=== PATIENT | female | born 1940 | race Caucasian/White ===

== ENCOUNTER 2024-04-17 08:27 | Outpatient (REF) | payer MEDICARE, SELFPAY ==
--- NOTE | ~2024-04-17 | FL_ITS ---
EXAMINATION: XR FLUOROSCOPY UPPER GI WITH AIR CLINICAL INFORMATION: Dysphagia COMPARISON: None TECHNIQUE: Fluoroscopic air contrast upper GI examination was performed utilizing standard techniques with thin and thick barium and effervescent granules. Numerous spot images were obtained. FINDINGS: Lateral cine images of the oropharynx and hypopharynx demonstrate normal swallow mechanism with normal epiglottic inversion and soft palate elevation. There is trace laryngeal penetration with thick barium. No tracheal penetration, glottic or subglottic aspiration identified. No nasopharyngeal reflux present. Hypopharyngeal structures appear normal without evidence of mass. There is a tiny lateral pharyngeal diverticulum (RF 1-5, image 12). There was no significant cricopharyngeal achalasia. Dual and single contrast images of the esophagus demonstrate normal caliber and contour. Subtle granular mucosal appearance to the distal one third of the esophagus. No evidence of stricture, mass, or ulcerations identified. Esophageal peristalsis is mildly disorganized. A small type I hiatal hernia is present. Significant gastroesophageal reflux is seen up to the thoracic inlet. Dual contrast and single contrast images of the stomach demonstrated a normal contour. Evaluation of the gastric mucosa is limited due to underdistention of stomach from poor tolerance of the effervescent granules. The gastric rugal folds have a thickened appearance, suggestive of gastritis, however, this may be also due to underdistention of the stomach. No obvious masses or ulcerations are seen. After 10 minutes, only a small amount barium passes from the gastric antrum and into duodenal bulb and second portion of the duodenum. FLUOROSCOPY TIME: 5 minutes 8 seconds Number of Spot Images: 7 Number of Cine: 18 DOSE AREA PRODUCT: 3609 uGy-m2 (microgray-meter squared) FL/FL barium swallow with air IMPRESSION: 1. Trace laryngeal penetration with thick barium. 2. Mildly disorganized esophageal peristalsis. Subtle granular appearance to the distal esophageal mucosa suggesting mild esophagitis. 3. Limited evaluation of the gastric mucosa due to underdistention of stomach from poor tolerance of the effervescent granules. The gastric rugal folds have a thickened appearance, suggestive of gastritis, however, this may be also due to underdistention of the stomach. 4. After 10 minutes, only a small amount of barium passes into the duodenal bulb and second portion of duodenum. This is most likely on the basis of gastric hypomotility. Recommend correlation with EGD. This procedure was performed by Lb Valdovinos PA-C, and supervised by Dr. Brambila Electronically signed by: Gus Brambila MD 04/18/2024 03:08 PM [facility]
--- OUTSIDE RECORDS SUMMARY | 2024-04-17 08:46 | XMS_ITS | Continuity of Care Document ---
[facility] Organization [facility] Address [address] [place] [id number] Insurance Providers Payer Plan Claims Address Claims Phone Policy Number Group Number Relation Employer Guarantor Name Guarantor Guarantor Address Guarantor Phone HNE SELF FUNDED HNE SELF FUNDE D [facility], [address], [place] [address] tel:[phone] Self Viry Crump [address] [place] [address] [id number] Problems Unknown Problems Results Test Value / Unit Interpretation Reference Ran Comp. Metabolic Panel (14)[[id number]]?Collected: 02/17/2024 10:39 PM?Specimen Received: 02/17/2024 05:00 AM?Source: [facility] Glucose [142848] 103 mg/dL H 70-99 mg/dL BUN [141001] 29 mg/dL H 8-27 mg/dL Creatinine [742567] 0.67 mg/dL 0.57-1.0 0 mg/dL eGFR [588186] 88 mL/min/1.73 >59 mL/min/1 .73 BUN/Creatinine Ratio [758346] 43 H 12-28 Sodium [469103] 142 mmol/L 134-144 mmol /L Potassium [545835] 4.4 mmol/L 3.5-5.2 m mol/L Chloride [654078] 105 mmol/L 96-106 mmo l/L Carbon Dioxide, Total [600475] 20 mmol/L 20-29 mmol/L Calcium [847496] 9.6 mg/dL 8.7-10.3 mg /dL Protein, Total [611457] 7.1 g/dL 6.0- 8.5 g/dL Albumin [760942] 4.4 g/dL 3.7-4.7 g/d L Globulin, Total [452894] 2.7 g/dL 1.5 -4.5 g/dL Bilirubin, Total [055820] 0.2 mg/dL 0. 0-1.2 mg/dL Alkaline Phosphatase [216403] 112 IU/L 44-121 IU/L AST (SGOT) [144068] 19 IU/L 0-40 IU/ L ALT (SGPT) [912761] 16 IU/L 0-32 IU/ L Lipid Panel[[id number]]?Collected: 02/17/2024 10:39 PM?Specimen Received: 02/17/2024 05:00 AM?Source: [facility] Cholesterol, Total [039761] 258 mg/dL H 100-199 mg/dL Triglycerides [363561] 128 mg/dL 0-149 mg/dL HDL Cholesterol [057910] 67 mg/dL >39 mg/dL VLDL Cholesterol Wing [928809] 23 mg/dL 5-40 mg/dL LDL Chol Calc (NIH) [124999] 168 mg/dL H 0-99 mg/dL Hemoglobin A1c[299480]?Collected: 02/17/2024 10:39 PM?Specimen Received: 02/17/2024 05:00 AM?Source: [facility] Hemoglobin A1c [797642] 6.0 % H 4.8- 5.6 % . Prediabetes: 5.7 - 6.4 Marielena betes: >6.4 Glycemic control for adults with diabetes: 7.0 Allergies, adverse reactions, alerts No known allergies and adverse reactions Medications No administered medications reported Vital Signs No vital signs reported Social History No smoking Hx information available
--- OUTSIDE RECORDS SUMMARY | 2024-04-17 08:46 | XMS_ITS | Continuity of Care Document ---
Author Organization [facility] Address [address] [place] [address]- Care Team Providers Care Engraver Jewelry Name Role Phone Oj MACEDO, Lana Victoria Primary Care Physician Encounter [facility] Date(s): 02/29/24 - 03/30/24 [facility] [address] [place], [place] [address] Encounter Type: Triage Allergies, Adverse Reactions, Alerts Substance Criticality Severity Reaction Reaction Severity Status methotrexate drowsy, light headedness Active ondansetron headache, dizziness, drowsiness, Active citalopram light headedness Ac tive Entocort EC drowsy, light headedness Active lamoTRIgine drowsy, light headedness Active famotidine SOB, heavy cjhest A ctive predniSONE Unable to assess criticality Unknown pounding heartrate Active topiramate Active Lamictal drowsy, light headedness Active Carafate Edema Lowe abdo men, legs, feet edema Active Bactrim hives Active Celebrex nase [D]Nausea Active Mobic swelling ankles , heaviness in chest Active Immunizations Given and Recorded Vaccine Date Status Refusal Reason RSV vaccine preF3, recombinant 02/02/24 Recorded SARS-CoV-2(COVID-19)mRNA-LNP vac(mpi424) 02/02/24 Recorded SARS-CoV-2(COVID-19)mRNA-LNP vac(ttx724) 12/25/22 Recorded influenza virus vaccine, inactivated 12/01/22 Omid rded influenza virus vaccine, inactivated 12/16/21 Omid rded influenza virus vaccine, inactivated 01/03/21 Omid rded influenza virus vaccine, inactivated 11/27/19 Omid rded influenza virus vaccine, inactivated 12/05/18 Omid rded influenza virus vaccine, inactivated 1 01/04/18 Gi leobardo influenza virus vaccine, inactivated 2 01/17/17 Re corded influenza virus vaccine, inactivated 12/02/16 Omid rded influenza virus vaccine, inactivated 3 01/05/16 Gi leobardo influenza virus vaccine, inactivated 12/19/15 Omid rded influenza virus vaccine, inactivated 4 01/21/15 Gi leobardo influenza virus vaccine, inactivated 01/07/15 Omid rded influenza virus vaccine, inactivated 12/31/13 Give n influenza virus vaccine, inactivated 01/30/13 Give n influenza virus vaccine, inactivated 01/10/13 Omid rded influenza virus vaccine, inactivated 12/17/11 Give n influenza virus vaccine, inactivated 12/11/10 Give n influenza virus vaccine, inactivated 01/20/10 Give n influenza virus vaccine, inactivated 5 01/08/09 Gi leobardo influenza virus vaccine, inactivated 01/25/08 Give n tetanus/diphtheria/pertussis, acel(Tdap) 07/31/22 Recorded [id number]-[id number] 12y+ bivalent booster vax 12/16/21 Recorded SARS-CoV-2 mRNA (qqkxebc-qtpe-bpzpw) vax 07/06/21 Recorded zoster vaccine, inactivated 03/26/21 Recorded zoster vaccine, inactivated 01/14/21 Recorded pneumococcal 13-valent vaccine 01/14/21 Recorded pneumococcal 13-valent vaccine 05/16/14 Given SARS-CoV-2 (COVID-19) mRNA BNT-162b2 vac 01/03/21 Recorded SARS-CoV-2 (COVID-19) mRNA BNT-162b2 vac 06/03/20 Given SARS-CoV-2 (COVID-19) mRNA BNT-162b2 vac 05/13/20 Given pneumococcal 23-valent vaccine 11/16/12 Given pneumococcal 23-valent vaccine 01/25/08 Recorded Hepatitis A Adult Vaccine 09/05/12 Given tetanus-diphtheria toxoids (Td) 6 06/10/09 Given Zoster Vaccine Live 05/29/08 Given Pneumococcal Poly (PPV23) (oldterm) 01/25/08 Given 1Admin Note: [facility]Location History: Pt stated 3Result Comment: [facility]04/2016[facility] 4Result Comment: [05/29/2015] [facility] 5Admin Note: VIS11/12/08 6Admin Note: vis 02/20/08 Medications amLODIPine 10 mg oral tablet 10 mg, 1, tablet, By Mouth, Daily, # 90 tablet, Refills 3, Tot. Refills 3, Maintenance, 03/09/24 7:53:00 AM EST, Route to Pharmacy Electronically, [facility], Partial fill upon patient request if the prescription is for a schedule II opioid drug., 163, cm, 02/24/24 13:53:00 EST, Height, 92,kg, 01/03/24 13:24:00 EDT, Dry Weight Start Date: 03/09/24 Status: Ordered Quantity: 90.0 Unit: tablet Repeat number: 4 buPROPion 100 mg oral tablet 1 tablet = 100 mg, By Mouth, 2 times a day, # 180 tablet, 5 Refills, Maintenance, 02/14/24 8:29:00 AM EST, Tablet, [facility]/pharmacy #[id number], Partial fill upon patient request if the prescription is for a schedule II opioid drug., 163, cm, 02/08/24 13:01:00 EST, Height, 92, kg, 01/03/24 13:24:00 EDT, Dry Weight Start Date: 02/14/24 Status: Ordered Quantity: 180.0 Unit: tablet Repeat number: 6 Calcium 600 +D oral tablet 1 tablet, By Mouth, 2 times a day, 0 Refills, Maintenance, 06/13/14 10:39:05 AM EDT Start Date: 06/13/14 Status: Ordered Repeat number: 1 cycloSPORINE 0.1% ophthalmic solution 1 drops, Eyes, Both, 2 times a day, # 1 each, 6 Refills, Maintenance, 02/14/24 8:29:00 AM EST, [id number], Partial fill upon patient request if the prescription is for a schedule II opioid drug., 1 drops Eyes, Both 2 times a day, 163, cm, 02/08/24 13:01:00 EST, Height, 92, kg, 01/03/24 13:24:00 EDT, Dry Weight Start Date: 02/14/24 Status: Ordered Quantity: 1.0 Unit: each Repeat number: 7 dicyclomine 10 mg oral capsule 2 capsule = 20 mg, By Mouth, 3 times a day, PRN Pain , Moderate, # 21 capsule, 0 Refills, Maintenance, 09/07/23 11:45:00 AM EDT, [facility]/pharmacy #[id number], Partial fill upon patient request if the prescription is for a schedule II opioid drug., 163, cm, 09/07/23 11:11:00 EDT, Height, 89.8, kg, 09/07/23 11:05:00 EDT, Dry Weight Start Date: 09/07/23 Stop Date: 09/14/23 Status: Ordered Quantity: 21.0 Unit: capsule Repeat number: 1 levothyroxine 0.025 mg oral tablet 1 tablet, By Mouth, Daily, # 90 tablet, 3 Refills, Maintenance, 09/08/23 3:39:00 PM EDT, [facility], 163, cm, 09/07/23 11:11:00 EDT, Height, 89.8, kg, 09/07/23 11:05:00 EDT, Dry Weight Start Date: 09/08/23 Status: Ordered Quantity: 90.0 Unit: tablet Repeat number: 4 loratadine 10 mg oral tablet 10 mg, 1, tablet, By Mouth, Daily, # 90 tablet, Refills 0, Tot. Refills 0, Maintenance, 02/08/24 1:13:00 PM EST, Route to Pharmacy Electronically, [facility]/pharmacy #[id number], Partial fill upon patient requestif the prescription is for a schedule II opioid drug., 163, cm, 02/08/24 13:01:00 EST, Height, 92, kg, 01/03/24 13:24:00 EDT, Dry Weight Start Date: 02/08/24 Status: Ordered Quantity: 90.0 Unit: tablet Repeat number: 1 Indication: Postnasal drip omeprazole 40 mg oral enteric coated capsule 1 capsule, By Mouth, 2 times a day, # 180 capsule, 3 Refills, Maintenance, 09/03/23 10:10:00 AM EDT, [facility]/pharmacy #[id number], 163, cm, 06/28/23 9:41:00 EDT, Height, 86, kg, 10/18/22 15:15:00 EDT, Dry Weight Start Date: 09/03/23 Status: Ordered Quantity: 180.0 Unit: capsule Repeat number: 4 Indication: Gastro-esophageal reflux disease without esophagitis Vagifem 10 mcg vaginal tablet See Instructions, One tablet intravaginally twice a week., # 24 tablet, 11 Refills, Maintenance, 01/12/24 11:07:00 AM EDT, [facility], Partial fill upon patient request if the prescription is for a schedule II opioid drug., 163, cm, 01/03/24 13:24:00 EDT, Height, 92, kg, 01/03/24 13:24:00 EDT, Dry Weight Start Date: 01/12/24 Status: Ordered Quantity: 24.0 Unit: tablet Repeat number: 12 Indication: Postmenopausal atrophic vaginitis Problem List Condition Confirmation Course Effective Dates Status H ealth Status Informant Vaginal atrophy Confirmed Active Chronic cough Confirmed Active Collagenous colitis Confirmed 2004 Active Degeneration of cervical intervertebral disc Confirmed Active 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 Ex-cigarette smoker Confirmed Active Fibromyalgia Confirmed 1997 Active Tremor of both hands Confirmed Active Gastro-Esophageal Reflux Disease Without Esophagitis Confirmed Active Generalized anxiety disorder Confirmed Active Hypertension Confirmed Active Hypothyroidism Confirmed 1994 Active Lumbago without sciatica Confirmed Active Migraine Confirmed 1964 Active Mixed hyperlipidemia Confirmed Active Morbid obesity due to excess calories Confirmed Active Nephrolithiasis Confirmed 2001 Active Medicare annual wellness visit, subsequent Confirmed Active Pharyngitis Confirmed Active Postnasal drip Confirmed Active Prediabetes Confirmed Active Major depressive disorder, recurrent, moderate Confirmed Active Severe obesity (BMI 35.0-39.9) with comorbidity Confirmed Active Sinusitis Confirmed Active Vitamin D deficiency Confirmed Active 1Biopsy of oral lesion showing focally parakeratotic squamous mucosa with dense subepithelial band of chronic inflammatory cells consistent with lichenoid mucositis (lichen planus in the appropriate clinical setting) Social History Social History Type Response Smoking Status Former smoker; Other : quit 1979 x30y; entered on: 01/27/16 Sex Sex Representation Female (finding) Patient Care team information Care Team Personnel Name: Vini Dawkins NP Position: [facility] PCO Associate Professional Member Role: Lifetime Consulting Provider Address: [address] [place] [phone]- [place] Telecom: Name: Lana Mcwilliams MD, V Position: [facility] Physician - Primary Care Member Role: PCP Address: [address] [place] [address]- Telecom: Name: Bj JEFFERSON, Talia Position: S RN Member Role: Primary Care Nurse Care Team Related Persons Name: DIOMEDES BASILIO Name: ANDREW MADDEN Insurance Providers Guarantor name: DANTE MADDEN [facility] Information #: 1 Payer: [facility] [employer]VANT[facility] REPLC Member Number: NA Policy Number: NA Group Number: NA
--- OUTSIDE RECORDS SUMMARY | 2024-04-17 08:46 | XMS_ITS | Continuity of Care Document ---
Author Organization [facility] Address [address] [place] [address]- Care Team Providers Care Manager Transfer Name Role Phone Oj MACEDO, Lana Victoria Primary Care Physician Encounter [facility] Date(s): 02/20/24 - 03/21/24 [facility] [address] [place], [place] [address] Encounter Type: Triage Allergies, Adverse Reactions, Alerts Substance Criticality Severity Reaction Reaction Severity Status methotrexate drowsy, light headedness Active lamoTRIgine drowsy, light headedness Active famotidine SOB, heavy cjhest A ctive predniSONE Unable to assess criticality Unknown pounding heartrate Active ondansetron headache, dizziness, drowsiness, Active topiramate Active citalopram light headedness Ac tive Entocort EC drowsy, light headedness Active Lamictal drowsy, light headedness Active Carafate Edema Lowe abdo men, legs, feet edema Active Bactrim hives Active Celebrex nase [D]Nausea Active Mobic swelling ankles , heaviness in chest Active Immunizations Given and Recorded Vaccine Date Status Refusal Reason RSV vaccine preF3, recombinant 02/02/24 Recorded SARS-CoV-2(COVID-19)mRNA-LNP vac(nst661) 02/02/24 Recorded SARS-CoV-2(COVID-19)mRNA-LNP vac(fkq460) 12/25/22 Recorded influenza virus vaccine, inactivated 12/01/22 [...] 01/25/08 Give n tetanus/diphtheria/pertussis, acel(Tdap) 07/31/22 Recorded [id number]-HiS-1jFZS 12y+ bivalent booster vax 12/16/21 Recorded SARS-CoV-2 mRNA (qgcbtfz-gmzw-hthvj) vax 07/06/21 Recorded zoster vaccine, inactivated 03/26/21 [...] [facility] 4[facility] Comment[facility] [05/29/2015] [facility] 5Admin Note: VIS11/12/08 6Admin Note: vis 02/20/08 [...] Refills, Maintenance, 02/14/24 8:29:00 AM EST, Tablet, [facility]/pharmacy #[id number], Partial fill upon patient [...] 0 Refills, Maintenance, 09/07/23 11:45:00 AM EDT, [facility]/pharmacy #[id number], Partial fill upon patient [...] 1:13:00 PM EST, Route to Pharmacy Electronically, [facility]/pharmacy #[id number], Partial fill upon patient [...] 3 Refills, Maintenance, 09/03/23 10:10:00 AM EDT, [facility]/pharmacy #[id number], 163, cm, 06/28/23 9:41:00 [...] Team Personnel Name: Vini Dawkins NP Position: [facility] PCO Associate Professional Member Role: Lifetime Consulting Provider Address: [address] [place] [address]- Telecom: Name: Lana Mcwilliams MD, V Position: [facility] Physician - Primary Care Member Role: PCP Address: [address] [place] [address]- [place] Telecom: Name: Bj JEFFERSON, Talia Position: S RN Member Role: Primary Care Nurse Care Team Related Persons Name: DIOMEDES BASILIO Name: ANDREW MADDEN Insurance Providers Guarantor name: DANTE MADDEN [facility] Information #: 1 Payer: [facility] [employer] RE[employer] Member Number: NA Policy Number: NA Group Number: NA
--- OUTSIDE RECORDS SUMMARY | 2024-04-17 08:47 | XMS_ITS | Continuity of Care Document ---
Author Organization [facility] Address [address] [place] [address]- Care Team Providers Care Applications Trainer Name Role Phone Oj MACEDO, Lana Victoria Primary Care Physician Encounter [facility] Date(s): 03/08/24 - 04/07/24 [facility] [address] [place], [place] [address] Encounter Type: Triage Allergies, Adverse Reactions, Alerts Substance Criticality Severity Reaction Reaction Severity Status methotrexate drowsy, light headedness Active famotidine SOB, heavy cjhest A ctive Celebrex nase [D]Nausea Active lamoTRIgine drowsy, light headedness Active predniSONE Unable to assess criticality Unknown pounding heartrate Active ondansetron headache, dizziness, drowsiness, Active topiramate Active citalopram light headedness Ac tive Entocort EC drowsy, light headedness Active Lamictal drowsy, light headedness Active Carafate Edema Lowe abdo men, legs, feet edema Active Bactrim hives Active Mobic swelling ankles , heaviness in chest Active Immunizations Given and Recorded Vaccine Date Status Refusal Reason RSV vaccine preF3, recombinant 02/02/24 Recorded SARS-CoV-2(COVID-19)mRNA-LNP vac(zha094) 02/02/24 Recorded SARS-CoV-2(COVID-19)mRNA-LNP vac(asd419) 12/25/22 Recorded influenza virus vaccine, inactivated 12/01/22 [...] 01/25/08 Give n tetanus/diphtheria/pertussis, acel(Tdap) 07/31/22 Recorded [id number]-JiS-[id number] 12y+ bivalent booster vax 12/16/21 Recorded SARS-CoV-2 mRNA (fahmzaq-thiq-pjnul) vax 07/06/21 Recorded zoster vaccine, inactivated 03/26/21 [...] [[facility]/2016[facility] Comment: [05/29/2015] [facility] 5Admin Note: VIS11/12/08 6Admin Note: vis 02/20/08 [...] Refills, Maintenance, 02/14/24 8:29:00 AM EST, Tablet, [facility]/pharmacy #[id number], Partial fill upon patient request if [...] 0 Refills, Maintenance, 09/07/23 11:45:00 AM EDT, [facility]/pharmacy #[id number], Partial fill upon patient request if [...] 1:13:00 PM EST, Route to Pharmacy Electronically, [facility]/pharmacy #[id number], Partial fill upon patient requestif the [...] 3 Refills, Maintenance, 09/03/23 10:10:00 AM EDT, [facility]/pharmacy #[id number], 163, cm, 06/28/23 9:41:00 EDT, Height, [...] Team Personnel Name: Vini Dawkins NP Position: [facility] PCO Associate Professional Member Role: Lifetime Consulting Provider Address: [address] [place] [address]- [place] Telecom: Name: Lana Mcwilliams MD, V Position: [facility] Physician - Primary Care Member Role: PCP Address: [address] [place] [address]- Telecom: Name: Bj JEFFERSON, Talia Position: S RN Member Role: Primary Care Nurse Care Team Related Persons Name: DIOMEDES BASILIO Name: ANDREW MADDEN Insurance Providers Guarantor name: DANTE MADDEN [facility] Information #: 1 Payer: [facility] [employer]ANT[employer] REPLC Member Number: NA Policy Number: NA Group Number: NA
--- OUTSIDE RECORDS SUMMARY | 2024-04-17 08:47 | XMS_ITS | Continuity of Care Document ---
Author Organization [facility] Address [address] [place] [address]- Care Team Providers Care Machine Set Up Operator Name Role Phone Oj MACEDO, Lana Victoria Primary Care Physician Encounter [facility] Date(s): 02/17/24 - 03/18/24 [facility] [address] [place], [place] [address] Encounter Type: Triage Allergies, Adverse Reactions, Alerts Substance Criticality Severity Reaction Reaction Severity Status methotrexate drowsy, light headedness Active famotidine SOB, heavy cjhest A ctive predniSONE Unable to assess criticality Unknown pounding heartrate Active topiramate Active citalopram light headedness Ac tive Celebrex nase [D]Nausea Active Entocort EC drowsy, light headedness Active lamoTRIgine drowsy, light headedness Active ondansetron headache, dizziness, drowsiness, Active Lamictal drowsy, light headedness Active Carafate Edema Lowe abdo men, legs, feet edema Active Bactrim hives Active Mobic swelling ankles , heaviness in chest Active Immunizations Given and Recorded Vaccine Date Status Refusal Reason RSV vaccine preF3, recombinant 02/02/24 Recorded SARS-CoV-2(COVID-19)mRNA-LNP vac(qfq026) 02/02/24 Recorded SARS-CoV-2(COVID-19)mRNA-LNP vac(fme923) 12/25/22 Recorded influenza virus vaccine, inactivated 12/01/22 [...] 01/25/08 Give n tetanus/diphtheria/pertussis, acel(Tdap) 07/31/22 Recorded [id number]-CpX-0uJWJ 12y+ bivalent booster vax 12/16/21 Recorded SARS-CoV-2 mRNA (pxaclqg-gmfd-ssomh) vax 07/06/21 Recorded zoster vaccine, inactivated 03/26/21 [...] [06/04/2016] [facility] 4[facility] Comment: [05/29/2015] [facility] 5Admin Note: VIS11/12/08 6Admin Note: vis [...] Refills, Maintenance, 02/14/24 8:29:00 AM EST, Tablet, [facility]/pharmacy #[id number], Partial fill upon patient request if [...] 0 Refills, Maintenance, 09/07/23 11:45:00 AM EDT, [facility]/pharmacy #[id number], Partial fill upon patient request if [...] 1:13:00 PM EST, Route to Pharmacy Electronically, [facility]/pharmacy #[id number], Partial fill upon patient requestif the [...] 3 Refills, Maintenance, 09/03/23 10:10:00 AM EDT, [facility]/pharmacy #[id number], 163, cm, 06/28/23 9:41:00 EDT, Height, [...] Team Personnel Name: Vini Dawkins NP Position: [facility] PCO Associate Professional Member Role: Lifetime Consulting Provider Address: [address] [place] [address]- Telecom: Name: Lana Mcwilliams MD, V Position: [facility] Physician - Primary Care Member Role: PCP Address: [address] [place] [address]- [place] Telecom: Name: Bj JEFFERSON, Talia Position: S RN Member Role: Primary Care Nurse Care Team Related Persons Name: DIOMEDES BASILIO Name: ANDREW MADDEN Insurance Providers Guarantor name: DANTE MADDEN [facility] Information #: 1 Payer: [facility] ADVANTAGE REPLC Member Number: NA Policy Number: NA Group Number: NA
--- OUTSIDE RECORDS SUMMARY | 2024-04-17 08:47 | XMS_ITS | Continuity of Care Document ---
Author Organization [facility] Address [address] [place] [address]- Care Team Providers Care Spring Assembler Supervisor Name Role Phone Oj MACEDO, Lana Victoria Primary Care Physician [phone] Encounter [facility] Date(s): 03/16/24 - 04/15/24 [facility] [address] [place], [place] [address] Encounter Type: Triage Allergies, Adverse Reactions, Alerts Substance Criticality Severity Reaction Reaction Severity Status methotrexate drowsy, light headedness Active Celebrex nase [D]Nausea Active lamoTRIgine drowsy, light headedness Active famotidine [...] RSV vaccine preF3, recombinant 02/02/24 Recorded SARS-CoV-2(COVID-19)mRNA-LNP vac(ido132) 02/02/24 Recorded SARS-CoV-2(COVID-19)mRNA-LNP vac(tof471) 12/25/22 Recorded influenza virus vaccine, inactivated 12/01/22 [...] 01/25/08 Give n tetanus/diphtheria/pertussis, acel(Tdap) 07/31/22 Recorded IIHE-MdT-3vEVM 12y+ bivalent booster vax 12/16/21 Recorded SARS-CoV-2 mRNA (tbuftfw-cffr-onome) vax 07/06/21 Recorded zoster vaccine, inactivated 03/26/21 [...] [06/04/2016] [facility] 4[facility] Comment: [05/29/2015] [facility] 5Admin Note: VIS11/12/08 6Admin Note: vis [...] Refills, Maintenance, 02/14/24 8:29:00 AM EST, Tablet, [facility]/pharmacy #[id number], Partial fill upon patient request [...] 0 Refills, Maintenance, 09/07/23 11:45:00 AM EDT, [facility]/pharmacy #[id number], Partial fill upon patient request [...] 1:13:00 PM EST, Route to Pharmacy Electronically, [facility]/pharmacy #[id number], Partial fill upon patient requestif [...] 3 Refills, Maintenance, 09/03/23 10:10:00 AM EDT, [facility]/pharmacy #[id number], 163, cm, 06/28/23 9:41:00 EDT, [...] Team Personnel Name: Vini Dawkins NP Position: [facility] PCO Associate Professional Member Role: Lifetime Consulting Provider Address: [address] [place] [phone]- Telecom: Name: Lana Mcwilliams MD, V Position: [facility] Physician - Primary Care Member Role: PCP Address: [address] [place] [address]- [employer] Telecom: Name: Talia Lorenzo RN Position: S RN Member Role: Primary Care Nurse Care Team Related Persons Name: DIOMEDES BASILIO Name: ANDREW MADDEN Insurance Providers Guarantor name: DANTE MADDEN [facility] Information #: 1 Payer: [facility] ADVANTAGE REPLC Member Number: NA Policy Number: NA Group Number: NA
--- OUTSIDE RECORDS SUMMARY | 2024-04-17 08:47 | XMS_ITS | Continuity of Care Document ---
Author Organization [facility] Address [address] [place] [address]- Care Team Providers Care Script Girl Name Role Phone Oj MACEDO, Lana Victoria Primary Care Physician Encounter [facility] Date(s): 02/17/24 - 03/18/24 [facility] [address] [place], [place] [address] Encounter Type: Triage Allergies, Adverse Reactions, Alerts Substance Criticality Severity Reaction Reaction Severity Status methotrexate drowsy, light headedness Active famotidine SOB, heavy cjhest A ctive predniSONE Unable to assess criticality Unknown pounding heartrate Active ondansetron headache, dizziness, drowsiness, Active topiramate Active citalopram light headedness Ac tive Lamictal drowsy, light headedness Active Carafate Edema Lowe abdo men, legs, feet edema Active Bactrim hives Active Celebrex nase [D]Nausea Active Mobic swelling ankles , heaviness in chest Active Entocort EC drowsy, light headedness Active lamoTRIgine drowsy, light headedness Active Immunizations Given and Recorded Vaccine Date Status Refusal Reason RSV vaccine preF3, recombinant 02/02/24 Recorded SARS-CoV-2(COVID-19)mRNA-LNP vac(bqj727) 02/02/24 Recorded SARS-CoV-2(COVID-19)mRNA-LNP vac(prz503) 12/25/22 Recorded influenza virus vaccine, inactivated 12/01/22 [...] 01/25/08 Give n tetanus/diphtheria/pertussis, acel(Tdap) 07/31/22 Recorded WAFM-JjN-1xNPA 12y+ bivalent booster vax 12/16/21 Recorded SARS-CoV-2 mRNA (mwxkrfo-bnhy-hrltp) vax 07/06/21 Recorded zoster vaccine, inactivated 03/26/21 [...] [06/04/2016] [facility] 4Result Comment: [05/29/2015] [facility] 5Admin Note: VIS11/12/08 6Admin Note: vis [...] Refills, Maintenance, 02/14/24 8:29:00 AM EST, Tablet, [facility]/pharmacy #[id number], Partial fill upon patient request if [...] 0 Refills, Maintenance, 09/07/23 11:45:00 AM EDT, [facility]/pharmacy #[id number], Partial fill upon patient request if [...] 1:13:00 PM EST, Route to Pharmacy Electronically, [facility]/pharmacy #[id number], Partial fill upon patient requestif the [...] 3 Refills, Maintenance, 09/03/23 10:10:00 AM EDT, [facility]/pharmacy #[id number], 163, cm, 06/28/23 9:41:00 EDT, Height, [...] Team Personnel Name: Vini Dawkins NP Position: [facility] PCO Associate Professional Member Role: Lifetime Consulting Provider Address: [address] [place] [address]- Telecom: Name: Lana Mcwilliams MD, V Position: [facility] Physician - Primary Care Member Role: PCP Address: [address] [place] [address]- [place] Telecom: Name: Bj JEFFERSON, Talia Position: S RN Member Role: Primary Care Nurse Care Team Related Persons Name: DIOMEDES BASILIO Name: ANDREW MADDEN Insurance Providers Guarantor name: DANTE MADDEN [facility] Information #: 1 Payer: [facility] ADVANTAGE REPLC Member Number: NA Policy Number: NA Group Number: NA
--- OUTSIDE RECORDS SUMMARY | 2024-04-17 08:47 | XMS_ITS | Continuity of Care Document ---
Author Organization [facility] Address [address] [place] [address]- Care Team Providers Care Relay Motorman Name Role Phone Oj MACEDO, Lana Victoria Primary Care Physician Encounter [facility] Date(s): 02/17/24 - 03/18/24 [facility] [address] [place], [place] [address] Encounter Type: Triage Allergies, Adverse [...] RSV vaccine preF3, recombinant 02/02/24 Recorded SARS-CoV-2(COVID-19)mRNA-LNP vac(ehg609) 02/02/24 Recorded SARS-CoV-2(COVID-19)mRNA-LNP vac(leq238) 12/25/22 Recorded influenza virus vaccine, inactivated 12/01/22 [...] 01/25/08 Give n tetanus/diphtheria/pertussis, acel(Tdap) 07/31/22 Recorded BJGV-KvN-1mUAO 12y+ bivalent booster vax 12/16/21 Recorded SARS-CoV-2 mRNA (aitqmcq-tliz-cjpvr) vax 07/06/21 Recorded zoster vaccine, inactivated 03/26/21 [...] [06/04/2016] [facility] 4Result Comment: [05/29/2015] [facility] 5Admin Note: VIS11/12/08 6Admin Note: vis 02/20/08 [...] Refills, Maintenance, 02/14/24 8:29:00 AM EST, Tablet, [facility]/pharmacy #[id number], Partial fill upon patient request [...] 0 Refills, Maintenance, 09/07/23 11:45:00 AM EDT, [facility]/pharmacy #[id number], Partial fill upon patient request [...] 1:13:00 PM EST, Route to Pharmacy Electronically, [facility]/pharmacy #[id number], Partial fill upon patient requestif [...] 3 Refills, Maintenance, 09/03/23 10:10:00 AM EDT, [facility]/pharmacy #[id number], 163, cm, 06/28/23 9:41:00 EDT, [...] Team Personnel Name: Vini Dawkins NP Position: [facility] PCO Associate Professional Member Role: Lifetime Consulting Provider Address: [address] [place] [address]- Telecom: Name: Lana Mcwilliams MD, V Position: [facility] Physician - Primary Care Member Role: PCP Address: [address] [place] [address]- [place] Telecom: Name: Bj JEFFERSON, Talia Position: S RN Member Role: Primary Care Nurse Care Team Related Persons Name: DIOMEDES BASILIO Name: ANDREW MADDEN Insurance Providers Guarantor name: DANTE MADDEN [facility] Information #: 1 Payer: [facility] ADVANTAGE REPLC Member Number: NA Policy Number: NA Group Number: NA
--- OUTSIDE RECORDS SUMMARY | 2024-04-17 08:47 | XMS_ITS | Continuity of Care Document ---
Author Organization [facility] Address [address] [place] [address]- Care Team Providers Care Computational Geneticist Name Role Phone Oj MACEDO, Lana Victoria Primary Care Physician Encounter [facility] Date(s): 02/22/24 - 03/23/24 [facility] [address] [place], [place] [address] Encounter Type: Triage Allergies, Adverse Reactions, Alerts Substance Criticality Severity Reaction Reaction Severity Status methotrexate drowsy, light headedness Active topiramate Active lamoTRIgine drowsy, light headedness Active famotidine SOB, heavy cjhest A ctive predniSONE Unable to assess criticality Unknown pounding heartrate Active ondansetron headache, dizziness, drowsiness, Active citalopram light headedness Ac tive Entocort EC drowsy, light headedness Active Lamictal drowsy, light headedness Active Carafate Edema Lowe abdo men, legs, feet edema Active Bactrim hives Active Celebrex nase [D]Nausea Active Mobic swelling ankles , heaviness in chest Active Immunizations Given and Recorded Vaccine Date Status Refusal Reason RSV vaccine preF3, recombinant 02/02/24 Recorded SARS-CoV-2(COVID-19)mRNA-LNP vac(cpm224) 02/02/24 Recorded SARS-CoV-2(COVID-19)mRNA-LNP vac(iat688) 12/25/22 Recorded influenza virus vaccine, inactivated 12/01/22 [...] 01/25/08 Give n tetanus/diphtheria/pertussis, acel(Tdap) 07/31/22 Recorded ZECE-XoG-9hVPT 12y+ bivalent booster vax 12/16/21 Recorded SARS-CoV-2 mRNA (pkdjcpb-intf-bmbqc) vax 07/06/21 Recorded zoster vaccine, inactivated 03/26/21 [...] [06/04/2016] [facility] 4Result Comment: [05/29/2015] [facility] 5Admin Note: VIS11/12/08 6Admin Note: vis [...] Refills, Maintenance, 02/14/24 8:29:00 AM EST, Tablet, [facility]/pharmacy #[id number], Partial fill upon patient request [...] 0 Refills, Maintenance, 09/07/23 11:45:00 AM EDT, [facility]/pharmacy #[id number], Partial fill upon patient request [...] 1:13:00 PM EST, Route to Pharmacy Electronically, [facility]/pharmacy #[id number], Partial fill upon patient requestif [...] 3 Refills, Maintenance, 09/03/23 10:10:00 AM EDT, [facility]/pharmacy #[id number], 163, cm, 06/28/23 9:41:00 EDT, [...] Team Personnel Name: Vini Dawkins NP Position: [facility] PCO Associate Professional Member Role: Lifetime Consulting Provider Address: [address] [place] [address]- Telecom: Name: Lana Mcwilliams MD, V Position: [facility] Physician - Primary Care Member Role: PCP Address: [address] [place] [address]- [place] Telecom: Name: Bj JEFFERSON, Talia Position: S RN Member Role: Primary Care Nurse Care Team Related Persons Name: DIOMEDES BASILIO Name: ANDREW MADDEN Insurance Providers Guarantor name: DANTE MADDEN [facility] Information #: 1 Payer: [facility] ADVANTAGE REPLC Member Number: NA Policy Number: NA Group Number: NA
== END 2024-04-17 08:28 | disposition home or self-care (01) ==
LOC: HO.XRAY 08:27
PROVIDERS: PCP Internal Medicine; Visit Provider Otolaryngology
DX: R13.10 Dysphagia, unspecified (principal)
CPT/HCPCS: 74221

== ENCOUNTER → 2024-04-17 08:30 | Outpatient (BNV) | payer MEDICARE, SELFPAY | PROVIDERS: PCP Internal Medicine; Visit Provider Physician Assistant Surgical | DX: R13.10 Dysphagia, unspecified (principal) | CPT/HCPCS: 74221 ==

== ENCOUNTER 2024-11-14 11:02 | Day surgery (SDC) | payer MEDICARE, SELFPAY ==
--- OUTSIDE RECORDS SUMMARY | 2024-11-10 23:59 | XMS_ITS | Continuity of Care Document ---
Author Organization [facility] ter Address [address] [place] [address]- Care Team Providers Care Custom Grinder Name Role Phone Oj MACEDO, Lana Victoria Primary Care Physician [phone] Encounter 11/09/24 - 11/10/[address] [place] [address] [address]- Attending Physician: Not on Staff, Attending MD Referring Physician: Not on Staff, Referring MD Encounter Type: [facility] Allergies, Adverse Reactions, Alerts Substance Criticality Severity [...] RSV vaccine preF3, recombinant 02/02/24 Recorded SARS-CoV-2(COVID-19)mRNA-LNP vac(ars052) 02/02/24 Recorded SARS-CoV-2(COVID-19)mRNA-LNP vac(xlb784) 12/25/22 Recorded influenza virus vaccine, inactivated 12/01/22 [...] 01/25/08 Give n tetanus/diphtheria/pertussis, acel(Tdap) 07/31/22 Recorded [id number]-KsE-5cEYR 12y+ bivalent booster vax 12/16/21 Recorded SARS-CoV-2 mRNA (dekhtlt-tztt-vnlsl) vax 07/06/21 Recorded zoster vaccine, inactivated 03/26/21 [...] [06/04/2016] [facility]: [facility]05[facility]29/2015[facility] 5Admin Note: VIS11/12/08 6Admin Note: [...] Quantity: 90.0 Unit: tablet Repeat number: 4 aspirin 81 mg oral capsule 1 capsule = 81 mg, By Mouth, Daily, do not exceed 48 capsules in 24 hours, # 30 capsule, 0 Refills,Maintenance, 02/06/24 2:05:00 PM EST, Capsule, Partial fill upon patient request if the prescriptionis for a schedule II opioid drug. Start Date: 02/06/24 Status: Ordered Quantity: 30.0 Unit: capsule Repeat number: 1 atorvastatin 10 mg oral tablet 1 tablet = 10 mg, By Mouth, Daily, # 30 tablet, 5 Refills, Maintenance, 09/07/24 8:45:00 AM EDT, [id number], Partial fill upon patient request if the prescription is for a schedule II opioid drug., 163, cm, 09/04/24 8:45:00 EDT, Height, 90, kg, 07/26/24 13:36:00 EDT, Dry Weight Start Date: 09/07/24 Status: Ordered Quantity: 30.0 Unit: tablet Repeat number: 6 buPROPion 100 mg oral tablet 1 tablet = 100 mg, By Mouth, 2 times a day, # 180 tablet, 5 Refills, Maintenance, 06/13/24 10:09:00 AM EDT, Tablet, [id number], Partial fill upon patient request if the prescription is for a schedule II opioid drug., 163, cm, 02/24/24 13:53:00 EST, Height, 92, kg, 01/03/24 13:24:00 EDT, Dry Weight Start Date: 06/13/24 Status: Ordered Quantity: 180.0 Unit: tablet Repeat number: 6 Calcium 600 +D oral tablet 1 tablet, By Mouth, 2 times a day, 0 Refills, Maintenance, 06/13/14 10:39:05 AM EDT Start Date: 06/13/14 Status: Ordered Repeat number: 1 cimetidine 300 mg oral tablet 1 tablet = 300 mg, By Mouth, Daily in AM, # 90 tablet, 3 Refills, Maintenance, 06/20/24 4:00:00 PM EDT, Tablet, [facility]/pharmacy #[id number], Partial fill upon patient request if the prescription is for a schedule II opioid drug. noted allergy to famotidine. has tolerated this med, 163, cm, 02/24/24 13:53:00 EST, Height, 92, kg, 01/03/24 13:24:00 EDT, Dry Weight Start Date: 06/20/24 Status: Ordered Quantity: 90.0 Unit: tablet Repeat number: 4 cycloSPORINE 0.1% ophthalmic solution 1 drops, Eyes, [...] 0 Refills, Maintenance, 09/07/23 11:45:00 AM EDT, [id number], Partial fill upon patient request if the prescription is for a schedule II opioid drug., 163, cm, 09/07/23 11:11:00 EDT, Height, 89.8, kg, 09/07/23 11:05:00 EDT, Dry Weight Start Date: 09/07/23 Stop Date: 09/14/23 Status: Ordered Quantity: 21.0 Unit: capsule Repeat number: 1 fluticasone 50 mcg/inh nasal spray See Instructions, USE 1 SPRAY IN EACH NOSTRIL TWICE A DAY, # 48 mL, 1 Refills, Maintenance, 258:27:00 AM EDT, [facility] STORE [id number], 90, USE 1 SPRAY IN EACH NOSTRIL TWICE A DAY, 163, cm, 10/12/24 16:21:00 EDT, Height, 90, kg, 07/26/24 13:36:00 EDT, Dry Weight Start Date: 10/29/24 Status: Ordered Quantity: 48.0 Unit: mL Repeat number: 1 levothyroxine 0.025 mg oral tablet 1 tablet, By Mouth, Daily, # 90 tablet, 1 Refills, Maintenance, 09/07/24 8:45:00 AM EDT, [facility]/pharmacy#[id number], 163, cm, 09/04/24 8:45:00 EDT, Height, 90, kg, 07/26/24 13:36:00 EDT, Dry Weight Start Date: 09/07/24 Status: Ordered Quantity: 90.0 Unit: tablet Repeat number: 2 MiraLax = 17 Gm, By Mouth, Daily, 0 Refills, Maintenance, 08/01/23 9:05:00 AM EDT, Partial fill upon patientrequest if the prescription is for a schedule II opioid drug. Start Date: 08/01/23 Status: Ordered Repeat number: 1 omeprazole 40 mg oral enteric coated capsule 1 capsule, By Mouth, 2 times a day, # 180 capsule, 1 Refills, Maintenance, 07/30/24 9:00:00 AM EDT, [facility], 163, cm, 07/26/24 13:36:00 EDT, Height, 90, kg, 07/26/24 13:36:00 EDT, Dry Weight Start Date: 07/30/24 Status: Ordered Quantity: 180.0 Unit: capsule Repeat number: 2 Vagifem 10 mcg vaginal tablet See Instructions, [...] Quantity: 24.0 Unit: tablet Repeat number: 12 Indications: Postmenopausal atrophic vaginitis; Xyzal 5 mg oral tablet 1 tablet = 5 mg, By Mouth, Daily before dinner, # 90 tablet, 3 Refills, Maintenance, 08/02/24 9:49:00AM EDT, Tablet, [facility]/pharmacy #[id number], Partial fill upon patient request if the prescription is for a schedule II opioid drug., 1 tablet By Mouth Daily before dinner, 163, cm, 08/02/24 9:27:00 EDT, Height, 90, kg, 07/26/24 13:36:00 EDT, Dry Weight Start Date: 08/02/24 Status: Ordered Quantity: 90.0 Unit: tablet Repeat number: 4 Indications: Allergic rhinitis, unspecified; Problem List Condition Confirmation Course Effective Dates [...] Hypertension Confirmed Active Hypothyroidism Confirmed 1994 Active Migraine Confirmed 1964 Active Mixed hyperlipidemia Confirmed Active Nephrolithiasis Confirmed 2001 Active Medicare annual wellness visit, subsequent Confirmed Active Prediabetes Confirmed Active Major depressive disorder, recurrent, moderate Confirmed Active Allergic rhinitis Confirmed Active Severe obesity (BMI 35.0-39.9) with comorbidity Confirmed Active Vitamin D deficiency Confirmed Active [...] Professional Member Role: Lifetime Consulting Provider Address: [address] [place] [address] [place], [place] [address] Telecom: Name: Lana Mcwilliams MD, V Position: [facility] Physician - Primary Care Member Role: PCP Address: [address] [place] [address]- [place] Telecom: Name: Jeanna JEFFERSON, Talia Rubio Position: S RN Member Role: Primary Care Nurse Care Team Related Persons Name: DIOMEDES BASILIO Name: ANDREW MADDEN Insurance Providers Guarantor name: DANTE MADDEN [facility] Information #: 1 Payer: [employer] MEDIC[employer] ADV HMO Payer Identifier: NA Member Number: [id number] Group Number: [id number] Subscriber Identifier: [id number] Relationship to Subscriber: self Coverage Type: Medicare HMO Coverage Verification Date: Telecom: NA Address: NA
--- OUTSIDE RECORDS SUMMARY | 2024-11-11 23:59 | XMS_ITS | Continuity of Care Document ---
Author Organization [facility] Address [address] [place] [address]- Care Team Providers Care Garment Supervisor Name Role Phone Oj MACEDO, Lana Victoria Primary Care [id number](s): 10/12/24 - 11/11/24 [facility] [address] [place], [place] [address] Attending Physician: Admtr, Ar8 Admitting Physician: Admtr, Ar8 Referring Physician: Admtr, Ar8 Encounter Type: Triage Allergies, Adverse Reactions, Alerts Substance Criticality Severity Reaction Reaction Severity Status methotrexate drowsy, light headedness Active predniSONE Unable to assess criticality Unknown pounding heartrate Active lamoTRIgine drowsy, light headedness Active famotidine SOB, heavy cjhest A ctive ondansetron headache, dizziness, drowsiness, Active topiramate Active citalopram light headedness Ac tive Entocort EC drowsy, light headedness Active Lamictal drowsy, light headedness Active Carafate Edema Lowe abdo men, legs, feet edema Active Bactrim hives Active Celebrex nase [D]Nausea Active Mobic swelling ankles , heaviness in chest Active Immunizations Given and Recorded Vaccine Date Status Refusal Reason RSV vaccine preF3, recombinant 02/02/24 Recorded SARS-CoV-2(COVID-19)mRNA-LNP vac(rue981) 02/02/24 Recorded SARS-CoV-2(COVID-19)mRNA-LNP vac(ove041) 12/25/22 Recorded influenza virus vaccine, inactivated 12/01/22 [...] 01/25/08 Give n tetanus/diphtheria/pertussis, acel(Tdap) 07/31/22 Recorded AUTC-EeH-2tPEH 12y+ bivalent booster vax 12/16/21 Recorded SARS-CoV-2 mRNA (jsybjuf-phfw-sgvqh) vax 07/06/21 Recorded zoster vaccine, inactivated 03/26/21 [...] [06/04/2016] [facility] 4[facility] Comment: [05/29/2015] [facility] 5Admin Note: VIS11/12/08 6Admin Note: vis [...] Refills, Maintenance, 06/20/24 4:00:00 PM EDT, Tablet, [id number], Partial fill upon [...] mL, 1 Refills, Maintenance, 258:27:00 AM EDT, [facility] STORE [id number], 90, USE 1 SPRAY IN EACH NOSTRIL TWICE A DAY, 163, cm, 10/12/24 16:21:00 EDT, Height, 90, kg, 07/26/24 13:36:00 EDT, Dry Weight Start Date: 10/29/24 Status: Ordered Quantity: 48.0 Unit: mL Repeat number: 1 levothyroxine 0.025 mg oral tablet 1 tablet, By Mouth, Daily, # 90 tablet, 1 Refills, Maintenance, 09/07/24 8:45:00 AM EDT, [facility]/pharmacy#[id number], 163, cm, 09/04/24 8:45:00 EDT, Height, 90, [...] a schedule II opioid drug., 163, cm, 10/01/24 13:24:00 EDT, Height, 92, kg, 01/03/24 13:24:00 EDT, Dry Weight Start Date: 01/12/24 Status: Ordered Quantity: 24.0 Unit: tablet Repeat number: 12 Indications: Postmenopausal atrophic vaginitis; Xyzal 5 mg oral tablet 1 tablet = 5 mg, By Mouth, Daily before dinner, # 90 tablet, 3 Refills, Maintenance, 08/02/24 9:49:00AM EDT, Tablet, [facility]/pharmacy #[id number], Partial fill upon patient request if the [...] Active Hypothyroidism Confirmed 1994 Active Migraine Confirmed 1965 Active Mixed hyperlipidemia Confirmed Active Nephrolithiasis Confirmed [...] on: 01/27/16 Sex Sex Representation Female (finding) Cardiology * Event Display: EKG Non BH Authored Date: Laboratory * Event Display: Non BH Lab Results Authored Date: * Event Display: Non BH Lab Results Authored Date: * Event Display: Non BH Lab Results Authored Date: MG Breast Views * Event Display: MM Mammogram Authored Date: * Event Display: MM Mammogram Authored Date: Radiology * Event Display: IR Special Procedures Authored Date: * Event Display: IR Special Procedures, Non-BH Authored Date: * Event Display: IR Special Procedures, Non-BH Authored Date: Patient Care team information Care Team Personnel Name: Mariza COMMERCIAL PEST CONTROL TECHNICIAN, Vini F Position: [facility] PCO Associate Professional Member Role: Lifetime Consulting Provider Address: [address] [place] [address]- [place] Telecom: Name: Lana Mcwilliams MD, V Position: [facility] Physician - Primary Care Member Role: PCP Address: [address] [place] [address]- Telecom: Name: Jeanna JEFFERSON, Talia Rubio Position: [facility] RN Member Role: Primary Care Nurse Care Team Related Persons Name: DIOMEDES BASILIO Name: ANDREW MADDEN Insurance Providers Guarantor name: DANTE MADDEN [facility] Information #: 1 Payer: [employer] MEDIC[employer] ADV HMO Payer Identifier: NEO Member Number: [id number] Group Number: [id number] Subscriber Identifier: [id number] Relationship to Subscriber: self Coverage Type: Medicare HMO Coverage Verification Date: Telecom: NA Address:
--- OUTSIDE RECORDS SUMMARY | 2024-11-12 10:21 | XMS_ITS | Continuity of Care Document ---
Author Organization [facility] Address [address] [facility] [address] [place] [id number] Insurance Providers Payer Plan Claims Address Claims Phone Policy Number Group Number Relation Employer Guarantor Name Guarantor Guarantor Address Guarantor Phone DANIELLE Vincent DANA MIRANDA [place] [employer] [address] [id number] tel:[phone] [id number] Self Viry Crump [address] [place] [id number] DANIELLE MIRANDA ND [facility], [address] [address] tel:[phone] Self Viry Crump [address] [place] [id number] Problems Unknown Problems Results Test Result Date/Time Value / Unit Interp. Refere [facility] Range fax.pdf Lipid Panel[[id number]] Collected: 07/20/2024 02:47 PM Specimen Received: 07/20/2024 05:00 AM Source: [facility] Cholesterol, Total [[id number]] 07/21/2024 07:31 AM 260 mg/dL H 100-199 mg/d L Triglycerides [[id number]] 07/21/2024 07:32 AM 107 mg/dL 0-149 mg/dL HDL Cholesterol [[id number]] 07/21/2024 07:28 AM 62 mg/dL >39 mg/dL VLDL Cholesterol Wing [[id number]] 07/21/2024 07:32 AM 19 mg/dL 5-40 mg/dL LDL Chol Calc ([facility]) [[id number]] 07/21/2024 07:32 AM 179 mg/dL H 0-99 mg/dL Hemoglobin A1c[[id number]] Collected: 07/20/2024 02:47 PM Specimen Received: 07/20/2024 05:00 AM Source: [facility] Hemoglobin A1c [[id number]] 07/21/2024 02:57 AM 6.1 % H 4.8-5.6 % . Prediabetes: 5.7 - 6.4 Marielena betes: >6.4 Glycemic control for adults with diabetes: 7.0 Comp. Metabolic Panel (14)[[id number]] Collected: 02/17/2024 10:39 PM Specimen Received: 02/17/2024 05:00 AM Source: [facility] Glucose [[id number]] 02/18/2024 09:34 AM 103 mg/dL H 70-99 mg/dL BUN [[id number]] 02/18/2024 09:34 AM 29 mg/dL H 8-2 7 mg/dL Creatinine [[id number]] 02/18/2024 09:35 AM 0.67 mg/dL 0.57-1.00 mg/dL eGFR [[id number]] 02/18/2024 09:35 AM 88 mL/min/1.73 >59 mL/min/1.73 BUN/Creatinine Ratio [[id number]] 02/18/2024 09:35 AM 43 H 12-28 Sodium [[id number]] 02/18/2024 09:26 AM 142 mmol/L 134-144 mmol/L Potassium [[id number]] 02/18/2024 09:29 AM 4.4 mmol/L 3.5-5.2 mmol/L Chloride [[id number]] 02/18/2024 09:25 AM 105 mmol/L 96-106 mmol/L Carbon Dioxide, Total [[id number]] 02/18/2024 09:31 AM 20 mmol/L 20-29 mmol/L Calcium [[id number]] 02/18/2024 09:32 AM 9.6 mg/dL 8.7-10.3 mg/dL Protein, Total [[id number]] 02/18/2024 09:34 AM 7.1 g/dL 6.0-8.5 g/dL Albumin [[id number]] 02/18/2024 09:31 AM 4.4 g/dL 3.7-4.7 g/dL Globulin, Total [[id number]] 02/18/2024 09:34 AM 2.7 g/dL 1.5-4.5 g/dL Bilirubin, Total [[id number]] 02/18/2024 09:31 AM 0.2 mg/dL 0.0-1.2 mg/dL Alkaline Phosphatase [[id number]] 02/18/2024 09:31 AM 112 IU/L 44-121 IU/L AST (SGOT) [[id number]] 02/18/2024 09:34 AM 19 IU/L 0-40 IU/L ALT (SGPT) [[id number]] 02/18/2024 09:34 AM 16 IU/L 0-32 IU/L Lipid Panel[[id number]] Collected: 02/17/2024 10:39 PM Specimen Received: 02/17/2024 05:00 AM Source: [facility] Cholesterol, Total [[id number]] 02/18/2024 09:41 AM 258 mg/dL H 100-199 mg/d L Triglycerides [[id number]] 02/18/2024 09:41 AM 128 mg/dL 0-149 mg/dL HDL Cholesterol [[id number]] 02/18/2024 09:39 AM 67 mg/dL >39 mg/dL VLDL Cholesterol Wing [[id number]] 02/18/2024 09:41 AM 23 mg/dL 5-40 mg/dL LDL Chol Calc ([facility]) [[id number]] 02/18/2024 09:41 AM 168 mg/dL H 0-99 mg/dL Hemoglobin A1c[[id number]] Collected: 02/17/2024 10:39 PM Specimen Received: 02/17/2024 05:00 AM Source: [facility] Hemoglobin A1c [[id number]] 02/18/2024 10:23 AM 6.0 % H 4.8-5.6 % . Prediabetes: 5.7 - 6.4 Marielena betes: >6.4 Glycemic control for adults with diabetes: 7.0 Allergies, adverse reactions, alerts No known allergies and adverse reactions Medications No administered medications reported Vital Signs No vital signs reported Social History No smoking Hx information available
--- OUTSIDE RECORDS SUMMARY | 2024-11-12 10:21 | XMS_ITS | Clinical Summary ---
Author Organization [facility] Address [address] [place] [address] Phone Care Team Providers Care Commercial Collections Driver Name Role Phone Physician, No Pcp Primary Care Provider Unavaila ble Allergies Active Allergy Reactions Criticality Noted Date Comments Sulfamethoxazole-Trimethoprim Hives 2024 Budesonide Chills 04/19/2024 Celecoxib Anaphylaxis High 04/19/2024 Citalopram Headache 04/19/2024 Famotidine Anaphylaxis High 04/19/2024 Meloxicam Angioedema High 04/19/2024 Prednisone Cardiac Issue 04/19/2024 Sucralfate Angioedema High 04/19/2024 Topiramate Sleep Issues 04/19/2024 Ondansetron Hcl Anxiety 04/19/2024 Medications dexAMETHasone (DECADRON) 4 mg tablet Take 1 tablet (4 mg total) by mouth 1 (one) time each day for 3 days. 3 each 04/19/2024 Active Surgical History Surgery Date Site/Laterality Comments TOTAL KNEE ARTHROPLASTY 12/20/2016 Right PROCEDURE: MT ARTHRP KNE CONDYLE&PLATU MEDIAL&LAT COMPARTMENTS TUBAL LIGATION PROCEDURE: HISTORICAL TUBAL LIGATION OTHER SURGICAL HISTORY PROCEDURE: PELVIC CONTROL PELVIC SLING HYSTERECTOMY 01/08/2009 PROCEDURE: HISTORICAL TOTAL HYSTERECTOMY WITH BSO SHOULDER SURGERY Left PROCEDURE: HISTORICAL SHOULDER SURGERY; COMMENT: arthroscopic decompression WRIST MASS EXCISION Right PROCEDURE: MT EXCISION GANGLION WRIST DORSAL/VOLAR PRIMARY; COMMENT: x3 COLONOSCOPY 08/01/2014 PROCEDURE: HISTORICAL COLONOSCOPY; COMMENT: & EGD; no report UPPER GASTROINTESTINAL ENDOSCOPY 10/11/2019 PROCEDURE: MT UPPER GI ENDOSCOPY PERFORMED; COMMENT: Dr. Hurley normal stomach and duodenum area biopsied at [facility] Medical History Medical History Date Comments Depression 12/22/2018 DX:Depression Nephrolithiasis 12/22/2018 DX:Nephrolithias is Fibromyalgia 12/22/2018 DX:Fibromyalgia DDD (degenerative disc disease), cervical 019 DX:DDD (degenerative disc disease), cervical Migraine 12/22/2018 DX:Migraine History of knee replacement, total, right 019 DX:History of knee replacement, total, right ALFA (obstructive sleep apnea) DX :ALFA (obstructive sleep apnea); COMMENT: history of abnormal sleep study not on cpap Collagenous colitis 12/22/2018 DX:Collageno us colitis History of CMV DX:History of CM V; COMMENT: admitted for 1 week inpatient stay Family History Medical History Relation Name Comments Hypertension Sister Other: obese Sister knee replacemen t Relation Name Status Comments Sister Social History Tobacco Use Types Packs/Day Years Used Date Smoking Tobacco: Former Cigarettes Q uit: 04/04/1979 Smokeless Tobacco: Never Alcohol Use Standard Drinks/Week Comments Yes 0 (1 standard drink = 0.6 oz pur e alcohol) Comments Unknown Sex and Gender Information Value Date Recorded Sex Assigned at Female 04/19/2024 5:46 PM EST Legal Sex Female 9:21 PM EST Gender Identity Female 04/19/2024 5:46 PM EST Sexual Orientation Straight 04/19/2024 5: 46 PM EST Obstetrics History Last Filed Vital Signs Vital Sign Reading Time Taken Comments Blood Pressure 136/60 07/04/2024 7:35 PM EDT Pulse 59 07/04/2024 7:35 PM EDT Temperature 36.5 C (97.7 F) 07/04/2024 7:35 PM EDT Respiratory Rate 16 07/04/2024 7:35 PM EDT Oxygen Saturation 98% 07/04/2024 7:35 PM EDT Inhaled Oxygen Concentration - - Weight 89.4 kg (197 lb) 07/04/2024 7:35 PM EDT Height 162.6 cm (5' 4 ) 07/04/2024 7:35 PM EDT Body Mass Index 33.81 07/04/2024 7:35 PM EDT Plan of Treatment Upcoming Encounters Date Type Department Care Team (Late st Contact Info) Description 07/16/2025 9:00 AM EDT Office Visit Bariatric Surgery - [address] [place] [id number] Montez Barker MD [address] [facility] [address] [place] [address] Health Maintenance Due Date Last Done Comments Cholesterol Screening (Lipid Panel) 03/06/2022 Falls Risk Assessment 03/06/2022 Medicare Annual Wellness Visit 03/06/2022 Osteoporosis Screening (Bone Density Screening) 03/06/2022 Social Influencers of Health Screening 03/06/2022 Depression Screening 04/04/2024 COVID-19 Vaccine ( season) 2024 02/02/2024, 12/25/2022, 12/16/2021, Additional history exists Influenza Vaccine (#1) 2024 , 12/16/2021, 01/03/2021, Additional history exists Hypertension/CHF/CAD Annual BMP Blood Test 04/19/2025 04/19/2024 DTaP,Tdap,and Td Vaccines (3 - Td or Tdap) 07/31/2032 07/31/2022, 06/10/2009 Hepatitis A Vaccines Aged Out 09/05/2012 No long er eligible based on patient's age to complete this topic Pneumococcal Vaccine: 50+ Years Completed 01/14/2021, 05/16/2014, 11/16/2012, Additional history exists Zoster Vaccines Completed 03/26/2021, 01/02, 05/29/2008 RSV Immunization Adult Patients Completed 02/02/2024 HIB Vaccines Aged Out No longer eligi ble based on patient's age to complete this topic HPV Vaccines Aged Out No longer eligi ble based on patient's age to complete this topic Hepatitis B Vaccines Aged Out No long er eligible based on patient's age to complete this topic IPV Vaccines Aged Out No longer eligi ble based on patient's age to complete this topic MMR Vaccines Aged Out No longer eligi ble based on patient's age to complete this topic Meningococcal ACWY Vaccine Aged Out N o longer eligible based on patient's age to complete this topic Meningococcal B Vaccine Aged Out No l onger eligible based on patient's age to complete this topic RSV Immunization Patients Under 20 months Aged Out No longer eligible based on patient's age to complete this topic Varicella Vaccines Aged Out No longer eligible based on patient's age to complete this topic Procedures Procedure Name Priority Date/Time Associated Diagnosis Comments COMPREHENSIVE METABOLIC PANEL STAT 04/19/2024 7:18 PM EST from Last 3 Months or Most Recently Relevant to Health Maintenance Results * (ABNORMAL) Comprehensive metabolic panel (04/19/2024 7:18 PM EST) Sodium 141 133 - 145 mmol/L LAB CHEMISTRY METHOD 04/19/2024 8:29 PM [facility] Potassium 3.8 3.5 - 5.5 mmol/L LAB CHEMISTRY METHOD 04/19/2024 8:29 PM [facility] Chloride 111(H) 96 - 110 mmol/L LAB CHEMISTRY METHOD 04/19/2024 8:29 PM [facility] CO2 27 21 - 32 mmol/L LAB CHEMISTRY METHOD 04/19/2024 8:29 PM [facility] Anion Gap 3 3 - 11 LAB CHEMISTRY METHOD 04/19/2024 8:29 PM [facility] Glucose 91 70 - 100 mg/dL LAB CHEMISTRY METHOD 04/19/2024 8:29 PM [facility] BUN 19 5 - 25 mg/dL LAB CHEMISTRY METHOD 04/19/2024 8:29 PM [facility] Creatinine 0.64 0.50 - 1.10 mg/dL LAB CHEMISTRY METHOD 04/19/2024 8:29 PM [facility] eGFR 89 >=60 mL/min/1. 73m2 LAB CHEMISTRY METHOD 04/19/2024 8:29 PM [facility] Comment:Calculation based on the Chronic Kidney Disease Epidemiology Collaboration (CKD-EPI) equation refit without adjustment for race. BUN/Creatinine Ratio 29.7 LAB CHEMISTRY METHOD 04/19/2024 8:29 PM [facility] Calcium 9.7 8.5 - 10.5 mg/dL LAB CHEMISTRY METHOD 04/19/2024 8:29 PM EST [facility] AST (SGOT) 14 10 - 42 unit/L LAB CHEMISTRY METHOD 04/19/2024 8:29 PM [facility] ALT (SGPT) 22 10 - 60 unit/L LAB CHEMISTRY METHOD 04/19/2024 8:29 PM [facility] Alkaline Phosphatase 80 42 - 121 unit/L LAB CHEMISTRY METHOD 04/19/2024 8:29 PM [facility] Total Protein 6.9 6.0 - 8.0 g/dL LAB CHEMISTRY METHOD 04/19/2024 8:29 PM [facility] Albumin 3.9 3.2 - 5.0 g/dL LAB CHEMISTRY METHOD 04/19/2024 8:29 PM [facility] Total Bilirubin 0.3 0.0 - 1.4 mg/dL LAB CHEMISTRY METHOD 04/19/2024 8:29 PM [facility] Blood Venous blood specimen / Unknown Venipuncture / Unknown 04/19/2024 7:18 PM EST 04/19/2024 7:47 PM EST [facility] BLOOD ORDERABLES Final Resul t [facility] [address] [place] [address], from Last 3 Months or Most Recently Relevant to Health Maintenance Insurance [employer] [employer] Care Teams Commercial Collections Driver Relationship Specialty Start Date End Date Physician, No Pcp PCP - General 07/04/24
--- OUTSIDE RECORDS SUMMARY | 2024-11-12 10:21 | XMS_ITS | Patient Health Record ---
Author Organization [facility] Address [address] [place] [id number] Care Team Providers Care Subassembly Supervisor Name Role Phone Lana KWOK Primary Care Provider Willem Gatica Unavailable [phone] Camelia MACEDO, Marcio Unavailable Unavailable Allergies Allergen (clinical drug ingredient) Drug/Non Drug Allergy documented on EMR Reaction Allergy Type Onset Date Status ondansetron Ondansetron Unknown Drug Allergy Act jace meloxicam Meloxicam Unknown Drug Allergy Active famotidine Famotidine Unknown Drug Allergy Activ e Entocort EC Unknown Drug Allergy Activ e sulfamethoxazole / trimethoprim Bactrim Unknown Drug Allergy Active topiramate Topiramate Unknown Drug Allergy Activ e sucralfate Sucralfate Unknown Drug Allergy Activ e lamotrigine lamoTRIgine Unknown Drug Allergy Act jace citalopram Citalopram Unknown Drug Allergy Activ e celecoxib Celecoxib Unknown Drug Allergy Active prednisone predniSONE Unknown Drug Allergy Activ e Reason For Referral No Information Medications Medication SIG (Take, Route, Frequency, Duration) Notes Start Date End Date Status Levothyroxine Sodium 25 MCG Oral for 90 Active Aspirin 81 81 MG 1 tablet Orally Once a day for 30 day(s) 05/02/2024 Active buPROPion HCl ER (SR) 100 MG Oral for 90 Active Probiotic - as directed Orally 05/02/2024 Active Omeprazole 40 MG Oral for 90 A ctive MiraLax 17 GM/SCOOP 1 scoop mixed with 8 ounces of fluid Orally Once a day for 30 day(s) 05/02/2024 Active Cimetidine 300 MG Oral for 25 Active Collagen 500 MG as directed Orally 05/02/2024 Active Loratadine 10 MG TAKE 1 TABLET BY BLAYNE EVERY DAY Oral for 90 Active cycloSPORINE 0.05 % Ophthalmic for 90 Active Yuvafem 10 MCG 1 tablet Vaginal Two times a Week for 30 day(s) 05/02/2024 Active Fluticasone Propionate 50 MCG/ACT 1 spray in each nostril Nasally Twice a day Active Refresh Cleanser - as directed Externally 05/02/19 Active Refresh Lacri-Lube - as directed Ophthalmic 2024 Active Levocetirizine Dihydrochloride 5 MG 1 tablet in the evening Orally Once a day Active Calcium 600 MG 1 tablet with meals Orally Twice a day for 30 day(s) 05/02/2024 Active amLODIPine Besylate 10 MG Oral for 90 Active Vitamin D-3 125 MCG (5000 UT) 1 tablet O rally Once a day for 30 day(s) 05/02/2024 Active Atorvastatin Calcium 10 MG 1 tablet Oral ly Once a day Active Multi Vitamin Daily - 1 tablet Orally On ce a day for 30 day(s) 05/02/2024 Active Immunizations Vaccine Route Administration Date Status Comme nts Influenza Unknown 12/27/2023 Administered Social History Tobacco Use: Social History Observation Description Date Details (start date - stop date) Never Smoker NA - NA Tobacco Use/Smoking Question Answer Notes Patient is a nonsmoker Alcohol Screen Question Answer Notes Did you have a drink containing alcohol in the p ast year? No Points 0 Interpretation Negative Section Notes: Nonsmoker, no sig alcohol Nonsmoker, no sig alcohol Problems Problem Type SNOMED Code ICD Code Onset Dates Problem Status W/U Status Risk Notes Problem Gastroesophageal reflux disease (222193211) GERD (gastroesopha geal reflux disease) (K21.9) Active confirmed Problem Globus sensation (234230235) Globus sensation (R09.89) Active confirmed Vital Signs Temperature 96.9 degrees Fahrenheit 08/29/2024 Blood pressure diastolic 01 mm Hg 08/29/2024 Height 5 ft 4 in in 08/29/2024 Blood pressure systolic 001 mm Hg 08/29/2024 Weight 208.8 lbs 08/29/2024 BMI 35.84 kg/m2 08/29/2024 Procedures Procedure Date Ordered Date Performed Result Body Sit e UPPER GI ENDOSCOPY 08/29/2024 N/A Encounters Encounter Location Date Provider Diagnosis [facility] [address] [place] [id number] 08/29/2024 Willem Pang Globus sensation R09.89 and GERD (gastroesophageal reflux disease) K21.9 [facility] [address] [place] [address] 05/02/2024 Willem Pang Globus sensation R09.89 and GERD (gastroesophageal reflux disease) K21.9 [facility] [address] [place] [address] 05/01/2024 Willem Pang [facility] [address] [place] [address] 08/15/2024 Willem Pang [facility] [address] [place] [address] 11/11/2024 Willem Pang Assessments Encounter Date Diagnosis (ICD Code) Assessment Notes Treatment Notes Treatment Clinical Notes Section Notes 08/29/2024 GERD (gastroesopha geal reflux disease) (ICD-10 - K21.9) Overall, Dante appears quite well. We did review her symptoms again and I again advised her that I doubt she has any upper GI pathology contributing to the symptoms such as significant acid reflux, significant esophagitis, or any other esophageal pathology. Nonetheless, she is quite interested in having upper endoscopy to definitively exclude any upper GI pathology. As such, this will be scheduled for her. Full consent has been obtained for this, including risks of bleeding and perforation. The procedure will be done with monitored anesthesia care. She was advised to stop aspirin a week before the procedure. In the meantime, I did advise her to decrease the omeprazole to just once a day since I do not think she needs the high-dose omeprazole twice a day based on her clinical history. We also reviewed the fact that things were much better in [place] and this points to either some type of environmental factor in her home or the air in the [facility]. The other possibility would be that of some stress. I did advise her to try to make an appointment with the food counselor such that they can review things with her and perhaps give their opinion as to any other etiology of her symptoms. I will plan to obtain some esophageal biopsies to rule out anything such as eosinophilic esophagitis that might be contributing to her upper GI symptomatology. I did advise her to contact me prior to the procedure if she has any problems or questions I can be of assistance with in the interim. Dante was comfortable with this plan. Thank you again for allowing me to participate in Dante's care. I shall continue to keep you advised of her progress. 08/29/2024 Globus sensation (ICD-10 - R09.89) Overall, Dante appears quite well. We did review her symptoms again and I again advised her that I doubt she has any upper GI pathology contributing to the symptoms such as significant acid reflux, significant esophagitis, or any other esophageal pathology. Nonetheless, she is quite interested in having upper endoscopy to definitively exclude any upper GI pathology. As such, this will be scheduled for her. Full consent has been obtained for this, including risks of bleeding and perforation. The procedure will be done with monitored anesthesia care. She was advised to stop aspirin a week before the procedure. In the meantime, I did advise her to decrease the omeprazole to just once a day since I do not think she needs the high-dose omeprazole twice a day based on her clinical history. We also reviewed the fact that things were much better in [place] and this points to either some type of environmental factor in her home or the air in the [facility]. The other possibility would be that of some stress. I did advise her to try to make an appointment with the food counselor such that they can review things with her and perhaps give their opinion as to any other etiology of her symptoms. I will plan to obtain some esophageal biopsies to rule out anything such as eosinophilic esophagitis that might be contributing to her upper GI symptomatology. I did advise her to contact me prior to the procedure if she has any problems or questions I can be of assistance with in the interim. Dante was comfortable with this plan. Thank you again for allowing me to participate in Dante's care. I shall continue to keep you advised of her progress. 05/02/2024 GERD (gastroesopha geal reflux disease) (ICD-10 - K21.9) Overall, Dante appears quite well and does not seem to be having any significant GI symptomatology in my opinion. In reviewing things carefully with her I do not feel her symptoms of the globus and increased oral secretions are in relation to any process such as acid reflux. I advised her that it seems as though her symptoms are in relation to something such as a pulmonary, sinus, or allergic source causing coughing and mucous production. She is not having any symptoms of dysphagia in relation to food or liquids. Given her use of high-dose PPI therapy, previously reported negative upper endoscopies, no significant upper GI complaints at this time, and a fairly unremarkable barium swallow, I advised her that I don't think she requires an upper endoscopy at this time. I advised her that I think the yield of finding something in the upper GI tract that would be contributing to her current symptoms is quite low. Given her ongoing symptomatology, I advised her that I think she should followup with you in regard to being reevaluated for any underlying pulmonary or sinus disease. If not already done, I advised her that she should have at least a chest x-ray, if not a CT scan of her chest. I also advised her to consider looking into treatment with some type of inhaler and medication to decrease her coughing, sputum production, and oral secretions. I advised her that she may want to look into a Pulmonary consultation as well. At this point I advised her that she otherwise seems quite well from a GI standpoint and does not need any particular intervention on my part. However, I have given her an appointment to see me in in several months for followup. She does advise me that she is leaving to [place] in the next week or 2 for a one-month vacation. I did advise her to try to touch base with you prior to leaving to see if any treatment or testing can get done that might help her feel better while in [place]. I did advise Dante to contact me prior to the next appointment if she develops any particular symptoms that seem related to a GI process and we can try to reevaluate things further from that standpoint at that time. Dante was comfortable with this plan. Thank you again for allowing me to participate in Dante's care. I shall continue to keep you advised of her progress. 05/02/2024 Globus sensation (ICD-10 - R09.89) Overall, Dante appears quite well and does not seem to be having any significant GI symptomatology in my opinion. In reviewing things carefully with her I do not feel her symptoms of the globus and increased oral secretions are in relation to any process such as acid reflux. I advised her that it seems as though her symptoms are in relation to something such as a pulmonary, sinus, or allergic source causing coughing and mucous production. She is not having any symptoms of dysphagia in relation to food or liquids. Given her use of high-dose PPI therapy, previously reported negative upper endoscopies, no significant upper GI complaints at this time, and a fairly unremarkable barium swallow, I advised her that I don't think she requires an upper endoscopy at this time. I advised her that I think the yield of finding something in the upper GI tract that would be contributing to her current symptoms is quite low. Given her ongoing symptomatology, I advised her that I think she should followup with you in regard to being reevaluated for any underlying pulmonary or sinus disease. If not already done, I advised her that she should have at least a chest x-ray, if not a CT scan of her chest. I also advised her to consider looking into treatment with some type of inhaler and medication to decrease her coughing, sputum production, and oral secretions. I advised her that she may want to look into a Pulmonary consultation as well. At this point I advised her that she otherwise seems quite well from a GI standpoint and does not need any particular intervention on my part. However, I have given her an appointment to see me in in several months for followup. She does advise me that she is leaving to [place] in the next week or 2 for a one-month vacation. I did advise her to try to touch base with you prior to leaving to see if any treatment or testing can get done that might help her feel better while in [place]. I did advise Dante to contact me prior to the next appointment if she develops any particular symptoms that seem related to a GI process and we can try to reevaluate things further from that standpoint at that time. Dante was comfortable with this plan. Thank you again for allowing me to participate in Dante's care. I shall continue to keep you advised of her progress. 05/02/2024 Other I believe your problem with the mucous and fullness in the throat area is not from a GI or reflux issue, but rather from a pulmonary/respir atory standpoint. I would recommend you see your PCP to ask about an inhaler and something like Zyrtec or Claritin to dry up the secretions. I don't think you need an upper endoscopy at this time. If not already done you should be sure to have had at least a chest x-ray, and then a CT scan of the chest if need be. I would recommend a consult with a Accounts Receivable Processor if this persists. Overall, Dante appears quite well and does not seem to be having any significant GI symptomatology in my opinion. In reviewing things carefully with her I do not feel her symptoms of the globus and increased oral secretions are in relation to any process such as acid reflux. I advised her that it seems as though her symptoms are in relation to something such as a pulmonary, sinus, or allergic source causing coughing and mucous production. She is not having any symptoms of dysphagia in relation to food or liquids. Given her use of high-dose PPI therapy, previously reported negative upper endoscopies, no significant upper GI complaints at this time, and a fairly unremarkable barium swallow, I advised her that I don't think she requires an upper endoscopy at this time. I advised her that I think the yield of finding something in the upper GI tract that would be contributing to her current symptoms is quite low. Given her ongoing symptomatology, I advised her that I think she should followup with you in regard to being reevaluated for any underlying pulmonary or sinus disease. If not already done, I advised her that she should have at least a chest x-ray, if not a CT scan of her chest. I also advised her to consider looking into treatment with some type of inhaler and medication to decrease her coughing, sputum production, and oral secretions. I advised her that she may want to look into a Pulmonary consultation as well. At this point I advised her that she otherwise seems quite well from a GI standpoint and does not need any particular intervention on my part. However, I have given her an appointment to see me in in several months for followup. She does advise me that she is leaving to [place] in the next week or 2 for a one-month vacation. I did advise her to try to touch base with you prior to leaving to see if any treatment or testing can get done that might help her feel better while in [place]. I did advise Dante to contact me prior to the next appointment if she develops any particular symptoms that seem related to a GI process and we can try to reevaluate things further from that standpoint at that time. Dante was comfortable with this plan. Thank you again for allowing me to participate in Dante's care. I shall continue to keep you advised of her progress. Plan Of Treatment Pending Test Test Name Order Date UPPER GI ENDOSCOPY 08/29/2024 Next Appt Details Provider Name:Willem Pang , 11/14/2024 12:30:00 PM, [address] , [place], [place], [phone], Insurance Providers Payer Name Payer Address Payer Phone Subscriber Number Group Number Insured Name Patient Relationship to Insured Coverage Start Date Coverage End Date [facility] [address] [place] [phone] [id number] DANTE MADDEN Self - patient is the insured 4 Medical (General) History Medical History History ICD Code Hypothyroidism HTN GERD--saw Dr. Hurley--has had a couple of EGD's Depression Collagenous colitis--diagnos ed by Dr. Hurley--last colonoscopy at age 77 was negative Denies NV,DM,CVA,Lung disease,renal dise ase Surgical History Surgery Date(Month/Year) Right knee replacement Ganglion cyst Link sling for incontinence [facility]
--- OUTSIDE RECORDS SUMMARY | 2024-11-12 10:21 | XMS_ITS | Continuity of Care Document ---
Author Organization [facility] Address [address] [facility] [address] [place] [id number] Insurance Providers Payer Plan Claims Address Claims Phone Policy Number Group Number Relation Employer Guarantor Name Guarantor Guarantor Address Guarantor Phone DANIELLE Vincent DANA MIRANDA [employer] [address] [address] tel:[id number] Self Viry Crump [address] [place] [id number] DANIELLE MIRANDA ND [facility], [address], [place] [address] tel:[phone] Self Viry Crump [address] [place] [id number] Problems Unknown Problems Results Test Result Date/Time Value / Unit Interp. Refere [facility] fax.pdf Lipid Panel[[id number]] Collected: 07/20/2024 02:47 PM Specimen Received: 07/20/2024 05:00 AM Source: [facility] Cholesterol, Total [[id number]] 07/21/2024 07:31 AM 260 mg/dL H 100-199 mg/d L Triglycerides [[id number]] 07/21/2024 07:32 AM 107 mg/dL 0-149 mg/dL HDL Cholesterol [[id number]] 07/21/2024 07:28 AM 62 mg/dL >39 mg/dL VLDL Cholesterol Wing [[id number]] 07/21/2024 07:32 AM 19 mg/dL 5-40 mg/dL LDL [facility]ol Calc [facility] [[id number]] 07/21/2024 07:32 AM 179 mg/dL H 0-99 mg/dL Hemoglobin A1c[[id number]] Collected: 07/20/2024 02:47 PM Specimen Received: 07/20/2024 05:00 AM Source: [facility] Hemoglobin A1c [[id number]] 07/21/2024 02:57 AM 6.1 % H 4.8-5.6 % . Prediabetes: 5.7 - 6.4 Marielena betes: >6.4 Glycemic control for adults with diabetes: 7.0 Comp. Metabolic Panel (14)[[id number]] Collected: 02/17/2024 10:39 PM Specimen Received: 02/17/2024 05:00 AM Source: [facility] Glucose [[id number]] 02/18/2024 09:34 AM 103 mg/dL H 70-99 mg/dL BUN [[id number]] 02/18/2024 09:34 AM 29 mg/dL H 8-2 7 mg/dL Creatinine [[id number]] 02/18/2024 09:35 AM 0.67 mg/dL 0.57-1.00 mg/dL eGFR [[id number]] 02/18/2024 09:35 AM 88 mL/min/1.73 >59 mL/min/1.73 BUN/Creatinine Ratio [[id number]] 02/18/2024 09:35 AM 43 H 12-28 Sodium [[id number]] 02/18/2024 09:26 AM 142 mmol/L 134-144 mmol/L Potassium [[id number]] 02/18/2024 09:29 AM 4.4 mmol/L 3.5-5.2 mmol/L Chloride [[id number]] 02/18/2024 09:25 AM 105 mmol/L 96-106 mmol/L Carbon Dioxide, Total [[id number]] 02/18/2024 09:31 AM 20 mmol/L 20-29 mmol/L Calcium [[id number]] 02/18/2024 09:32 AM 9.6 mg/dL 8.7-10.3 mg/dL Protein, Total [[id number]] 02/18/2024 09:34 AM 7.1 g/dL 6.0-8.5 g/dL Albumin [[id number]] 02/18/2024 09:31 AM 4.4 g/dL 3.7-4.7 g/dL Globulin, Total [[id number]] 02/18/2024 09:34 AM 2.7 g/dL 1.5-4.5 g/dL Bilirubin, Total [[id number]] 02/18/2024 09:31 AM 0.2 mg/dL 0.0-1.2 mg/dL Alkaline Phosphatase [[id number]] 02/18/2024 09:31 AM 112 IU/L 44-121 IU/L AST (SGOT) [[id number]] 02/18/2024 09:34 AM 19 IU/L 0-40 IU/L ALT (SGPT) [[id number]] 02/18/2024 09:34 AM 16 IU/L 0-32 IU/L Lipid Panel[[id number]] Collected: 02/17/2024 10:39 PM Specimen Received: 02/17/2024 05:00 AM Source: [facility] Cholesterol, Total [[id number]] 02/18/2024 09:41 AM 258 mg/dL H 100-199 mg/d L Triglycerides [[id number]] 02/18/2024 09:41 AM 128 mg/dL 0-149 mg/dL HDL Cholesterol [[id number]] 02/18/2024 09:39 AM 67 mg/dL >39 mg/dL VLDL Cholesterol Wing [[id number]] 02/18/2024 09:41 AM 23 mg/dL 5-40 mg/dL LDL Chol Calc [facility]) [[id number]] 02/18/2024 09:41 AM 168 mg/dL H 0-99 mg/dL Hemoglobin A1c[[id number]] Collected: 02/17/2024 10:39 PM Specimen Received: 02/17/2024 05:00 AM Source: [facility] Hemoglobin A1c [[id number]] 02/18/2024 10:23 AM 6.0 % H 4.8-5.6 % . Prediabetes: 5.7 - 6.4 Marielnea betes: >6.4 Glycemic control for adults with diabetes: 7.0 Allergies, adverse reactions, alerts No known allergies and adverse reactions Medications No administered medications reported Vital Signs No vital signs reported Social History No smoking Hx information available
--- NOTE | 2024-11-13 13:04 | HO.ANESPROP2 ---
Documented by User: Cristine Corea NP 11/13/24 13:05 HPI - Anesthesia Eval Consult details Narrative: 84yo F for Upper Endoscopy Multiple allergies with unknown reaction PMFSH Past Medical History Medical History (Updated 11/13/24 @ 12:56 by Daisha Wallace LPN) Collagenous colitis Depression GERD (gastroesophageal reflux disease) Hypertension Hyperthyroidism Ganglion cyst Surgical History Surgical History (Updated 11/13/24 @ 12:57 by Daisha Wallace LPN) History of esophagogastroduodenoscopy (EGD) History of colonoscopy History of total abdominal hysterectomy History of pubovaginal sling History of right knee joint replacement Social History Social History Patient Tobacco Use Status: Never used Tobacco Use of substances other than those prescribed or required for medical reasons: No Advance Directives: No Advance Directives Information Provided: Yes Meds Allergies Allergy/AdvReac Type Severity Reaction Status Date / Time budesonide (From Entocort EC) Allergy Unknown Verified 11/13/24 12:45 celecoxib Allergy Unknown Verified 11/13/24 12:45 famotidine Allergy Unknown Verified 11/13/24 12:45 lamotrigine Allergy Unknown Verified 11/13/24 12:45 meloxicam Allergy Unknown Verified 11/13/24 12:41 ondansetron Allergy Unknown Verified 11/13/24 12:45 prednisone Allergy Unknown Verified 11/13/24 12:45 sucralfate Allergy Unknown Verified 11/13/24 12:45 sulfamethoxazole (From Allergy Unknown Verified 11/13/24 12:45 Bactrim) topiramate Allergy Unknown Verified 11/13/24 12:45 trimethoprim (From Bactrim) Allergy Unknown Verified 11/13/24 12:45 Home Medications ?Medication ?Instructions ?Recorded ?Confirmed ?Last Taken ?Type Aspir-81 11/13/24 Unknown History Calcium 600 11/13/24 Unknown History Miralax 11/13/24 Unknown History Probiotic 11/13/24 Unknown History Refresh Lacri-Lube 11/13/24 11/13/24 Unknown History Vitamin D3 11/13/24 Unknown History Yuvafem 11/13/24 Unknown History amlodipine 10 mg tablet 10 mg PO DAILY 11/13/24 11/13/24 Unknown History atorvastatin 10 mg tablet 10 mg PO DAILY 11/13/24 11/13/24 Unknown History bupropion HCl 100 mg tablet 100 mg PO BID 11/13/24 11/13/24 Unknown History collagen 11/13/24 Unknown History cyclosporine 0.05 % eye drops in a drp 11/13/24 Unknown History dropperette fluticasone propionate 50 1 spray intranasal BID 11/13/24 11/13/24 Unknown History mcg/actuation nasal spray,suspension levocetirizine 5 mg tablet 5 mg PO QPM 11/13/24 11/13/24 Unknown History levothyroxine 25 mcg tablet 25 mcg PO DAILY 11/13/24 11/13/24 Unknown History loratadine 10 mg tablet 10 mg PO DAILY 11/13/24 11/13/24 Unknown History multivitamin 11/13/24 Unknown History omeprazole 40 mg capsule,delayed 40 mg PO BID 11/13/24 11/13/24 Unknown History release Assessment and Plan Assessment Anesthesia Assessment: Chart Reviewed Documented by User: Shar Pena MD 11/14/24 12:11 [facility] Past Medical History Medical History (Updated 11/13/24 @ 12:56 by Daisha Wallace LPN) Collagenous colitis Depression GERD (gastroesophageal reflux disease) Hypertension Hyperthyroidism Ganglion cyst Family History Family history of problems with anesthesia: No Surgical History Surgical History (Updated 11/13/24 @ 12:57 by Daisha Wallace LPN) History of esophagogastroduodenoscopy (EGD) History of colonoscopy History of total abdominal hysterectomy History of pubovaginal sling History of right knee joint replacement History of Problems with Anesthesia: No Social History Social History Patient Tobacco Use Status: Never used Tobacco Use of substances other than those prescribed or required for medical reasons: No Advance Directives: No Advance Directives Information Provided: Yes Meds Allergies Allergy/AdvReac Type Severity Reaction Status Date / Time budesonide (From Entocort EC) Allergy Unknown Verified 11/13/24 12:45 celecoxib Allergy Unknown Verified 11/13/24 12:45 famotidine Allergy Unknown Verified 11/13/24 12:45 lamotrigine Allergy Unknown Verified 11/13/24 12:45 meloxicam Allergy Unknown Verified 11/13/24 12:41 ondansetron Allergy Unknown Verified 11/13/24 12:45 prednisone Allergy Unknown Verified 11/13/24 12:45 sucralfate Allergy Unknown Verified 11/13/24 12:45 sulfamethoxazole (From Allergy Unknown Verified 11/13/24 12:45 Bactrim) topiramate Allergy Unknown Verified 11/13/24 12:45 trimethoprim (From Bactrim) Allergy Unknown Verified 11/13/24 12:45 Home Medications ?Medication ?Instructions ?Recorded ?Confirmed ?Last Taken ?Type Aspir-81 11/13/24 Unknown History Calcium 600 11/13/24 Unknown History Miralax 11/13/24 Unknown History Probiotic 11/13/24 Unknown History Refresh Lacri-Lube 11/13/24 11/13/24 Unknown History Vitamin D3 11/13/24 Unknown History Yuvafem 11/13/24 Unknown History amlodipine 10 mg tablet 10 mg PO DAILY 11/13/24 11/13/24 Unknown History atorvastatin 10 mg tablet 10 mg PO DAILY 11/13/24 11/13/24 Unknown History bupropion HCl 100 mg tablet 100 mg PO BID 11/13/24 11/13/24 Unknown History collagen 11/13/24 Unknown History cyclosporine 0.05 % eye drops in a drp 11/13/24 Unknown History dropperette fluticasone propionate 50 1 spray intranasal BID 11/13/24 11/13/24 Unknown History mcg/actuation nasal spray,suspension levocetirizine 5 mg tablet 5 mg PO QPM 11/13/24 11/13/24 Unknown History levothyroxine 25 mcg tablet 25 mcg PO DAILY 11/13/24 11/13/24 Unknown History loratadine 10 mg tablet 10 mg PO DAILY 11/13/24 11/13/24 Unknown History multivitamin 11/13/24 Unknown History omeprazole 40 mg capsule,delayed 40 mg PO BID 11/13/24 11/13/24 Unknown History release Exam Airway Mallampati Class: II TM Dist: <=3cm Neck ROM: Full Denture: Upper and Lower Heart: ok Lungs: ok Assessment and Plan Assessment Anesthesia Assessment: Anesthesia Plan Discussed Final Anesthetic Review Family History of Problems with Anesthesia: No History of Problems with Anesthesia: No NPO: Yes ASA Class: III Final Preanesthetic Review: No Changes in Pt Med Stat, Meds/Allgs Chart Reviewed, Consent Obtained/Reviewed and Anes Risks/Benef Reviewed Patient Risk: Intermediate Procedure Risk: Intermediate Anesthetic Plan Anesthetic Plan: Agree w/ Assess. and Plan and TIVA Disposition: Standard PACU
[2024-11-14 11:37] VITALS: BMI 37.3
[2024-11-14 11:49] VITALS: BP 138/62; PULSE 65; RESP 16; TEMP 36.6; O2SAT 96
[2024-11-14] MEDS: Lactated Ringers 1,000 ML 100 ML IVCONT (11:51)
[2024-11-14 12:39] VITALS: BP 126/62; PULSE 64; RESP 20; TEMP 36.1; O2SAT 91
--- NOTE | 2024-11-14 12:44 | P.BOP_ITS ---
Brief Operative Note Date of Service: 11/14/24 Pre-op diagnosis: Globus, Dysphagia Post-op diagnosis: other (Hiatal hernia, R/O EoE) Procedure: EGD with biopsies Surgeon: Willem Pang MD Anesthesia: MAC Was an Associate Professor Of English used for this Procedure?: No Estimated blood loss (mL): 2.0 Pathology: other (A. EG Junction at 35cm B. Esophagus at 20cm) Condition: stable Disposition: PACU
[2024-11-14 12:52] VITALS: BP 130/78; PULSE 65; RESP 18; TEMP 36.7; O2SAT 98
--- NOTE | 2024-11-14 23:37 | OP_ITS ---
DATE OF SERVICE: 11/14/2024 SURGEON: Willem Pang MD INDICATIONS: The patient presents for evaluation of persistent symptoms of globus, sense of dysphagia, and reflux. Full consent obtained from her for this, including risks of bleeding and perforation. PREOPERATIVE DIAGNOSIS: POSTOPERATIVE DIAGNOSIS: PROCEDURE PERFORMED: Esophagogastroduodenoscopy with biopsies. ESTIMATED BLOOD LOSS: COMPLICATIONS: ANESTHESIA: Medication used, monitored anesthesia care. ASSISTANTS: SPECIMENS: PREOPERATIVE DIAGNOSES: Globus, dysphagia, and reflux. POSTOPERATIVE DIAGNOSES: Globus, dysphagia, reflux, hiatal hernia, rule out eosinophilic esophagitis. DESCRIPTION OF PROCEDURE: The patient was placed in the left lateral decubitus position. The Olympus video gastroscope was passed in the posterior oropharynx and upper esophagus under direct vision. The scope was passed slowly to the distal esophagus. The gastroesophageal junction appeared at 35 cm. There was some slight irregularity consistent with some reflux, but no definitive evidence of Miller esophagus and there was no esophagitis. The scope entered the stomach. There was a small hiatal hernia. The scope was advanced to pylorus and the duodenum was cannulated to the descending portion. The duodenum including the bulb appeared normal without mass or ulceration. The scope was withdrawn back to the stomach. The gastric antrum and body appeared normal with good peristalsis. The scope was retroflexed visualizing the proximal stomach carefully, which appeared normal, without any sign of mass or ulceration. The scope was straightened and withdrawn back to the esophagus. Hiatal hernia mucosa appeared normal. I did obtain biopsies of the EG junction at 35 cm. Proximal to this, the esophageal mucosa appeared normal. There was no evidence of any proximal esophageal rings. I did obtain biopsies in the proximal esophagus at 20 cm. A limited view of the oropharynx appeared normal. The scope was withdrawn from the patient. She tolerated the procedure well and was returned to recovery area in stable condition. IMPRESSION: 1. Small hiatal hernia, gastroesophageal reflux. 2. Rule out eosinophilic esophagitis. PLAN: The results of biopsy will be checked. She did decrease her omeprazole from twice a day to just once a day after I saw her in August. She has not noticed any change in her symptoms and I have therefore advised her to continue that once a day if need be for her reflux, but she can also just use it p.r.n. At this point, I do not see any etiology for her symptoms that she has, although she does report that when she goes to [place] to visit family, her symptoms do either improve or totally resolve. Therefore, this may imply some type of allergy or possibly even some stress-induced symptoms. I do not think there is any other workup to do from a GI standpoint. She did recently have pulmonary function studies, which at least according to the report seems normal, but I told her to review that with her PCP. If need be, she should also follow up with ENT if the symptoms persist. MD HIPOLITO Duncan/FLORES / [id number] MTDD
== END 2024-11-14 14:12 | disposition home or self-care (01) ==
PROVIDERS: PCP Internal Medicine; Visit Provider Internal Medicine
PROC: 0DJ08ZZ Inspection of Upper Intestinal Tract, Via Natural or Artificial Opening Endoscopic (ICD-10-PCS; CPT 43235; principal; 2024-11-14 11:30)
DX: R13.10 Dysphagia, unspecified (principal); K44.9 Diaphragmatic hernia without obstruction or gangrene; K21.9 Gastro-esophageal reflux disease without esophagitis; I10 Essential (primary) hypertension; Z79.82 Long term (current) use of aspirin; Z79.899 Other long term (current) drug therapy
CPT/HCPCS: 43239; 88305; 88313; J2003; J2704; J3010

== ENCOUNTER 2024-12-31 08:18 | Outpatient (AMB) | payer MEDICARE, SELFPAY ==
--- NOTE | 2024-12-31 12:22 | MHC.OFFVISWM ---
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[facility] BMI 37.3 Allergies budesonide (From Entocort EC) Allergy (Verified 12/31/24 12:24) Unknown celecoxib Allergy (Verified 12/31/24 12:24) Unknown famotidine Allergy (Verified 12/31/24 12:24) Unknown lamotrigine Allergy (Verified 12/31/24 12:24) Unknown meloxicam Allergy (Verified 12/31/24 12:24) Unknown ondansetron Allergy (Verified 12/31/24 12:24) Unknown prednisone Allergy (Verified 12/31/24 12:24) Unknown sucralfate Allergy (Verified 12/31/24 12:24) Unknown sulfamethoxazole (From Bactrim) Allergy (Verified 12/31/24 12:24) Unknown topiramate Allergy (Verified 12/31/24 12:24) Unknown trimethoprim (From Bactrim) Allergy (Verified 12/31/24 12:24) Unknown Medication List - Last Reconciled 12/31/24 by New Garcia MD amlodipine 10 mg PO DAILY [Aspir-81 ] atorvastatin 10 mg PO DAILY bupropion HCl 100 mg PO BID [Calcium 600 ] [collagen ] cyclosporine 0.05% drps fluticasone propionate 50 mcg/actuation 1 spray intranasal BID levocetirizine 5 mg PO QPM levothyroxine 25 mcg PO DAILY loratadine 10 mg PO DAILY [Miralax ] [multivitamin ] omeprazole 40 mg PO BID [Probiotic ] [Refresh Lacri-Lube ] [Vitamin D3 ] [Yuvafem ] HPI HPI 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 After reviewing her previous records, the patient have a moderate size diaphragmatic hernia with severe GERD. Previous weight loss efforts: self diets and exercise Wakes up: 7am, sleeps:11pm PFSH Medical History (Updated 12/31/24 @ 12:46 by New Garcia MD) Anxiety Hypothyroidism Hyperlipidemia Diaphragmatic hernia BMI 37.0-37.9, adult Obesity Collagenous colitis Depression GERD (gastroesophageal reflux disease) Hypertension Hyperthyroidism Ganglion cyst Surgical History (Updated 11/13/24 @ 12:57 by Daisha Wallace LPN) History of esophagogastroduodenoscopy (EGD) History of colonoscopy History of total abdominal hysterectomy History of pubovaginal sling History of right knee joint replacement Family History (Updated 12/13/24 @ 11:08 by Liv Chacon CMA) Mother No problems noted. Father No problems noted. Social History (Updated 12/13/24 @ 11:11 by Liv Chacon CMA) Alcohol intake: never Patient Tobacco Use Status: Former Tobacco user Telehealth Telehealth Telehealth Platform: Telephone Location of provider rendering services: practice address Location of patient: address on file Patient Identification confirmed using: Name, : Yes Telehealth method: voice only Patient verbally consented to treatment: Yes Patient verbally consented to billing insurance company: Yes Patient informed of any privacy concerns related to visit: Yes Minutes spent on Phone/Video with Pt.: 45 Assessment & Plan Assessment & Plan (1) Obesity: Code(s): E66.9 - Obesity, unspecified Category: Medical Qualifiers: Obesity type: due to excess calories Obesity classification: adult class 2 (BMI 35 - 39.9) Serious obesity comorbidity presence: with serious comorbidity Body mass index: BMI 37.0-37.9 Qualified Code(s): E66.812 - Obesity, class 2; E66.01 - Morbid (severe) obesity due to excess calories; Z68.37 - Body mass index [BMI] 37.0-37.9, adult Plan: 1.? Plan for lap sleeve gastrectomy with concomitant diaphragmatic hernia repair. That will address her weight problem as well as the GERD and diaphragmatic hernia. I emphasized the importance of close follow-up, adherence to instructions and good communication. The surgery does not replace the need to change your lifestlyle which is the cause of the obesity problem. The surgery provides the motivation to try again to change your lifestyle, it reduces the appetite and make the transition to a better lifestyle easier and doubles the amount of weight you would lose compared to doing the lifestyle change without the surgery. You will need to be on a liquid diet with protein shakes for 2 weeks before surgery to maximize weight loss and boost your nutritional status to recover better from surgery and also for the first two weeks after surgery to let the stomach heal before we introduce other foods. After the first 2 weeks we will introduce protein bars and soft foods like scrambled eggs, cottage cheese and yogurt and after the 6th week will introduce meat, fish and cooked vegetables in small amounts. Over time you should be able to eat everything in small amounts. Side effects like nausea, vomiting, heartburn or abdominal pain are not common in the practice unless you are not following in the practice. This operation requires lifetime commitment to following in our practice and communication with me. You will much less weight and experience side effects if you don?t communicate or not following in the practice. Complications are rare and in our practice is about 1/10 of the national average. However, you can develop bleeding that may require transfusion (hasn?t happened for year in the practice), you may from complications (we did not have any deaths in the practice) and infections. Infections are usually a result of breakdown in communication or not understanding or following directions correctly. They are difficult to treat, they can happen during the first 6 weeks, they may require to be in the hospital for weeks or even months, not being able to eat by mouth and you may have drains and surgeries to try and correct the issue. Other risks and complications include possible conversion to an open procedure, leaks, small bowel obstruction, blood clots, cardiac, or pulmonary complications, as extermination inspector complications such as ulcers, insufficient weight loss and vitamin deficiencies. 1.?Nutritional counseling. Start with one premade PREMIER protein (buy at [employer] or [employer]) shake (mix 4oz of Premier mixed with 4oz low fat unsweetened almond milk each) at 8am-10am, one protein bar (Fit Crunch protein bar, buy at [employer], or [employer]) at 11am-1pm, another premade PREMIER protein shake (mix 4oz of Premier mixed with 4oz low fat unsweetened almond milk each) at 2pm-4pm, dinner at 5pm (8 forks of protein and 8 forks of salad/vegetables), another another [employer] protein bar at 7pm-9pm and a HALF protein bar at 10pm-11pm. So you do 2 protein shakes, 2.5 protein bars and one meal per day. Meal to include lean meat (beef, fish, pork, turkey, chicken), or kinyarwanda yogurt, or egg whites, or beans with a salad with olive oil and fruits (berries, pears, apples, kiwi). Avoid salt, breads, potatoes, rice, pasta, desserts. 3. Each shake would be drunk slowly, like coffee in a period of 2 hours. 4. Cut each bar in 4 pieces and eat each piece in 30min ?to make each bar last 2 hours. 5. I emphasized the importance of measuring accurately the food portion and measure it when serving the food in plate 6. The meal portions include 8 full-size forks of meat and 8 full-size forks of salad. You always eat the meat portion but you can replace up to 4 forks for salad/vegetables with rice, potatoes or pasta, or a fruit ?if you like. The less you do it the better weight loss will be. 7. One full-size fork is what it can be scooped on the fork without falling aside and not what can be bit with the fork. Use regular forks like those you find in a typical restaurant. 8.? Please buy the body composition scale we discussed and send me weight measurements as soon as possible and then once a week. Always include your diet and exercise plan. 9. The best choice would be to purchase a stationary bike at home that can track calories. If you have one or get one, please start stationary bike at a resistance level of 4.0 Increase level by 1.0 every 3 min to a max level of 10.0. Stay at this level for 3 min and then return to level 4.0 and repeat same steps until 300 calories are burned. Goal is to burn 2000 calories per week on exercise 10. Goal is to lose at least 1.5-2lbs per week 11. Goal to lose 10% of your weight before surgery, which is about 17lbs. Ultimate weight goal: 200lbs before surgery 12. Please follow the diet plan exactly without any change. If you don't like something about the plan or you feel hungry you need to communicate with me so I can help you revise the plan. You should not change the plan yourself 13. To be scheduled for EGD to assess the stomach's anatomy. The possibility of biopsies was discussed. Patient needs to avoid use of NSAIDs and aspirin for 1 week prior to EGD. You must be on liquids only the day before your endoscopy. Risks of perforation and bleeding was discussed with the patient. This will be an outpatient procedure with IV sedation.
[2024-12-31 12:23] VITALS: BMI 37.3
== END 2024-12-31 12:57 | disposition home or self-care (01) ==
LOC: HO.HBS 08:18
PROVIDERS: PCP Internal Medicine; Visit Provider Surgery
DX: E66.9 Obesity, unspecified (principal); Z68.37 Body mass index [BMI] 37.0-37.9, adult; Z71.3 Dietary counseling and surveillance
CPT/HCPCS: 99204

== ENCOUNTER 2025-01-02 10:17 | Outpatient (REF) | payer MEDICARE, SELFPAY ==
--- OUTSIDE RECORDS SUMMARY | 2024-11-14 07:30 | XMS_ITS ---
Author Organization [facility] Address [address] [place] [address] Care Team Providers Care Electrical Controls Technician Name Role Phone Lana KWOK Primary Care Provider Willem Gatica [phone] Camelia MACEDO, Marcio Unavailable Unavailable REASON FOR VISIT gerd,globus senstion Encounters Encounter Location Date Provider Diagnosis [facility] Out[place] [address] [place] [phone] 11/14/2024 Willem Pang Plan Of Treatment No Information Progress Notes * DANTE MADDENDOB: 3 (84 yo F)Acc No.[id number]:11/14/2024 EGD/MAC Patient: DANTE CARLOS Provider: Kalpana Pang MD :1940 A ge:84 Y S ex:Female Date:11/14/2024 Address:[address] [place], [place] [phone] Pcp:Lana KWOK Subjective: * Chief Complaints: * [...] 11/14/2024 Generated for Frantz rowland/Amador/eTransmitting on: 1 11:34 AM EDT
--- NOTE | ~2025-01-02 | XR_ITS ---
EXAMINATION: XR CHEST 2 VIEWS HISTORY: E66.812 - Obesity, class 2 COMPARISON: There are no prior studies available for comparison. FINDINGS: PA and lateral views of the chest are submitted. The lungs are expanded and clear. There is no pleural effusion, pneumothorax, or pulmonary vascular congestion. The heart is normal in size. There is degenerative disc disease of the spine. XR/XR chest 2V IMPRESSION: Clear lungs. Electronically signed by: Willem Mauricio MD 01/02/2025 11:15 AM EDT
--- NOTE | 2025-01-02 10:22 | ECG_ITS ---
Test Reason : pre op e66.812 Blood Pressure : */* mmHG Vent. Rate : 59 BPM Atrial Rate : 59 BPM P-R Int : 188 ms QRS Dur : 88 ms QT Int : 418 ms P-R-T Axes : 49 28 29 degrees QTcB Int : 413 ms Sinus bradycardia Otherwise normal ECG No previous ECGs available Referred By: New Garcia Electronically Signed By: GABBY DE LA O
[2025-01-02 10:39] LABS: MANUAL DIFF FLAG NO
[2025-01-02 10:54] LABS: Hematocrit 44.9 % (37.0-47.0); Hemoglobin 14.7 g/dl (12.0-16.0); Imm Gran Abs Auto 0.00 X10*3/uL (0.00-0.03); Imm Gran Pct Auto 0.0 % (0.0-0.4); Lymphocytes Absolute Auto 1.9 X10*3/uL (1.2-4.9); Mean Corpuscular HGB Conc 32.7 g/dl (31.0-35.0); Mean Corpuscular Hemoglobin 29.0 pg (27.0-33.0); Mean Corpuscular Volume 88.6 fL (80.0-98.0); NRBC Abs Auto 0.000 X10*3/uL (0.0-0.012); NRBC Pct Auto 0.0 /100WBC (0.0-0.2); Platelet Count 203 X10*3/uL (160-400); Red Blood Count 5.07 X10*6/uL (4.20-5.50); White Blood Count 5.2 X10*3/uL (4.8-10.8)
--- OUTSIDE RECORDS SUMMARY | 2025-01-02 11:34 | XMS_ITS | Continuity of Care Document ---
Author Organization [facility] Address [address] [place] [address] [place] [address] Insurance Providers Payer Plan Claims Address Claims Phone Policy Number Group Number Relation Employer Guarantor Name Guarantor Guarantor Address Guarantor Phone DANIELLE CORTEZ [employer] [address] [address] tel:[id number] Self Viry Crump [address] [place] [address] HEALDoug Vincent DANA MIRANDA DESHAUN ONE [address] [address] tel:[phone] Self Viry Crump [address] [place] [address] HNE SELF FUNDE D ONE [facility], [address] [address] tel:[phone] Self Viry Crump [address] [place] [address] Problems Unknown Problems Results Test Result Date/Time Value / Unit Interp. Refere [facility] Range fax.pdf Lipid Panel[[id number]] Collected: 07/20/2024 02:47 PM Specimen Received: 07/20/2024 05:00 AM Source: [facility] Cholesterol, Total [[id number]] 07/21/2024 07:31 AM 260 mg/dL H 100-199 mg/d L Triglycerides [[id number]] 07/21/2024 07:32 AM 107 mg/dL 0-149 mg/dL HDL Cholesterol [[id number]] 07/21/2024 07:28 AM 62 mg/dL >39 mg/dL VLDL Cholesterol Wing [204536] 07/21/2024 07:32 AM 19 mg/dL 5-40 mg/dL LDL Chol Calc ([facility]) [[id number]] 07/21/2024 07:32 AM 179 mg/dL H 0-99 mg/dL Hemoglobin A1c[[id number]] Collected: 07/20/2024 02:47 PM Specimen Received: 07/20/2024 05:00 AM Source: [facility] Hemoglobin A1c [[id number]] 07/21/2024 02:57 AM 6.1 % H 4.8-5.6 % . Prediabetes: 5.7 - 6.4 Marielena betes: >6.4 Glycemic control for adults with diabetes: 7.0 Comp. Metabolic Panel (14)[3 [id number]] Collected: 02/17/2024 10:39 PM Specimen Received: 02/17/2024 05:00 AM Source: [facility] Glucose [[id number]] 02/18/2024 09:34 AM 103 mg/dL H 70-99 mg/dL BUN [008257] 02/18/2024 09:34 AM 29 mg/dL H 8-2 7 mg/dL Creatinine [[id number]] 02/18/2024 09:35 AM 0.67 mg/dL 0.57-1.00 mg/dL eGFR [137722] 02/18/2024 09:35 AM 88 mL/min/1.73 >59 mL/min/1.73 BUN/Creatinine Ratio [112437] 02/18/2024 09:35 AM 43 H 12-28 Sodium [245091] 02/18/2024 09:26 AM 142 mmol/L 134-144 mmol/L Potassium [252431] 02/18/2024 09:29 AM 4.4 mmol/L 3.5-5.2 mmol/L Chloride [780450] 02/18/2024 09:25 AM 105 mmol/L 96-106 mmol/L Carbon Dioxide, Total [938550] 02/18/2024 09:31 AM 20 mmol/L 20-29 mmol/L Calcium [599580] 02/18/2024 09:32 AM 9.6 mg/dL 8.7-10.3 mg/dL Protein, Total [868476] 02/18/2024 09:34 AM 7.1 g/dL 6.0-8.5 g/dL Albumin [939938] 02/18/2024 09:31 AM 4.4 g/dL 3.7-4.7 g/dL Globulin, Total [915862] 02/18/2024 09:34 AM 2.7 g/dL 1.5-4.5 g/dL Bilirubin, Total [007488] 02/18/2024 09:31 AM 0.2 mg/dL 0.0-1.2 mg/dL Alkaline Phosphatase [964565] 02/18/2024 09:31 AM 112 IU/L 44-121 IU/L AST (SGOT) [250331] 02/18/2024 09:34 AM 19 IU/L 0-40 IU/L ALT (SGPT) [758741] 02/18/2024 09:34 AM 16 IU/L 0-32 IU/L Lipid Panel[074305] Collected: 02/17/2024 10:39 PM Specimen Received: 02/17/2024 05:00 AM Source: [facility] Cholesterol, Total [[id number]] 02/18/2024 09:41 AM 258 mg/dL H 100-199 mg/d L Triglycerides [899897] 02/18/2024 09:41 AM 128 mg/dL 0-149 mg/dL HDL Cholesterol [[id number]] 02/18/2024 09:39 AM 67 mg/dL >39 mg/dL VLDL Cholesterol Wing [943701] 02/18/2024 09:41 AM 23 mg/dL 5-40 mg/dL LDL Chol Calc ([facility]) [345720] 02/18/2024 09:41 AM 168 mg/dL H 0-99 mg/dL Hemoglobin A1c[[id number]] Collected: 02/17/2024 10:39 PM Specimen Received: 02/17/2024 05:00 AM Source: [facility] Hemoglobin A1c [[id number]] 02/18/2024 10:23 AM 6.0 % H 4.8-5.6 % . Prediabetes: 5.7 - 6.4 Marielena betes: >6.4 Glycemic control for adults with diabetes: 7.0 Allergies, adverse reactions, alerts No known allergies and adverse reactions Medications No administered medications reported Vital Signs No vital signs reported Social History No smoking Hx information available
--- OUTSIDE RECORDS SUMMARY | 2025-01-02 11:34 | XMS_ITS | Continuity of Care Document ---
Author Organization [facility] Address [address] [place] [address] [place] [address] Insurance Providers Payer Plan Claims Address Claims Phone Policy Number Group Number Relation Employer Guarantor Name Guarantor Guarantor Address Guarantor Phone DANIELLE CORTEZ [employer] [address] [address] tel:[id number] Self Viry Crump [address] [place] [address] HEALDoug Vincent DANA MIRANDA DESHAUN ONE [address] [address] tel:[phone] Self Viry Crump [address] [place] [address] HNE SELF FUNDE D ONE [facility], [address] [address] tel:[phone] Self Viry Crump [address] [place] [address] Problems Unknown Problems Results Test Result Date/Time Value / Unit Interp. Refere [facility] Range fax.pdf Lipid Panel[[id number]] Collected: 07/20/2024 02:47 PM Specimen Received: 07/20/2024 05:00 AM Source: [facility] Cholesterol, Total [[id number]] 07/21/2024 07:31 AM 260 mg/dL H 100-199 mg/d L Triglycerides [225365] 07/21/2024 07:32 AM 107 mg/dL 0-149 mg/dL HDL Cholesterol [067656] 07/21/2024 07:28 AM 62 mg/dL >39 mg/dL VLDL Cholesterol Wing [367965] 07/21/2024 07:32 AM 19 mg/dL 5-40 mg/dL LDL Chol Calc ([facility]) [870052] 07/21/2024 07:32 AM 179 mg/dL H 0-99 mg/dL Hemoglobin A1c[[id number]] Collected: 07/20/2024 02:47 PM Specimen Received: 07/20/2024 05:00 AM Source: [facility] Hemoglobin A1c [[id number]] 07/21/2024 02:57 AM 6.1 % H 4.8-5.6 % . Prediabetes: 5.7 - 6.4 Marielena betes: >6.4 Glycemic control for adults with diabetes: 7.0 Comp. Metabolic Panel (14)[3 42923] Collected: 02/17/2024 10:39 PM Specimen Received: 02/17/2024 05:00 AM Source: [facility] Glucose [[id number]] 02/18/2024 09:34 AM 103 mg/dL H 70-99 mg/dL BUN [[id number]] 02/18/2024 09:34 AM 29 mg/dL H 8-2 7 mg/dL Creatinine [[id number]] 02/18/2024 09:35 AM 0.67 mg/dL 0.57-1.00 mg/dL eGFR [943448] 02/18/2024 09:35 AM 88 mL/min/1.73 >59 mL/min/1.73 BUN/Creatinine Ratio [277486] 02/18/2024 09:35 AM 43 H 12-28 Sodium [346511] 02/18/2024 09:26 AM 142 mmol/L 134-144 mmol/L Potassium [[id number]] 02/18/2024 09:29 AM 4.4 mmol/L 3.5-5.2 mmol/L Chloride [252922] 02/18/2024 09:25 AM 105 mmol/L 96-106 mmol/L Carbon Dioxide, Total [242612] 02/18/2024 09:31 AM 20 mmol/L 20-29 mmol/L Calcium [[id number]] 02/18/2024 09:32 AM 9.6 mg/dL 8.7-10.3 mg/dL Protein, Total [686788] 02/18/2024 09:34 AM 7.1 g/dL 6.0-8.5 g/dL Albumin [392491] 02/18/2024 09:31 AM 4.4 g/dL 3.7-4.7 g/dL Globulin, Total [292908] 02/18/2024 09:34 AM 2.7 g/dL 1.5-4.5 g/dL Bilirubin, Total [191235] 02/18/2024 09:31 AM 0.2 mg/dL 0.0-1.2 mg/dL Alkaline Phosphatase [474340] 02/18/2024 09:31 AM 112 IU/L 44-121 IU/L AST (SGOT) [299152] 02/18/2024 09:34 AM 19 IU/L 0-40 IU/L ALT (SGPT) [751779] 02/18/2024 09:34 AM 16 IU/L 0-32 IU/L Lipid Panel[[id number]] Collected: 02/17/2024 10:39 PM Specimen Received: 02/17/2024 05:00 AM Source: [facility] Cholesterol, Total [[id number]] 02/18/2024 09:41 AM 258 mg/dL H 100-199 mg/d L Triglycerides [[id number]] 02/18/2024 09:41 AM 128 mg/dL 0-149 mg/dL HDL Cholesterol [[id number]] 02/18/2024 09:39 AM 67 mg/dL >39 mg/dL VLDL Cholesterol Wing [179737] 02/18/2024 09:41 AM 23 mg/dL 5-40 mg/dL LDL Chol Calc ([facility]) [[id number]] 02/18/2024 09:41 AM 168 mg/dL H 0-99 mg/dL Hemoglobin A1c[[id number]] Collected: 02/17/2024 10:39 PM Specimen Received: 02/17/2024 05:00 AM Source: [facility] Hemoglobin A1c [[id number]] 02/18/2024 10:23 AM 6.0 % H 4.8-5.6 % . Prediabetes: 5.7 - 6.4 Marielena betes: >6.4 Glycemic control for adults with diabetes: 7.0 Allergies, adverse reactions, alerts No known allergies and adverse reactions Medications No administered medications reported Vital Signs No vital signs reported Social History No smoking Hx information available
--- OUTSIDE RECORDS SUMMARY | 2025-01-02 11:34 | XMS_ITS | Clinical Summary ---
Author Organization [facility] Address [address] [place] [address] Phone Care Team Providers Care Security Professional Name Role Phone Physician, No Pcp Primary [...] Comments TOTAL KNEE ARTHROPLASTY 12/20/2016 Right PROCEDURE: GA ARTHRP KNE CONDYLE&PLATU MEDIAL&LAT COMPARTMENTS TUBAL LIGATION PROCEDURE: HISTORICAL TUBAL LIGATION OTHER SURGICAL HISTORY PROCEDURE: PELVIC CONTROL PELVIC SLING HYSTERECTOMY 01/08/2009 PROCEDURE: HISTORICAL TOTAL HYSTERECTOMY WITH BSO SHOULDER SURGERY Left PROCEDURE: HISTORICAL SHOULDER SURGERY; COMMENT: arthroscopic decompression WRIST MASS EXCISION Right PROCEDURE: GA EXCISION GANGLION WRIST DORSAL/VOLAR PRIMARY; COMMENT: x3 COLONOSCOPY 08/01/2014 PROCEDURE: HISTORICAL COLONOSCOPY; COMMENT: & EGD; no report UPPER GASTROINTESTINAL ENDOSCOPY 10/11/2019 PROCEDURE: GA UPPER GI ENDOSCOPY PERFORMED; COMMENT: Dr. Hurley normal stomach and duodenum area biopsied at [facility] [place] Medical History Medical History Date Comments Depression [...] 9:00 AM EDT Office Visit Bariatric Surgery [address] [address] Montez Barker MD [facility] [place] [address] Health Maintenance Due Date Last Done Comments [...] LAB CHEMISTRY METHOD 04/19/2024 8:29 PM EST [facility] AST (SGOT) 14 10 - 42 [...] GREEN LAB BLOOD ORDERABLES Final Resul t [facility] [address] [place] [address], from Last 3 Months or Most Recently Relevant to Health Maintenance Insurance [employer] Care Teams Security Professional Relationship Specialty Start Date End Date Physician, No Pcp PCP - General 07/04/24
--- OUTSIDE RECORDS SUMMARY | 2025-01-02 11:34 | XMS_ITS | Patient Health Record ---
Author Organization [facility] Address [address] [place] [phone] Care Team Providers Care Therapy Coordinator Name Role Phone Lana KWOK Primary Care Provider Willem Gatica Unavailable [phone] Camelia MACEDO, Marcio Unavailable Unavailable Allergies Allergen (clinical drug ingredient) Drug/Non Drug Allergy documented on EMR Reaction Allergy Type Onset Date Status meloxicam Meloxicam Unknown Drug Allergy Active famotidine [...] prednisone predniSONE Unknown Drug Allergy Activ e ondansetron Ondansetron Unknown Drug Allergy Act jace Results Component Value Reference Range Notes Pathology (Not yet reviewed by provider) Interpretation: Performing Lab:[facility], [address] [place] [id number] Notes/Report: Reason For Referral No Information Medications Medication [...] 10 MG TAKE 1 TABLET BY BLAYNE TH EVERY DAY Oral for 90 Active cycloSPORINE [...] Status Risk Notes Problem Gastroesophageal reflux disease (056607562) GERD (gastroesopha geal reflux disease) (K21.9) Active confirmed Problem Globus sensation (898853045) Globus sensation (R09.89) Active confirmed Vital Signs Temperature 96.9 degrees Fahrenheit 08/29/2024 Blood pressure diastolic 01 mm Hg 08/29/2024 Height 5 ft 4 in in 08/29/2024 Blood pressure systolic 001 mm Hg 08/29/2024 Weight 208.8 lbs 08/29/2024 BMI 35.84 kg/m2 08/29/2024 Procedures Procedure Date Ordered Date Performed Result Body Sit e UPPER GI ENDOSCOPY 08/29/2024 N/A Encounters Encounter Location Date Provider Diagnosis [facility] [address] [place] [id number] [facility] [address] [place] [phone] 05/02/2024 Willem Pang Globus sensation R09.89 and GERD (gastroesophageal reflux disease) K21.9 [facility] [address] [place] [phone] 08/29/2024 Willem Pang Globus sensation R09.89 and GERD (gastroesophageal reflux disease) K21.9 [facility] [address] [place] [phone] 05/01/2024 Willem Pang [facility] [address] [place] [phone] 08/15/2024 Willem Pang [facility] [address] [place] [phone] 11/11/2024 Willem Pang [facility] [address] [place] [phone] 11/12/2024 Willem Pang Assessments Encounter Date Diagnosis (ICD Code) Assessment Notes Treatment Notes Treatment Clinical Notes Section Notes 05/02/2024 GERD (gastroesopha geal reflux disease) (ICD-10 [...] keep you advised of her progress. 08/29/2024 GERD (gastroesopha geal reflux disease) (ICD-10 [...] [place] home or [place] The other possibility would be that of some stress. I did advise her to try to make an appointment with the engraver flatware such that they can review things with [...] her home or the air in the [facility]. The other possibility would be that of some stress. I did advise her to try to make an appointment with the engraver flatware such that they can review things with [...] I would recommend a consult with a Button Facing Machine Operator if this persists. Overall, Dante appears quite [...] Name Order Date UPPER GI ENDOSCOPY 08/29/2024 Pathology 11/14/2024 Insurance Providers Payer Name Payer Address Payer Phone Subscriber Number Group Number Insured Name Patient Relationship to Insured Coverage Start Date Coverage End Date [facility] [address] [place] [phone] [id number] DANTE MADDEN Self - patient is the insured 4 Medical (General) History Medical History History ICD Code Hypothyroidism HTN GERD--saw Dr. Hurley--has had a couple of EGD's Depression Collagenous colitis--diagnos ed by Dr. Hurley--last colonoscopy at age 77 was negative Denies ME,DM,CVA,Lung disease,renal dise ase Surgical History Surgery Date(Month/Year) Right knee replacement Ganglion cyst Link sling for incontinence [facility]
[2025-01-02 12:14] LABS: Alanine Aminotransferase 21 U/L (0-31); Albumin Level 4.5 g/dL (3.5-5.0); Alkaline Phosphatase 94 U/L (39-117); Anion Gap 11 (12-20); Aspartate Amino Transferase 25 U/L (5-31); Blood Urea Nitrogen 17 mg/dL (9-16); Calcium 9.8 mg/dL (8.4-10.2); Carbon Dioxide 27 mmol/L (22-29); Chloride 109 mmol/L (96-108); Cholesterol 189 mg/dL (<200); Estimated Glomerular Filt Rate > 60; HDL Cholesterol 63 mg/dL (>40); Iron 181 mcg/dL (30-160); Percent Iron Saturation 48 % (15-50); Potassium 3.9 mmol/L (3.3-5.1); Sodium 143 mmol/L (135-145); Total Iron Binding Capacity 381 mcg/dL (228-428); Total Protein 7.1 g/dL (6.5-8.0); Triglycerides 101 mg/dL (<150); Unsaturated Iron Binding 200 ug/dL
[2025-01-02 12:20] LABS: Ferritin 45 ng/mL (10-250)
[2025-01-02 12:36] LABS: Folate 8.6 ng/mL (> or = 4.0); Vitamin B12 931 pg/mL (200-900)
== END 2025-01-02 10:18 | disposition home or self-care (01) ==
LOC: HO.XRAY 10:17
PROVIDERS: PCP Internal Medicine; Visit Provider Surgery
DX: Z13.1 Encounter for screening for diabetes mellitus (principal); E66.812 Obesity, class 2; E66.01 Morbid (severe) obesity due to excess calories; E03.9 Hypothyroidism, unspecified; K44.9 Diaphragmatic hernia without obstruction or gangrene; E78.5 Hyperlipidemia, unspecified; Z68.37 Body mass index [BMI] 37.0-37.9, adult
CPT/HCPCS: 36415; 71046; 80053; 80061; 82306; 82607; 82728; 82746; 83036; 83525; 83540; 84425; 84443; 84590; 84630; 85025; 86140; 93005

== ENCOUNTER → 2025-01-02 10:22 | Outpatient (BNV) | payer MEDICARE, SELFPAY | PROVIDERS: PCP Internal Medicine; Visit Provider Internal Medicine | DX: R00.1 Bradycardia, unspecified (principal) | CPT/HCPCS: 93010 ==

== ENCOUNTER → 2025-01-02 10:45 | Outpatient (BNV) | payer MEDICARE, SELFPAY | PROVIDERS: PCP Internal Medicine; Visit Provider Radiology Diagnostic Radiology | DX: E66.812 Obesity, class 2 (principal); Z68.37 Body mass index [BMI] 37.0-37.9, adult | CPT/HCPCS: 71046 ==

== ENCOUNTER 2025-01-18 15:17 | Outpatient (AMB) | payer MEDICARE, SELFPAY ==
--- OUTSIDE RECORDS SUMMARY | 2024-11-14 07:30 | XMS_ITS ---
Author Organization [facility] Address [address] [place] [address] Care Team Providers Care Survey Research Associate Name Role Phone Lana KWOK Primary Care Provider Willem Gatica [phone] Camelia MACEDO, Marcio Unavailable Unavailable REASON FOR VISIT gerd,globus senstion Encounters Encounter Location Date Provider Diagnosis [facility] Outpatient [address] [place] [id number] 11/14/2024 Willem Pang Plan Of Treatment No Information Progress Notes * DANTE MADDENDOB: 3 (84 yo F)Acc No.[id number]:11/14/2024 EGD/MAC Patient: DANTE CARLOS Provider: Kalpana Pang MD :1940 A ge:84 Y S ex:Female Date:11/14/2024 Address:[address] [place], [place] [phone] Pcp:Lana KWOK Subjective: * Chief Complaints: * [...] MD Date: 0 11/14/2024 Generated for Frantz rowland/Amador/eTransmitting on: 1 05:47 PM EDT
--- NOTE | 2025-01-18 15:05 | MHC.WMTHER ---
Intake Intake Visit Reasons: VIDEO Intake Allergies budesonide (From Entocort EC) Allergy (Verified 01/21/25 08:54) Unknown celecoxib Allergy (Verified 01/21/25 08:54) Unknown famotidine Allergy (Verified 01/21/25 08:54) Unknown lamotrigine Allergy (Verified 01/21/25 08:54) Unknown meloxicam Allergy (Verified 01/21/25 08:54) Unknown ondansetron Allergy (Verified 01/21/25 08:54) Unknown prednisone Allergy (Verified 01/21/25 08:54) Unknown sucralfate Allergy (Verified 01/21/25 08:54) Unknown sulfamethoxazole (From Bactrim) Allergy (Verified 01/21/25 08:54) Unknown topiramate Allergy (Verified 01/21/25 08:54) Unknown trimethoprim (From Bactrim) Allergy (Verified 01/21/25 08:54) Unknown PFSH Medical History Tremor of both hands Nephrolithiasis Migraines Sleep apnea Anxiety Hypothyroidism Hyperlipidemia Diaphragmatic hernia BMI 37.0-37.9, adult Obesity Collagenous colitis Depression GERD (gastroesophageal reflux disease) Hypertension Hyperthyroidism Ganglion cyst Surgical History History of esophagogastroduodenoscopy (EGD) History of colonoscopy History of total abdominal hysterectomy History of pubovaginal sling History of right knee joint replacement Family History Mother No problems noted. Father No problems noted. Social History Are you a primary childcare center administrator to a significant other at home: No Do you presently have visiting nurse or other home services: No Alcohol intake: never Patient Tobacco Use Status: Former Tobacco user Behavioral Health Assessment Weight Management Therapy Therapy Notes Details PT is a 84 years old female,, who presents for initial visit to start assessment as part of surgical weight loss program. PT initially referred by her PCP. Presenting Concerns Referral Source WMP-Provider Reason for referral Completion of behavioral health assessment as part of process for weight-loss surgery. Precipitating Event Obesity Living Situation Current Living Situation Own At risk of losing current housing? No Satisfied with current living situation? Yes Comments Pt lives alone. Food/Weight/Diet Expectations of change PT started the program on 12/31/24 at 217Lbs and most recent as of today was 205Lbs. The initial goal is to lose 10% of her weight before surgery, which is about 17lbs. Ultimate weight goal: 200lbs before surgery. PT is implementing the following: Current meal plan: Exercise plan: Walking Scale: yes Communication with dr: yes, Tuesdays. History/Relationship with food PT reports she is an emotional eater. Social History Family history and relationship PT is , he 3 years ago, they were for 18 years. This was her second marriage, for 17 years the first time. PT has 2 adult children who live in [place]. 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 Developmental history and status None reported. Currently [place]. Social support Kids, some friends in the area. Community support Goes to the [facility] frequently Confucianism/Spirituality Denominational. Cultural/Ethnic information . Legal Involvement and History Current or historical involvement with the legal system? None reported Education Highest grade completed HS. 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 Preferred learning style Learn by doing Currently enrolled in educational program? No Interested in further educational program? No Educational Interests/Skills PT worked as [employer] for several years. Employment Employment Status Retired (Since age 64) Wants help to find employment? No Meaningful activities going out with girlfriends, puzzles, gardening, and reading. Financial Situation Describe current financial situation Comfortable Financial assistance? None Mental Health and Addiction Treatment Current/Past substance abuse? No Comments Alcohol: None Cigarettes/Tobacco: None. Cannabis/Edibles: None. Current/Past addictive behavior concerns? No Psychiatric history Attended counseling several years ago Her PCP prescribes her Bupropion HCL 100mg 1 a day. Medical and Physical Health Summary Additional Medical History not covered in history None aditional Sexual History concerns None reported. Physical exam in the last year? Yes Pain Screening Current pain? Yes Pain in the last few months? Yes Medications Is the patient compliant with medications? Yes Does the patient have Ramos Guardian in place? Not applicable Does the patient use complimentary health approaches? Yes (Has a biofeedback machine for pain. Recently finished PT for leg issues. ) Trauma/Abuse History History of trauma? No Questionnaires PHQ-9 Over the last 2 weeks, how often have you been bothered by any of the following problems? 1. Little interest or pleasure in doing things: nearly every day 2. Feeling down, depressed, or hopeless: nearly every day 3. Trouble falling or staying asleep, or sleeping too much: not at all 4. Feeling tired or having little energy: nearly every day 5. Poor appetite or overeating: nearly every day 6. Feeling bad about yourself - or that you are a failure or have let yourself or your family down: nearly every day 7. Trouble concentrating on things, such as reading the newspaper or watching television: more than half the days 8. Moving or speaking so slowly that other people could have noticed. Or the opposite - being so fidgety or restless that you have been moving around a lot more than usual: not at all 9. Thoughts that you would be better off or of hurting yourself in some way: not at all Total score: 17 Depression Screening Interpretation: Positive (From new PT pack administered on 12/13/2024) Depression Screening Done: Yes Source: Developed by Drs. Willem Ramos, Thais Martinez, Stevie Gonsales and colleagues, with an educational josefina from [employer]. Binge Eating Scale Group 1 A. I don't feel self-conscious about my wt. or body size when I'm with others. B. I feel concerned about how I look to others, but it normally does not make me fell disappointed with myself C. I do get self-conscious about my appearance and wt. which makes me feel disappointed in myself. D. I feel very self-conscious about my wt. and frequently I feel intense shame and disgust for myself. I try to avoid social contacts because of my self-consciousness. Response Group 1: D Group 2 A. I don't have any difficulty eating slowly in the proper manner. B. Although I seem to gobble down foods, I don't end up feeling stuffed because of eating to much. C. At times, I tend to eat quickly and then, I feel uncomfortably full afterwards. D. I have the habit of bolting down my food, without really chewing it. When this happens I usually feel uncomfortably stuffed because I've eaten to much. Response Group 2: C Group 3 A. I feel capable to control my eating urges when I want to. B. I feel like I have failed to control my eating more than the average person. C. I feel utterly helpless when it comes to feeling in control of my eating urges. D. Because I feel so helpless about controlling my eating I have become very desperate about trying to get control. Response Group 3: D Group 4 A. I don't have the habit of eating when I'm bored. B. I sometimes eat when I'm bored, but often I'm able to get busy and get my mind off food. C. I have a regular habit of eating when I'm bored, but occasionally, I can use some other activity to get my mind off eating. D. I have a strong habit of eating when I'm bored. Nothing seems to help me breath the habit. Response Group 4: D Group 5 A. I'm usually physically hungry when I eat something. B. Occasionally, I eat something on impulse even though I really am not hungry. C. I have the regular habit of eating foods, that I might not really enjoy, to satisfy a hungry feeling even though physically, I don't need the food. D. Although I'm not physically hungry, I get a hungry feeling in my mouth that only seems to be satisfied when I eat a food, like sandwich, that fills my mouth. Sometimes, when I eat the food to satisfy my mouth hunger, I then spit the food out so I won't gain weight. Response Group 5: C Group 6 A. I don't feel any guilt or self-hate after I overeat. B. After I overeat, occasionally I feel guilt or self-hate. C. Almost all the time I experience strong guilt or self-hate after I overeat. Response Group 6: C Group 7 A. I don't lose total control of my eating when dieting even after periods when I overeat. B. Sometimes when I eat a forbidden food on a diet, I feel like I blew it and eat even more. C. Frequently, I have the habit of saying to myself, I've blown it now, why not go all the way, when I overeat on a diet. When that happens I eat more. D. I have a regular habit of starting a strict diets for myself but I break the diets by going on an eating binge. My life seems to be either a feast or famine. Response Group 7: D Group 8 A. I rarely eat so much food that I feel uncomfortably stuffed afterwards. B. Usually about once a month, I each such a quantity of food, I end up feeling very stuffed. C. I have regular periods during the month when I eat large amounts of food, either at mealtime or at snacks. D. I eat so much food that I regularly feel quite uncomfortable after eating and sometimes a bit nauseous. Response Group 8: D Group 9 A. My level of calorie intake does not go up very high or go down very low on a regular basis. B. Sometimes after I overeat, I will try to reduce my caloric intake to almost nothing to compensate for the excess calories I've eaten. C. I have a regular habit of overeating during the night. It seems that my routine is not to be hungry in the morning but overeat in the evening. D. In my adult years, I have had week-long periods where I practically starve myself. This follows periods when I overeat. It seems I live a life of either feast or famine. Response Group 9: D Group 10 A. I usually am able to stop eating when I want to. I know when enough is enough. B. Every so often, I experience a compulsion to eat which I can't seem to control. C. Frequently, I experience strong urges to eat which I seem unable to control, but at other times I can control my eating urges. D. I feel incapable of controlling urges to eat. I have a fear of not being able to stop eating voluntarily. Response Group 10: D Group 11 A. I don't have any problem stopping eating when I feel full. B. I usually can stop eating when I feel full but occasionally overeat leaving me feeling uncomfortably stuffed. C. I have a problem stopping eating once I start and usually I feel uncomfortably stuffed after I eat a meal. D. Because I have a problem not being able to stop eating when I want, I sometimes have to induce vomiting to relieve my stuffed feeling. Response Group 11: C Group 12 A. I seem to eat just as much when I'm with others, Family social gatherings as when I'm by myself. B. Sometimes, when I'm with other persons, I don't eat as much as I want to eat because I'm self-conscious about my eating. C. Frequently, I eat only a small amount of food when others are present, because I'm very embarrassed about my eating. D. I feel so ashamed about overeating that I pick times to overeat when I know no one will see me. I feel like a closet eater. Response Group 12: C Group 13 A. I eat three meals a day with only an occasional between meal snack. B. I eat 3 meals a day, but I also normally snack between meals. C. When I am snacking heavily, I get in the habit of skipping regular meals. D. There are regular periods when I seem to be continually eating, with no planned meals. Response Group 13: B Group 14 A. I don't think much about trying to control unwanted eating urges. B. At least some of the time, I feel my thoughts are pre-occupied with trying to control my eating urges. C. I feel that frequently I spend much time thinking about how much I ate or about trying not to eat anymore. D. It seems to me that most of my waking hours are pre-occupied by thoughts about eating or not eating. I feel like I'm constantly struggling not to eat. Response Group 14: D Group 15 A. I don't think about food a great deal. B. I have strong craving for food but they last only for brief periods of time. C. I have days when I can't seem to think about anything else but food. D. Most of my days seem to be pre-occupied with thoughts about food. I feel like I live to eat. Response Group 15: D Group 16 A. I usually know whether or not I'm physically hungry. I take the right portion of food to satisfy me. B. Occasionally, I feel uncertain about knowing whether or not I'm physically hungry. A these times it's hard to know how much food I should take to satisfy me. C. Even though I might know how many calories I should eat, I don't have any idea what is a normal amount of food for me. Response Group 16: B Binge Eating Score: 39 Score less than 17 Minimal Risk Score between 18-26 Moderate Risk Score between 27-46 High Risk Assessment & Plan Assessment & Plan (1) Anxiety: Code(s): F41.9 - Anxiety disorder, unspecified (2) Pre-bariatric surgery psychological evaluation: Code(s): Z71.89 - Other specified counseling Plan The patient was not cleared today as the assessment was not completed. The patient will return next week to continue the evaluation. Next appointment: 01/25/2025 Telehealth Telehealth Telehealth Platform: [employer] Location of provider rendering services: other (Home office. [place], [place]) Location of patient: address on file Patient Identification confirmed using: Name, : Yes Telehealth method: video Patient verbally consented to treatment: Yes Patient verbally consented to billing insurance company: Yes Patient informed of any privacy concerns related to visit: Yes Minutes spent on Phone/Video with Pt.: 55 Coding Level of Care Code New Pt Tele Psy Diag Eval (13059) Patient Type New Diagnoses Anxiety F41.9 Pre-bariatric surgery psychological evaluation Z71.89 Time Spent (min) 55
--- OUTSIDE RECORDS SUMMARY | 2025-01-18 17:48 | XMS_ITS | Patient Health Record ---
Author Organization [facility] Address [address] [place] [address] Care Team Providers Care Security Shift Supervisor Name Role Phone Lana KWOK Primary Care Provider Willem Gatica Unavailable [phone] Camelia MACEDO, Marcio Unavailable Unavailable Allergies Allergen [...] (Not yet reviewed by provider) Interpretation: Performing Lab:[facility], [address] [place] [id number] Notes/Report: Reason For Referral No Information Medications Medication SIG (Take, Route, Frequency, Duration) Notes Start Date End Date Status Levothyroxine Sodium 25 MCG Oral; Duration: 90 Active Aspirin 81 81 MG 1 tablet Orally Once a day; Duration: 30 day(s) 05/02/2024 Active buPROPion HCl ER (SR) 100 MG Oral; Duration: 90 Active Probiotic - as directed Orally 05/02/2024 Active Omeprazole 40 MG Oral; Duration: 90 Active MiraLax 17 GM/SCOOP 1 scoop mixed with 8 ounces of fluid Orally Once a day; Duration: 30 day(s) 05/02/2024 Active Cimetidine 300 MG Oral; Duration: 25 Active Collagen 500 MG as directed Orally 05/02/2024 Active Loratadine 10 MG TAKE 1 TABLET BY BLAYNE TH EVERY DAY Oral; Duration: 90 Active cycloSPORINE 0.05 % Ophthalmic; Duration : 90 Active Yuvafem 10 MCG 1 tablet Vaginal Two times a Week; Duration: 30 day(s) 05/02/2024 Active Fluticasone Propionate 50 MCG/ACT 1 spray in each nostril Nasally Twice a day Active Refresh Cleanser - as directed Externally 05/02/19 Active Refresh Lacri-Lube - as directed Ophthalmic 2024 Active Levocetirizine Dihydrochloride 5 MG 1 tablet in the evening Orally Once a day Active Calcium 600 MG 1 tablet with meals Orally Twice a day; Duration: 30 day(s) 05/02/2024 Active amLODIPine Besylate 10 MG Oral; Duration: 90 Active Vitamin D-3 125 MCG (5000 UT) 1 tablet O rally Once a day; Duration: 30 day(s) 05/02/2024 Active Atorvastatin Calcium 10 MG 1 tablet Oral ly Once a day Active Multi Vitamin Daily - 1 tablet Orally On ce a day; Duration: 30 day(s) 05/02/2024 Active Immunizations Vaccine Route [...] Status Risk Notes Problem Gastroesophageal reflux disease (170185521) GERD (gastroesopha geal reflux disease) (K21.9) Active confirmed Problem Globus sensation (487410318) Globus sensation (R09.89) Active confirmed Vital Signs Temperature 96.9 degrees Fahrenheit 08/29/2024 Blood pressure diastolic 01 mm Hg 08/29/2024 Height 5 ft 4 in in 08/29/2024 Blood pressure systolic 001 mm Hg 08/29/2024 Weight 208.8 lbs 08/29/2024 BMI 35.84 kg/m2 08/29/2024 Procedures Procedure Date Ordered Date Performed Result Body Sit e UPPER GI ENDOSCOPY 08/29/2024 N/A Encounters Encounter Location Date Provider Diagnosis [facility] Outpatient [address] [place], [place] [id number] 11/14/2024 Willem Pang [facility] [address] [place] [phone] 05/02/2024 Willem Pang Globus sensation R09.89 and GERD (gastroesophageal reflux disease) K21.9 [facility] [address] [place] [id number] 08/29/2024 Willem Pang Globus sensation R09.89 and GERD (gastroesophageal reflux disease) K21.9 [facility] [address] [place] [phone] 05/01/2024 Willem Pang [facility] [address] [address] 08/15/2024 Willem Bird [facility] [address] [place] [phone] 11/11/2024 Willem Pang [facility] [address] [place] [phone] 11/12/2024 Willem Pang Assessments Encounter Date Diagnosis [...] advise me that she is leaving to [place] in the next week or 2 for a one-month vacation. I did advise her to try to touch base with you prior to leaving to see if any treatment or testing can get done that might help her feel better while in [place]. I did advise Dante to contact me [...] advise me that she is leaving to [place] in the next week or 2 for a one-month vacation. I did advise her to try to touch base with you prior to leaving to see if any treatment or testing can get done that might help her feel better while in [place]. I did advise Dante to contact me [...] fact that things were much better in [place] and this points to either some type of environmental factor in her home or the air [place]. The other possibility would be that of some stress. I did advise her to try to make an appointment with the resistor tester such that they can review things with [...] fact that things were much better in [place] and this points to either some type of environmental factor in her home or the air in the [facility]. The other possibility would be that of some stress. I did advise her to try to make an appointment with the resistor tester such that they can review things with [...] I would recommend a consult with a Roll Edge Stitcher Hand if this persists. Overall, Dnate appears quite well and does not seem [...] advise me that she is leaving to [place] in the next week or 2 for a one-month vacation. I did advise her to try to touch base with you prior to leaving to see if any treatment or testing can get done that might help her feel better while in [place]. I did advise Dante to contact me [...] Insured Coverage Start Date Coverage End Date [facility] [address] [place] [address] [id number] DANTE MADDEN Self - patient is the insured 4 Medical (General) History Medical History History ICD Code Hypothyroidism HTN GERD--saw Dr. Hurley--has had a couple of EGD's Depression Collagenous colitis--diagnos ed by Dr. Hurley--last colonoscopy at age 77 was negative Denies [place],DM,CVA,Lung disease,renal dise ase Surgical History Surgery Date(Month/Year) Right knee replacement Ganglion cyst Link sling for incontinence [facility]
--- OUTSIDE RECORDS SUMMARY | 2025-01-18 17:48 | XMS_ITS | Continuity of Care Document ---
Author Organization [facility] Address [address] [place] [address] [place] [address] Insurance Providers Payer Plan Claims Address Claims Phone Policy Number Group Number Relation Employer Guarantor Name Guarantor Guarantor Address Guarantor Phone DANIELLE CORTEZ [employer] [address] [address] tel:[phone] [id number] Self Viry Crump [address] [place] [id number] HEALDoug CORTEZ RUTH DESHAUN ONE [address] [address] tel:[phone] Self Viry Crump [address] [place] [id number] HNE SELF FUNDE D [address] [facility], [address] [address] tel:[phone] Self Viry Crump [address] [place] [address] Problems Unknown Problems Results Test Result Date/Time Value / Unit Interp. Refere [facility] Range fax.pdf Lipid Panel[[id number]] Collected: 07/20/2024 02:47 PM Specimen Received: 07/20/2024 05:00 AM Source: [facility] Cholesterol, Total [[id number]] 07/21/2024 07:31 AM 260 mg/dL H 100-199 mg/d L Triglycerides [[id number]] 07/21/2024 07:32 AM 107 mg/dL 0-149 mg/dL HDL Cholesterol [991011] 07/21/2024 07:28 AM 62 mg/dL >39 mg/dL VLDL Cholesterol Wing [[id number]] 07/21/2024 07:32 AM 19 mg/dL 5-40 mg/dL LDL Chol Calc ([facility]) [[id number]] 07/21/2024 07:32 AM 179 mg/dL H 0-99 mg/dL Hemoglobin A1c[[id number]] Collected: 07/20/2024 02:47 PM Specimen Received: 07/20/2024 05:00 AM Source: [facility] Hemoglobin A1c [[id number]] 07/21/2024 02:57 AM 6.1 % H 4.8-5.6 % . Prediabetes: 5.7 - 6.4 Marielena betes: >6.4 Glycemic control for adults with diabetes: 7.0 Comp. Metabolic Panel (14)[[id number]] Collected: 02/17/2024 10:39 PM Specimen Received: 02/17/2024 05:00 AM Source: [facility] Glucose [[id number]] 02/18/2024 09:34 AM 103 mg/dL H 70-99 mg/dL BUN [[id number]] 02/18/2024 09:34 AM 29 mg/dL H 8-2 7 mg/dL Creatinine [[id number]] 02/18/2024 09:35 AM 0.67 mg/dL 0.57-1.00 mg/dL eGFR [[id number]] 02/18/2024 09:35 AM 88 mL/min/1.73 >59 mL/min/1.73 BUN/Creatinine Ratio [[id number]] 02/18/2024 09:35 AM 43 H 12-28 Sodium [119235] 02/18/2024 09:26 AM 142 mmol/L 134-144 mmol/L Potassium [[id number]] 02/18/2024 09:29 AM 4.4 mmol/L 3.5-5.2 mmol/L Chloride [204529] 02/18/2024 09:25 AM 105 mmol/L 96-106 mmol/L Carbon Dioxide, Total [193097] 02/18/2024 09:31 AM 20 mmol/L 20-29 mmol/L Calcium [[id number]] 02/18/2024 09:32 AM 9.6 mg/dL 8.7-10.3 mg/dL Protein, Total [[id number]] 02/18/2024 09:34 AM 7.1 g/dL 6.0-8.5 g/dL Albumin [076894] 02/18/2024 09:31 AM 4.4 g/dL 3.7-4.7 g/dL Globulin, Total [[id number]] 02/18/2024 09:34 AM 2.7 g/dL 1.5-4.5 g/dL Bilirubin, Total [994800] 02/18/2024 09:31 AM 0.2 mg/dL 0.0-1.2 mg/dL Alkaline Phosphatase [422554] 02/18/2024 09:31 AM 112 IU/L 44-121 IU/L AST (SGOT) [[id number]] 02/18/2024 09:34 AM 19 IU/L 0-40 IU/L ALT (SGPT) [[id number]] 02/18/2024 09:34 AM 16 IU/L 0-32 IU/L Lipid Panel[[id number]] Collected: 02/17/2024 10:39 PM Specimen Received: 02/17/2024 05:00 AM Source: [facility] Cholesterol, Total [[id number]] 02/18/2024 09:41 AM 258 mg/dL H 100-199 mg/d L Triglycerides [[id number]] 02/18/2024 09:41 AM 128 mg/dL 0-149 mg/dL HDL Cholesterol [[id number]] 02/18/2024 09:39 AM 67 mg/dL >39 mg/dL VLDL Cholesterol Wing [[id number]] 02/18/2024 09:41 AM 23 mg/dL 5-40 mg/dL LDL Chol Calc ([facility]) [[id number]] 02/18/2024 09:41 AM 168 mg/dL H 0-99 mg/dL Hemoglobin A1c[[id number]] Collected: 02/17/2024 10:39 PM Specimen Received: 02/17/2024 05:00 AM Source: [facility] Hemoglobin A1c [[id number]] 02/18/2024 10:23 AM 6.0 % H 4.8-5.6 % . Prediabetes: 5.7 - 6.4 Marielena betes: >6.4 Glycemic control for adults with diabetes: 7.0 Allergies, adverse reactions, alerts No known allergies and adverse reactions Medications No administered medications reported Vital Signs No vital signs reported Social History No smoking Hx information available
--- OUTSIDE RECORDS SUMMARY | 2025-01-18 17:48 | XMS_ITS | Continuity of Care Document ---
Author Organization [facility] Address [address] [place] [address] [place] [id number] Insurance Providers Payer Plan Claims Address Claims Phone Policy Number Group Number Relation Employer Guarantor Name Guarantor Guarantor Address Guarantor Phone DANIELLE CORTEZ [employer] [address] [address] tel:[id number] [id number] [phone] Self Viry Crump [address] [place] [id number] HEALDoug CORTEZ RUTH DESHAUN ONE [address] [address] tel:[phone] Self Viry Crump [address] [place] [address] HNE SELF FUNDE D ONE [facility], [address] [address] tel:[phone] Self Viry Crump [address] [place] [id number] Problems Unknown Problems Results Test Result Date/Time Value / Unit Interp. Refere [facility] Range fax.pdf Lipid Panel[[id number]] Collected: 07/20/2024 02:47 PM Specimen Received: 07/20/2024 05:00 AM Source: [facility] Cholesterol, Total [[id number]] 07/21/2024 07:31 AM 260 mg/dL H 100-199 mg/d L Triglycerides [[id number]] 07/21/2024 07:32 AM 107 mg/dL 0-149 mg/dL HDL Cholesterol [[id number]] 07/21/2024 07:28 AM 62 mg/dL >39 mg/dL VLDL Cholesterol Wing [[id number]] 07/21/2024 07:32 AM 19 mg/dL 5-40 mg/dL LDL Chol Calc ([facility]) [[id number]] 07/21/2024 07:32 AM 179 mg/dL H 0-99 mg/dL Hemoglobin A1c[[id number]] Collected: 07/20/2024 02:47 PM Specimen Received: 07/20/2024 05:00 AM Source: [facility] Hemoglobin A1c [[id number]] 07/21/2024 02:57 AM 6.1 % H 4.8-5.6 % . Prediabetes: 5.7 - 6.4 Marielena betes: >6.4 Glycemic control for adults with diabetes: 7.0 Comp. Metabolic Panel (14)[[id number]] Collected: 02/17/2024 10:39 PM Specimen Received: 02/17/2024 05:00 AM Source: [facility] Glucose [[id number]] 02/18/2024 09:34 AM 103 mg/dL H 70-99 mg/dL BUN [[id number]] 02/18/2024 09:34 AM 29 mg/dL H 8-2 7 mg/dL Creatinine [[id number]] 02/18/2024 09:35 AM 0.67 mg/dL 0.57-1.00 mg/dL eGFR [[id number]] 02/18/2024 09:35 AM 88 mL/min/1.73 >59 mL/min/1.73 BUN/Creatinine Ratio [[id number]] 02/18/2024 09:35 AM 43 H 12-28 Sodium [[id number]] 02/18/2024 09:26 AM 142 mmol/L 134-144 mmol/L Potassium [[id number]] 02/18/2024 09:29 AM 4.4 mmol/L 3.5-5.2 mmol/L Chloride [[id number]] 02/18/2024 09:25 AM 105 mmol/L 96-106 mmol/L Carbon Dioxide, Total [729791] 02/18/2024 09:31 AM 20 mmol/L 20-29 mmol/L Calcium [[id number]] 02/18/2024 09:32 AM 9.6 mg/dL 8.7-10.3 mg/dL Protein, Total [[id number]] 02/18/2024 09:34 AM 7.1 g/dL 6.0-8.5 g/dL Albumin [290706] 02/18/2024 09:31 AM 4.4 g/dL 3.7-4.7 g/dL Globulin, Total [[id number]] 02/18/2024 09:34 AM 2.7 g/dL 1.5-4.5 g/dL Bilirubin, Total [[id number]] 02/18/2024 09:31 AM 0.2 mg/dL 0.0-1.2 mg/dL Alkaline Phosphatase [794800] 02/18/2024 09:31 AM 112 IU/L 44-121 IU/L AST (SGOT) [[id number]] 02/18/2024 09:34 AM 19 IU/L 0-40 IU/L ALT (SGPT) [[id number]] 02/18/2024 09:34 AM 16 IU/L 0-32 IU/L Lipid Panel[[id number]] Collected: 02/17/2024 10:39 PM Specimen Received: 02/17/2024 05:00 AM Source: [facility] Cholesterol, Total [[id number]] 02/18/2024 09:41 AM 258 mg/dL H 100-199 mg/d L Triglycerides [005017] 02/18/2024 09:41 AM 128 mg/dL 0-149 mg/dL HDL Cholesterol [[id number]] 02/18/2024 09:39 AM 67 mg/dL >39 mg/dL VLDL Cholesterol Wing [[id number]] 02/18/2024 09:41 AM 23 mg/dL 5-40 mg/dL LDL Chol Calc ([facility]) [[id number]] 02/18/2024 09:41 AM 168 mg/dL H 0-99 mg/dL Hemoglobin A1c[[id number]] Collected: 02/17/2024 10:39 PM Specimen Received: 02/17/2024 05:00 AM Source: [facility] Hemoglobin A1c [[id number]] 02/18/2024 10:23 AM 6.0 % H 4.8-5.6 % . Prediabetes: 5.7 - 6.4 Marielena betes: >6.4 Glycemic control for adults with diabetes: 7.0 Allergies, adverse reactions, alerts No known allergies and adverse reactions Medications No administered medications reported Vital Signs No vital signs reported Social History No smoking Hx information available
== END 2025-01-18 15:54 | disposition home or self-care (01) ==
LOC: HO.HBST 15:17
PROVIDERS: PCP Internal Medicine; Visit Provider Counselor Mental Health
DX: F41.9 Anxiety disorder, unspecified (principal); Z71.89 Other specified counseling
CPT/HCPCS: 90791

== ENCOUNTER 2025-01-21 08:45 | Day surgery (SDC) | payer MEDICARE, SELFPAY ==
--- OUTSIDE RECORDS SUMMARY | 2024-11-14 07:30 | XMS_ITS ---
Author Organization [facility] Address [address] [place] [address] Care Team Providers Care Commercial Agent Name Role Phone Lana KWOK Primary Care Provider Willem Gatica [phone] Camelia MACEDO, Marcio Unavailable Unavailable REASON FOR VISIT gerd,globus senstion Encounters Encounter Location Date Provider Diagnosis [facility] Outpatient [address] [place] [id number] 11/14/2024 Willem Pang Plan Of Treatment No Information Progress Notes * DANTE MADDENDOB: 3 (84 yo F)Acc No.[id number]:11/14/2024 EGD/MAC Patient: DANTE CARLOS Provider: Kalpana Pang MD :1940 A ge:84 Y S ex:Female Date:11/14/2024 Address:[address] [place], [place] [phone] Pcp:Lana KWOK Subjective: * Chief Complaints: * [...] 11/14/2024 Generated for Frantz rowland/Amador/eTransmitting on: 1 11:54 AM EDT
--- OUTSIDE RECORDS SUMMARY | 2025-01-04 11:55 | XMS_ITS | Patient Health Record ---
Author Organization [facility] Address [address] [place] [phone] Care Team Providers Care Licensed Therapist Name Role Phone Lana KWOK Primary Care Provider Willem Gatica Unavailable [phone] Camelia MACEDO, Marcio Unavailable Unavailable Allergies Allergen [...] prednisone predniSONE Unknown Drug Allergy Activ e Results Component Value Reference Range Notes Pathology (Not yet reviewed by provider) Interpretation: Performing Lab:[facility], [address] [place] [phone] Notes/Report: Reason For Referral No Information Medications [...] Status Risk Notes Problem Gastroesophageal reflux disease (559298571) GERD (gastroesopha geal reflux disease) (K21.9) Active confirmed Problem Globus sensation (141408642) Globus sensation (R09.89) Active confirmed Vital Signs Temperature 96.9 degrees Fahrenheit 08/29/2024 Blood pressure diastolic 01 mm Hg 08/29/2024 Height 5 ft 4 in in 08/29/2024 Blood pressure systolic 001 mm Hg 08/29/2024 Weight 208.8 lbs 08/29/2024 BMI 35.84 kg/m2 08/29/2024 Procedures Procedure Date Ordered Date Performed Result Body Sit e UPPER GI ENDOSCOPY 08/29/2024 N/A Encounters Encounter Location Date Provider Diagnosis [facility] [address], [place] [id number] [facility] [address] [place] [phone] 05/02/2024 Willem Pang Globus sensation R09.89 and GERD (gastroesophageal reflux disease) K21.9 [facility] [address] [place] [phone] 08/29/2024 Willem Pang Globus sensation R09.89 and GERD (gastroesophageal reflux disease) K21.9 [facility] [address] [place] [phone] 05/01/2024 Willem Pang [facility] [address] [place] [phone] 08/15/2024 Willem Pang [facility] [address] [place] [phone] 11/11/2024 Willem Pang [facility] [address] [place] [phone] 11/12/2024 Willem Pang Assessments Encounter Date Diagnosis [...] advise me that she is leaving to [place] in the next week or 2 for a one-month vacation. I did advise her to try to touch base with you prior to leaving to see if any treatment or testing can get done that might help her feel better while in [place]. I did advise Dante to contact me [...] advise me that she is leaving to [place] in the next week or 2 for a one-month vacation. I did advise her to try to touch base with you prior to leaving to see if any treatment or testing can get done that might help her feel better while in [place]. I did advise Dante to contact me [...] fact that things were much better in [place] and this points to either some type of environmental factor in her home or the air [place]. The other possibility would be that of some stress. I did advise her to try to make an appointment with the campus safety officer such that they can review things with [...] 08/29/2024 Globus sensation (ICD-10 - R09.89) Overall, Datne appears quite well. We did review her [...] fact that things were much better in [place] and this points to either some type of environmental factor in her home or the air in the [facility]. The other possibility would be that of some stress. I did advise her to try to make an appointment with the campus safety officer such that they can review things with [...] I would recommend a consult with a Battery Plate Assembler if this persists. Overall, Dante appears quite [...] advise me that she is leaving to [place] in the next week or 2 for a one-month vacation. I did advise her to try to touch base with you prior to leaving to see if any treatment or testing can get done that might help her feel better while in [place]. I did advise Dante to contact me [...] Insured Coverage Start Date Coverage End Date [facility] [address] [place] [phone] [id number] DANTE MADDEN Self - patient is the insured 4 Medical (General) History Medical History History ICD Code Hypothyroidism HTN GERD--saw Dr. Hurley--has had a couple of EGD's Depression Collagenous colitis--diagnos ed by Dr. Hurley--last colonoscopy at age 77 was negative Denies OK,DM,CVA,Lung disease,renal dise ase Surgical History Surgery Date(Month/Year) Right knee replacement Ganglion cyst Link sling for incontinence [facility]
--- OUTSIDE RECORDS SUMMARY | 2025-01-04 11:55 | XMS_ITS | Clinical Summary ---
Author Organization [facility] Address [address] [place] [address] Phone Care Team Providers Care Drum Tester Name Role Phone Physician, No Pcp Primary [...] Comments TOTAL KNEE ARTHROPLASTY 12/20/2016 Right PROCEDURE: MO ARTHRP KNE CONDYLE&PLATU MEDIAL&LAT COMPARTMENTS TUBAL LIGATION PROCEDURE: HISTORICAL TUBAL LIGATION OTHER SURGICAL HISTORY PROCEDURE: PELVIC CONTROL PELVIC SLING HYSTERECTOMY 01/08/2009 PROCEDURE: HISTORICAL TOTAL HYSTERECTOMY WITH BSO SHOULDER SURGERY Left PROCEDURE: HISTORICAL SHOULDER SURGERY; COMMENT: arthroscopic decompression WRIST MASS EXCISION Right PROCEDURE: MO EXCISION GANGLION WRIST DORSAL/VOLAR PRIMARY; COMMENT: x3 COLONOSCOPY 08/01/2014 PROCEDURE: HISTORICAL COLONOSCOPY; COMMENT: & EGD; no report UPPER GASTROINTESTINAL ENDOSCOPY 10/11/2019 PROCEDURE: MO UPPER GI ENDOSCOPY PERFORMED; COMMENT: Dr. Hurley normal stomach and duodenum area biopsied at [facility] Medical History Medical History Date Comments Depression [...] 9:00 AM EDT Office Visit Bariatric Surgery [address] [phone] Montez Barker MD [facility] [place] [address] Health Maintenance Due Date Last [...] mmol/L LAB CHEMISTRY METHOD 04/19/2024 8:29 PM [facility] Potassium 3.8 3.5 - 5.5 mmol/L LAB CHEMISTRY METHOD 04/19/2024 8:29 PM [facility] Chloride 111(H) 96 - 110 mmol/L LAB CHEMISTRY METHOD 04/19/2024 8:29 PM [facility] CO2 27 21 - 32 mmol/L LAB CHEMISTRY METHOD 04/19/2024 8:29 PM [facility] Anion Gap 3 3 - 11 LAB CHEMISTRY METHOD 04/19/2024 8:29 PM [facility] Glucose 91 70 - 100 mg/dL LAB CHEMISTRY METHOD 04/19/2024 8:29 PM [facility] BUN 19 5 - 25 mg/dL LAB CHEMISTRY METHOD 04/19/2024 8:29 PM [facility] Creatinine 0.64 0.50 - 1.10 mg/dL LAB CHEMISTRY METHOD 04/19/2024 8:29 PM [facility] eGFR 89 >=60 mL/min/1. 73m2 LAB CHEMISTRY METHOD 04/19/2024 8:29 PM [facility] Comment:Calculation based on the Chronic Kidney Disease Epidemiology Collaboration (CKD-EPI) equation refit without adjustment for race. BUN/Creatinine Ratio 29.7 LAB CHEMISTRY METHOD 04/19/2024 8:29 PM [facility] Calcium 9.7 8.5 - 10.5 mg/dL LAB CHEMISTRY METHOD 04/19/2024 8:29 PM EST [facility] AST (SGOT) 14 10 - 42 unit/L LAB CHEMISTRY METHOD 04/19/2024 8:29 PM [facility] ALT (SGPT) 22 10 - 60 unit/L LAB CHEMISTRY METHOD 04/19/2024 8:29 PM [facility] Alkaline Phosphatase 80 42 - 121 unit/L LAB CHEMISTRY METHOD 04/19/2024 8:29 PM [facility] Total Protein 6.9 6.0 - 8.0 g/dL LAB CHEMISTRY METHOD 04/19/2024 8:29 PM [facility] Albumin 3.9 3.2 - 5.0 g/dL LAB CHEMISTRY METHOD 04/19/2024 8:29 PM [facility] Total Bilirubin 0.3 0.0 - 1.4 mg/dL LAB CHEMISTRY METHOD 04/19/2024 8:29 PM [facility] Blood Venous blood specimen / Unknown Venipuncture / Unknown 04/19/2024 7:18 PM EST 04/19/2024 7:47 PM EST [facility] BLOOD ORDERABLES Final Resul t [facility] [address] [place] [address], from Last 3 Months or Most Recently Relevant to Health Maintenance Insurance [employer] Care Teams Drum Tester Relationship Specialty Start Date End Date Physician, No Pcp PCP - General 07/04/24
[2025-01-10 11:24] VITALS: BMI 37.2
--- NOTE | 2025-01-15 10:18 | HO.ANESPROP2 ---
Documented by User: Cristine Corea NP 01/15/25 10:19 HPI - Anesthesia Eval Consult details Narrative: 84yo F for Upper Endoscopy s/p EGD 11/2024 with [facility] Active Problems Active Problems: All Active Problems Anxiety (Acute) Hypothyroidism (Acute) Hyperlipidemia (Acute) Diaphragmatic hernia (Acute) BMI 37.0-37.9, adult (Acute) Obesity (Acute) Past Medical History Medical History Tremor of both hands Nephrolithiasis Migraines Sleep apnea Anxiety Hypothyroidism Hyperlipidemia Diaphragmatic hernia BMI 37.0-37.9, adult Obesity Collagenous colitis Depression GERD (gastroesophageal reflux disease) Hypertension Hyperthyroidism Ganglion cyst Family History Family History Mother No problems noted. Father No problems noted. Family history of problems with anesthesia: No Surgical History Surgical History History of esophagogastroduodenoscopy (EGD) History of colonoscopy History of total abdominal hysterectomy History of pubovaginal sling History of right knee joint replacement History of Problems with Anesthesia: No Social History Social History Are you a primary child day care provider to a significant other at home: No Do you presently have visiting nurse or other home services: No Alcohol intake: never Patient Tobacco Use Status: Former Tobacco user Have you been hit, kicked, punched, or otherwise hurt by someone within the past year? If so, by whom?: No Are you DNR?: No Advance Directives: No Advance Directives Information Provided: Yes Poor oral hygiene: No Meds Allergies Allergy/AdvReac Type Severity Reaction Status Date / Time budesonide (From Entocort EC) Allergy Unknown Verified 01/21/25 08:54 celecoxib Allergy Unknown Verified 01/21/25 08:54 famotidine Allergy Unknown Verified 01/21/25 08:54 lamotrigine Allergy Unknown Verified 01/21/25 08:54 meloxicam Allergy Unknown Verified 01/21/25 08:54 ondansetron Allergy Unknown Verified 01/21/25 08:54 prednisone Allergy Unknown Verified 01/21/25 08:54 sucralfate Allergy Unknown Verified 01/21/25 08:54 sulfamethoxazole (From Allergy Unknown Verified 01/21/25 08:54 Bactrim) topiramate Allergy Unknown Verified 01/21/25 08:54 trimethoprim (From Bactrim) Allergy Unknown Verified 01/21/25 08:54 Home Medications ?Medication ?Instructions ?Recorded ?Confirmed ?Last Taken ?Type amlodipine 10 mg tablet 10 mg PO DAILY 11/13/24 01/10/25 Unknown History atorvastatin 10 mg tablet 10 mg PO DAILY 11/13/24 01/10/25 Unknown History bupropion HCl 100 mg tablet 100 mg PO BID 11/13/24 01/10/25 Unknown History cyclosporine 0.05 % eye drops in a 1 drp ophthalmic (eye) BID 11/13/24 01/10/25 Unknown History dropperette fluticasone propionate 50 1 spray intranasal BID 11/13/24 01/10/25 Unknown History mcg/actuation nasal spray,suspension levocetirizine 5 mg tablet 5 mg PO QPM 11/13/24 01/10/25 Unknown History levothyroxine 25 mcg tablet 25 mcg PO DAILY 11/13/24 01/10/25 01/21/25 History omeprazole 40 mg capsule,delayed 40 mg PO BID 11/13/24 01/10/25 Unknown History release aspirin 81 mg tablet,delayed 81 mg PO DAILY 01/10/25 01/10/25 Unknown History release calcium 600 mg (as 1 tab PO BID 01/10/25 01/10/25 Unknown History carbonate)-vitamin D3 5 mcg (200 unit) tablet cimetidine 300 mg tablet 300 mg PO QAM 01/10/25 01/10/25 Unknown History dicyclomine 10 mg capsule 20 mg PO TID PRN Gastrointestinal 01/10/25 01/10/25 Unknown History Spasms Or Cramping estradiol 10 mcg vaginal tablet 10 mcg vaginal 2XW 01/10/25 01/10/25 Unknown History (Vagifem) polyethylene glycol 3350 17 gram 17 g PO DAILY 01/10/25 01/10/25 Unknown History oral powder packet (Miralax) Exam Height,Weight and Vital Signs: Height 5 ft 4 in Weight 98.43 kg Pertinent Lab Results Pertinent Lab Results: Laboratory Tests 01/02/25 10:38 WBC 5.2 Hgb 14.7 Hct 44.9 Plt Count 203 Sodium 143 Potassium 3.9 Chloride 109 H Carbon Dioxide 27 BUN 17 H Creatinine 0.69 Assessment and Plan Assessment Anesthesia Assessment: Chart Reviewed Final Anesthetic Review Family History of Problems with Anesthesia: No History of Problems with Anesthesia: No Documented by User: Antonette Hagan MD 01/21/25 09:30 [facility] Past Medical History Medical History Tremor of both hands Nephrolithiasis Migraines Sleep apnea Anxiety Hypothyroidism Hyperlipidemia Diaphragmatic hernia BMI 37.0-37.9, adult Obesity Collagenous colitis Depression GERD (gastroesophageal reflux disease) Hypertension Hyperthyroidism Ganglion cyst Family History Family History Mother No problems noted. Father No problems noted. Surgical History Surgical History History of esophagogastroduodenoscopy (EGD) History of colonoscopy History of total abdominal hysterectomy History of pubovaginal sling History of right knee joint replacement Social History Social History Are you a primary child day care provider to a significant other at home: No Do you presently have visiting nurse or other home services: No Alcohol intake: never Patient Tobacco Use Status: Former Tobacco user Have you been hit, kicked, punched, or otherwise hurt by someone within the past year? If so, by whom?: No Are you DNR?: No Advance Directives: No Advance Directives Information Provided: Yes Poor oral hygiene: No Meds Allergies Allergy/AdvReac Type Severity Reaction Status Date / Time budesonide (From Entocort EC) Allergy Unknown Verified 01/21/25 08:54 celecoxib Allergy Unknown Verified 01/21/25 08:54 famotidine Allergy Unknown Verified 01/21/25 08:54 lamotrigine Allergy Unknown Verified 01/21/25 08:54 meloxicam Allergy Unknown Verified 01/21/25 08:54 ondansetron Allergy Unknown Verified 01/21/25 08:54 prednisone Allergy Unknown Verified 01/21/25 08:54 sucralfate Allergy Unknown Verified 01/21/25 08:54 sulfamethoxazole (From Allergy Unknown Verified 01/21/25 08:54 Bactrim) topiramate Allergy Unknown Verified 01/21/25 08:54 trimethoprim (From Bactrim) Allergy Unknown Verified 01/21/25 08:54 Home Medications ?Medication ?Instructions ?Recorded ?Confirmed ?Last Taken ?Type amlodipine 10 mg tablet 10 mg PO DAILY 11/13/24 01/10/25 Unknown History atorvastatin 10 mg tablet 10 mg PO DAILY 11/13/24 01/10/25 Unknown History bupropion HCl 100 mg tablet 100 mg PO BID 11/13/24 01/10/25 Unknown History cyclosporine 0.05 % eye drops in a 1 drp ophthalmic (eye) BID 11/13/24 01/10/25 Unknown History dropperette fluticasone propionate 50 1 spray intranasal BID 11/13/24 01/10/25 Unknown History mcg/actuation nasal spray,suspension levocetirizine 5 mg tablet 5 mg PO QPM 11/13/24 01/10/25 Unknown History levothyroxine 25 mcg tablet 25 mcg PO DAILY 11/13/24 01/10/25 01/21/25 History omeprazole 40 mg capsule,delayed 40 mg PO BID 11/13/24 01/10/25 Unknown History release aspirin 81 mg tablet,delayed 81 mg PO DAILY 01/10/25 01/10/25 Unknown History release calcium 600 mg (as 1 tab PO BID 01/10/25 01/10/25 Unknown History carbonate)-vitamin D3 5 mcg (200 unit) tablet cimetidine 300 mg tablet 300 mg PO QAM 01/10/25 01/10/25 Unknown History dicyclomine 10 mg capsule 20 mg PO TID PRN Gastrointestinal 01/10/25 01/10/25 Unknown History Spasms Or Cramping estradiol 10 mcg vaginal tablet 10 mcg vaginal 2XW 01/10/25 01/10/25 Unknown History (Vagifem) polyethylene glycol 3350 17 gram 17 g PO DAILY 01/10/25 01/10/25 Unknown History oral powder packet (Miralax) Exam Airway Mallampati Class: II TM Dist: >3cm Neck ROM: Full Denture: Upper Partial: Lower Loose/Missing/Broken Teeth: Yes, Upper and Lower Heart: RRR Lungs: CTA Assessment and Plan Assessment Anesthesia Assessment: Anesthesia Plan Discussed Final Anesthetic Review NPO: Yes ASA Class: II Final Preanesthetic Review: Meds/Allgs Chart Reviewed, Consent Obtained/Reviewed and Anes Risks/Benef Reviewed Patient Risk: Intermediate Procedure Risk: Intermediate Anesthetic Plan Anesthetic Plan: MAC: Disposition: Standard PACU
[2025-01-21 08:49] VITALS: BMI 35.5
[2025-01-21] MEDS: Lactated Ringers 1,000 ML 100 ML IVCONT (09:07)
[2025-01-21 09:14] VITALS: BP 125/57; PULSE 86; RESP 18; TEMP 36.6; O2SAT 95
--- NOTE | 2025-01-21 09:28 | MHC.SHP ---
Pre-Procedural Eval Section A - 24 Hr Update-Section A only Date of Service: 01/21/25 The patient is an INPATIENT: No The patient has been examined within 24 hours of the surgical procedure. The History & Physical has been completed within 30 days and I have reviewed it.: Yes Section B - Complete if H&P > 30 days Chief Complaint: Obesity, Details of Present Illness: Diaphragmatic hernia and GERD Relevant Family History (Specify if Yes): No Relevant Social History: None Present Medications: None Medical History: No relevant PMH History of Previous Operations: No relevant previous surgery Allergies: Allergies Allergy/AdvReac Type Severity Reaction Status Date / Time budesonide (From Entocort EC) Allergy Unknown Verified 01/21/25 08:54 celecoxib Allergy Unknown Verified 01/21/25 08:54 famotidine Allergy Unknown Verified 01/21/25 08:54 lamotrigine Allergy Unknown Verified 01/21/25 08:54 meloxicam Allergy Unknown Verified 01/21/25 08:54 ondansetron Allergy Unknown Verified 01/21/25 08:54 prednisone Allergy Unknown Verified 01/21/25 08:54 sucralfate Allergy Unknown Verified 01/21/25 08:54 sulfamethoxazole (From Allergy Unknown Verified 01/21/25 08:54 Bactrim) topiramate Allergy Unknown Verified 01/21/25 08:54 trimethoprim (From Bactrim) Allergy Unknown Verified 01/21/25 08:54 Review of Systems Sugical H&P ROS: Negative: Constitution, Cardiovascular, Respiratory, Neurological, Psychiatric, Hem-Onc, Allergic/Immunologic, Gastrointestinal, Genitourinary, Musculoskeletal, Integumentary, Endocrine and Eyes/Ears/Nose/Throat Exam Surgical H&P Exam: Normal: HEENT, Normal: Heart, Normal: Lungs, Normal: Extremities, Normal: Abdomen, Normal: Skin and Normal: Neurological Plan Diagnosis/Plan: Unchanged (EGD to assess etiology of GERD and the anatomy of the diaphragmatic hernia. Risks of bleeding and perforation were discussed with the patient and she is in agreement with the plan.) I have reviewed the history and physical and performed a pertinent physical examination on my patient. No changes have occurred unless specified. Time Spent With Patient Time: Total time managing care of this patient today ____ minutes.
--- NOTE | 2025-01-21 09:35 | PM.OP ---
Brief Operative Note Date of Service: 01/21/25 Pre-op diagnosis: Diaphragmatic hernia and GERD Post-op diagnosis: same Procedure: PROCEDURE DATE: 12/17/2024 PREOPERATIVE DIAGNOSIS: GERD POSTOPERATIVE DIAGNOSIS: ?Same as above. 3cm fixed diaphragmatic hernia PROCEDURE: Ccdotwwp-pquipo-dnytqrxbdaik with biopsies Surgeon: ?Guido Garcia M.D.. Ph.D. Public Relations Associate: None ? Anesthesia: IV sedation Estimated blood loss: ?Minimal FINDINGS AND PROCEDURE: ? OPERATIVE INDICATIONS: ?The patient is a 32 year old female known to me who is interested in bariatric surgery. The patient has a diaphragmatic hernia. Based on this information I recommended an upper endoscopy to evaluate the patient's symptoms. Risks and complications of the surgery were discussed with the patient in advance particularly the possibility of perforation or bleeding that may require surgical intervention. The patient understood the risks and was in agreement with the plan. ? PROCEDURE: After informed consent was obtained by the patient, the patient was ?transferred to the Operating Room and was placed in the supine position.? After successful induction of IV sedation, a mouth block was inserted and the patient was placed in the left lateral decubitus position. An upper endoscopy was performed next, the oropharynx and esophagus appeared within the normal limits. There was a 3cm fixed hiatal hernia. The z-line was smooth. Two biopsies were obtained from the distal esophagus 2-3 cm proximal to the GE junction and two additional biopsies from the GE junction. The stomach was entered and it appeared to be of normal size. There was no gastritis. There was no stricture or ulcer. A biopsy was obtained from the gastric fundus and the antrum. No significant bleeding was noted from any of the biopsy sites. Retroflexion of the scope confirmed the presence of the diaphragmatic hernia. The scope was then advanced into the duodenum which appeared to be normal as well. At that point the duodenum ?and the stomach were decompressed and the scope was withdrawn from the patient's mouth. The patient extubated and was transferred in stable condition to the Recovery Room for further care. I was present and performed all steps of the procedure. There were no residents to assist with this case. Guido Garcia M.D., Ph.D. Surgeon: New Garcia MD Anesthesia: MAC Was an Public Relations Associate used for this Procedure?: No Estimated blood loss (mL): 0 IV fluids (mL): 400 Urine output (mL): 0 (No Silvestre to record output) Pathology: other (1) antrum x1, 2) fundus x1, 3) GE junction x2, 4) distal esophagus x2) Condition: stable Disposition: PACU
[2025-01-21 09:54] VITALS: BP 132/56; PULSE 70; RESP 18; TEMP 36.1; O2SAT 100
[2025-01-21 10:09] VITALS: BP 123/63; PULSE 63; RESP 16; O2SAT 97
== END 2025-01-21 10:58 | disposition home or self-care (01) ==
PROVIDERS: PCP Internal Medicine; Visit Provider Surgery
PROC: 0DJ08ZZ Inspection of Upper Intestinal Tract, Via Natural or Artificial Opening Endoscopic (ICD-10-PCS; CPT 43235; principal; 2025-01-21 11:30)
DX: K21.9 Gastro-esophageal reflux disease without esophagitis (principal); K44.9 Diaphragmatic hernia without obstruction or gangrene; K52.831 Collagenous colitis; E66.9 Obesity, unspecified; Z68.37 Body mass index [BMI] 37.0-37.9, adult; I10 Essential (primary) hypertension; G47.33 Obstructive sleep apnea (adult) (pediatric); F32.A Depression, unspecified; F41.9 Anxiety disorder, unspecified; E78.5 Hyperlipidemia, unspecified; E05.90 Thyrotoxicosis, unspecified without thyrotoxic crisis or storm; E03.9 Hypothyroidism, unspecified; Z79.82 Long term (current) use of aspirin; Z79.899 Other long term (current) drug therapy; Z88.2 Allergy status to sulfonamides; Z88.8 Allergy status to other drugs, medicaments and biological substances; Z90.710 Acquired absence of both cervix and uterus; Z98.890 Other specified postprocedural states; Z96.651 Presence of right artificial knee joint; Z87.891 Personal history of nicotine dependence
CPT/HCPCS: 43239; 88305; 88313; 88342; J2003; J2704

== ENCOUNTER → 2025-01-21 08:45 | Outpatient (BNV) | payer MEDICARE, SELFPAY | PROVIDERS: PCP Internal Medicine; Visit Provider Surgery | DX: K44.9 Diaphragmatic hernia without obstruction or gangrene (principal); K21.9 Gastro-esophageal reflux disease without esophagitis | CPT/HCPCS: 43239 ==

== ENCOUNTER 2025-01-25 13:55 | Outpatient (AMB) | payer MEDICARE, SELFPAY ==
--- OUTSIDE RECORDS SUMMARY | 2024-11-14 07:30 | XMS_ITS ---
Author Organization [facility] Address [address] [place] [address] Care Team Providers Care Clinical Dietetic Technician Name Role Phone Lana KWOK Primary Care Provider Willem Gatica [phone] Camelia MACEDO, Marcio Unavailable Unavailable REASON FOR VISIT gerd,globus senstion Encounters Encounter Location Date Provider Diagnosis [facility] [place] [address] [place] [id number] 11/14/2024 Willem Pang Plan Of Treatment No Information Progress Notes * DANTE MADDENDOB: 3 (84 yo F)Acc No.[id number]:11/14/2024 EGD/MAC Patient: DANTE CARLOS Provider: Kalpana Pang MD :1940 A ge:84 Y S ex:Female Date:11/14/2024 Address:[address] [place], [place] [phone] Pcp:Lana KWOK Subjective: * Chief Complaints: * [...] 11/14/2024 Generated for Frantz rowland/Amador/eTransmitting on: 1 03:55 PM EDT
--- NOTE | 2025-01-25 13:49 | MHC.WMTHER ---
Intake Intake Visit Reasons: VIDEO Intake Part 2 F/U Allergies sulfamethoxazole (From Bactrim) Allergy (Intermediate, Verified 02/27/25 09:50) Hives trimethoprim (From Bactrim) Allergy (Intermediate, Verified 02/27/25 09:50) Hives budesonide (From Entocort EC) Allergy (Mild, Verified 02/27/25 09:50) lightheaded celecoxib Allergy (Mild, Verified 02/27/25 09:50) lightheaded lamotrigine Allergy (Mild, Verified 02/27/25 09:50) lightheaded meloxicam Allergy (Mild, Verified 02/27/25 09:50) lightheaded topiramate Allergy (Mild, Verified 02/27/25 09:50) lightheaded famotidine Allergy (Unknown, Verified 02/27/25 09:50) Unknown sucralfate Allergy (Unknown, Verified 02/27/25 09:50) Unknown citalopram Adverse Reaction (Verified 02/27/25 09:50) Migraine ondansetron Adverse Reaction (Verified 02/27/25 09:50) Headache prednisone Adverse Reaction (Verified 02/27/25 09:50) Palpitations PFSH Medical History (Updated 02/26/25 @ 00:00 [facility] BMI 33.0-33.9,adult Oral lichen planus Tremor of both hands Nephrolithiasis Migraines Sleep apnea Anxiety Hypothyroidism Hyperlipidemia Diaphragmatic hernia BMI 37.0-37.9, adult Obesity Collagenous colitis Depression GERD (gastroesophageal reflux disease) Hypertension Hyperthyroidism Ganglion cyst Surgical History (Updated 02/27/25 @ 09:50 by Liv Chacon CMA) S/P gastric sleeve procedure History of esophagogastroduodenoscopy (EGD) History of colonoscopy History of total abdominal hysterectomy History of pubovaginal sling History of right knee joint replacement Family History Mother No problems noted. Father No problems noted. Social History Household Members: None Housing: House Are you a primary care transitions nurse to a significant other at home: No Do you presently have visiting nurse or other home services: No Alcohol intake: never Comment: occasional cane for balance Patient Tobacco Use Status: Former Tobacco user Tobacco use type: Cigarette Years Smoked: 22 Behavioral Health Assessment Weight Management Therapy Therapy Notes Details The patient is an 84-year-old female presenting for her second visit to complete a behavioral health assessment as part of the surgical weight loss program. She was initially referred by her PCP. The patient reports adherence to her prescribed meal and exercise plan and is experiencing steady weight loss. She has gained insight into her previous eating habits, recognizing that she was consuming more than necessary and making unfulfilling food choices, which led to frequent snacking throughout the day. Since starting the program, she has not engaged in this pattern. Presenting Concerns Referral Source WMP-Provider Reason for referral Completion of behavioral health assessment as part of process for weight-loss surgery. Precipitating Event Obesity Living Situation Current Living Situation Own At risk of losing current housing? No Satisfied with current living situation? Yes Comments Pt lives alone. Food/Weight/Diet Expectations of change PT started the program on 12/31/24 at 217Lbs and most recent as of last session was 205Lbs. The initial goal is to lose 10% of her weight before surgery, which is about 17lbs. Ultimate weight goal: 200lbs before surgery. Patient reports her weight today, 01/25/25, was 203 lbs. PT is unsure about the weight goal post-operatively. PT is implementing the following: Current meal plan: 2 protein shakes, 2.5 protein bars, and one meal per day. Exercise plan: Walking Scale: yes Communication with : yes, Tuesdays. History/Relationship with food PT reports she has had moments of emotional eating, specially when was aliove and she took care of him. The last few years she was feeling hungry all the time and not satisfied despite eating healthy and feeling able to control it at times. Before she started this program she was doing the Ketto diet.But was cheating a lot Example of meals before starting the program: Breakfast: Skip, but will have cereal or eggs w/ hudson and a cup of tea mid-morning. If not at home I would have a protein shake. Lunch: 2 slices of keto bread with chicken/hudson, tomatoes, lettuce and keto Mayonnaise. Dinner: chicken and veggies. Snacks: cupcakes, bread, popcorn, chips. Drinks/Liquids: Coffee: none. tea: 1 cup. Soda: sugar-free isa yuliet 1-2x month. Energy drinks: none. Juice: alcohol: None. History/Relationship with weight PT reports being overweight in childhood, when she was in college, went down to 119Lbs until got and had first baby and slowly gained weight, at times up and down from 150-200Lbs. She recalls being 150Lbs about 25 years ago. And about 170Lbs when I had my first divorce In the last 10-20 years, her weight has been in between 200 and 220 lbs. History/Relationship with dieting Nutrisystem 2xtimes, the first time lost 20Lbs and then the second time nothing. Weight watchers, Keto diet, Low-carb/high fat diet, Atkins. Before starting this program, her PCP prescribed her GLP-1 but insurance denied. Binge Eating Do you frequently eat large amounts of food in short periods of time, not feeling physically hungry? No Do you feel out of control when you eat a large amount of food in a short period of time? No Do you eat large amounts of food rapidly and typically alone? Yes Night Eating Do you wake up at least once during the night to eat? No If you wake up in the night, do you find that it is necessary to eat something in order to fall back asleep? No Do you have little or no appetite in the morning and feel very hungry in the evening, often overeating between dinner and when you go to bed? Yes Social History Family history and relationship PT is , he 3 years ago, they were for 18 years. This was her second marriage, for 17 years the first time. PT has 2 adult children who live in [place]. Parental/Familial director of family service center obligations None at the time. Developmental history and status None reported. Currently WNL. Social support Kids, some friends in the area. Community support Goes to the senior center frequently [employer]. Cultural/Ethnic information . Legal Involvement and History Current or historical involvement with the legal system? None reported Education Highest grade completed HS. 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 Preferred learning style Learn by doing Currently enrolled in educational program? No Interested in further educational program? 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 Employment Employment Status Retired (Since age 64) Wants help to find employment? No Meaningful activities going out with girlfriends, puzzles, gardening, and reading. Financial Situation Describe current financial situation Comfortable Financial assistance? None Service Service? No Mental Health and Addiction Treatment Current/Past substance abuse? No Comments Alcohol: None Cigarettes/Tobacco: None. Cannabis/Edibles: None. Current/Past addictive behavior concerns? No Psychiatric history The patient previously attended counseling several years ago during her first marriage and was diagnosed with depression at that time. She is currently prescribed Bupropion HCL 100 mg daily by her PCP. She reports that episodes of low mood are infrequent, typically presenting as brief periods of sadness lasting only a few days. The last significant episode of feeling tense or down occurred approximately three years ago. She denies any history of mental health crises, inpatient psychiatric treatment, suicidal ideation, suicide attempts, self-harm, or thoughts of harming others. There are no current concerns in these areas. Medical and Physical Health Summary Additional Medical History not covered in history None aditional Sexual History concerns None reported. Physical exam in the last year? Yes Pain Screening Current pain? Yes Pain in the last few months? Yes Medications Is the patient compliant with medications? Yes Does the patient have Ramos Guardian in place? Not applicable Does the patient use complimentary health approaches? Yes (Has a biofeedback machine for pain. Recently finished PT for leg issues. ) Trauma/Abuse History History of trauma? No Questionnaires PHQ-9 Over the last 2 weeks, how often have you been bothered by any of the following problems? 1. Little interest or pleasure in doing things: not at all 2. Feeling down, depressed, or hopeless: not at all 3. Trouble falling or staying asleep, or sleeping too much: several days (Trouble falling) 4. Feeling tired or having little energy: several days 5. Poor appetite or overeating: not at all 6. Feeling bad about yourself - or that you are a failure or have let yourself or your family down: not at all 7. Trouble concentrating on things, such as reading the newspaper or watching television: not at all 8. Moving or speaking so slowly that other people could have noticed. Or the opposite - being so fidgety or restless that you have been moving around a lot more than usual: not at all 9. Thoughts that you would be better off or of hurting yourself in some way: not at all Total score: 2 Depression Screening Interpretation: Negative Depression Screening Done: Yes 40094 - PHQ-9 Billing: Yes Source: Developed by Drs. Willem Ramos, Thais Martinez, Stevie Gonsales and colleagues, with an educational josefina from [employer]. Binge Eating Scale Group 1 A. I don't feel self-conscious about my wt. or body size when I'm with others. B. I feel concerned about how I look to others, but it normally does not make me fell disappointed with myself C. I do get self-conscious about my appearance and wt. which makes me feel disappointed in myself. D. I feel very self-conscious about my wt. and frequently I feel intense shame and disgust for myself. I try to avoid social contacts because of my self-consciousness. Response Group 1: D Group 2 A. I don't have any difficulty eating slowly in the proper manner. B. Although I seem to gobble down foods, I don't end up feeling stuffed because of eating to much. C. At times, I tend to eat quickly and then, I feel uncomfortably full afterwards. D. I have the habit of bolting down my food, without really chewing it. When this happens I usually feel uncomfortably stuffed because I've eaten to much. Response Group 2: C Group 3 A. I feel capable to control my eating urges when I want to. B. I feel like I have failed to control my eating more than the average person. C. I feel utterly helpless when it comes to feeling in control of my eating urges. D. Because I feel so helpless about controlling my eating I have become very desperate about trying to get control. Response Group 3: D Group 4 A. I don't have the habit of eating when I'm bored. B. I sometimes eat when I'm bored, but often I'm able to get busy and get my mind off food. C. I have a regular habit of eating when I'm bored, but occasionally, I can use some other activity to get my mind off eating. D. I have a strong habit of eating when I'm bored. Nothing seems to help me breath the habit. Response Group 4: D Group 5 A. I'm usually physically hungry when I eat something. B. Occasionally, I eat something on impulse even though I really am not hungry. C. I have the regular habit of eating foods, that I might not really enjoy, to satisfy a hungry feeling even though physically, I don't need the food. D. Although I'm not physically hungry, I get a hungry feeling in my mouth that only seems to be satisfied when I eat a food, like sandwich, that fills my mouth. Sometimes, when I eat the food to satisfy my mouth hunger, I then spit the food out so I won't gain weight. Response Group 5: C Group 6 A. I don't feel any guilt or self-hate after I overeat. B. After I overeat, occasionally I feel guilt or self-hate. C. Almost all the time I experience strong guilt or self-hate after I overeat. Response Group 6: C Group 7 A. I don't lose total control of my eating when dieting even after periods when I overeat. B. Sometimes when I eat a forbidden food on a diet, I feel like I blew it and eat even more. C. Frequently, I have the habit of saying to myself, I've blown it now, why not go all the way, when I overeat on a diet. When that happens I eat more. D. I have a regular habit of starting a strict diets for myself but I break the diets by going on an eating binge. My life seems to be either a feast or famine. Response Group 7: D Group 8 A. I rarely eat so much food that I feel uncomfortably stuffed afterwards. B. Usually about once a month, I each such a quantity of food, I end up feeling very stuffed. C. I have regular periods during the month when I eat large amounts of food, either at mealtime or at snacks. D. I eat so much food that I regularly feel quite uncomfortable after eating and sometimes a bit nauseous. Response Group 8: D Group 9 A. My level of calorie intake does not go up very high or go down very low on a regular basis. B. Sometimes after I overeat, I will try to reduce my caloric intake to almost nothing to compensate for the excess calories I've eaten. C. I have a regular habit of overeating during the night. It seems that my routine is not to be hungry in the morning but overeat in the evening. D. In my adult years, I have had week-long periods where I practically starve myself. This follows periods when I overeat. It seems I live a life of either feast or famine. Response Group 9: D Group 10 A. I usually am able to stop eating when I want to. I know when enough is enough. B. Every so often, I experience a compulsion to eat which I can't seem to control. C. Frequently, I experience strong urges to eat which I seem unable to control, but at other times I can control my eating urges. D. I feel incapable of controlling urges to eat. I have a fear of not being able to stop eating voluntarily. Response Group 10: D Group 11 A. I don't have any problem stopping eating when I feel full. B. I usually can stop eating when I feel full but occasionally overeat leaving me feeling uncomfortably stuffed. C. I have a problem stopping eating once I start and usually I feel uncomfortably stuffed after I eat a meal. D. Because I have a problem not being able to stop eating when I want, I sometimes have to induce vomiting to relieve my stuffed feeling. Response Group 11: C Group 12 A. I seem to eat just as much when I'm with others, Family social gatherings as when I'm by myself. B. Sometimes, when I'm with other persons, I don't eat as much as I want to eat because I'm self-conscious about my eating. C. Frequently, I eat only a small amount of food when others are present, because I'm very embarrassed about my eating. D. I feel so ashamed about overeating that I pick times to overeat when I know no one will see me. I feel like a closet eater. Response Group 12: C Group 13 A. I eat three meals a day with only an occasional between meal snack. B. I eat 3 meals a day, but I also normally snack between meals. C. When I am snacking heavily, I get in the habit of skipping regular meals. D. There are regular periods when I seem to be continually eating, with no planned meals. Response Group 13: B Group 14 A. I don't think much about trying to control unwanted eating urges. B. At least some of the time, I feel my thoughts are pre-occupied with trying to control my eating urges. C. I feel that frequently I spend much time thinking about how much I ate or about trying not to eat anymore. D. It seems to me that most of my waking hours are pre-occupied by thoughts about eating or not eating. I feel like I'm constantly struggling not to eat. Response Group 14: D Group 15 A. I don't think about food a great deal. B. I have strong craving for food but they last only for brief periods of time. C. I have days when I can't seem to think about anything else but food. D. Most of my days seem to be pre-occupied with thoughts about food. I feel like I live to eat. Response Group 15: D Group 16 A. I usually know whether or not I'm physically hungry. I take the right portion of food to satisfy me. B. Occasionally, I feel uncertain about knowing whether or not I'm physically hungry. A these times it's hard to know how much food I should take to satisfy me. C. Even though I might know how many calories I should eat, I don't have any idea what is a normal amount of food for me. Response Group 16: B Binge Eating Score: 39 Score less than 17 Minimal Risk Score between 18-26 Moderate Risk Score between 27-46 High Risk Assessment & Plan Assessment & Plan (1) Adjustment disorder: Code(s): F43.20 - Adjustment disorder, unspecified Qualifiers: Adjustment disorder type: with mixed anxiety and depressed mood Qualified Code(s): F43.23 - Adjustment disorder with mixed anxiety and depressed mood (2) Encounter for psychological assessment prior to bariatric surgery: Code(s): Z71.89 - Other specified counseling Plan Following a comprehensive behavioral health assessment?including review of the Binge Eating Scale, PHQ-9, mental status evaluation, and patient self-report?there are currently no behavioral health contraindications to proceeding with bariatric surgery. The patient demonstrates appropriate insight, motivation, and psychological readiness for the procedure. No active psychiatric symptoms or maladaptive eating behaviors were identified that would impede surgical outcomes at this time. The patient is cleared from a behavioral health perspective to proceed with bariatric surgery and documentation can be submitted for insurance approval as indicated. PT will return for a follow-up behavioral health visit 1?4 weeks postoperatively to monitor psychological adjustment, reinforce coping strategies, and screen for any emerging concerns such as mood changes, adjustment difficulties, or disordered eating patterns. Additional behavioral health support will be provided as needed based on postoperative assessment. Next emerita: 1-4 weeks PO. Telehealth Telehealth Telehealth Platform: [employer] Location of provider rendering services: other (Home office. [place], [place]) Location of patient: address on file Patient Identification confirmed using: Name, : Yes Telehealth method: video Patient verbally consented to treatment: Yes Patient verbally consented to billing insurance company: Yes Patient informed of any privacy concerns related to visit: Yes Minutes spent on Phone/Video with Pt.: 55 Coding [place] [address] Tele Psytx >53 mins Patient Type Established Diagnoses Adjustment disorder with mixed anxiety and depressed mood F43.23 Adjustment disorder type: with mixed anxiety and depressed mood Encounter for psychological assessment prior to bariatric surgery Z71.89 Additional Codes PHQ-9 - 66512 - PHQ-9 Billing: Yes ([id number]) Time Spent (min) 55
--- OUTSIDE RECORDS SUMMARY | 2025-01-25 15:55 | XMS_ITS | Continuity of Care Document ---
Author Organization [facility] Address [address] [place] [address] [place] [id number] Insurance Providers Payer Plan Claims Address Claims Phone Policy Number Group Number Relation Employer Guarantor Name Guarantor Guarantor Address Guarantor Phone DANIELLE CORTEZ [employer] [address] [id number] tel:[phone] [id number] Self Viry Crump [address] [place] [id number] HEALDoug CORTEZ RUTH DESHAUN ONE [address] [address] tel:[phone] Self Viry Crump [address] [place] [address] HNE SELF FUNDE D ONE [facility], [address] [address] tel:[phone] Self Viry Crump [address] [place] [address] Problems Unknown Problems Results Test Result Date/Time Value / Unit Interp. Refere [facility] Range fax.pdf Lipid Panel[[id number]] Collected: 07/20/2024 02:47 PM Specimen Received: 07/20/2024 05:00 AM Source: [facility] Cholesterol, Total [[id number]] 07/21/2024 07:31 AM 260 mg/dL H 100-199 mg/d L Triglycerides [[id number]] 07/21/2024 07:32 AM 107 mg/dL 0-149 mg/dL HDL Cholesterol [[id number]] 07/21/2024 07:28 AM 62 mg/dL >39 mg/dL VLDL Cholesterol Wing [[id number]] 07/21/2024 07:32 AM 19 mg/dL 5-40 mg/dL LDL Chol Calc ([facility]) [[id number]] 07/21/2024 07:32 AM 179 mg/dL H 0-99 mg/dL Hemoglobin A1c[[id number]] Collected: 07/20/2024 02:47 PM Specimen Received: 07/20/2024 05:00 AM Source: [facility] Hemoglobin A1c [[id number]] 07/21/2024 02:57 AM 6.1 % H 4.8-5.6 % . Prediabetes: 5.7 - 6.4 Marielena betes: >6.4 Glycemic control for adults with diabetes: 7.0 Comp. Metabolic Panel (14)[[id number]] Collected: 02/17/2024 10:39 PM Specimen Received: 02/17/2024 05:00 AM Source: [facility] Glucose [[id number]] 02/18/2024 09:34 AM 103 mg/dL H 70-99 mg/dL BUN [[id number]] 02/18/2024 09:34 AM 29 mg/dL H 8-2 7 mg/dL Creatinine [[id number]] 02/18/2024 09:35 AM 0.67 mg/dL 0.57-1.00 mg/dL eGFR [[id number]] 02/18/2024 09:35 AM 88 mL/min/1.73 >59 mL/min/1.73 BUN/Creatinine Ratio [[id number]] 02/18/2024 09:35 AM 43 H 12-28 Sodium [[id number]] 02/18/2024 09:26 AM 142 mmol/L 134-144 mmol/L Potassium [[id number]] 02/18/2024 09:29 AM 4.4 mmol/L 3.5-5.2 mmol/L Chloride [[id number]] 02/18/2024 09:25 AM 105 mmol/L 96-106 mmol/L Carbon Dioxide, Total [[id number]] 02/18/2024 09:31 AM 20 mmol/L 20-29 mmol/L Calcium [[id number]] 02/18/2024 09:32 AM 9.6 mg/dL 8.7-10.3 mg/dL Protein, Total [[id number]] 02/18/2024 09:34 AM 7.1 g/dL 6.0-8.5 g/dL Albumin [[id number]] 02/18/2024 09:31 AM 4.4 g/dL 3.7-4.7 g/dL Globulin, Total [[id number]] 02/18/2024 09:34 AM 2.7 g/dL 1.5-4.5 g/dL Bilirubin, Total [[id number]] 02/18/2024 09:31 AM 0.2 mg/dL 0.0-1.2 mg/dL Alkaline Phosphatase [[id number]] 02/18/2024 09:31 AM 112 IU/L 44-121 IU/L AST (SGOT) [[id number]] 02/18/2024 09:34 AM 19 IU/L 0-40 IU/L ALT (SGPT) [[id number]] 02/18/2024 09:34 AM 16 IU/L 0-32 IU/L Lipid Panel[[id number]] Collected: 02/17/2024 10:39 PM Specimen Received: 02/17/2024 05:00 AM Source: [facility] Cholesterol, Total [[id number]] 02/18/2024 09:41 AM 258 mg/dL H 100-199 mg/d L Triglycerides [[id number]] 02/18/2024 09:41 AM 128 mg/dL 0-149 mg/dL HDL Cholesterol [[id number]] 02/18/2024 09:39 AM 67 mg/dL >39 mg/dL VLDL Cholesterol Wing [[id number]] 02/18/2024 09:41 AM 23 mg/dL 5-40 mg/dL LDL Chol Calc ([facility]) [[id number]] 02/18/2024 09:41 AM 168 mg/dL H 0-99 mg/dL Hemoglobin A1c[[id number]] Collected: 02/17/2024 10:39 PM Specimen Received: 02/17/2024 05:00 AM Source: [facility] Hemoglobin A1c [[id number]] 02/18/2024 10:23 AM 6.0 % H 4.8-5.6 % . Prediabetes: 5.7 - 6.4 Marielena betes: >6.4 Glycemic control for adults with diabetes: 7.0 Allergies, adverse reactions, alerts No known allergies and adverse reactions Medications No administered medications reported Vital Signs No vital signs reported Social History No smoking Hx information available
--- OUTSIDE RECORDS SUMMARY | 2025-01-25 15:55 | XMS_ITS | Encounter Summary ---
Author Organization [facility] Address [address] [place] [address] Care Team Providers Care Battery Wrecker Operator Name Role Phone Saima Rosenthal MD Primary Care Provider Dionicio castro Encounter Details Date Type Department Care Team Description 10/11/2019 [facility] Medical Records [address] [place] [id number] Desilets, Conner Rubio MD Social History Tobacco Use Types Packs/Day Years Used Date Smoking Tobacco: Former Cigarettes 30 Q uit: 1980 Smokeless Tobacco: Never Alcohol Use Standard Drinks/Week Comments Yes 0 (1 standard drink = 0.6 oz pur e alcohol) 1-2x/yr Sex Assigned at Date Recorded Not on file documented as of this encounter Plan of Treatment Not on file documented as of this encounter Visit Diagnoses Not on filedocumented in this encounter Care Teams Battery Wrecker Operator Relationship Specialty Start Date End Date Saima Rosenthal MD PCP - General Internal Medicine 05/04/19 documented as of this encounter
--- OUTSIDE RECORDS SUMMARY | 2025-01-25 15:55 | XMS_ITS | Encounter Summary ---
Author Organization [facility] Address [address] [place] [address] Care Team Providers Care Rehabilitation Nurse Name Role Phone Saima Rosenthal MD Primary Care Provider Dionicio castro Encounter Details Date Type Department Care Team Description 10/15/2019 Orders Only Medical Records [address] [place] [address] Saima Rosenthal MD Social History Tobacco Use Types Packs/Day Years Used Date Smoking Tobacco: Former Cigarettes 30 Q uit: 1980 Smokeless Tobacco: Never Alcohol Use Standard Drinks/Week Comments Yes 0 (1 standard drink = 0.6 oz pur e alcohol) 1-2x/yr Sex Assigned at Date Recorded Not on file documented as of this encounter Plan of Treatment Not on file documented as of this encounter Procedures Procedure Name Priority Date/Time Associated Diagnosis Comments OUTSIDE PATHOLOGY Routine 10/11/2019 documented in this encounter Results * OUTSIDE PATHOLOGY (10/11/2019) Saima Rosenthal MD OUTSIDE LAB documented in this encounter Visit Diagnoses Not on filedocumented in this encounter Care Teams Rehabilitation Nurse Relationship Specialty Start Date End Date Saima Rosenthal MD PCP - General Internal Medicine 05/04/19 documented as of this encounter
--- OUTSIDE RECORDS SUMMARY | 2025-01-25 15:55 | XMS_ITS | Encounter Summary ---
Author Organization [facility] Address [address] [place] [address] Care Team Providers Care Supervisor Home Restoration Service Name Role Phone Tere Zelaya MD Primary Care Provide r Unavailable Saima Rosenthal MD Primary Care Provider Dionicio castro Encounter Details Date Type Department Care Team Description 04/12/2019 Release of Information Medical Records [address] [place] [address] Abstract, Provider Social History Tobacco Use Types Packs/Day Years [...] on filedocumented in this encounter Care Teams Supervisor Home Restoration Service Relationship Specialty Start Date End Date Tere Zelaya MD PCP - General Internal Medicine 11/22/18 Saima Rosenthal MD PCP - General Internal Medicine 05/04/19 documented as of this encounter
--- OUTSIDE RECORDS SUMMARY | 2025-01-25 15:55 | XMS_ITS | Encounter Summary ---
Author Organization [facility] Address [address] [place] [address] Care Team Providers Care Solution Design And Analysis Manager Name Role Phone Yamile Solorio Primary Care Provider Shell vailable Tere Zelaya MD Primary Care Provide r Unavailable Saima Rosenthal MD Primary Care Provider Unavaila ble Encounter Details Date Type Department Care Team Description 12/12/2017 Release of Information Medical Records [address] [place] [address] Abstract, Provider Social History Tobacco Use Types Packs/Day Years Used Date Smoking Tobacco: Former Smokeless Tobacco: Never Sex Assigned at Date Recorded Not on file documented as of this encounter Plan of Treatment Not on file documented as of this encounter Visit Diagnoses Not on filedocumented in this encounter Care Teams Solution Design And Analysis Manager Relationship Specialty Start Date End Date Yamile Solorio PCP - General Internal Medicine 08/17/17 11/21/18 Tere Zelaya MD PCP - General Internal Medicine 11/22/18 Saima Rosenthal MD PCP - General Internal Medicine 05/04/19 documented as of this encounter
--- OUTSIDE RECORDS SUMMARY | 2025-01-25 15:56 | XMS_ITS | Encounter Summary ---
Author Organization [facility] Address [address] [place] [address] Care Team Providers Care Ground Support Equipment Assembler Name Role Phone Yamile Solorio Primary Care Provider Shell Tere Santana MD Primary Care Provide r Unavailable Saima Rosenthal MD Primary Care Provider Unavaila ble Encounter Details Date Type Department Care Team Description 12/20/2016 [facility] Medical Records [address] [place] [address] Montez Hicks MD Social History Tobacco Use Types Packs/Day [...] on filedocumented in this encounter Care Teams Ground Support Equipment Assembler Relationship Specialty Start Date End Date Yamile Solorio PCP - General Internal Medicine 08/17/17 11/21/18 Tere Zelaya MD PCP - General Internal Medicine 11/22/18 Saima Rosenthal MD PCP - General Internal Medicine 05/04/19 documented as of this encounter
--- OUTSIDE RECORDS SUMMARY | 2025-01-25 15:56 | XMS_ITS | Clinical Summary ---
Author Organization [facility] Address [address] [place] [address] Phone Care Team Providers Care Phlebotomy Technician Name Role Phone Physician, No Pcp Primary [...] normal stomach and duodenum area biopsied at [facility] Medical History Medical History Date Comments Depression [...] 9:00 AM EDT Office Visit Bariatric Surgery [address] [address] Montez Barker MD [facility] [place] [address] Health Maintenance Due Date Last [...] mmol/L LAB CHEMISTRY METHOD 04/19/2024 8:29 PM [facility] Potassium 3.8 3.5 - 5.5 mmol/L LAB CHEMISTRY METHOD 04/19/2024 8:29 PM [facility] Chloride 111(H) 96 - 110 mmol/L LAB CHEMISTRY METHOD 04/19/2024 8:29 PM [facility] CO2 27 21 - 32 mmol/L LAB CHEMISTRY METHOD 04/19/2024 8:29 PM [facility] Anion Gap 3 3 - 11 LAB CHEMISTRY METHOD 04/19/2024 8:29 PM [facility] Glucose 91 70 - 100 mg/dL LAB CHEMISTRY METHOD 04/19/2024 8:29 PM [facility] BUN 19 5 - 25 mg/dL LAB CHEMISTRY METHOD 04/19/2024 8:29 PM [facility] Creatinine 0.64 0.50 - 1.10 mg/dL LAB CHEMISTRY METHOD 04/19/2024 8:29 PM [facility] eGFR 89 >=60 mL/min/1. 73m2 LAB CHEMISTRY METHOD 04/19/2024 8:29 PM [facility] Comment:Calculation based on the Chronic Kidney Disease Epidemiology Collaboration (CKD-EPI) equation refit without adjustment for race. BUN/Creatinine Ratio 29.7 LAB CHEMISTRY METHOD 04/19/2024 8:29 PM [facility] Calcium 9.7 8.5 - 10.5 mg/dL LAB CHEMISTRY METHOD 04/19/2024 8:29 PM EST [facility] AST (SGOT) 14 10 - 42 unit/L LAB CHEMISTRY METHOD 04/19/2024 8:29 PM [facility] ALT (SGPT) 22 10 - 60 unit/L LAB CHEMISTRY METHOD 04/19/2024 8:29 PM [facility] Alkaline Phosphatase 80 42 - 121 unit/L LAB CHEMISTRY METHOD 04/19/2024 8:29 PM [facility] Total Protein 6.9 6.0 - 8.0 g/dL LAB CHEMISTRY METHOD 04/19/2024 8:29 PM [facility] Albumin 3.9 3.2 - 5.0 g/dL LAB CHEMISTRY METHOD 04/19/2024 8:29 PM [facility] Total Bilirubin 0.3 0.0 - 1.4 mg/dL LAB CHEMISTRY METHOD 04/19/2024 8:29 PM [facility] Blood Venous blood specimen / Unknown Venipuncture / Unknown 04/19/2024 7:18 PM EST 04/19/2024 7:47 PM EST [facility] BLOOD ORDERABLES Final Resul t [facility] [address] [place] [address], from Last 3 Months or Most Recently Relevant to Health Maintenance Insurance [employer] Care Teams Phlebotomy Technician Relationship Specialty Start Date End Date Physician, No Pcp PCP - General 07/04/24
--- OUTSIDE RECORDS SUMMARY | 2025-01-25 15:56 | XMS_ITS | Encounter Summary ---
Author Organization [facility] Address [address] [place] [address] Care Team Providers Care Uniform Room Attendant Name Role Phone Tere Zelaya MD Primary Care Provide r Unavailable Saima Rosenthal MD Primary Care Provider Dionicio castro Encounter Details Date Type Department Care Team Description 12/21/2018 Transfer Records Medical Records [address] [place] [address] Abstract, Provider Social History Tobacco Use Types Packs/Day Years Used Date Smoking Tobacco: Former Smokeless Tobacco: Never Sex Assigned at Date Recorded Not on file documented as of this encounter Nursing Notes * Hue Vitale - 12/21/2018 4:52 PM EDT Records received from [facility] sent to Greta Snow RN puttying and calking supervisor. documented in this encounter Plan of Treatment Not on file documented as of this encounter Visit Diagnoses Not on filedocumented in this encounter Care Teams Uniform Room Attendant Relationship Specialty Start Date End Date Tere Zelaya MD PCP - General Internal Medicine 11/22/18 Saima Rosenthal MD PCP - General Internal Medicine 05/04/19 documented as of this encounter
--- OUTSIDE RECORDS SUMMARY | 2025-01-25 15:56 | XMS_ITS | Encounter Summary ---
Author Organization [facility] Address [address] [place] [address] Care Team Providers Care Java Developer Architect Name Role Phone Saima Rosenthal MD Primary Care Provider Unavaila ble Reason for Visit * Reason Onset Date Comments APPOINTMENT 09/14/2019 Encounter Details Date Type Department Care Team Description 09/14/2019 Telephone Adult Medicine [address] [address] Saima Rosenthal MD APPOINTMENT Social History Tobacco Use Types Packs/Day Years Used Date Smoking Tobacco: Former Cigarettes 30 Q uit: 1980 Smokeless Tobacco: Never Alcohol Use Standard Drinks/Week Comments Yes 0 (1 standard drink = 0.6 oz pur e alcohol) 1-2x/yr Sex Assigned at Date Recorded Not on file documented as of this encounter Miscellaneous Notes * Telephone Encounter - NORMA De Leon - 09/14/2019 3:07 PM EDT Noah. Please see if they can fax over notes after her appointment. * Telephone Encounter - Sidra Eugene - 09/14/2019 1:11 PM EDT Pt is calling. FYI to Lucie Farrell. Pt was able to make a GI apt with Dr. Hurley on 09/18/19. documented in this encounter Plan of Treatment Not on file documented as of this encounter Visit Diagnoses Not on filedocumented in this encounter Care Teams Java Developer Architect Relationship Specialty Start Date End Date Saima Rosenthal MD PCP - General Internal Medicine 05/04/19 documented as of this encounter
--- OUTSIDE RECORDS SUMMARY | 2025-01-25 15:56 | XMS_ITS | Encounter Summary ---
Author Organization [facility] Address [address] [place] [address] Care Team Providers Care Edger Technician Name Role Phone Yamile Solorio Primary Care Provider Shell Tere Santana MD Primary Care Provide r Unavailable Saima Rosenthal MD Primary Care Provider Unavaila ble Encounter Details Date Type Department Care Team Description 12/28/2016 [facility] Medical Records [address] [place] [address] Montez Hicks MD Social History Tobacco Use [...] on filedocumented in this encounter Care Teams Edger Technician Relationship Specialty Start Date End Date Yamile Solorio PCP - General Internal Medicine 08/17/17 11/21/18 Tere Zelaya MD PCP - General Internal Medicine 11/22/18 Saima Rosenthal MD PCP - General Internal Medicine 05/04/19 documented as of this encounter
--- OUTSIDE RECORDS SUMMARY | 2025-01-25 15:56 | XMS_ITS | Encounter Summary ---
Author Organization [facility] Address [address] [place] [address] Care Team Providers Care Bottom Sander Name Role Phone Saima Rosenthal MD Primary Care Provider Dionicio castro Encounter Details Date Type Department Care Team Description 05/08/2019 [facility] Medical Records [address] [place] [address] Abstract, Provider Social History Tobacco Use Types [...] on filedocumented in this encounter Care Teams Bottom Sander Relationship Specialty Start Date End Date Saima Rosenthal MD PCP - General Internal Medicine 05/04/19 documented as of this encounter
--- OUTSIDE RECORDS SUMMARY | 2025-01-25 15:56 | XMS_ITS | Patient Health Record ---
Author Organization [facility] Address [address] [place] [phone] Care Team Providers Care Covered Buckle Assembler Name Role Phone Lana KWOK Primary Care Provider Willem Gatica Unavailable [phone] Camelia MACEDO, Marcio Unavailable Unavailable Allergies Allergen [...] (Not yet reviewed by provider) Interpretation: Performing Lab:[facility], [address] [place] [id number] Notes/Report: Reason For Referral No Information Medications [...] Status Risk Notes Problem Gastroesophageal reflux disease (666519871) GERD (gastroesopha geal reflux disease) (K21.9) Active confirmed Problem Globus sensation (256187806) Globus sensation (R09.89) Active confirmed Vital Signs Temperature 96.9 degrees Fahrenheit 08/29/2024 Blood pressure diastolic 01 mm Hg 08/29/2024 Height 5 ft 4 in in 08/29/2024 Blood pressure systolic 001 mm Hg 08/29/2024 Weight 208.8 lbs 08/29/2024 BMI 35.84 kg/m2 08/29/2024 Procedures Procedure Date Ordered Date Performed Result Body Sit e UPPER GI ENDOSCOPY 08/29/2024 N/A Encounters Encounter Location Date Provider Diagnosis [facility] [address] [place], [place] [id number] 11/14/2024 Willem Pang [facility] [address] [place] [phone] 05/02/2024 Willem Pang Globus sensation R09.89 and GERD (gastroesophageal reflux disease) K21.9 [facility] [address] [place] [phone] 08/29/2024 Willem Pang Globus sensation R09.89 and GERD (gastroesophageal reflux disease) K21.9 [facility] [address] [place] [phone] 05/01/2024 Willem Pang [facility] [address] [phone] 08/15/2024 Willem Bird [facility] [address] [place] [phone] 11/11/2024 Willem Pang [facility] [address] [place] [phone] 11/12/2024 Willem Pang Assessments Encounter Date Diagnosis [...] advise me that she is leaving to [place] in the next week or 2 for a one-month vacation. I did advise her to try to touch base with you prior to leaving to see if any treatment or testing can get done that might help her feel better while in [place]. I did advise Dante to contact me [...] advise me that she is leaving to [place] in the next week or 2 for a one-month vacation. I did advise her to try to touch base with you prior to leaving to see if any treatment or testing can get done that might help her feel better while in [place]. I did advise Dante to contact me [...] fact that things were much better in [place] and this points to either some type of environmental factor in her home or the air [place]. The other possibility would be that of some stress. I did advise her to try to make an appointment with the boiler blower such that they can review things with [...] fact that things were much better in [place] and this points to either some type of environmental factor in her home or the air in the [facility]. The other possibility would be that of some stress. I did advise her to try to make an appointment with the boiler blower such that they can review things with [...] I would recommend a consult with a Quiller Operator if this persists. Overall, Dante appears [...] advise me that she is leaving to [place] in the next week or 2 for a one-month vacation. I did advise her to try to touch base with you prior to leaving to see if any treatment or testing can get done that might help her feel better while in [place]. I did advise Dante to contact me [...] [facility] [address] [place] [phone] [id number] DANTE MADDEN Self - patient is the insured 4 Medical (General) History Medical History History ICD Code Hypothyroidism HTN GERD--saw Dr. Hurley--has had a couple of EGD's Depression Collagenous colitis--diagnos ed by Dr. Hurley--last colonoscopy at age 77 was negative Denies NC,DM,CVA,Lung disease,renal dise ase Surgical History Surgery Date(Month/Year) Right knee replacement Ganglion cyst Link sling for incontinence [facility]
--- OUTSIDE RECORDS SUMMARY | 2025-01-25 15:56 | XMS_ITS | Encounter Summary ---
Author Organization [facility] Address [address] [place] [address] Care Team Providers Care Tests Superintendent Name Role Phone Saima Rosenthal MD Primary Care Provider Unavaila ble Reason for Visit * Reason Onset Date Comments Release Of Information 02/22/2020 Encounter Details Date Type Department Care Team Description 02/22/2020 Telephone Adult Medicine - [address] [address] Saima Rosenthal MD Release Of Information Social History Tobacco Use Types Packs/Day Years Used Date Smoking Tobacco: Former Cigarettes 30 Q uit: 1980 Smokeless Tobacco: Never Alcohol Use Standard Drinks/Week Comments Yes 0 (1 standard drink = 0.6 oz pur e alcohol) 1-2x/yr Sex Assigned at Date Recorded Not on file documented as of this encounter Miscellaneous Notes * Telephone Encounter - Jennifer Deng - 02/22/2020 2:25 PM EST LANCE received, copied, and faxed. Copy placed in brown LANCE folder. documented in this encounter Plan of Treatment Not on file documented as of this encounter Visit Diagnoses Not on filedocumented in this encounter Care Teams Tests Superintendent Relationship Specialty Start Date End Date Saima Rosenthal MD PCP - General Internal Medicine 05/04/19 documented as of this encounter
--- OUTSIDE RECORDS SUMMARY | 2025-01-25 15:56 | XMS_ITS | Encounter Summary ---
Author Organization [facility] Address [address] [place] [address] Care Team Providers Care Attending Ambulatory Care Name Role Phone Saima Rosenthal MD Primary Care Provider Unavaila ble Reason for Visit * Reason Onset Date Comments refill request 06/21/2019 Encounter Details Date Type Department Care Team Description 06/21/2019 Refill Adult Medicine - [address] [address] Saima Rosenthal MD refill request Social History Tobacco Use Types Packs/Day Years Used Date Smoking Tobacco: Former Cigarettes 30 Q uit: 1979 Smokeless Tobacco: Never Alcohol Use Standard Drinks/Week Comments Yes 0 (1 standard drink = 0.6 oz pur e alcohol) 1-2x/yr Sex Assigned at Date Recorded Not on file documented as of this encounter Miscellaneous Notes * Telephone Encounter - Saima Rosenthal MD - 06/21/2019 4:57 PM EDT She is not due for refill for another month. * Telephone Encounter - Sidra Eugene - 06/21/2019 4:03 PM EDT Patient would like script to be: E-PRESCRIBED/FAXED TO PHARMACY WHEN WAS THE PATIENT'S LAST APPOINTMENT IN ADULT MEDICINE? 06/11/19 WHEN WAS THE LAST TIME THE PATIENT SAW THEIR PCP? Same as above Does patient have an upcoming appointment? No-patient refused appointment, will call back to book appointment (THE MEDICATION REQUESTED IS ON THE MED LIST ABOVE) All of the medications requested were on the CURRENT MEDS list Did you check the Pharmacy information above?: YES Patient wants: 30 -day supply Is this a mail order prescription request ? NO If the refill is from a FAXED refill request what is the RX # listed on the fax? N/A Patients current insurance carrier is: Payor: [employer] S[employer] FUNDED / Plan: Ivaldi $15 CISNE 1500 / Product Type: [employer] [id number] documented in this encounter Plan of Treatment Not on file documented as of this encounter Visit Diagnoses Not on filedocumented in this encounter Care Teams Attending Ambulatory Care Relationship Specialty Start Date End Date Saima Rosenthal MD PCP - General Internal Medicine 05/04/19 documented as of this encounter
--- OUTSIDE RECORDS SUMMARY | 2025-01-25 15:56 | XMS_ITS | Encounter Summary ---
Author Organization [facility] Address [address] [place] [address] Care Team Providers Care Balance Bridge Inspector Name Role Phone Saima Rosenthal MD Primary Care Provider Unavaila ble Reason for Visit * Reason Comments E-prescribe Rx Request Encounter Details Date Type Department Care Team Description 10/04/2019 Refill Adult Medicine [facility] [address] [place] [address] Lucie Farrell PA [address] [place] [address] E-prescribe Rx Request Social History Tobacco Use Types Packs/Day Years Used Date Smoking Tobacco: Former Cigarettes 30 Q uit: 1980 Smokeless Tobacco: Never Alcohol Use Standard Drinks/Week Comments Yes 0 (1 standard drink = 0.6 oz pur e alcohol) 1-2x/yr Sex Assigned at Date Recorded Not on file documented as of this encounter Miscellaneous Notes * Telephone Encounter - Latesha Hidalgo M.A. - 10/04/2019 12:40 PM EDT Lab Results Component Value Date NA 137 09/11/2019 K 4.3 09/11/2019 CO2 29 09/11/2019 CL 105 09/11/2019 BUN 19 09/11/2019 CREAT 0.64 09/11/2019 GLU 100 09/11/2019 CA 9.7 09/11/2019 GFR > 60 09/11/2019 * Telephone Encounter - Diane Hills - 10/04/2019 9:01 AM EDT Patient would like script to be: E-PRESCRIBED/FAXED TO PHARMACY WHEN WAS THE PATIENT'S LAST APPOINTMENT IN ADULT MEDICINE? 09/11/19 WHEN WAS THE LAST TIME THE PATIENT SAW THEIR PCP? 06/11/19 Does patient have an upcoming appointment? [facility]. Appt due (THE MEDICATION REQUESTED IS ON THE MED [...] is: Payor: [employer] S[employer] FUNDED / Plan: [employer] $15 HERNANDEZ 1500 / Product Type: HMO [id number] documented in this encounter Plan of Treatment Not on file documented as of this encounter Visit Diagnoses Not on filedocumented in this encounter Care Teams Balance Bridge Inspector Relationship Specialty Start Date End Date Saima Rosenthal MD PCP - General Internal Medicine 05/04/19 documented as of this encounter
--- OUTSIDE RECORDS SUMMARY | 2025-01-25 15:56 | XMS_ITS | Encounter Summary ---
Author Organization [facility] Address [address] [place] [address] Care Team Providers Care Agitator Operator Name Role Phone Tere Zelaya MD Primary Care Provide r Unavailable Saima Rosenthal MD Primary Care Provider Dionicio castro Encounter Details Date Type Department Care Team Description 04/05/2019 [facility] Medical Records [address] [place] [address] Abstract, Provider Social History Tobacco Use Types [...] on filedocumented in this encounter Care Teams Agitator Operator Relationship Specialty Start Date End Date Tere Zelaya MD PCP - General Internal Medicine 11/22/18 Saima Rosenthal MD PCP - General Internal Medicine 05/04/19 documented as of this encounter
== END 2025-01-25 15:04 | disposition home or self-care (01) ==
LOC: HO.HBST 13:55
PROVIDERS: PCP Internal Medicine; Visit Provider Counselor Mental Health
DX: F43.23 Adjustment disorder with mixed anxiety and depressed mood (principal); Z71.89 Other specified counseling
CPT/HCPCS: 90837

== ENCOUNTER 2025-02-14 08:37 | Outpatient (AMB) | payer MEDICARE, SELFPAY ==
--- OUTSIDE RECORDS SUMMARY | 2024-11-14 06:30 | XMS_ITS ---
Author Organization [facility] Address [address] [place] [address] Care Team Providers Care District Claims Manager Name Role Phone Lana KWOK Primary Care Provider Willem Gatica [phone] Camelia MACEDO, Marcio Unavailable Unavailable REASON FOR VISIT gerd,globus senstion Encounters Encounter Location Date Provider Diagnosis [facility] Outpatient [address] [place] [id number] 11/14/2024 Willem Pang Plan Of Treatment No Information Progress Notes * DANTE MADDENDOB: 3 (84 yo F)Acc No.[id number]:11/14/2024 EGD/MAC Patient: DANTE CARLOS Provider: Kalpana Pang MD :1940 A ge:84 Y S ex:Female Date:11/14/2024 Address:[address] [place], [place] [id number] Pcp:Lana KWOK Subjective: * Chief Complaints: * 1 . Gerd,globus senstion. * Medical History: Objective: * Vitals: Assessment: Plan: * Treatment: * * The named appointment provid er may or may not be the originator of this progress note, and it is not deemed complete until electronically signed by the appointment provider. Sign off status: Pending * Provider: Kalpana Pang MD Date: 0 11/14/2024 Generated for Frantz rowland/Amador/eTkarolynsmitting on: 1 04/16/2024 08:56 AM EST
--- NOTE | 2025-02-13 22:19 | MHC.OFFVISWM ---
VS Expanded 02/13/25 22:20 Height 5 ft 4 in Weight 199 lb BMI 34.2 Body Fat % 46.8 Body Fat Mass 93.1 Fat Free Mass 105.8 Visceral Fat Rating 16.2 Body Water % 36.5 Body Water Mass 72.6 Basal Metabolic Rate/Score 1,406 Intake Visit Reasons: TV Pre Op LSG 02/19/25 Allergies budesonide (From Entocort EC) Allergy (Verified 02/13/25 22:24) Unknown celecoxib Allergy (Verified 02/13/25 22:24) Unknown famotidine Allergy (Verified 02/13/25 22:24) Unknown lamotrigine Allergy (Verified 02/13/25 22:24) Unknown meloxicam Allergy (Verified 02/13/25 22:24) Unknown ondansetron Allergy (Verified 02/13/25 22:24) Unknown prednisone Allergy (Verified 02/13/25 22:24) Unknown sucralfate Allergy (Verified 02/13/25 22:24) Unknown sulfamethoxazole (From Bactrim) Allergy (Verified 02/13/25 22:24) Unknown topiramate Allergy (Verified 02/13/25 22:24) Unknown trimethoprim (From Bactrim) Allergy (Verified 02/13/25 22:24) Unknown Medication List - Last Reconciled 02/13/25 by New Garcia MD amlodipine 10 mg PO DAILY aspirin 81 mg PO DAILY atorvastatin 10 mg PO DAILY bupropion HCl 100 mg PO BID calcium carbonate-vitamin D3 600 mg-5 mcg (200 unit) 1 tab PO BID cimetidine 300 mg PO QAM cyclosporine 0.05% 1 drp ophthalmic (eye) BID dicyclomine 20 mg PO TID PRN estradiol (Vagifem) 10 mcg vaginal 2XW fluticasone propionate 50 mcg/actuation 1 spray intranasal BID levocetirizine 5 mg PO QPM levothyroxine 25 mcg PO DAILY omeprazole 40 mg PO BID polyethylene glycol 3350 (Miralax) 17 grams PO DAILY HPI HPI TV Pre Op LSG 02/19/25: Details: Start time: 2pm, End time: 2.30pm ?I spent 25 minutes speaking with the patient on the phone plus an additional 5 minutes reviewing and updating records for a total of 30 minutes HPI Comments Details: Overall weight loss: 18.3lbs, or 8.42% TBWL Is doing 2 Premier shakes (4oz of Premier with 4oz almond milk), 2 Fit Crunch bars and one meal PFS Medical History (Updated 02/13/25 @ 22:27 by New Garcia MD) Tremor of both hands Nephrolithiasis Migraines Sleep apnea Anxiety Hypothyroidism Hyperlipidemia Diaphragmatic hernia BMI 37.0-37.9, adult Obesity Collagenous colitis Depression GERD (gastroesophageal reflux disease) Hypertension Hyperthyroidism Ganglion cyst Surgical History History of esophagogastroduodenoscopy (EGD) History of colonoscopy History of total abdominal hysterectomy History of pubovaginal sling History of right knee joint replacement Family History Mother No problems noted. Father No problems noted. Social History Are you a primary healthcare market consultant to a significant other at home: No Do you presently have visiting nurse or other home services: No Alcohol intake: never Patient Tobacco Use Status: Former Tobacco user Physical Exam Vital Signs: BMI result Body Mass Index 34.2 Telehealth Telehealth Telehealth Platform: Telephone Location of provider rendering services: practice address Location of patient: address on file Patient Identification confirmed using: Name, : Yes Telehealth method: voice only Patient verbally consented to treatment: Yes Patient verbally consented to billing insurance company: Yes Patient informed of any privacy concerns related to visit: Yes Minutes spent on Phone/Video with Pt.: 30 Assessment & Plan Assessment & Plan (1) Obesity: Code(s): E66.9 - Obesity, unspecified Category: Medical Qualifiers: Body mass index: BMI 37.0-37.9 Obesity classification: adult class 2 (BMI 35 - 39.9) Obesity type: due to excess calories Serious obesity comorbidity presence: with serious comorbidity Qualified Code(s): E66.812 - Obesity, class 2; E66.01 - Morbid (severe) obesity due to excess calories; Z68.37 - Body mass index [BMI] 37.0-37.9, adult Plan: 1.? Plan for lap sleeve gastrectomy with diaphragmatic hernia repair including upper GI endoscopy. All tests has been completed and reviewed and the patient is cleared for the surgery. ?If diaphragmatic or ventral hernias are present at time of surgery, these will be repaired laparoscopically as well. The surgery does not replace the need to change your lifestlyle which is the cause of the obesity problem. The surgery provides the motivation to try again to change your lifestyle, it reduces the appetite and make the transition to a better lifestyle easier and doubles the amount of weight you would lose compared to doing the lifestyle change without the surgery. You will need to be on a liquid diet with protein shakes for 2 weeks before surgery to maximize weight loss and boost your nutritional status to recover better from surgery and also for the first two weeks after surgery to let the stomach heal before we introduce other foods. After the first 2 weeks we will introduce protein bars and soft foods like scrambled eggs, cottage cheese and yogurt and after the 6th week will introduce meat, fish and cooked vegetables in small amounts. Over time you should be able to eat everything in small amounts. Side effects like nausea, vomiting, heartburn or abdominal pain are not common in the practice unless you are not following in the practice. This operation requires lifetime commitment to following in our practice and communication with me. You will much less weight and experience side effects if you don?t communicate or not following in the practice. Complications are rare and in our practice is about 1/10 of the national average. However, you can develop bleeding that may require transfusion (hasn?t happened for year in the practice), you may from complications (we did not have any deaths in the practice) and infections. Infections are usually a result of breakdown in communication or not understanding or following directions correctly. They are difficult to treat, they can happen during the first 6 weeks, they may require to be in the hospital for weeks or even months, not being able to eat by mouth and you may have drains and surgeries to try and correct the issue. Other risks and complications include possible conversion to an open procedure, leaks, small bowel obstruction, blood clots, cardiac, or pulmonary complications, as mold machine operator complications such as ulcers, insufficient weight loss and vitamin deficiencies. So far she has proven to be an excellent communicator and very compliant with all our directions accomplishing a great weight loss. I believe that she is an excellent candidate and she is ready. 2. Preop prescriptions were provided and explained the purpose of each one. Need to be purchased preop. Start Pantoprazole now as you get it from the pharmacy, 1 pill per day. Sucralfate and Zofran are for after surgery as needed. 3. Bowel prep: please do 7 packets ?of Miralax mixing each one with a an 8oz glass of water, crystal light, gatorade zero, or propel ?on 02/19/25 and the same amount on 02/20/25. The Miralax you begin with one packet at a time in 8oz water or crystal light, gatorade zero, or propel ?as early in the day as you can and you do them back to back until you finish them. Continue the protein shakes during? the bowel prep. 4. Needs to purchase 1oz medicine cups . 5. Needs to purchase Children's liquid Tylenol for postop pain control. 6. She needs to stop the aspirin as of tomorrow 02/14/25. Avoid motrin, Advil, Aleve, Ibuprofen, Naproxyn. Tylenol is OK. 7. She needs to purchase the Celebrate multivitamins from the hospital's gift shop. 8. Will do basic preop blood work-up any day between 02/14/25 and Tuesday02/15/25 fasting for 12 hours and is scheduled to see the Anesthesiologist prior to the day of surgery. 9. Importance of adherence to postop folllow-up and recommendations was underscored and she understands that. 10. Continue to avoid food and bars and continue with 5 PREMIER protein shakes (ONE scoop EACH in 8oz almond milk) at 7am-9am, 10am-12pm, 1pm-3pm, 4pm-6pm and at 7pm-9pm 11. No soups, broths or V8 12. The patient's?medical?history has been reviewed and they are considered low risk for post op DVT and therefore DVT prophylaxis is not considered necessary. Travel after surgery was reviewed. The patient has not disclosed any travel plans during the first 30 days after surgery and they have been advised that within the first 30 days after surgery any bus, plane, train or car travel over 2 hours in duration is contraindicated due to the possibility of developing blood clots from immobility. Any travel, needs to include periods of ambulation of 10 minutes in duration every 2 hours.? Patient was instructed to discuss any plans for travel during this period with their bariatric surgeon.? 13. As of tomorrow, please check your blood pressure daily in the morning. If your blood pressure is: Below 120/70: do not take the Amlodipine 121/71 to 130/80: take HALF Amlodipine Over 131/81: take the whole Amlodipine 14. Please take at the day of surgery the following medications: ONLY the Amlodipine, if the blood pressure is high enough to justify it based on the parameters above. 15. Stop any control pills and don't use them for one month after surgery 16. Absolutely no smoking or vaping, or marijuana until the surgery and for at least the first 4 weeks. Only nicotine patches are allowed. 17. Send me weight measurements on Tuesday02/17/25 and then on 02/21/25, the day of surgery before you go to the hospital. 18. Avoid any steroids by mouth for any reason. Let me know if someone prescribes them to you 19. These instructions supersede anything else you read in the handbook, anything you watched in videos or classes or you were told by any other provider. If there is any conflict, you follow the above instructions and nothing else. Orders: Orders Insulin 02/13/25 E03.9 - Hypothyroidism, unspecified, E66.01 - Morbid (severe) obesity due to excess calories, E66.812 - Obesity, class 2, E78.5 - Hyperlipidemia, unspecified, I10 - Essential (primary) hypertension, Z68.37 - Body mass index [BMI] 37.0-37.9, adult Lipid Panel 02/13/25 E03.9 - Hypothyroidism, unspecified, E66.01 - Morbid (severe) obesity due to excess calories, E66.812 - Obesity, class 2, E78.5 - Hyperlipidemia, unspecified, I10 - Essential (primary) hypertension, Z68.37 - Body mass index [BMI] 37.0-37.9, adult Hemoglobin A1c 02/13/25 E03.9 - Hypothyroidism, unspecified, E66.01 - Morbid (severe) obesity due to excess calories, E66.812 - Obesity, class 2, E78.5 - Hyperlipidemia, unspecified, I10 - Essential (primary) hypertension, Z68.37 - Body mass index [BMI] 37.0-37.9, adult Type and Screen 02/13/25 E03.9 - Hypothyroidism, unspecified, E66.01 - Morbid (severe) obesity due to excess calories, E66.812 - Obesity, class 2, E78.5 - Hyperlipidemia, unspecified, I10 - Essential (primary) hypertension, Z68.37 - Body mass index [BMI] 37.0-37.9, adult TSH reflex Free T4 02/13/25 E03.9 - Hypothyroidism, unspecified, E66.01 - Morbid (severe) obesity due to excess calories, E66.812 - Obesity, class 2, E78.5 - Hyperlipidemia, unspecified, I10 - Essential (primary) hypertension, Z68.37 - Body mass index [BMI] 37.0-37.9, adult Complete Blood Count Auto Diff 02/13/25 E03.9 - Hypothyroidism, unspecified, E66.01 - Morbid (severe) obesity due to excess calories, E66.812 - Obesity, class 2, E78.5 - Hyperlipidemia, unspecified, I10 - Essential (primary) hypertension, Z68.37 - Body mass index [BMI] 37.0-37.9, adult C Reactive Protein 02/13/25 E03.9 - Hypothyroidism, unspecified, E66.01 - Morbid (severe) obesity due to excess calories, E66.812 - Obesity, class 2, E78.5 - Hyperlipidemia, unspecified, I10 - Essential (primary) hypertension, Z68.37 - Body mass index [BMI] 37.0-37.9, adult Comprehensive Met. Panel 02/13/25 E03.9 - Hypothyroidism, unspecified, E66.01 - Morbid (severe) obesity due to excess calories, E66.812 - Obesity, class 2, E78.5 - Hyperlipidemia, unspecified, I10 - Essential (primary) hypertension, Z68.37 - Body mass index [BMI] 37.0-37.9, adult Partial Thromboplastin Time 02/13/25 E03.9 - Hypothyroidism, unspecified, E66.01 - Morbid (severe) obesity due to excess calories, E66.812 - Obesity, class 2, E78.5 - Hyperlipidemia, unspecified, I10 - Essential (primary) hypertension, Z68.37 - Body mass index [BMI] 37.0-37.9, adult Prothrombin Time INR 02/13/25 E03.9 - Hypothyroidism, unspecified, E66.01 - Morbid (severe) obesity due to excess calories, E66.812 - Obesity, class 2, E78.5 - Hyperlipidemia, unspecified, I10 - Essential (primary) hypertension, Z68.37 - Body mass index [BMI] 37.0-37.9, adult Medications: New ondansetron Only take one every 12 hours as needed if you have nausea 4 mg PO Q12H 20 tabs 0RF nausea and vomiting R11.0 - Nausea pantoprazole 40 mg PO DAILY 90 tabs 0RF K21.9 - Gastro-esophageal reflux disease without esophagitis sucralfate 10 mL PO BID 600 mL 2RF K21.9 - Gastro-esophageal reflux disease without esophagitis polyethylene glycol 3350 Mix each measuring cup with 8oz of water, Crystal light, or Gatorade zero, or Propel and do 7 measuring cups on 02/19/25 and another 7 measuring cups on 02/20/25 17 grams PO DAILY 238 grams 0RF Z01.818 - Encounter for other preprocedural examination
[2025-02-13 22:20] VITALS: BMI 34.2
--- OUTSIDE RECORDS SUMMARY | 2025-02-14 08:56 | XMS_ITS | Clinical Summary ---
Author Organization [facility] Address [address] [place] [address] Phone Care Team Providers Care Shoe Reconditioner Name Role Phone Physician, No Pcp Primary [...] normal stomach and duodenum area biopsied at [facility] Medical History Medical History Date Comments Depression [...] Years Used Date Smoking Tobacco: Former Cigarettes 0 Q uit: 04/04/1979 Smokeless Tobacco: Never Alcohol [...] AM EDT Office Visit Bariatric Surgery - [address] [place] [address] Montez Barker MD [facility] [place] [address] Health Maintenance Due Date Last [...] mmol/L LAB CHEMISTRY METHOD 04/19/2024 8:29 PM [facility] Potassium 3.8 3.5 - 5.5 mmol/L LAB CHEMISTRY METHOD 04/19/2024 8:29 PM [facility] Chloride 111(H) 96 - 110 mmol/L LAB CHEMISTRY METHOD 04/19/2024 8:29 PM [facility] CO2 27 21 - 32 mmol/L LAB CHEMISTRY METHOD 04/19/2024 8:29 PM [facility] Anion Gap 3 3 - 11 LAB CHEMISTRY METHOD 04/19/2024 8:29 PM [facility] Glucose 91 70 - 100 mg/dL LAB CHEMISTRY METHOD 04/19/2024 8:29 PM [facility] BUN 19 5 - 25 mg/dL LAB CHEMISTRY METHOD 04/19/2024 8:29 PM [facility] Creatinine 0.64 0.50 - 1.10 mg/dL LAB CHEMISTRY METHOD 04/19/2024 8:29 PM [facility] eGFR 89 >=60 mL/min/1. 73m2 LAB CHEMISTRY METHOD 04/19/2024 8:29 PM [facility] Comment:Calculation based on the Chronic Kidney Disease Epidemiology Collaboration (CKD-EPI) equation refit without adjustment for race. BUN/Creatinine Ratio 29.7 LAB CHEMISTRY METHOD 04/19/2024 8:29 PM [facility] Calcium 9.7 8.5 - 10.5 mg/dL LAB CHEMISTRY METHOD 04/19/2024 8:29 PM [facility] AST (SGOT) 14 10 - 42 unit/L LAB CHEMISTRY METHOD 04/19/2024 8:29 PM [facility] ALT (SGPT) 22 10 - 60 unit/L LAB CHEMISTRY METHOD 04/19/2024 8:29 PM [facility] Alkaline Phosphatase 80 42 - 121 unit/L LAB CHEMISTRY METHOD 04/19/2024 8:29 PM [facility] Total Protein 6.9 6.0 - 8.0 g/dL LAB CHEMISTRY METHOD 04/19/2024 8:29 PM [facility] Albumin 3.9 3.2 - 5.0 g/dL LAB CHEMISTRY METHOD 04/19/2024 8:29 PM [facility] Total Bilirubin 0.3 0.0 - 1.4 mg/dL LAB CHEMISTRY METHOD 04/19/2024 8:29 PM [facility] Blood Venous blood specimen / Unknown Venipuncture / Unknown 04/19/2024 7:18 PM EST 04/19/2024 7:47 PM EST [facility] BLOOD ORDERABLES Final Resul t [facility] [address] [place] [address], from Last 3 Months or Most Recently Relevant to Health Maintenance Insurance [employer] Care Teams Shoe Reconditioner Relationship Specialty Start Date End Date Physician, No Pcp PCP - General 07/04/24
--- OUTSIDE RECORDS SUMMARY | 2025-02-14 08:56 | XMS_ITS | Patient Health Record ---
Author Organization [facility] Address [address] [place] [address] Care Team Providers Care Unit Manager [employer] Name Role Phone Lana KWOK Primary Care Provider Willem Gatica Unavailable [phone] Camelia MACEDO, Marcio Unavailable Unavailable Allergies Allergen [...] (Not yet reviewed by provider) Interpretation: Performing Lab:[facility], [address] [place] [phone] Notes/Report: Reason For Referral No Information Medications [...] Status Risk Notes Problem Gastroesophageal reflux disease (906706736) GERD (gastroesopha geal reflux disease) (K21.9) Active confirmed Problem Globus sensation (954593228) Globus sensation (R09.89) Active confirmed Vital Signs Temperature 96.9 degrees Fahrenheit 08/29/2024 Blood pressure diastolic 01 mm Hg 08/29/2024 Height 5 ft 4 in in 08/29/2024 Blood pressure systolic 001 mm Hg 08/29/2024 Weight 208.8 lbs 08/29/2024 BMI 35.84 kg/m2 08/29/2024 Procedures Procedure Date Ordered Date Performed Result Body Sit e UPPER GI ENDOSCOPY 08/29/2024 N/A Encounters Encounter Location Date Provider Diagnosis [facility] Outpatient [address], [place] [id number] 11/14/2024 Willem Pang [facility] [address] [place] [phone] 05/02/2024 Willem Pang Globus sensation R09.89 and GERD (gastroesophageal reflux disease) K21.9 [facility] [address] [place] [phone] 08/29/2024 Willem Pang Globus sensation R09.89 and GERD (gastroesophageal reflux disease) K21.9 [facility] [address] [place] [phone] 05/01/2024 Willem Pang [facility] [address] [phone] 08/15/2024 Willem Bird [facility] [address] [place] [phone] 11/11/2024 Willem Pang [facility] [address] [place] [phone] 11/12/2024 Willem Pang Assessments Encounter Date Diagnosis [...] advise me that she is leaving to [place] in the next week or 2 for a one-month vacation. I did advise her to try to touch base with you prior to leaving to see if any treatment or testing can get done that might help her feel better while in [place]. I did advise Dante to contact me [...] advise me that she is leaving to [place] in the next week or 2 for a one-month vacation. I did advise her to try to touch base with you prior to leaving to see if any treatment or testing can get done that might help her feel better while in [place]. I did advise Dante to contact me [...] fact that things were much better in [place] and this points to either some type of environmental factor in her home or the air in the [place]. The other possibility would be that of some stress. I did advise her to try to make an appointment with the balloon tester such that they can review things [...] fact that things were much better in [place] and this points to either some type of environmental factor in her home or the air in the [facility]. The other possibility would be that of some stress. I did advise her to try to make an appointment with the balloon tester such that they can review things [...] I would recommend a consult with a Steamer Tender if this persists. Overall, Dante appears quite [...] advise me that she is leaving to [place] in the next week or 2 for a one-month vacation. I did advise her to try to touch base with you prior to leaving to see if any treatment or testing can get done that might help her feel better while in [place]. I did advise Dante to contact me [...] Insured Coverage Start Date Coverage End Date [facility] [address] [place] [address] [id number] DANTE MADDEN Self - patient is the insured 4 Medical (General) History Medical History History ICD Code Hypothyroidism HTN GERD--saw Dr. Hurley--has had a couple of EGD's Depression Collagenous colitis--diagnos ed by Dr. Hurley--last colonoscopy at age 77 was negative Denies AL,DM,CVA,Lung disease,renal dise ase Surgical History Surgery Date(Month/Year) Right knee replacement Ganglion cyst Link sling for incontinence [facility]
--- OUTSIDE RECORDS SUMMARY | 2025-02-14 08:56 | XMS_ITS | Continuity of Care Document ---
Author Organization [facility] Address [address] [place] [address] [place] [address] Insurance Providers Payer Plan Claims Address Claims Phone Policy Number Group Number Relation Employer Guarantor Name Guarantor Guarantor Address Guarantor Phone DANIELLE CORTEZ [employer]ASMOELVIA [employer] [address] [address] tel:[phone] [id number] Self Viry Crump [address] [place] [address] RUDYDoug CORTEZ RUTH DESHAUN ONE [address] [address] tel:[phone] Self Viry Crump [address] [place] [address] HNE SELF FUNDE D ONE [facility], [address] [address] tel:[phone] Self Viry Crump [address] [place] [address] Problems Unknown Problems Results Test Result Date/Time Value / Unit Interp. Refere [facility] Range fax.pdf Lipid Panel[[id number]] Collected: 07/20/2024 02:47 PM Specimen Received: 07/20/2024 05:00 AM Source: [facility] Cholesterol, Total [[id number]] 07/21/2024 07:31 AM 260 mg/dL H 100-199 mg/d L Triglycerides [[id number]] 07/21/2024 07:32 AM 107 mg/dL 0-149 mg/dL HDL Cholesterol [[id number]] 07/21/2024 07:28 AM 62 mg/dL >39 mg/dL VLDL Cholesterol Wing [[id number]] 07/21/2024 07:32 AM 19 mg/dL 5-40 mg/dL LDL Chol Calc ([facility]) [[id number]] 07/21/2024 07:32 AM 179 mg/dL H 0-99 mg/dL Hemoglobin A1c[[id number]] Collected: 07/20/2024 02:47 PM Specimen Received: 07/20/2024 05:00 AM Source: [facility] Hemoglobin A1c [[id number]] 07/21/2024 02:57 AM 6.1 % H 4.8-5.6 % . Prediabetes: 5.7 - 6.4 Marielena betes: >6.4 Glycemic control for adults with diabetes: 7.0 Comp. Metabolic Panel (14)[3 [id number]] Collected: 02/17/2024 10:39 PM Specimen Received: 02/17/2024 05:00 AM Source: [facility] Glucose [[id number]] 02/18/2024 09:34 AM 103 mg/dL H 70-99 mg/dL BUN [[id number]] 02/18/2024 09:34 AM 29 mg/dL H 8-2 7 mg/dL Creatinine [[id number]] 02/18/2024 09:35 AM 0.67 mg/dL 0.57-1.00 mg/dL eGFR [[id number]] 02/18/2024 09:35 AM 88 mL/min/1.73 >59 mL/min/1.73 BUN/Creatinine Ratio [[id number]] 02/18/2024 09:35 AM 43 H 12-28 Sodium [[id number]] 02/18/2024 09:26 AM 142 mmol/L 134-144 mmol/L Potassium [[id number]] 02/18/2024 09:29 AM 4.4 mmol/L 3.5-5.2 mmol/L Chloride [187789] 02/18/2024 09:25 AM 105 mmol/L 96-106 mmol/L Carbon Dioxide, Total [978951] 02/18/2024 09:31 AM 20 mmol/L 20-29 mmol/L Calcium [272200] 02/18/2024 09:32 AM 9.6 mg/dL 8.7-10.3 mg/dL Protein, Total [[id number]] 02/18/2024 09:34 AM 7.1 g/dL 6.0-8.5 g/dL Albumin [408636] 02/18/2024 09:31 AM 4.4 g/dL 3.7-4.7 g/dL Globulin, Total [[id number]] 02/18/2024 09:34 AM 2.7 g/dL 1.5-4.5 g/dL Bilirubin, Total [110763] 02/18/2024 09:31 AM 0.2 mg/dL 0.0-1.2 mg/dL Alkaline Phosphatase [523571] 02/18/2024 09:31 AM 112 IU/L 44-121 IU/L AST (SGOT) [306121] 02/18/2024 09:34 AM 19 IU/L 0-40 IU/L ALT (SGPT) [[id number]] 02/18/2024 09:34 AM 16 IU/L 0-32 IU/L Lipid Panel[[id number]] Collected: 02/17/2024 10:39 PM Specimen Received: 02/17/2024 05:00 AM Source: [facility] Cholesterol, Total [[id number]] 02/18/2024 09:41 AM 258 mg/dL H 100-199 mg/d L Triglycerides [[id number]] 02/18/2024 09:41 AM 128 mg/dL 0-149 mg/dL HDL Cholesterol [[id number]] 02/18/2024 09:39 AM 67 mg/dL >39 mg/dL VLDL Cholesterol Wing [154831] 02/18/2024 09:41 AM 23 mg/dL 5-40 mg/dL LDL Chol Calc ([facility]) [[id number]] 02/18/2024 09:41 AM 168 mg/dL H 0-99 mg/dL Hemoglobin A1c[[id number]] Collected: 02/17/2024 10:39 PM Specimen Received: 02/17/2024 05:00 AM Source: [facility] Hemoglobin A1c [[id number]] 02/18/2024 10:23 AM 6.0 % H 4.8-5.6 % . Prediabetes: 5.7 - 6.4 Marielena betes: >6.4 Glycemic control for adults with diabetes: 7.0 Allergies, adverse reactions, alerts No known allergies and adverse reactions Medications No administered medications reported Vital Signs No vital signs reported Social History No smoking Hx information available
== END 2025-02-14 18:39 | disposition home or self-care (01) ==
LOC: HO.HBS 08:37
PROVIDERS: PCP Internal Medicine; Visit Provider Surgery
DX: E66.9 Obesity, unspecified (principal); Z68.34 Body mass index [BMI] 34.0-34.9, adult
CPT/HCPCS: 99214

== ENCOUNTER 2025-02-15 09:26 | Outpatient (REF) | payer MEDICARE, SELFPAY ==
--- OUTSIDE RECORDS SUMMARY | 2024-11-14 06:30 | XMS_ITS ---
Author Organization [facility] Address [address] [place] [address] Care Team Providers Care Head Mixer Name Role Phone Lana KWOK Primary Care Provider Willem Gatica [phone] Camelia MACEDO, Marcio Unavailable Unavailable REASON FOR VISIT gerd,globus senstion Encounters Encounter Location Date Provider Diagnosis [facility] Outpatient [address] [place] [id number] 11/14/2024 Willem Pang Plan Of Treatment No Information Progress Notes * DANTE MADDENDOB: 3 (84 yo F)Acc No.[id number]:11/14/2024 EGD/MAC Patient: DANTE CARLOS Provider: Kalpana Pang MD :1940 A ge:84 Y S ex:Female Date:11/14/2024 Address:[address] [place], [place] [phone] Pcp:Lana KWOK Subjective: * Chief Complaints: * [...] 11/14/2024 Generated for Frantz rowland/Amador/eTkarolynsmitting on: 1 04/17/2024 10:25 AM EST
[2025-02-15 09:49] LABS: MANUAL DIFF FLAG NO
--- OUTSIDE RECORDS SUMMARY | 2025-02-15 10:26 | XMS_ITS | Encounter Summary ---
Author Organization [facility] Address [address] [place] [address] Care Team Providers Care Track Layer Head Name Role Phone Saima Rosenthal MD Primary Care Provider Dionicio castro Encounter Details Date Type Department Care Team Description 06/22/2019 Refill Adult Medicine - [address] [address] Tere Zelaya MD Social History Tobacco Use Types Packs/Day Years Used Date Smoking Tobacco: Former Cigarettes 30 Q uit: 1980 Smokeless Tobacco: Never Alcohol Use Standard Drinks/Week Comments Yes 0 (1 standard drink = 0.6 oz pur e alcohol) 1-2x/yr Sex Assigned at Date Recorded Not on file documented as of this encounter Miscellaneous Notes * Telephone Encounter - Tonya Shah M.A. - 06/22/2019 4:14 PM EDT Lvm for pt to call our office * Telephone Encounter - Saima Rosenthal MD - 06/22/2019 11:51 AM EDT This is not due for another month. You have sent this to me 2 days in a row without an explanation as to why why you are asking for this early.. documented in this encounter Plan of Treatment Not on file documented as of this encounter Visit Diagnoses Not on filedocumented in this encounter Care Teams Track Layer Head Relationship Specialty Start Date End Date Saima Rosenthal MD PCP - General Internal Medicine 05/04/19 documented as of this encounter
--- OUTSIDE RECORDS SUMMARY | 2025-02-15 10:26 | XMS_ITS | Clinical Summary ---
Author Organization [facility] Address [address] [place] [address] Care Team Providers Care Engineering Secretary Name Role Phone Saima Rosenthal MD Primary Care Provider Unavaila ble Allergies Active Allergy Reactions Severity Noted Date Comments Na Benzoate-Sulfamethoxazo le-Trimethoprim Hives/Urticaria 12/08/2017 Celecoxib Nausea and Vomiting 12/22/2018 Citalopram 12/08/2017 Migraines, lightheadness Budesonide 12/08/2017 sleepiness Famotidine 11/15/2019 Shallow breathing Lamotrigine 12/22/2018 Drowsy, lightheaded Meloxicam 12/08/2017 Heavy chest and swollen ankles Methotrexate 12/22/2018 Drowsy, lightheaded Ondansetron 11/15/2019 dizzy Prednisone 12/08/2017 Heart palpations Seasonal Allergies 12/08/2017 Topiramate 12/08/2017 lethargic Medications Medication Sig Dispensed Refills Start Date End Date Status oxycodone-acetaminophe n (PERCOCET) 5-325 MG per tabletIndications:Hype rcholesterolemia Take 2 tablets by mouth every 4 hours as needed. 0 Active aspirin 81 MG chewable tabletIndications:Hype rcholesterolemia Take 81 mg by mouth daily. 0 Active Vitamin D, Cholecalciferol, 1000 UNITS CapIndications:Hyperch olesterolemia Take 1,000 capsules by mouth daily. 0 Active Multiple Vitamins-Minerals (CENTRUM SILVER ADULT 50+) TabIndications:Hyperch olesterolemia Take by mouth daily. 0 Active Calcium Carb-Cholecalciferol (CALCIUM 600 + D OR)Indications:Hyperch olesterolemia Take by mouth daily. 0 Active [place]-3 Fatty Acids (OMEGA-3 FISH OIL) 1200 MG CapIndications:Hyperch olesterolemia Take by mouth daily. 0 Active Artificial Tear Solution (TEARS AGAIN OP)Indications:Hyperch olesterolemia apply to the eye. 0 Acti ve Artificial Tear Ointment (REFRESH P.M. OP)Indications:Hyperch olesterolemia apply to the eye. 0 Acti ve Collagen Hydrolysate, Bovine, Powder by Does not apply route. 2 scoop 2x a day 0 Active levothyroxine (SYNTHROID, LEVOTHROID) 25 MCG tabletIndications:Hypo thyroidism, unspecified type,Hypercholesterole clayton Take 1 Tab by mouth daily. 30 Tab 0 10/25/2019 Active levothyroxine (SYNTHROID, LEVOTHROID) 25 MCG tabletIndications:Hypo thyroidism, unspecified type,Hypercholesterole clayton Take 1 Tab by mouth daily. 90 Tab 1 02/07/2020 Active gabapentin (NEURONTIN) 600 MG tablet TAKE 1 TABLET BY MOUTH EVERY DAY AT BEDTIME 90 Tab 1 02/07/2020 Active omeprazole (PRILOSEC) 40 MG capsuleIndications:Hyp ercholesterolemia Take 1 Cap by mouth 2 times daily. 180 Cap 0 02/20/2020 Active Active Problems Problem Noted Date Depression 12/22/2018 Nephrolithiasis 12/22/2018 Fibromyalgia 12/22/2018 DDD (degenerative disc disease), cervica l 12/22/2018 Migraine 12/22/2018 History of knee replacement, total, righ t 12/22/2018 Overview: Received oxycodone 5 mg, last time November 2018-Dr.Phyllis Solorio for 1 week--> she received 10 prescriptions of 1 week supply/28 tablets since 09/2017. Collagenous colitis 12/22/2018 Hypothyroidism 12/08/2017 GERD (gastroesophageal reflux disease) 0 12/08/2017 Hypercholesterolemia 12/08/2017 Low vitamin D level 12/08/2017 Overview: On VItamin D replacement ALFA (obstructive sleep apnea) Overview: history of abnormal sleep study not on cpap History of CMV Overview: admitted for 1 week inpatient stay Immunizations Name Administration Dates Next Due Hepatitis-A (>19YRS) 09/05/2012 Influenza vaccine high dose age 65 and over 11/27/2019,01/04/2018,12/02/2016,12/18 Pneumoccoccal(Adult) Polysac charide PPSV23 11/16/2012,01/25/2008 Pneumococcal Conjugate PCV-13 05/16/2014 TD (STATE SUPPLIED FOR ADULT S AND CHILDREN) 06/10/2009 Zostavax 05/29/2008 Family History Medical History Relation Name Comments Hypertension Sister obese Sister knee replacemen t Relation Name Status Comments Sister Social History Tobacco Use Types Packs/Day Years Used Date Smoking Tobacco: Former Cigarettes 30 Q uit: 1979 Smokeless Tobacco: Never Alcohol Use Standard Drinks/Week Comments Yes 0 (1 standard drink = 0.6 oz pur e alcohol) 1-2x/yr Sex Assigned at Date Recorded Not on file Last Filed Vital Signs Vital Sign Reading Time Taken Comments Blood Pressure 122/64 09/11/2019 10:20 AM EDT Pulse 67 09/11/2019 10:20 AM EDT Temperature 37.2 C (99 F) 09/11/2019 10:20 AM EDT Respiratory Rate 14 09/11/2019 10:20 AM EDT Oxygen Saturation 97% 09/11/2019 10:20 AM EDT Inhaled Oxygen Concentration - - Weight 94.3 kg (208 lb) 09/11/2019 10:20 AM EDT Height 162.6 cm (5' 4 ) 09/11/2019 10:20 AM EDT Body Mass Index 35.7 09/11/2019 10:20 AM EDT Plan of Treatment Health Maintenance Due Date Last Done Comments Covid-19 Vaccine (#1) 02/07/1941 BONE DENSITY SCREENING 08/08/2007 SHINGLES VACCINE (2 of 3) 07/24/2008 05/29/2008 DTAP/TDAP/TD (1 - Tdap) 06/11/2009 06/10/2009 MAMMOGRAM 07/07/2019 07/06/2018, 07/2018 (External Completion), 11/07/2017, Additional history exists CHOLESTEROL SCREENING 01/11/2024 01/10/2019 BMI CHECK/ADVISE 04/04/2024 06/11/2019, 12/08/2017 INFLUENZA (#1) 2024 11/27/2019 (Exte rnal Completion of Vaccination per patient), 11/27/2019, 01/04/2018, Additional history exists PNEUMOCOCCAL VACCINE Completed 05/16/2014, 11/17/19 13, 01/25/2008 Care Teams Engineering Secretary Relationship Specialty Start Date End Date Saima Rosenthal MD PCP - General Internal Medicine 05/04/19
--- OUTSIDE RECORDS SUMMARY | 2025-02-15 10:26 | XMS_ITS | Encounter Summary ---
Author Organization [facility] Address [address] [place] [address] Care Team Providers Care Microsoft Office Instructor Name Role Phone Saima Rosenthal MD Primary Care Provider Dionicio castro Encounter Details Date Type Department Care Team Description 05/08/2019 [facility] Medical Records [address] [place] [id number] Abstract, Provider Social History Tobacco Use Types [...] on filedocumented in this encounter Care Teams Microsoft Office Instructor Relationship Specialty Start Date End Date Saima Rosenthal MD PCP - General Internal Medicine 05/04/19 documented as of this encounter
--- OUTSIDE RECORDS SUMMARY | 2025-02-15 10:26 | XMS_ITS | Encounter Summary ---
Author Organization [facility] Address [address] [place] [address] Care Team Providers Care Manager Civil Name Role Phone Yamile Solorio Primary Care Provider Shell vailaTere Degroot MD Primary Care Provide r Unavailable Saima Rosenthal MD Primary Care Provider Unavaila ble Encounter Details Date Type Department Care Team Description 12/28/2016 [facility] Medical Records [address] [place] [address] Elle Max PA-C Social History Tobacco Use Types Packs/Day Years [...] on filedocumented in this encounter Care Teams Manager Civil Relationship Specialty Start Date End Date Yamile Solorio PCP - General Internal Medicine 08/17/17 11/21/18 Tere Zelaya MD PCP - General Internal Medicine 11/22/18 Saima Rosenthal MD PCP - General Internal Medicine 05/04/19 documented as of this encounter
--- OUTSIDE RECORDS SUMMARY | 2025-02-15 10:26 | XMS_ITS | Encounter Summary ---
Author Organization [facility] Address [address] [place] [address] Care Team Providers Care Varsity Baseball Coach Name Role Phone Yamile Solorio Primary Care Provider Shell Tere Santana MD Primary Care Provide r Unavailable Saima Rosenthal MD Primary Care Provider Unavaila ble Encounter Details Date Type Department Care Team Description 12/20/2016 [facility] Medical Records [address] [place] [address] Montez Hicks MD Social History Tobacco Use [...] on filedocumented in this encounter Care Teams Varsity Baseball Coach Relationship Specialty Start Date End Date Yamile Solorio PCP - General Internal Medicine 08/17/17 11/21/18 Tere Zelaya MD PCP - General Internal Medicine 11/22/18 Saima Rosenthal MD PCP - General Internal Medicine 05/04/19 documented as of this encounter
--- OUTSIDE RECORDS SUMMARY | 2025-02-15 10:26 | XMS_ITS | Encounter Summary ---
Author Organization [facility] Address [address] [place] [address] Care Team Providers Care Press Worker Helper Name Role Phone Saima Rosenthal MD Primary Care Provider Dionicio castro Encounter Details Date Type Department Care Team Description 10/15/2019 [facility] Medical Records [address] [place] [address] Abstract, Provider Social History Tobacco Use Types [...] on filedocumented in this encounter Care Teams Press Worker Helper Relationship Specialty Start Date End Date Saima Rosenthal MD PCP - General Internal Medicine 05/04/19 documented as of this encounter
--- OUTSIDE RECORDS SUMMARY | 2025-02-15 10:26 | XMS_ITS | Patient Health Record ---
Author Organization [facility] Address [address] [place] [phone] Care Team Providers Care Pneumatic System Conveyor Operator Name Role Phone Lana KWOK Primary Care Provider Willem Gatica Unavailable [phone] Camelia MACEDO, Marcio Unavailable Unavailable Allergies Allergen [...] (Not yet reviewed by provider) Interpretation: Performing Lab:[facility], [address] [place] [phone] Notes/Report: Reason For Referral No Information Medications [...] Status Risk Notes Problem Gastroesophageal reflux disease (845632789) GERD (gastroesopha geal reflux disease) (K21.9) Active confirmed Problem Globus sensation (602191151) Globus sensation (R09.89) Active confirmed Vital Signs Temperature 96.9 degrees Fahrenheit 08/29/2024 Blood pressure diastolic 01 mm Hg 08/29/2024 Height 5 ft 4 in in 08/29/2024 Blood pressure systolic 001 mm Hg 08/29/2024 Weight 208.8 lbs 08/29/2024 BMI 35.84 kg/m2 08/29/2024 Procedures Procedure Date Ordered Date Performed Result Body Sit e UPPER GI ENDOSCOPY 08/29/2024 N/A Encounters Encounter Location Date Provider Diagnosis [facility] [address] [place], [place] [id number] 11/14/2024 Willem Pang [facility] [address] [place] [phone] 05/02/2024 Willem Pang Globus sensation R09.89 and GERD (gastroesophageal reflux disease) K21.9 [facility] [address] [place] [phone] 08/29/2024 Willem Pang Globus sensation R09.89 and GERD (gastroesophageal reflux disease) K21.9 [facility] [address] [place] [phone] 05/01/2024 Willem Pang [facility] [address] [phone] 08/15/2024 Willem Bird [facility] [address] [place] [phone] 11/11/2024 Willem Pang [facility] [address] [place] [phone] 11/12/2024 Willem Pang Assessments Encounter Date Diagnosis [...] advise me that she is leaving to [place] in the next week or 2 for a one-month vacation. I did advise her to try to touch base with you prior to leaving to see if any treatment or testing can get done that might help her feel better while in [place]. I did advise Dante to contact me [...] advise me that she is leaving to [place] in the next week or 2 for a one-month vacation. I did advise her to try to touch base with you prior to leaving to see if any treatment or testing can get done that might help her feel better while in [place]. I did advise Dante to contact me [...] fact that things were much better in [place] and this points to either some type of environmental factor in her home or the air in the [place]. The other possibility would be that of some stress. I did advise her to try to make an appointment with the calibration laboratory technician such that they can review things with [...] fact that things were much better in [place] and this points to either some type of environmental factor in her home or the air [place] [facility]. The other possibility would be that of some stress. I did advise her to try to make an appointment with the calibration laboratory technician such that they can review things with [...] I would recommend a consult with a Ladle Filler if this persists. Overall, Dante appears quite [...] advise me that she is leaving to [place] in the next week or 2 for a one-month vacation. I did advise her to try to touch base with you prior to leaving to see if any treatment or testing can get done that might help her feel better while in [place]. I did advise Dante to contact me [...] Insured Coverage Start Date Coverage End Date [facility] [address] [place] [phone] [id number] DANTE MADDEN Self - patient is the insured 4 Medical (General) History Medical History History ICD Code Hypothyroidism HTN GERD--saw Dr. Hurley--has had a couple of EGD's Depression Collagenous colitis--diagnos ed by Dr. Hurley--last colonoscopy at age 77 was negative Denies OH,DM,CVA,Lung disease,renal dise ase Surgical History Surgery Date(Month/Year) Right knee replacement Ganglion cyst Link sling for incontinence [facility]
--- OUTSIDE RECORDS SUMMARY | 2025-02-15 10:26 | XMS_ITS | Encounter Summary ---
Author Organization [facility] Address [address] [place] [address] Care Team Providers Care Pastoral Worker Name Role Phone Saima Rosenthal MD Primary Care Provider Dionicio castro Encounter Details Date Type Department Care Team Description 07/24/2019 [facility] Visit Medical Records [address] [place] [address] Abstract, Provider Social History Tobacco Use Types [...] on filedocumented in this encounter Care Teams Pastoral Worker Relationship Specialty Start Date End Date Saima Rosenthal MD PCP - General Internal Medicine 05/04/19 documented as of this encounter
--- OUTSIDE RECORDS SUMMARY | 2025-02-15 10:26 | XMS_ITS | Encounter Summary ---
Author Organization [facility] Address [address] [place] [address] Care Team Providers Care Used Car Renovator Name Role Phone Tere Zelaya MD Primary Care Provide r Unavailable Saima Rosenthal MD Primary Care Provider Dionicio castro Encounter Details Date Type Department Care Team Description 04/12/2019 Release of Information Medical Records [address] [place] [address] Abstract, Provider Social History Tobacco Use Types [...] on filedocumented in this encounter Care Teams Used Car Renovator Relationship Specialty Start Date End Date Tere Zelaya MD PCP - General Internal Medicine 11/22/18 Saima Rosenthal MD PCP - General Internal Medicine 05/04/19 documented as of this encounter
--- OUTSIDE RECORDS SUMMARY | 2025-02-15 10:26 | XMS_ITS | Encounter Summary ---
Author Organization [facility] Address [address] [place] [address] Care Team Providers Care Wool Shearer Name Role Phone Saima Rosenthal MD Primary Care Provider Unavaila ble Reason for Visit * Reason Comments E-prescribe Rx Request Encounter Details Date Type Department Care Team Description 10/04/2019 Refill Adult Medicine [facility] [address] [place] [address] Lucie Farrell PA [address] [place] [address] E-prescribe Rx Request Social History Tobacco Use [...] an upcoming appointment? No[facility] to [facility] [...] is: Payor: UDAY SELF FUNDED / Plan: PriceTagO $15 HERNANDEZ 1500 / Product Type: HMO [id number] documented in this encounter Plan of Treatment Not on file documented as of this encounter Visit Diagnoses Not on filedocumented in this encounter Care Teams Wool Shearer Relationship Specialty Start Date End Date Saima Rosenthal MD PCP - General Internal Medicine 05/04/19 documented as of this encounter
--- OUTSIDE RECORDS SUMMARY | 2025-02-15 10:26 | XMS_ITS | Encounter Summary ---
Author Organization [facility] Address [address] [place] [address] Care Team Providers Care Blanching Machine Operator Name Role Phone Saima Rosenthal MD Primary Care Provider Unavaila ble Reason for Visit * Reason Onset Date Comments refill request 10/23/2019 Encounter Details Date Type Department Care Team Description 10/23/2019 Telephone Adult Medicine - [address] [address] Saima Rosenthal MD refill request Social History [...] Telephone Encounter - Saima Rosenthal MD - 10/24/2019 3:00 PM EDT Lab Results Component Value Date TSH 1.55 09/11/2019 Signed refill * Telephone Encounter - Talia Sorto M.A. - 10/24/2019 2:16 PM EDT Lab Results Component Value Date TSH 1.55 09/11/2019 Last appt 10/15/19 * Telephone Encounter - Klarissa White M.A. - 10/23/2019 10:02 AM EDT Lm for return call Ext [phone] * Telephone Encounter - Elizabeth Cleaning - 10/23/2019 8:51 AM EDT Who is calling? The patient Name of the medication omeprazole (PRILOSEC) 40 MG capsule, levothyroxine (SYNTHROID, LEVOTHROID) 25 MCG tablet, gabapentin (NEURONTIN) 600 MG tablet What is the specific problem or interaction? Pt requests CB LOUANN as she is without her medications as when she orders them she does not receive them in time If the patient is having a problem with taking the med - how long has the problem been going on? N/A documented in this encounter Plan of Treatment Not on file documented as of this encounter Visit Diagnoses Diagnosis Hypothyroidism, unspecified type Hypercholesterolemia Pure hypercholesterolemia documented in this encounter Care Teams Blanching Machine Operator Relationship Specialty Start Date End Date Saima Rosenthal MD PCP - General Internal Medicine 05/04/19 documented as of this encounter
--- OUTSIDE RECORDS SUMMARY | 2025-02-15 10:26 | XMS_ITS | Encounter Summary ---
Author Organization [facility] Address [address] [place] [address] Care Team Providers Care Assistant Manager/Embalmer Name Role Phone Yamile Solorio Primary Care Provider Shell vailable Tere Zelaya MD Primary Care Provide r Unavailable Saima Rosenthal MD Primary Care Provider Unavaila ble Encounter Details Date Type Department Care Team Description 12/12/2017 Release of Information Medical Records [address] [place] [address] Abstract, Provider Social History Tobacco Use Types Packs/Day Years Used Date Smoking Tobacco: Former Smokeless Tobacco: Never Sex Assigned at Date Recorded Not on file documented as of this encounter Plan of Treatment Not on file documented as of this encounter Visit Diagnoses Not on filedocumented in this encounter Care Teams Assistant Manager/Embalmer Relationship Specialty Start Date End Date Yamile Solorio PCP - General Internal Medicine 08/17/17 11/21/18 Tere Zelaya MD PCP - General Internal Medicine 11/22/18 Saima Rosenthal MD PCP - General Internal Medicine 05/04/19 documented as of this encounter
--- OUTSIDE RECORDS SUMMARY | 2025-02-15 10:26 | XMS_ITS | Encounter Summary ---
Author Organization [facility] Address [address] [place] [address] Care Team Providers Care Bias Cutter Name Role Phone Yamile Solorio Primary Care Provider Shell Tere Santana MD Primary Care Provide r Unavailable Saima Rosenthal MD Primary Care Provider Unavaila ble Encounter Details Date Type Department Care Team Description 12/28/2016 [facility] Medical Records [address] [place] [id number] Montez Hicks MD Social History Tobacco Use [...] on filedocumented in this encounter Care Teams Bias Cutter Relationship Specialty Start Date End Date Yamile Solorio PCP - General Internal Medicine 08/17/17 11/21/18 Tere Zelaya MD PCP - General Internal Medicine 11/22/18 Saima Rosenthal MD PCP - General Internal Medicine 05/04/19 documented as of this encounter
--- OUTSIDE RECORDS SUMMARY | 2025-02-15 10:26 | XMS_ITS | Clinical Summary ---
Author Organization [facility] Address [address] [place] [address] Phone Care Team Providers Care Gear And Spline Grinder Name Role Phone Physician, No Pcp Primary [...] Comments TOTAL KNEE ARTHROPLASTY 12/20/2016 Right PROCEDURE: TN ARTHRP KNE CONDYLE&PLATU MEDIAL&LAT COMPARTMENTS TUBAL LIGATION PROCEDURE: HISTORICAL TUBAL LIGATION OTHER SURGICAL HISTORY PROCEDURE: PELVIC CONTROL PELVIC SLING HYSTERECTOMY 01/08/2009 PROCEDURE: HISTORICAL TOTAL HYSTERECTOMY WITH BSO SHOULDER SURGERY Left PROCEDURE: HISTORICAL SHOULDER SURGERY; COMMENT: arthroscopic decompression WRIST MASS EXCISION Right PROCEDURE: TN EXCISION GANGLION WRIST DORSAL/VOLAR PRIMARY; COMMENT: x3 COLONOSCOPY 08/01/2014 PROCEDURE: HISTORICAL COLONOSCOPY; COMMENT: & EGD; no report UPPER GASTROINTESTINAL ENDOSCOPY 10/11/2019 PROCEDURE: TN UPPER GI ENDOSCOPY PERFORMED; COMMENT: Dr. Hurley normal stomach and duodenum area biopsied at [facility] Medical History Medical History Date Comments Depression [...] AM EDT Office Visit Bariatric Surgery - [address] [place] [address] Montez Barker MD [facility] [place] [address] Health Maintenance Due Date Last [...] mmol/L LAB CHEMISTRY METHOD 04/19/2024 8:29 PM [facility] Potassium 3.8 3.5 - 5.5 mmol/L LAB CHEMISTRY METHOD 04/19/2024 8:29 PM [facility] Chloride 111(H) 96 - 110 mmol/L LAB CHEMISTRY METHOD 04/19/2024 8:29 PM [facility] CO2 27 21 - 32 mmol/L LAB CHEMISTRY METHOD 04/19/2024 8:29 PM [facility] Anion Gap 3 3 - 11 LAB CHEMISTRY METHOD 04/19/2024 8:29 PM [facility] Glucose 91 70 - 100 mg/dL LAB CHEMISTRY METHOD 04/19/2024 8:29 PM [facility] BUN 19 5 - 25 mg/dL LAB CHEMISTRY METHOD 04/19/2024 8:29 PM [facility] Creatinine 0.64 0.50 - 1.10 mg/dL LAB CHEMISTRY METHOD 04/19/2024 8:29 PM [facility] eGFR 89 >=60 mL/min/1. 73m2 LAB CHEMISTRY METHOD 04/19/2024 8:29 PM [facility] Comment:Calculation based on the Chronic Kidney Disease Epidemiology Collaboration (CKD-EPI) equation refit without adjustment for race. BUN/Creatinine Ratio 29.7 LAB CHEMISTRY METHOD 04/19/2024 8:29 PM [facility] Calcium 9.7 8.5 - 10.5 mg/dL LAB CHEMISTRY METHOD 04/19/2024 8:29 PM [facility] AST (SGOT) 14 10 - 42 unit/L LAB CHEMISTRY METHOD 04/19/2024 8:29 PM [facility] ALT (SGPT) 22 10 - 60 unit/L LAB CHEMISTRY METHOD 04/19/2024 8:29 PM [facility] Alkaline Phosphatase 80 42 - 121 unit/L LAB CHEMISTRY METHOD 04/19/2024 8:29 PM [facility] Total Protein 6.9 6.0 - 8.0 g/dL LAB CHEMISTRY METHOD 04/19/2024 8:29 PM [facility] Albumin 3.9 3.2 - 5.0 g/dL LAB CHEMISTRY METHOD 04/19/2024 8:29 PM [facility] Total Bilirubin 0.3 0.0 - 1.4 mg/dL LAB CHEMISTRY METHOD 04/19/2024 8:29 PM [facility] Blood Venous blood specimen / Unknown Venipuncture / Unknown 04/19/2024 7:18 PM EST 04/19/2024 7:47 PM EST [employer] LAB BLOOD ORDERABLES Final Resul t [facility] [address] [place] [address], from Last 3 Months or Most Recently Relevant to Health Maintenance Insurance [employer] Care Teams Gear And Spline Grinder Relationship Specialty Start Date End Date Physician, No Pcp PCP - General 07/04/24
--- OUTSIDE RECORDS SUMMARY | 2025-02-15 10:26 | XMS_ITS | Encounter Summary ---
Author Organization [facility] Address [address] [place] [address] Care Team Providers Care Access Registrar Name Role Phone Tere Zelaya MD Primary Care Provide r Unavailable Saima Rosenthal MD Primary Care Provider Dionicio castro Encounter Details Date Type Department Care Team Description 12/21/2018 Transfer Records Medical Records [address] [place] [address] Abstract, Provider Social History Tobacco Use Types Packs/Day Years Used Date Smoking Tobacco: Former Smokeless Tobacco: Never Sex Assigned at Date Recorded Not on file documented as of this encounter Nursing Notes * Hue Vitale - 12/21/2018 4:52 PM EDT Records received from [facility] sent to Greta Snow RN galvanizing pot runner. documented in this encounter Plan of Treatment Not on file documented as of this encounter Visit Diagnoses Not on filedocumented in this encounter Care Teams Access Registrar Relationship Specialty Start Date End Date Tere Zelaya MD PCP - General Internal Medicine 11/22/18 Saima Rosenthal MD PCP - General Internal Medicine 05/04/19 documented as of this encounter
[2025-02-15 10:44] LABS: INTERNATIONAL NORM RATIO 1.1 (0.9-1.1); Prothrombin Time 13.1 SEC (11.2-13.5)
[2025-02-15 10:47] LABS: Partial Thromboplastin Time 32.1 SEC (26.7-34.1)
[2025-02-15 11:02] LABS: Hematocrit 45.8 % (37.0-47.0); Hemoglobin 14.9 g/dl (12.0-16.0); Imm Gran Abs Auto 0.01 X10*3/uL (0.00-0.03); Imm Gran Pct Auto 0.2 % (0.0-0.4); Lymphocytes Absolute Auto 1.6 X10*3/uL (1.2-4.9); Mean Corpuscular HGB Conc 32.5 g/dl (31.0-35.0); Mean Corpuscular Hemoglobin 28.9 pg (27.0-33.0); Mean Corpuscular Volume 88.8 fL (80.0-98.0); NRBC Abs Auto 0.000 X10*3/uL (0.0-0.012); NRBC Pct Auto 0.0 /100WBC (0.0-0.2); Platelet Count 208 X10*3/uL (160-400); Red Blood Count 5.16 X10*6/uL (4.20-5.50); White Blood Count 5.0 X10*3/uL (4.8-10.8)
[2025-02-15 11:16] LABS: Alanine Aminotransferase 19 U/L (0-31); Albumin Level 4.4 g/dL (3.5-5.0); Alkaline Phosphatase 83 U/L (39-117); Anion Gap 14 (12-20); Aspartate Amino Transferase 24 U/L (5-31); Blood Urea Nitrogen 24 mg/dL (9-16); Calcium 10.1 mg/dL (8.4-10.2); Carbon Dioxide 25 mmol/L (22-29); Chloride 108 mmol/L (96-108); Cholesterol 149 mg/dL (<200); Estimated Glomerular Filt Rate > 60; HDL Cholesterol 48 mg/dL (>40); Potassium 3.9 mmol/L (3.3-5.1); Sodium 143 mmol/L (135-145); Total Protein 7.0 g/dL (6.5-8.0); Triglycerides 88 mg/dL (<150)
== END 2025-02-15 09:27 | disposition home or self-care (01) ==
LOC: HO.LAB 09:26
PROVIDERS: PCP Internal Medicine; Visit Provider Surgery
DX: Z13.1 Encounter for screening for diabetes mellitus (principal); Z51.81 Encounter for therapeutic drug level monitoring; I10 Essential (primary) hypertension; E03.9 Hypothyroidism, unspecified; E78.5 Hyperlipidemia, unspecified; E66.812 Obesity, class 2; Z68.37 Body mass index [BMI] 37.0-37.9, adult
CPT/HCPCS: 36415; 80053; 80061; 83036; 83525; 84443; 85025; 85610; 85730; 86140

== ENCOUNTER 2025-02-18 09:49 | Outpatient (REF) | payer MEDICARE, SELFPAY ==
--- NOTE | ~2025-02-18 | US_ITS ---
EXAMINATION: US COMPLETE ABDOMEN WITH LIVER ELASTOGRAPHY CLINICAL INFORMATION: Obesity COMPARISON: None available. TECHNIQUE: Real-time imaging of the abdominal viscera. Noninvasive ultrasound liver fibrosis assessment is performed using Cameron ElastPQ point quantification shear wave elastography (pSWE) with a C5-2 MHz transducer. Multiple elastography samples are obtained. FINDINGS: PANCREAS: The visualized pancreatic head and body are normal in appearance. The remainder of the pancreas is obscured from visualization by the overlying bowel gas. ABDOMINAL AORTA: No aortic aneurysm is seen. INFERIOR VENA CAVA: Visualized portions are normal. LIVER: The liver demonstrates normal size, contour. Mild increased echogenicity. No focal lesion or intrahepatic biliary duct dilatation. The right lobe measures 13.6 cm in length. The left lobe measures 10 cm in length. Portal flow is hepatopedal Shear wave liver elastography median stiffness is 1.6 m/s (reference: normal median stiffness is 1.3 m/s or less). IQR/median stiffness to assess sampling precision is 0.19 (reference: good quality data set is IQR/median stiffness of 0.15 or less). GALLBLADDER: The gallbladder is physiologically distended without evidence of stones, sludge, polyps, wall thickening or pericholecystic fluid. COMMON BILE DUCT: Normal in caliber measuring 0.2 cm in diameter. RIGHT KIDNEY: No hydronephrosis. No renal calculi or focal parenchymal lesions. The kidney measures 10 cm in maximum dimension. LEFT KIDNEY: No hydronephrosis. No renal calculi or focal parenchymal lesions. The kidney measures 10.1 cm in maximum dimension. SPLEEN: Unremarkable. The spleen measures 9 cm in maximum dimension. FREE FLUID: None seen. US/US abdomen comp w elastography IMPRESSION: 1. . There is generalized increase in hepatic echotexture, consistent with fatty infiltration or hepatocellular disease. Please correlate clinically. No focal hepatic mass or intrahepatic biliary duct dilatation is seen. 2. Liver elastography: Median stiffness 1.6 m/s *Liver Stiffness less than 1.7 m/s: In the absence of other known clinical signs, rules out compensated advanced chronic liver disease. REFERENCE: Society of Radiologists in Ultrasound Liver Stiffness Thresholds (2020): LIVER STIFFNESS THRESHOLDS: *Liver Stiffness equal or less than 1.3 m/s: High probability of being normal. *Liver Stiffness less than 1.7 m/s: In the absence of other known clinical signs, rules out compensated advanced chronic liver disease. *Liver Stiffness 1.7-2.1 m/s: Suggestive of compensated advanced chronic liver disease but need further test for confirmation. *Liver Stiffness over 2.1 m/s: Rules in compensated advanced chronic liver disease. *Liver Stiffness over 2.4 m/s: Suggestive of clinically significant portal hypertension. QUALITY OF DATA SET: *IQR/Median value equal or less than 0.15 implies a quality data set. *IQR/Median value over 0.15 implies a poor quality data set. SIGNIFICANT CHANGE FROM PRIOR EXAM: Significant change if liver stiffness measurement is 10% or greater from prior exam. OTHER CONSIDERATIONS: The stage of liver fibrosis may be overestimated in the setting of acute hepatitis, liver inflammation, elevated liver function tests, hepatic vascular congestion, obstructive cholestasis, non-fasting state, and infiltrative diseases such as amyloidosis and lymphoma. In some patients with NAFLD, the liver stiffness thresholds for compensated advanced chronic liver disease may be lower. In causes other than viral hepatitis and NAFLD, liver stiffness thresholds are not well established. Electronically signed by: Espinoza rEvin MD 02/19/2025 08:48 AM EST
== END 2025-02-18 09:50 | disposition home or self-care (01) ==
LOC: HO.US 09:49
PROVIDERS: PCP Internal Medicine; Visit Provider Surgery
DX: Z13.89 Encounter for screening for other disorder (principal)
CPT/HCPCS: 76700; 76981

== ENCOUNTER → 2025-02-18 09:51 | Outpatient (BNV) | payer MEDICARE, SELFPAY | PROVIDERS: PCP Internal Medicine; Visit Provider Radiology Diagnostic Ultrasound | DX: R93.2 Abnormal findings on diagnostic imaging of liver and biliary tract (principal) | CPT/HCPCS: 76700 ==

== ENCOUNTER 2025-02-21 07:25 | Inpatient (IN) | payer MEDICARE, SELFPAY ==
[2025-02-18 09:04] VITALS: BMI 34.2
--- NOTE | 2025-02-18 12:03 | HO.ANESPROP2 ---
Documented by User: Cristine Corea NP 02/18/25 12:06 HPI - Anesthesia Eval Consult details Narrative: 84yo F for Gastrectomy Sleeve,EGD,possible Diaphragmatic Hernia,possible Ventral Hernia,possible Open Pt states MOLST/ ? DNR - to bring documentation DOS PMFSH Active Problems Active Problems: All Active Problems GERD (gastroesophageal reflux disease) (Acute) Hypertension (Acute) Anxiety (Acute) Hypothyroidism (Acute) Hyperlipidemia (Acute) Diaphragmatic hernia (Acute) BMI 37.0-37.9, adult (Acute) Obesity (Acute) Past Medical History Medical History Oral lichen planus Tremor of both hands Nephrolithiasis Migraines Sleep apnea Anxiety Hypothyroidism Hyperlipidemia Diaphragmatic hernia BMI 37.0-37.9, adult Obesity Collagenous colitis Depression GERD (gastroesophageal reflux disease) Hypertension Hyperthyroidism Ganglion cyst Family History Family History Mother No problems noted. Father No problems noted. Family history of problems with anesthesia: No Surgical History Surgical History History of esophagogastroduodenoscopy (EGD) History of colonoscopy History of total abdominal hysterectomy History of pubovaginal sling History of right knee joint replacement History of Problems with Anesthesia: No Social History Social History Are you a primary career development consultant to a significant other at home: No Do you presently have visiting nurse or other home services: No Alcohol intake: never Comment: occasional cane for balance Patient Tobacco Use Status: Former Tobacco user Tobacco use type: Cigarette Years Smoked: 22 Use of substances other than those prescribed or required for medical reasons: No Have you been hit, kicked, punched, or otherwise hurt by someone within the past year? If so, by whom?: No Spiritual Healthcare Practices: no [facility] Practices: no Cultural Healthcare Practices: no Advance Directives on File: No Meds Allergies Allergy/AdvReac Type Severity Reaction Status Date / Time sulfamethoxazole (From Allergy Intermediate Hives Verified 02/18/25 09:04 Bactrim) trimethoprim (From Bactrim) Allergy Intermediate Hives Verified 02/18/25 09:04 budesonide (From Entocort ) Allergy Mild lightheaded Verified 02/18/25 09:04 celecoxib Allergy Mild lightheaded Verified 02/18/25 09:04 lamotrigine Allergy Mild lightheaded Verified 02/18/25 09:04 meloxicam Allergy Mild lightheaded Verified 02/18/25 09:04 topiramate Allergy Mild lightheaded Verified 02/18/25 09:04 famotidine Allergy Unknown Unknown Verified 02/18/25 09:04 sucralfate Allergy Unknown Unknown Verified 02/18/25 09:04 citalopram AdvReac Migraine Verified 02/21/25 07:48 ondansetron AdvReac Headache Verified 02/21/25 07:49 prednisone AdvReac Palpitation Verified 02/21/25 07:49 s Home Medications ?Medication ?Instructions ?Recorded ?Confirmed ?Last Taken ?Type amlodipine 10 mg tablet 10 mg PO DAILY 11/13/24 02/15/25 Unknown History atorvastatin 10 mg tablet 10 mg PO DAILY 11/13/24 02/15/25 Unknown History bupropion HCl 100 mg tablet 100 mg PO BID 11/13/24 02/15/25 Unknown History cyclosporine 0.05 % eye drops in a 1 drp ophthalmic (eye) BID 11/13/24 02/15/25 Unknown History dropperette fluticasone propionate 50 1 spray intranasal BID 11/13/24 02/15/25 Unknown History mcg/actuation nasal spray,suspension levocetirizine 5 mg tablet 5 mg PO QPM 11/13/24 02/15/25 Unknown History levothyroxine 25 mcg tablet 25 mcg PO DAILY 11/13/24 02/15/25 01/21/25 History omeprazole 40 mg capsule,delayed 40 mg PO BID 11/13/24 02/15/25 Unknown History release aspirin 81 mg tablet,delayed 81 mg PO DAILY 01/10/25 02/21/25 01/24/25 History release calcium 600 mg (as 1 tab PO BID 01/10/25 02/15/25 Unknown History carbonate)-vitamin D3 5 mcg (200 unit) tablet cimetidine 300 mg tablet 300 mg PO QAM 01/10/25 02/15/25 Unknown History dicyclomine 10 mg capsule 20 mg PO TID PRN Gastrointestinal 01/10/25 02/15/25 Unknown History Spasms Or Cramping estradiol 10 mcg vaginal tablet 10 mcg vaginal 2XW 01/10/25 02/15/25 Unknown History (Vagifem) polyethylene glycol 3350 17 gram 17 g PO DAILY 01/10/25 02/13/25 Unknown History oral powder packet (Miralax) Exam Height,Weight and Vital Signs: Height 5 ft 4 in Weight 90.265 kg Pertinent Lab Results Pertinent Lab Results: Laboratory Tests 02/15/25 09:37 Blood Type B Positive Antibody Screen NEGATIVE Laboratory Tests 02/15/25 09:47 WBC 5.0 Hgb 14.9 Hct 45.8 Plt Count 208 Sodium 143 Potassium 3.9 Chloride 108 Carbon Dioxide 25 BUN 24 H Creatinine 0.71 Narrative Narrative: EKG 01/2025 Vent. Rate : 59 BPM Atrial Rate : 59 BPM P-R Int : 188 ms QRS Dur : 88 ms QT Int : 418 ms P-R-T Axes : 49 28 29 degrees QTcB Int : 413 ms Sinus bradycardia Otherwise normal ECG No previous ECGs available Assessment and Plan Assessment Anesthesia Assessment: Chart Reviewed Final Anesthetic Review Family History of Problems with Anesthesia: No History of Problems with Anesthesia: No Documented by User: Courtney Prince MD 02/21/25 09:03 [facility] Past Medical History Medical History Oral lichen planus Tremor of both hands Nephrolithiasis Migraines Sleep apnea Anxiety Hypothyroidism Hyperlipidemia Diaphragmatic hernia BMI 37.0-37.9, adult Obesity Collagenous colitis Depression GERD (gastroesophageal reflux disease) Hypertension Hyperthyroidism Ganglion cyst Family History Family History Mother No problems noted. Father No problems noted. Surgical History Surgical History History of esophagogastroduodenoscopy (EGD) History of colonoscopy History of total abdominal hysterectomy History of pubovaginal sling History of right knee joint replacement Social History Social History Are you a primary career development consultant to a significant other at home: No Do you presently have visiting nurse or other home services: No Alcohol intake: never Comment: occasional cane for balance Patient Tobacco Use Status: Former Tobacco user Tobacco use type: Cigarette Years Smoked: 22 Use of substances other than those prescribed or required for medical reasons: No Have you been hit, kicked, punched, or otherwise hurt by someone within the past year? If so, by whom?: No Spiritual Healthcare Practices: no [facility] Practices: no Cultural Healthcare Practices: no Advance Directives on File: No Meds Allergies Allergy/AdvReac Type Severity Reaction Status Date / Time sulfamethoxazole (From Allergy Intermediate Hives Verified 02/18/25 09:04 Bactrim) trimethoprim (From Bactrim) Allergy Intermediate Hives Verified 02/18/25 09:04 budesonide (From Entocort EC) Allergy Mild lightheaded Verified 02/18/25 09:04 celecoxib Allergy Mild lightheaded Verified 02/18/25 09:04 lamotrigine Allergy Mild lightheaded Verified 02/18/25 09:04 meloxicam Allergy Mild lightheaded Verified 02/18/25 09:04 topiramate Allergy Mild lightheaded Verified 02/18/25 09:04 famotidine Allergy Unknown Unknown Verified 02/18/25 09:04 sucralfate Allergy Unknown Unknown Verified 02/18/25 09:04 citalopram AdvReac Migraine Verified 02/21/25 07:48 ondansetron AdvReac Headache Verified 02/21/25 07:49 prednisone AdvReac Palpitation Verified 02/21/25 07:49 s Home Medications ?Medication ?Instructions ?Recorded ?Confirmed ?Last Taken ?Type amlodipine 10 mg tablet 10 mg PO DAILY 11/13/24 02/15/25 Unknown History atorvastatin 10 mg tablet 10 mg PO DAILY 11/13/24 02/15/25 Unknown History bupropion HCl 100 mg tablet 100 mg PO BID 11/13/24 02/15/25 Unknown History cyclosporine 0.05 % eye drops in a 1 drp ophthalmic (eye) BID 11/13/24 02/15/25 Unknown History dropperette fluticasone propionate 50 1 spray intranasal BID 11/13/24 02/15/25 Unknown History mcg/actuation nasal spray,suspension levocetirizine 5 mg tablet 5 mg PO QPM 11/13/24 02/15/25 Unknown History levothyroxine 25 mcg tablet 25 mcg PO DAILY 11/13/24 02/15/25 01/21/25 History omeprazole 40 mg capsule,delayed 40 mg PO BID 11/13/24 02/15/25 Unknown History release aspirin 81 mg tablet,delayed 81 mg PO DAILY 01/10/25 02/21/25 01/24/25 History release calcium 600 mg (as 1 tab PO BID 01/10/25 02/15/25 Unknown History carbonate)-vitamin D3 5 mcg (200 unit) tablet cimetidine 300 mg tablet 300 mg PO QAM 01/10/25 02/15/25 Unknown History dicyclomine 10 mg capsule 20 mg PO TID PRN Gastrointestinal 01/10/25 02/15/25 Unknown History Spasms Or Cramping estradiol 10 mcg vaginal tablet 10 mcg vaginal 2XW 01/10/25 02/15/25 Unknown History (Vagifem) polyethylene glycol 3350 17 gram 17 g PO DAILY 01/10/25 02/13/25 Unknown History oral powder packet (Miralax) Exam Airway Mallampati Class: II TM Dist: >3cm Neck ROM: Limited Heart: rrr Lungs: cta Assessment and Plan Assessment Anesthesia Assessment: Anesthesia Plan Discussed Final Anesthetic Review NPO: Yes ASA Class: II Final Preanesthetic Review: No Changes in Pt Med Stat, Meds/Allgs Chart Reviewed, Consent Obtained/Reviewed, Anes Risks/Benef Reviewed and DNR Form (If Appl.) (reversed) Patient Risk: Intermediate Procedure Risk: Intermediate Anesthetic Plan Anesthetic Plan: GA and Agree w/ Assess. and Plan Disposition: Standard PACU
[2025-02-21] VITALS (12 sets, daily range): BP systolic 115–138; BP diastolic 51–64; PULSE 56–81; RESP 15–18; TEMP 35.8–36.9; O2SAT 93–99; BMI 33.5; BMI 37.0
[2025-02-21] MEDS: Aprepitant 32 MG/4.4 ML VIAL IVPUSH (08:09)
[2025-02-21] MEDS: Lactated Ringers 1,000 ML 999 ML IV (08:09)
--- NOTE | 2025-02-21 09:01 | MHC.SHP ---
Pre-Procedural Eval Section A - 24 Hr Update-Section A only Date of Service: 02/21/25 The patient is an INPATIENT: Yes The patient has been examined within 24 hours of the surgical procedure. The History & Physical has been completed within 30 days and I have reviewed it.: No Section B - Complete if H&P > 30 days Chief Complaint: Diaphragmatic hernia Relevant Family History (Specify if Yes): No Relevant Social History: None Present Medications: None Medical History: No relevant PMH History of Previous Operations: No relevant previous surgery Allergies: Allergies Allergy/AdvReac Type Severity Reaction Status Date / Time sulfamethoxazole (From Allergy Intermediate Hives Verified 02/18/25 09:04 Bactrim) trimethoprim (From Bactrim) Allergy Intermediate Hives Verified 02/18/25 09:04 budesonide (From Entocort EC) Allergy Mild lightheaded Verified 02/18/25 09:04 celecoxib Allergy Mild lightheaded Verified 02/18/25 09:04 lamotrigine Allergy Mild lightheaded Verified 02/18/25 09:04 meloxicam Allergy Mild lightheaded Verified 02/18/25 09:04 topiramate Allergy Mild lightheaded Verified 02/18/25 09:04 famotidine Allergy Unknown Unknown Verified 02/18/25 09:04 sucralfate Allergy Unknown Unknown Verified 02/18/25 09:04 citalopram AdvReac Migraine Verified 02/21/25 07:48 ondansetron AdvReac Headache Verified 02/21/25 07:49 prednisone AdvReac Palpitation Verified 02/21/25 07:49 s Review of Systems Sugical H&P ROS: Negative: Constitution, Cardiovascular, Respiratory, Neurological, Psychiatric, Hem-Onc, Allergic/Immunologic, Gastrointestinal, Genitourinary, Musculoskeletal, Integumentary, Endocrine and Eyes/Ears/Nose/Throat Exam Surgical H&P Exam: Normal: HEENT, Normal: Heart, Normal: Lungs, Normal: Extremities, Normal: Abdomen, Normal: Skin and Normal: Neurological Plan Diagnosis/Plan: Unchanged I have reviewed the history and physical and performed a pertinent physical examination on my patient. No changes have occurred unless specified. Time Spent With Patient Time: Total time managing care of this patient today ____ minutes.
--- NOTE | 2025-02-21 09:04 | PM.OP ---
Brief Operative Note Date of Service: 02/21/25 Pre-op diagnosis: Severe obesity with diaphragmatic hernia Post-op diagnosis: same (& diaphragmatic hernia & lysis of adhesions) Procedure: INITIAL PATIENT BMI ON PRESENTATION AT OUR OFFICE: 37.3 kg/m2 LAST BMI BEFORE SURGERY: 33.5 kg/m2 COMORBIDITIES: hypertension, hyperlipidemia, depression, anxiety, hypothyroidism, GERD, diaphragmatic hernia ?The patient presented to the Weight Management Program with significant obesity that was negatively impacting the patient's comorbidities as listed above.? The program is a phased program with a special focus on preoperative medical weight management to promote substantial weight loss and prepare the patients for the second phase of the program: bariatric surgery. The patient participated in an intensive weekly lifestyle ?intervention and exercise program during which the patient ?has lost between the initial office visit and the last preoperative visit 21 lbs, or 9.66% of initial actual body weight. It was deemed appropriate for the patient to now have bariatric surgery. In light of the current Covid-19 pandemic and the well documented strong association of obesity and increased risk of worse outcomes if infected with Covid-19 (REFERENCES:https://pubmed.ncbi.nlm.nih.gov/10028249/,?https://pubmed.ncbi.nlm.nih.gov/57810665/), any delay in undergoing bariatric surgery may lead to the patient's worsening health condition and increased?risk of more severe Covid-19 disease if infected. In addition a recent?study from [facility] published in [employer] [facility] on 03/30/2021 ([email or web address]) found that, among patients with obesity, substantial weight loss achieved with surgery was associated with improved outcomes of COVID-19 infection. The findings suggest that obesity can be a modifiable risk factor for the severity of COVID-19 infection. In addition, the patient met the BMI-criteria for bariatric surgery based on the BMI on initial presentation. The patient should not be penalized for achieving such weight loss because ?it is not sustainable long-term without surgical intervention and it was achieved in preparation for bariatric surgery ?under my direction and based on my published research ([email or web address]).[email or web address] and?[email or web address].soard.org/[email or web address]/pdf) ?that a 10% preoperative weight loss improves long-term weight loss after surgery and reduces perioperative complications.? Insurance carriers such as [facility] have endorsed my recommendations ?and have included in their policies criteria to include a 10% preoperative weight loss requirement. PROCEDURE: Esophago-gastroscopy, laparoscopic repair of incarcerated diaphragmatic hernia, laparoscopic lysis of adhesions, laparoscopic sleeve gastrectomy and laparoscopic gastropexy INDICATIONS: This is a 84 year-old female who was electively scheduled for laparoscopic, possibly open sleeve gastrectomy. The risks and complications of the procedure were discussed with the patient in advance, particularly the possibility of ; pulmonary embolism; staple line leak; bleeding; GERD; cardiac, pulmonary, or renal complications; as well as long-term problems such as insufficient weight loss, vitamin deficiency, strictures, or ulcers. The patient understood all the risks, and was in agreement to proceed with surgery. DESCRIPTION OF PROCEDURE: After informed consent was obtained from the patient, the patient was given preoperative antibiotics, and was transferred to the operating room. After successful induction of general anesthesia, pneumatic compression devices were placed on both lower extremities. An upper endoscopy was performed next. The oropharynx and esophagus appeared to be within normal limits. There was a diaphragmatic hernia present of moderate size consistent with the findings of the preoperative upper GI. The stomach was entered. Then after all fluid and air were suctioned and the stomach was fully decompressed, the scope was withdrawn and secured in the mid esophagus. The patient was then prepped and draped in the usual sterile manner, and abdominal access was established at the right upper quadrant with the Skyler technique. A 12 mm blunt port was inserted, and the abdomen was insufflated with CO2 to a pressure of 15 mmHg. Under direct visualization, additional ports were placed, specifically two 5 mm Versi-step ports to the left upper quadrant, and a 5 mm Versi-Step port to the right upper quadrant. 1% lidocaine plain was used to infiltrate all port sites as well as all fascia defects. There were adhesions in the abdomen involving the omentum and the left anterior abdominal wall. Those were lysed completely with the ultrasonic device. Following that, the patient was placed in a steep reverse Trendelenburg position. An additional 5 mm port was placed to the right flank for the Mediflex retractor that was used to retract the left lobe of the liver. The gastro-esophageal fat pad was opened with the ultrasonic device (Thunderbeat, Olympus) and the anterior esophagus and hiatus were exposed. The angle of His was opened with the ultrasonic device the fundus of the stomach from any diaphragmatic and splenic attachments. I then opened the gastrocolic ligament between the transverse colon and the greater curvature of the stomach with the ultrasonic device to enter the lesser sac and facilitate the ligation of the short gastric vessels. I started at a mid-point along the greater curvature and using the Thunderbeat, all short gastric vessels were divided all the way to the angle of His until the left emily was completely dissected at its entirety. I then divided the gastro-colic ligament distally to a distance of about 3-4 cm proximal to the pylorus. There was an obvious significant-sized hiatal hernia. I continued dissecting along the hiatus toward the left emily and the angle of His. I fully mobilized the fat pad that was incarcerated in the hernia. I then continued by dissecting even further into the posterior retro-esophageal space all the way to the angle of His. I continued to mobilize the esophagus into the mediastinum circumferentially. Both vagal nerves were seen and preserved. At that point, I was able to have at least 3 to 5 cm of esophagus into the abdomen.? After I completely mobilized the esophagus from both the left and right emily and I had a good mobilization of the esophagus circumferentially, I closed the hernia defect with three interrupted #0 Surgidac sutures using the Endo Stitch device, two of which were placed posterior and one of which anterior to the esophagus. ? The stomach was then divided transversely with three Endo BELLA-45 purple and three BELLA-60 articulating purple loads using the [employer] stapler and loads. Every effort was made that the gastric sleeve had a tubular shape and an even caliber throughout. Once the sleeve resection was completed, the staple line of the gastric sleeve was reinforced with Hemoclips. The resected stomach was retrieved without difficulty from the Skyler port. A gastropexy was then performed in order to prevent postoperative GERD and partial gastric volvulus. Several interrupted 2.0 Surgidac sutures were placed between the sleeve's staple line and the previously divided greater omentum and gastro-colic ligament using the Endo-Stitch device. ?An upper endoscopy was performed. There was no narrowing at the GE junction. The scope was easily advanced all the way to the pylorus which was clearly visualized. There was no narrowing anywhere and the sleeve's caliber was even throughout. The sleeve's staple line was inspected and there was no evidence of ischemia, bleeding or dehiscence. At that point the gastroscope was withdrawn from the patient?s mouth while we were decompressing the bowel and the stomach from any remaining air. I looked into the lesser sac to see how the sleeve was situating and it was situating well. There was no bleeding from the staple line, spleen, or short gastric vessels. The Mediflex retractor was removed, and the undersurface of the liver was inspected and there was no bleeding. The patient was placed in supine position. I closed the fascial defect of the 12 mm port site with a figure of eight #1 Polysorb suture. Then 30cc Ropivacaine plain with 10 mg of Dexamethasone were used to infiltrate the fascial closure as well as all skin incisions. At this point, the abdomen was deflated, all ports were removed under direct vision, and no bleeding was noted from any of the port sites. The skin incisions were irrigated with saline and were closed with 4-0 absorbable monofilament sutures. Steri-Strips and OpSites were used to cover all incisions. The patient was extubated and was transferred in stable condition to the recovery room for further care. I was present and performed all wilhelm parts of the procedure. Ms. Freeman was the physician assistant primary care. There were no residents to assist with this case. Guido Garcia MD, PhD, FACS Surgeon: New Garcia MD Was an Avionics Installer used for this Procedure?: No Avionics Installer: Diane Freeman Estimated blood loss (mL): 0 IV fluids (mL): 2,000 Urine output (mL): 0 (No Silvestre to record output) Pathology: other (Stomach) Condition: stable Disposition: PACU
--- NOTE | 2025-02-21 09:07 | P.PNGS_ITS ---
Subjective Subjective Date of Service: 02/22/25 Interval history: Feels well. Mild incisional pain. She is tolerating phase 1 bariatric diet Physical Exam 2 Vital Signs: Vital Signs: Last Vital Signs Temp 98.4 F 02/21/25 08:12 Pulse 62 02/21/25 08:12 Resp 16 02/21/25 08:12 BP 126/51 L 02/21/25 08:12 Pulse Ox 97 02/21/25 08:12 O2 Del Method Room Air 02/21/25 08:12 BMI result Body Mass Index 33.5 GI: Inspection: Yes normal to inspection, Yes incision (clean, dry and intact) and Yes obesity Palpation (GI): Soft to palpation Extrem: Right lower extremity: normal to inspection (no calf tenderness) L eft lower extremity: normal to inspection (no calf tenderness) Objective Data Active Medications Fentanyl (Fentanyl Citrate/Pf 100 Mcg/2 Ml Vial) 25 mcg IVPUSH Q5M PRN PRN Reason: Pain, Moderate to Severe (Pain Scale 4-10) Stop: 02/21/25 15:03 Haloperidol Lactate (Haloperidol Lactate 5 Mg/Ml Vial) 1 mg IVPUSH ONCE PRN PRN Reason: intractable nausea Stop: 02/21/25 15:03 Lactated Ringer's (Lr) 1,000 mls @ 80 mls/hr IVCONT .[id number] [facility] Lactated Ringer's (Lr) 1,000 mls @ 80 mls/hr IVCONT .[id number] VON Lactated Ringer's (Lr) 1,000 mls @ 100 mls/hr IVCONT .Q10H [facility] Stop: 02/21/25 11:29 Naloxone HCl (Naloxone Hcl 0.4 Mg/Ml Vial) 0.04 mg IVPUSH Q5M PRN PRN Reason: Excessive sedation or RR < 8 Ondansetron HCl (Ondansetron Hcl 4 Mg/2 Ml Vial) 4 mg IVPUSH ONCE PRN PRN Reason: Nausea and Vomiting Stop: 02/21/25 15:03 Labs 02/22/25 06:01 02/22/25 06:01 Procedures Date of Service Date of Service: 02/22/25 Progress Note: A&P Assessment and plan (1) Obesity: Status: Acute Assessment and Plan: s/p laparoscopic sleeve gastrectomy, lysis of adhesions, diaphragmatic hernia repair and gastropexy Doing well Will check am labs and if OK the patient will be discharged home (2) BMI 33.0-33.9,adult: Status: Inactive (3) Diaphragmatic hernia: Status: Acute (4) GERD (gastroesophageal reflux disease): Status: Acute (5) Hypothyroidism: Status: Acute (6) Hyperlipidemia: Status: Acute (7) Hypertension: Status: Acute (8) Anxiety: Status: Acute (9) S/P repair of paraesophageal hernia: Status: Acute (10) Intra-abdominal adhesions: Status: Acute Time Spent With Patient Time: Total time managing care of this patient today ____ minutes. Quality Stroke Does the patient have a stroke diagnosis?: No VTE Prior VTE?: No VTE Risk Level:: Surgical - moderate VTE Device Contraindication: N/A - Device Ordered VTE Drug Contraindication: Treatment Not Indicated
[2025-02-21 12:55] LABS: Hematocrit 45.0 % (37.0-47.0); Hemoglobin 15.0 g/dl (12.0-16.0)
[2025-02-21] MEDS: Lactated Ringers 1,000 ML 100 ML IVCONT ×2 (13:04→22:47)
[2025-02-21 13:22] LABS: Anion Gap 15 (12-20); Blood Urea Nitrogen 20 mg/dL (9-16); Calcium 9.4 mg/dL (8.4-10.2); Carbon Dioxide 20 mmol/L (22-29); Chloride 111 mmol/L (96-108); Creatinine Clr Calc Pharmacy 70.4; Estimated Glomerular Filt Rate > 60; Potassium 3.7 mmol/L (3.3-5.1); Sodium 142 mmol/L (135-145)
--- NOTE | 2025-02-21 13:35 | PHA.MEDREC ---
Pharmacy Consult ? Medication Reconciliation Pharmacy has completed the medication reconciliation.Med rec complete, spoke to patient and utilized a list she had with her. Also compared with pharmacy claims history.
--- NOTE | 2025-02-21 14:54 | P.DS_ITS ---
DS: Providers Provider Date of Service: 02/22/25 Date of admission: 02/21/25 07:25 Date of discharge: 02/22/25 Primary care physician: Lana Wynn MD DS: Diagnosis Discharge Diagnosis (1) Obesity: Status: Acute (2) Diaphragmatic hernia: Status: Acute (3) GERD (gastroesophageal reflux disease): Status: Acute (4) Hypothyroidism: Status: Acute (5) Hyperlipidemia: Status: Acute (6) Hypertension: Status: Acute (7) Anxiety: Status: Acute (8) S/P repair of paraesophageal hernia: Status: Acute (9) Intra-abdominal adhesions: Status: Acute DS: Summary Hospital Course Hospital Course: ADMITTING DIAGNOSIS: obesity, diaphragmatic hernia, GERD, HTN, anxiety, hypothyroidism, HLD DISCHARGE DIAGNOSIS: same, s/p laparoscopic sleeve gastrectomy and gastropexy with diaphragmatic hernia repair PAST SURGICAL HISTORY:? History of esophagogastroduodenoscopy (EGD) History of colonoscopy History of total abdominal hysterectomy History of pubovaginal sling History of right knee joint replacement PROCEDURE: upper endoscopy, laparoscopic sleeve gastrectomy and gastropexy with diaphragmatic hernia repair DISCHARGE SUMMARY: History of Present Illness: The patient is a?84 year-old woman with a BMI of?37 kg/m2 and associated co- morbidities as described above. The patient had extensive work-up and was electively scheduled for laparoscopic, possible open sleeve gastrectomy and gastropexy. Risks and complications of the surgery were discussed with the patient in advance, particularly the possibility of , pulmonary embolism, anastomotic leak, bleeding, bowel injury, GERD, cardiac, renal or pulmonary complications. The patient understood all the risks and was in agreement with [facility] surgical plan. Hospital Course: The patient underwent an uneventful laparoscopic sleeve gastrectomy with gastropexy and repair of diaphragmatic hernia on the day of admission. Postoperatively, the patient was transferred to the surgical floor. The patient received IV acetaminophen and IV Dilaudid for pain control. Patient was started on bariatric phase 1 diet POD #0. On postoperative day one, the patient was feeling well without nausea, vomiting, fevers, or tachycardia. The patient had some mild incisional pain and the abdomen was soft.? ? On the morning of postoperative day one, the patient was continued on 1 ounce of water or ice every half hour. During the day, the patient did fairly well, having some incisional pain, but able to ambulate adequately and to tolerate liquids well. Since the patient is doing well, we decided that the patient was ready to be discharged. The patient was given instructions to follow-up in office next week and to call the office for any fever over 101, persistent abdominal pain, nausea, vomiting, GERD, symptoms of DVT such as calf tenderness, or leg swelling, or pulmonary embolism such as chest pain or shortness of breath.? The patient was also instructed to drink 40-60 ounces of liquids per day using the 1-ounce cups. The patient had been given prescriptions for Tylenol for pain, Zofran prn for nausea, and pantoprazole and carafate previously. The patient was encouraged to ambulate and use the incentive spirometer. The patient was allowed to shower, but no baths, and encouraged to stay active at home. All of these instructions were given to the patient personally. All questions were answered and the patient understood all instructions, the instructions were also given to the patient in print. Time Attestation Discharge Coordination Time (in mins): 30 Quality: Safe Use of Opioids Does Pt have an Active Cancer Diagnosis on the Problem List?: No Quality: Stroke Does the patient have a stroke diagnosis?: No Physical Exam Vital Signs: Vital Signs: Last Vital Signs Temp 97.0 F 02/21/25 13:09 Pulse 67 02/21/25 13:09 Resp 15 02/21/25 13:09 BP 132/60 02/21/25 13:09 Pulse Ox 93 02/21/25 13:09 O2 Del Method Room Air 02/21/25 13:09 O2 Flow Rate 6 02/21/25 12:00 BMI result Body Mass Index 37.0 DS: Data Data Completed and Pending Pending studies at discharge: Pending at discharge 02/21/25 10:39 Surgical [PTH] Routine Labs on day of discharge: Laboratory Results - last 24 hr 02/21/25 12:51 Hgb 15.0 Hct 45.0 Sodium 142 Potassium 3.7 Chloride 111 H Carbon Dioxide 20 L Anion Gap 15 BUN 20 H Creatinine 0.70 Estim Creat Clear Calc 70.4 Estimated GFR > 60 Random Glucose 139 H Calcium 9.4 D Discharge Plan Discharge Anticipated Discharge Date/Time: 02/22/25 12:09 Patient Disposition: Home, Self-Care Discharge Diagnosis: s/p laparoscopic sleeve gastrectomy with gastropexy and diaphragmatic hernia repair Referrals: Lana Hoffman MD [Primary Care Provider, Internal Medicine] - 1 Week Discharge Medications: Continued levothyroxine 25 mcg tablet 25 mcg PO DAILY bupropion HCl 100 mg tablet 100 mg PO BID fluticasone propionate 50 mcg/actuation spray,suspension 1 spray intranasal BID cyclosporine 0.05 % dropperette 1 drp ophthalmic (eye) BID carboxymethylcellulose sodium [Refresh Tears] 0.5 % Drops 1 drp OPHTHALMIC (EYE) TID PRN (Reason: Dry Eyes) pantoprazole 40 mg tablet,delayed release (DR/EC) 40 mg PO DAILY Qty: 90 0RF ondansetron 4 mg tablet,disintegrating 4 mg PO Q12H Qty: 20 0RF Rx Instructions: Only take one every 12 hours as needed if you have nausea Held atorvastatin 10 mg tablet 10 mg PO DAILY Hold Instructions: Resume on 03/01/25. amlodipine 10 mg tablet 10 mg PO DAILY Hold Instructions: Resume on 02/23/25. Check your blood pressure every morning as soon as you wake up and send it to Dr. Garcia. Do no take the blood pressure medication if the blood pressure is below 120/70. Wait every day to hear back from Dr. Garcia before you take the medication. levocetirizine 5 mg tablet 5 mg PO QPM Hold Instructions: Resume on 02/23/25. Discontinued cholecalciferol (vitamin D3) 50 mcg (2,000 unit) Tablet 50 mcg PO DAILY aspirin [Aspirin Low-Strength] 81 mg Tablet,Delayed Release (Dr/Ec) 81 mg PO DAILY calcium carbonate-vitamin D3 [Calcium + D] 600 mg-5 mcg (200 unit) Tablet 1 tab PO BID sucralfate 100 mg/mL suspension 10 ml PO BID Qty: 600 2RF polyethylene glycol 3350 17 gram/dose powder 17 g PO DAILY Qty: 238 0RF Rx Instructions: Mix each measuring cup with 8oz of water, Crystal light, or Gatorade zero, or Propel and do 7 measuring cups on 02/19/25 and another 7 measuring cups on 02/20/25 Discharge Orders: Discharge Order (Routine); Ordered 02/22/25 Ordered By: New Garcia Activity on Discharge: As tolerated Stand Alone Forms: Patient Portal Discharge page Print Language: Armenian Care Plan Goals: weight loss and resolution of diaphragmatic hernia Health Concerns: diaphragmatic hernia and obesity Plan of Treatment: No tub baths, sex or returning to work until discussed at first post op appointment. No alcohol, tobacco or illegal drug use. Continue to use incentive spirometer hourly while awake. Walk in home for 5- 10 minutes every 2 hours during the first week. Wear abdominal binder with activity. Follow all meal plan instructions from your bariatric surgeon. Review bariatric handbook and call with any questions. Discharge Instructions 1. Please call your doctor or come back to the emergency room should any new symptoms arise. 2. Activity: abstain from alcohol,? limited stair climbing, no bending, no driving, no exercise, no illicit substances, no lifting, no sex, no tub bath, no work. 4. Diet: follow your bariatric surgeon's recommendations for advancing diet. 5. Dressing Change/Wound Care: Your incisions are covered with waterproof dressings. You can shower with these and pat dry. Do not rub over dressings or incisions. If the area is tender, you may apply an ice pack for short intervals (no more than 20 minutes on, followed by at least 20 minutes off). Do not apply heat. Do not use creams, lotions, or topical antibiotics unless instructed to do so by your surgeon. 6. Call your doctor if: - Your temperature exceeds 101.5 F - You experience excessive pain or swelling - You have an unexpected reaction to medication - You have excessive bleeding - You experience continued vomiting/nausea - Your incision begins to separate - Your incision shows signs of infection such as increased redness, swelling, excessive pain, heat, or drainage (light blood or clear fluid is normal) General instructions: No lifting greater than 10 lbs for the next 6 weeks[address] driving within 24 hours of taking narcotic pain medications. If you do not move your bowels in the next 2 days, please take milk of magnesia over the counter. Please follow the post op diet and do not advance your diet until instructed by your surgeon or until you are seen in the office in about 1 week. Please walk around your home every hour or two to prevent blood clots from forming in your legs. You do not need to wake from sleeping to walk. Please sle ep in a bed or couch to prevent kinking at the hips and knees. Please take your incentive spirometer (your lung cloth printing back tender) home with you and use it for the next few days to prevent pneumonias. You may shower; no hot tubs, baths or swimming pools. Please make sure you are consuming 40-60 ounces of total fluids per day. Avoid all carbonation. Please call the office with any questions or concerns such as increasing abdominal pain, fever, chills, shortness of breath, chest pain, leg pain or swelling, or redness or drainage from your incisions. Do not hesitate to contact the office with any questions at . The patient's medical history has been reviewed and they are considered low risk for post op DVT and therefore DVT prophylaxis is not considered necessary. Travel after surgery was reviewed. The patient has not disclosed any travel plans during the first 30 days after surgery and they have been advised that within the first 30 days after surgery any bus, plane, train or car travel over 2 hours in duration is contraindicated due to the possibility of developing blood clots from immobility. Any travel, needs to include periods of ambulation of 10 minutes in duration every 2 hours.? The patient was instructed to discuss any plans for travel during this period with their bariatric surgeon. Assessment: s/p laparoscopic sleeve gastrectomy with gastropexy and diaphragmatic hernia repair Discharge Date/Time: 02/22/25 10:26
[2025-02-21] MEDS: 0.9 % Sodium Chloride Flush 3 ML SYRINGE IVFLUSH (20:07)
[2025-02-22 04:00] VITALS: BP 113/62; PULSE 78; RESP 18; TEMP 36.4; O2SAT 97
[2025-02-22 06:09] LABS: MANUAL DIFF FLAG NO
[2025-02-22 06:24] LABS: Hematocrit 41.9 % (37.0-47.0); Hemoglobin 13.8 g/dl (12.0-16.0); Imm Gran Abs Auto 0.02 X10*3/uL (0.00-0.03); Imm Gran Pct Auto 0.3 % (0.0-0.4); Lymphocytes Absolute Auto 0.9 X10*3/uL (1.2-4.9); Mean Corpuscular HGB Conc 32.9 g/dl (31.0-35.0); Mean Corpuscular Hemoglobin 28.8 pg (27.0-33.0); Mean Corpuscular Volume 87.5 fL (80.0-98.0); NRBC Abs Auto 0.000 X10*3/uL (0.0-0.012); NRBC Pct Auto 0.0 /100WBC (0.0-0.2); Platelet Count 183 X10*3/uL (160-400); Red Blood Count 4.79 X10*6/uL (4.20-5.50); White Blood Count 6.9 X10*3/uL (4.8-10.8)
[2025-02-22 06:55] LABS: Anion Gap 11 (12-20); Blood Urea Nitrogen 14 mg/dL (9-16); Calcium 9.0 mg/dL (8.4-10.2); Carbon Dioxide 25 mmol/L (22-29); Chloride 108 mmol/L (96-108); Creatinine Clr Calc Pharmacy 84.9; Estimated Glomerular Filt Rate > 60; Potassium 4.1 mmol/L (3.3-5.1); Sodium 140 mmol/L (135-145)
[2025-02-22 08:00] VITALS: BP 123/57; PULSE 65; RESP 16; TEMP 36.7; O2SAT 94
--- NOTE | 2025-02-22 09:26 | HO.POSTANES ---
Post Anesthesia Evaluation Post Anesthesia Evaluation Date of Service: 02/22/25 Vital Signs: Vital Signs Temp Pulse Resp BP Pulse Ox O2 Del Method 02/22/25 08:00 98.1 F 65 16 123/57 L 94 Room Air 02/22/25 04:00 97.6 F 78 18 113/62 97 Room Air 02/21/25 23:52 97.8 F 75 18 115/61 98 Room Air Anesthesia: General Mental Status: Awake Pain Control: Satisfactory Nausea/Vomiting: None Hydration: Adequate Anesthesia-Related Issues: No Anes. Related Issues
--- NOTE | 2025-02-22 10:39 | MHC.CM.PN ---
Patient discharged prior to being seen by case management.
== END 2025-02-22 10:26 | disposition home or self-care (01) | DRG 620 ==
LOC: HO.SSSA 07:50 → HO.S3 12:04
PROVIDERS: Physician Assistant Surgical; Admitting Provider Surgery; PCP Internal Medicine; Visit Provider Surgery
PROC: 0DB64Z3 Excision of Stomach, Percutaneous Endoscopic Approach, Vertical (ICD-10-PCS; CPT 43845; principal; 2025-02-21 09:00)
DX: E66.01 Morbid (severe) obesity due to excess calories (principal); K44.0 Diaphragmatic hernia with obstruction, without gangrene; K66.0 Peritoneal adhesions (postprocedural) (postinfection); Z68.33 Body mass index [BMI] 33.0-33.9, adult; I10 Essential (primary) hypertension; E78.5 Hyperlipidemia, unspecified; F32.A Depression, unspecified; F41.9 Anxiety disorder, unspecified; K21.9 Gastro-esophageal reflux disease without esophagitis; E03.9 Hypothyroidism, unspecified; Z79.890 Hormone replacement therapy; Z79.899 Other long term (current) drug therapy
CPT/HCPCS: 36415; 76700; 76981; 80048; 85014; 85018; 85025; 86850; 86900; 86901; 88307; 88342; A4649; C9145; J0131; J0690; J1100; J1171; J2003; J2405; J2470; J2704; J2765; J2795; J3010; J7120

== ENCOUNTER → 2025-02-21 07:25 | Outpatient (BNV) | payer MEDICARE, SELFPAY | PROVIDERS: Admitting Provider Surgery; PCP Internal Medicine; Visit Provider Surgery | DX: E66.812 Obesity, class 2 (principal); E66.01 Morbid (severe) obesity due to excess calories; Z68.37 Body mass index [BMI] 37.0-37.9, adult; Z68.33 Body mass index [BMI] 33.0-33.9, adult; K44.9 Diaphragmatic hernia without obstruction or gangrene; K21.9 Gastro-esophageal reflux disease without esophagitis; E03.9 Hypothyroidism, unspecified; E78.5 Hyperlipidemia, unspecified; I10 Essential (primary) hypertension; F41.9 Anxiety disorder, unspecified; Z98.890 Other specified postprocedural states; Z87.19 Personal history of other diseases of the digestive system; K66.0 Peritoneal adhesions (postprocedural) (postinfection) | CPT/HCPCS: 99024 ==

== ENCOUNTER 2025-02-27 09:20 | Outpatient (AMB) | payer MEDICARE, SELFPAY ==
--- OUTSIDE RECORDS SUMMARY | 2024-11-14 06:30 | XMS_ITS ---
Author Organization [facility] Address [address] [place] [address] Care Team Providers Care Integrated Circuit Fabricator Name Role Phone Lana KWOK Primary Care Provider Willem Gatica [phone] Camelia MACEDO, Marcio Unavailable Unavailable REASON FOR VISIT gerd,globus senstion Encounters Encounter Location Date Provider Diagnosis [facility] Outpatient [address] [place] [phone] 11/14/2024 Willem Pang Plan Of Treatment No Information Progress Notes * DANTE MADDENDOB: 3 (84 yo F)Acc No.[id number]:11/14/2024 EGD/MAC Patient: DANTE CARLOS Provider: Kalpana Pang MD :1940 A ge:84 Y S ex:Female Date:11/14/2024 Address:[address] [place], [place] [phone] Pcp:Lana KWOK Subjective: * Chief Complaints: * G erd,globus senstion Billing Information: * Procedure Codes: * The named appointment provid er may or may not be the originator of this progress note, and it is not deemed complete until electronically signed by the appointment provider. Sign off status: Pending * Provider: Kalpana Pang MD Date: 0 11/14/2024 Generated for Fratnz rowland/Amador/eTransmitting on: 04/29/2024 10:18 AM EST
--- NOTE | 2025-02-27 08:40 | A.OFFVIS_ITS ---
VS Expanded 02/27/25 09:48 BP 133/64 Blood Pressure Location Rt brachial Blood Pressure Position Sitting Pulse 75 Pulse Source Pulse Oximeter Temp 96.8 F Temperature Source Temporal Artery Scan Pulse Oximetry 96 Oxygen Delivery Method Room Air Height 5 ft 4 in Weight 190 lb 12.8 oz BMI 32.7 Body Fat % 45.9 Body Fat Mass 87.6 Fat Free Mass 103.2 Visceral Fat Rating 15.0 Body Water % 37.8 Body Water Mass 72.0 Muscle Mass/Score 97.8 Basal Metabolic Rate/Score 1,439 Intake Visit Reasons: (OV) PO LSG 02/21/25 Gis Database Administrator Services: Gis Database Administrator Present Allergies sulfamethoxazole (From Bactrim) Allergy (Intermediate, Verified 02/27/25 09:50) Hives trimethoprim (From Bactrim) Allergy (Intermediate, Verified 02/27/25 09:50) Hives budesonide (From Entocort EC) Allergy (Mild, Verified 02/27/25 09:50) lightheaded celecoxib Allergy (Mild, Verified 02/27/25 09:50) lightheaded lamotrigine Allergy (Mild, Verified 02/27/25 09:50) lightheaded meloxicam Allergy (Mild, Verified 02/27/25 09:50) lightheaded topiramate Allergy (Mild, Verified 02/27/25 09:50) lightheaded famotidine Allergy (Unknown, Verified 02/27/25 09:50) Unknown sucralfate Allergy (Unknown, Verified 02/27/25 09:50) Unknown citalopram Adverse Reaction (Verified 02/27/25 09:50) Migraine ondansetron Adverse Reaction (Verified 02/27/25 09:50) Headache prednisone Adverse Reaction (Verified 02/27/25 09:50) Palpitations Medication List - Last Reconciled 02/27/25 by Queenie Disla CNP amlodipine 10 mg PO DAILY Held on 02/22/25. Instructions: Resume on 02/23/25. Check your blood pressure every morning as soon as you wake up and send it to Dr. Garcia. Do no take the blood pressure medication if the blood pressure is below 120/70. Wait every day to hear back from Dr. Garcia before you take the medication. atorvastatin 10 mg PO DAILY Held on 02/22/25. Instructions: Resume on 03/01/25. bupropion HCl 100 mg PO DAILY carboxymethylcellulose sodium 0.5% (Refresh Tears) 1 drp ophthalmic (eye) TID PRN cyclosporine 0.05% 1 drp ophthalmic (eye) BID fluticasone propionate 50 mcg/actuation 1 spray intranasal BID levocetirizine 5 mg PO QPM Held on 02/22/25. Instructions: Resume on 02/23/25. levothyroxine 25 mcg PO DAILY nystatin 1 mL PO DAILY ondansetron 4 mg PO Q12H pantoprazole 40 mg PO DAILY HPI Comments Details: 84 old woman s/p LSG on?02/21/2025. Presents for 1 week post op visit. Starting weight was 217.2 lbs. Operative weight was 195.5 lbs. Weight today is 190.8 lbs, representing a 26.4 lbs weight loss since the start of the program. BMI today of 32.8.? No complaints of nausea, emesis, abdominal pain. Some reflux symptoms after her last shake because it's 6-8pm and she goes to bed early, 8:30-9pm, when she lies down to sleep she feels reflux. No vomiting or nausea. Some issues with constipation, last BM 3 days ago. Only 1 adequate BM since surgery. + flatus. Hasn't taken MOM yet, which she usually takes for constipation. Denies incisional issues or constitutional symptoms. Talking to Dr. Acuna almost every day. Taking BP readings every day. Most days has taken 1/2 dose amlodipine, this morning took full dose. Has thrush, which Dr. Acuna prescribed Nystatin for and she picks up today. Current meal plan includes: premium protein 1 scoop with 8oz almond milk 3 shakes per day 2oz every 15 minutes using syringe PFSH Medical History (Updated 02/26/25 @ 00:00 by Background Daemon) BMI 33.0-33.9,adult Oral lichen planus Tremor of both hands Nephrolithiasis Migraines Sleep apnea Anxiety Hypothyroidism Hyperlipidemia Diaphragmatic hernia BMI 37.0-37.9, adult Obesity Collagenous colitis Depression GERD (gastroesophageal reflux disease) Hypertension Hyperthyroidism Ganglion cyst Surgical History (Updated 02/27/25 @ 09:50 by Liv Chacon CMA) S/P gastric sleeve procedure History of esophagogastroduodenoscopy (EGD) History of colonoscopy History of total abdominal hysterectomy History of pubovaginal sling History of right knee joint replacement Family History Mother No problems noted. Father No problems noted. Social History Household Members: None Housing: House Are you a primary assistant child care teacher to a significant other at home: No Do you presently have visiting nurse or other home services: No Alcohol intake: never Comment: occasional cane for balance Patient Tobacco Use Status: Former Tobacco user Tobacco use type: Cigarette Years Smoked: 22 Physical Exam Const General: cooperative, healthy appearing, comfortable and no acute distress Orientation/consciousness: patient oriented x3 GI Other: Abdomen soft, non-tender, non-distended. Tegaderm and gauze DSDs CDI, which were removed and Steri-Strips CDI underneath. No S&S of infection. Neuro General: patient oriented x3 Assessment & Plan Assessment & Plan (1) S/P laparoscopic sleeve gastrectomy: Code(s): Z98.84 - Bariatric surgery status Category: Surgical Plan: Plan: - May shower tomorrow but no bath or submersion of abdomen in water. - Reviewed S&S of infection, incisional care - May start exercise tomorrow (or 1 week postop).??She has recumbent stationary bike at home. Wear binder. No abdominal exercises or heavy lifting x 6 weeks. - Abdominal binder for the next 2 weeks with activity or exercise. - Continue meal plan per Dr Acuna, no changes unless per Dr. Acuna. - May resume Celebrate MVI 2 weeks post op - Reviewed pantoprazole dosing. Allergic to carafate, Dr. Acuna aware. - Reminded of the pace of drinking 2 mL/min or 1oz per 15 min. - Take the Nystatin prescribed by Dr. Acuna for her oral thrush. - May take milk of magnesia for her constipation, sip slowly, follow directions on bottle. - Will be emailed link for post op video for review. Follow up: 5 weeks
[2025-02-27 09:48] VITALS: BP 133/64; PULSE 75; TEMP 36; O2SAT 96; BMI 32.7
--- OUTSIDE RECORDS SUMMARY | 2025-02-27 10:18 | XMS_ITS | Clinical Summary ---
Author Organization [facility] Address [address] [place] [address] Phone Care Team Providers Care Bilingual Administrative Assistant Name Role Phone Physician, No Pcp Primary [...] Comments TOTAL KNEE ARTHROPLASTY 12/20/2016 Right PROCEDURE: MI ARTHRP KNE CONDYLE&PLATU MEDIAL&LAT COMPARTMENTS TUBAL LIGATION PROCEDURE: HISTORICAL TUBAL LIGATION OTHER SURGICAL HISTORY PROCEDURE: PELVIC CONTROL PELVIC SLING HYSTERECTOMY 01/08/2009 PROCEDURE: HISTORICAL TOTAL HYSTERECTOMY WITH BSO SHOULDER SURGERY Left PROCEDURE: HISTORICAL SHOULDER SURGERY; COMMENT: arthroscopic decompression WRIST MASS EXCISION Right PROCEDURE: MI EXCISION GANGLION WRIST DORSAL/VOLAR PRIMARY; COMMENT: x3 COLONOSCOPY 08/01/2014 PROCEDURE: HISTORICAL COLONOSCOPY; COMMENT: & EGD; no report UPPER GASTROINTESTINAL ENDOSCOPY 10/11/2019 PROCEDURE: MI UPPER GI ENDOSCOPY PERFORMED; COMMENT: Dr. Hurley normal stomach and duodenum area biopsied [facility] [place] Medical History Medical History Date Comments Depression [...] AM EDT Office Visit Bariatric Surgery - [address] [place] [address] Montez Barker MD [facility] [place] [address] Health Maintenance Due Date Last [...] mmol/L LAB CHEMISTRY METHOD 04/19/2024 8:29 PM [facility] Potassium 3.8 3.5 - 5.5 mmol/L LAB CHEMISTRY METHOD 04/19/2024 8:29 PM [facility] Chloride 111(H) 96 - 110 mmol/L LAB CHEMISTRY METHOD 04/19/2024 8:29 PM [facility] CO2 27 21 - 32 mmol/L LAB CHEMISTRY METHOD 04/19/2024 8:29 PM [facility] Anion Gap 3 3 - 11 LAB CHEMISTRY METHOD 04/19/2024 8:29 PM [facility] Glucose 91 70 - 100 mg/dL LAB CHEMISTRY METHOD 04/19/2024 8:29 PM [facility] BUN 19 5 - 25 mg/dL LAB CHEMISTRY METHOD 04/19/2024 8:29 PM [facility] Creatinine 0.64 0.50 - 1.10 mg/dL LAB CHEMISTRY METHOD 04/19/2024 8:29 PM [facility] eGFR 89 >=60 mL/min/1. 73m2 LAB CHEMISTRY METHOD 04/19/2024 8:29 PM [facility] Comment:Calculation based on the Chronic Kidney Disease Epidemiology Collaboration (CKD-EPI) equation refit without adjustment for race. BUN/Creatinine Ratio 29.7 LAB CHEMISTRY METHOD 04/19/2024 8:29 PM [facility] Calcium 9.7 8.5 - 10.5 mg/dL LAB CHEMISTRY METHOD 04/19/2024 8:29 PM [facility] AST (SGOT) 14 10 - 42 unit/L LAB CHEMISTRY METHOD 04/19/2024 8:29 PM [facility] ALT (SGPT) 22 10 - 60 unit/L LAB CHEMISTRY METHOD 04/19/2024 8:29 PM [facility] Alkaline Phosphatase 80 42 - 121 unit/L LAB CHEMISTRY METHOD 04/19/2024 8:29 PM [facility] Total Protein 6.9 6.0 - 8.0 g/dL LAB CHEMISTRY METHOD 04/19/2024 8:29 PM [facility] Albumin 3.9 3.2 - 5.0 g/dL LAB CHEMISTRY METHOD 04/19/2024 8:29 PM [facility] Total Bilirubin 0.3 0.0 - 1.4 mg/dL LAB CHEMISTRY METHOD 04/19/2024 8:29 PM [facility] Blood Venous blood specimen / Unknown Venipuncture / Unknown 04/19/2024 7:18 PM EST 04/19/2024 7:47 PM EST [employer] LAB BLOOD ORDERABLES Final Resul t [facility] [address] [place] [address], from Last 3 Months or Most Recently Relevant to Health Maintenance Insurance [employer] Care Teams Bilingual Administrative Assistant Relationship Specialty Start Date End Date Physician, No Pcp PCP - General 07/04/24
--- OUTSIDE RECORDS SUMMARY | 2025-02-27 10:18 | XMS_ITS | Patient Health Record ---
Author Organization [facility] Address [address] [place] [phone] Care Team Providers Care Railroad Engineer Name Role Phone Lana KWOK Primary Care Provider Willem Gatica Unavailable [phone] Camelia MACEDO, Marcio Unavailable Unavailable Allergies Allergen (clinical drug ingredient) Drug/Non Drug Allergy documented on EMR Reaction Allergy Type Onset Date Status sulfamethoxazole / trimethoprim Bactrim Unknown Drug Allergy Active Entocort EC Unknown Drug Allergy Activ e famotidine Famotidine Unknown Drug Allergy Activ e meloxicam Meloxicam Unknown Drug Allergy Active ondansetron Ondansetron Unknown Drug Allergy Act jace prednisone predniSONE Unknown Drug Allergy Activ e celecoxib Celecoxib Unknown Drug Allergy Active citalopram Citalopram Unknown Drug Allergy Activ e lamotrigine lamoTRIgine Unknown Drug Allergy Act jace sucralfate Sucralfate Unknown Drug Allergy Activ e topiramate Topiramate Unknown Drug Allergy Activ e Results Component Value Reference Range Notes Pathology (Not yet reviewed by provider) Interpretation: Performing Lab:[facility], [address] [place] [id number] Notes/Report: Reason For Referral No Information Medications Medication SIG (Take, Route, Frequency, Duration) Notes Start Date End Date Status Levothyroxine Sodium 25 MCG Tablet Oral; Duration: 90 Active Aspirin 81 81 MG Tablet Delayed Release 1 tablet Orally Once a day; Duration: 30 day(s) 05/02/2024 Active buPROPion HCl ER (SR) 100 MG Tablet Extended Release 12 Hour Oral; Duration: 90 Active Probiotic - Capsule as directed Orally 05/02/2024 Active Omeprazole 40 MG Capsule Delayed Release Oral; Duration: 90 Active MiraLax 17 GM/SCOOP Powder 1 scoop mixed with 8 ounces of fluid Orally Once a day; Duration: 30 day(s) 05/02/2024 Active Cimetidine 300 MG Tablet Oral; Duration: 25 Active Collagen 500 MG Capsule as directed Orally 025 Active Loratadine 10 MG Tablet TAKE 1 TABLET BY MOUTH EVERY DAY Oral; Duration: 90 Active cycloSPORINE 0.05 % Emulsion Ophthalmic; Duration: 90 Active Yuvafem 10 MCG Tablet 1 tablet Vaginal T wo times a Week; Duration: 30 day(s) 05/02/2024 Active Fluticasone Propionate 50 MCG/ACT Suspension 1 spray in each nostril Nasally Twice a day Active Refresh Cleanser - Liquid as directed Externally 0 05/02/2024 Active Refresh Lacri-Lube - Ointment as directed Ophthalmic 05/02/2024 Active Levocetirizine Dihydrochloride 5 MG Tablet 1 tablet in the evening Orally Once a day Active Calcium 600 MG Tablet 1 tablet with meal s Orally Twice a day; Duration: 30 day(s) 05/02/2024 Active amLODIPine Besylate 10 MG Tablet Oral; Duration: 90 Active Vitamin D-3 125 MCG (5000 UT ) Tablet 1 tablet Orally Once a day; Duration: 30 day(s) 05/02/2024 Active Atorvastatin Calcium 10 MG Tablet 1 tablet Orally Once a day Active Multi Vitamin Daily - Tablet 1 tablet Or ally Once a day; Duration: 30 day(s) 05/02/2024 Active Immunizations Vaccine Route Administration Date Status Comme nts Influenza Unknown 12/27/2023 Administered Social History Tobacco Use: Social History Observation Description Date Details (start date - stop date) Never Smoker NA - NA Social History Drugs/Alcohol: Social Info Question Answer Notes Alcohol Screen Did you have a drink containing alcohol in the past year? No Points 0 Interpretation Negative Tobacco Use: Social Info Question Answer Notes Tobacco Use/Smoking Patient is a nonsmoker Additional Details Category Social Info Options Details Miscellaneous: Marital status: Occupation: retired Section Notes: Nonsmoker, no sig alcohol Nonsmoker, no sig alcohol Problems Problem Type SNOMED Code ICD Code Onset Dates Problem Status W/U Status Risk Notes Problem Gastroesophageal reflux disease (530479387) GERD (gastroesopha geal reflux disease) (K21.9) Active confirmed Problem Globus sensation (619847985) Globus sensation (R09.89) Active confirmed Vital Signs Temperature 96.9 degrees Fahrenheit 08/29/2024 Blood pressure diastolic 01 mm Hg 08/29/2024 Height 5 ft 4 in in 08/29/2024 Blood pressure systolic 001 mm Hg 08/29/2024 Weight 208.8 lbs 08/29/2024 BMI 35.84 kg/m2 08/29/2024 Procedures Procedure Date Ordered Date Performed Result Body Sit e UPPER GI ENDOSCOPY 08/29/2024 N/A Encounters Encounter Location Date Provider Diagnosis [facility] [address] [place] [phone] 11/14/2024 Willem Pang [facility] [address] [place] [phone] 05/02/2024 Willem Pang Globus sensation R09.89 and GERD (gastroesophageal reflux disease) K21.9 [facility] [address] [place] [phone] 08/29/2024 Willem Pang Globus sensation R09.89 and GERD (gastroesophageal reflux disease) K21.9 [facility] [address] [place] [phone] 05/01/2024 Willem Pang [facility] [address] [place] [phone] 08/15/2024 Willem Pang [facility] [address] [place] [phone] 11/11/2024 Willem Pang [facility] [address] [phone] 11/12/2024 Willem Pang Assessments Encounter Date Diagnosis [...] advise me that she is leaving to [place] in the next week or 2 for a one-month vacation. I did advise her to try to touch base with you prior to leaving to see if any treatment or testing can get done that might help her feel better while in [place]. I did advise Dante to contact me [...] advise me that she is leaving to [place] in the next week or 2 for a one-month vacation. I did advise her to try to touch base with you prior to leaving to see if any treatment or testing can get done that might help her feel better while in [place]. I did advise Dante to contact me [...] fact that things were much better in [place] and this points to either some type of environmental factor in her home or the air in the [facility]. The other possibility would be that of some stress. I did advise her to try to make an appointment with the apprentice technician such that they can review things [...] fact that things were much better in [place] and this points to either some type of environmental factor in her home or the air in the [place]. The other possibility would be that of some stress. I did advise her to try to make an appointment with the apprentice technician such that they can review things [...] I would recommend a consult with a Clinical Science Liaison if this persists. Overall, Dante appears quite [...] advise me that she is leaving to [place] in the next week or 2 for a one-month vacation. I did advise her to try to touch base with you prior to leaving to see if any treatment or testing can get done that might help her feel better while in [place]. I did advise Dante to contact me [...] Insured Coverage Start Date Coverage End Date [facility] [address] [place] [address] [phone] [id number] DANTE MADDEN Self - patient is the insured 4 Medical (General) History Medical History History ICD Code Hypothyroidism HTN GERD--saw Dr. Hurley--has had a couple of EGD's Depression Collagenous colitis--diagnos ed by Dr. Hurley--last colonoscopy at age 77 was negative Denies GA,DM,CVA,Lung disease,renal dise ase Surgical History Surgery Date(Month/Year) SAAD Link sling for incontinence Ganglion cyst Right knee replacement
--- OUTSIDE RECORDS SUMMARY | 2025-02-27 10:18 | XMS_ITS | Continuity of Care Document ---
Author Organization [facility] Address [address] [place] [address] [place] [id number] Insurance Providers Payer Plan Claims Address Claims Phone Policy Number Group Number Relation Employer Guarantor Name Guarantor Guarantor Address Guarantor Phone DANIELLE CORTEZ [employer] [address] [address] tel:[phone] [id number] Self Viry Crump [address] [place] [address] HEALDoug CORTEZ RUTH DESHAUN ONE [address] [address] tel:[phone] Self Viry Crump [address] [place] [address] HNE SELF FUNDE D ONE [facility], [address] [address] tel:[phone] Self Viry Crump [address] [place] [address] Problems Unknown Problems Results Test Result Date/Time Value / Unit Interp. Refere [facility] Range fax.pdf Lipid Panel[[id number]] Collected: 07/20/2024 02:47 PM Specimen Received: 07/20/2024 05:00 AM Source: [facility] Cholesterol, Total [[id number]] 07/21/2024 07:31 AM 260 mg/dL H 100-199 mg/d L Triglycerides [[id number]] 07/21/2024 07:32 AM 107 mg/dL 0-149 mg/dL HDL Cholesterol [[id number]] 07/21/2024 07:28 AM 62 mg/dL >39 mg/dL VLDL Cholesterol Wing [[id number]] 07/21/2024 07:32 AM 19 mg/dL 5-40 mg/dL LDL Chol Calc ([facility]) [[id number]] 07/21/2024 07:32 AM 179 mg/dL H 0-99 mg/dL Hemoglobin A1c[[id number]] Collected: 07/20/2024 02:47 PM Specimen Received: 07/20/2024 05:00 AM Source: [facility] Hemoglobin A1c [[id number]] 07/21/2024 02:57 AM 6.1 % H 4.8-5.6 % . Prediabetes: 5.7 - 6.4 Marielena betes: >6.4 Glycemic control for adults with diabetes: 7.0 Comp. Metabolic Panel (14)[[id number]] Collected: 02/17/2024 10:39 PM Specimen Received: 02/17/2024 05:00 AM Source: [facility] Glucose [[id number]] 02/18/2024 09:34 AM 103 mg/dL H 70-99 mg/dL BUN [[id number]] 02/18/2024 09:34 AM 29 mg/dL H 8-2 7 mg/dL Creatinine [[id number]] 02/18/2024 09:35 AM 0.67 mg/dL 0.57-1.00 mg/dL eGFR [[id number]] 02/18/2024 09:35 AM 88 mL/min/1.73 >59 mL/min/1.73 BUN/Creatinine Ratio [[id number]] 02/18/2024 09:35 AM 43 H 12-28 Sodium [[id number]] 02/18/2024 09:26 AM 142 mmol/L 134-144 mmol/L Potassium [[id number]] 02/18/2024 09:29 AM 4.4 mmol/L 3.5-5.2 mmol/L Chloride [[id number]] 02/18/2024 09:25 AM 105 mmol/L 96-106 mmol/L Carbon Dioxide, Total [[id number]] 02/18/2024 09:31 AM 20 mmol/L 20-29 mmol/L Calcium [[id number]] 02/18/2024 09:32 AM 9.6 mg/dL 8.7-10.3 mg/dL Protein, Total [[id number]] 02/18/2024 09:34 AM 7.1 g/dL 6.0-8.5 g/dL Albumin [[id number]] 02/18/2024 09:31 AM 4.4 g/dL 3.7-4.7 g/dL Globulin, Total [[id number]] 02/18/2024 09:34 AM 2.7 g/dL 1.5-4.5 g/dL Bilirubin, Total [[id number]] 02/18/2024 09:31 AM 0.2 mg/dL 0.0-1.2 mg/dL Alkaline Phosphatase [[id number]] 02/18/2024 09:31 AM 112 IU/L 44-121 IU/L AST (SGOT) [[id number]] 02/18/2024 09:34 AM 19 IU/L 0-40 IU/L ALT (SGPT) [[id number]] 02/18/2024 09:34 AM 16 IU/L 0-32 IU/L Lipid Panel[[id number]] Collected: 02/17/2024 10:39 PM Specimen Received: 02/17/2024 05:00 AM Source: [facility] Cholesterol, Total [[id number]] 02/18/2024 09:41 AM 258 mg/dL H 100-199 mg/d L Triglycerides [[id number]] 02/18/2024 09:41 AM 128 mg/dL 0-149 mg/dL HDL Cholesterol [[id number]] 02/18/2024 09:39 AM 67 mg/dL >39 mg/dL VLDL Cholesterol Wing [[id number]] 02/18/2024 09:41 AM 23 mg/dL 5-40 mg/dL LDL Chol Calc ([facility]) [[id number]] 02/18/2024 09:41 AM 168 mg/dL H 0-99 mg/dL Hemoglobin A1c[[id number]] Collected: 02/17/2024 10:39 PM Specimen Received: 02/17/2024 05:00 AM Source: [facility] Hemoglobin A1c [[id number]] 02/18/2024 10:23 AM 6.0 % H 4.8-5.6 % . Prediabetes: 5.7 - 6.4 Marielena betes: >6.4 Glycemic control for adults with diabetes: 7.0 Allergies, adverse reactions, alerts No known allergies and adverse reactions Medications No administered medications reported Vital Signs No vital signs reported Social History No smoking Hx information available
== END 2025-02-27 10:48 | disposition home or self-care (01) ==
LOC: HO.HBS 09:21
PROVIDERS: PCP Internal Medicine; Visit Provider Nurse Practitioner
DX: Z98.84 Bariatric surgery status (principal)
CPT/HCPCS: 99024

== ENCOUNTER → 2025-02-27 09:20 | Outpatient (BNVA) | payer MEDICARE, SELFPAY | PROVIDERS: PCP Internal Medicine; Visit Provider Nurse Practitioner | DX: Z48.815 Encounter for surgical aftercare following surgery on the digestive system (principal); Z98.84 Bariatric surgery status; B37.0 Candidal stomatitis; I10 Essential (primary) hypertension; K59.00 Constipation, unspecified; Z88.8 Allergy status to other drugs, medicaments and biological substances; Z68.32 Body mass index [BMI] 32.0-32.9, adult; Z79.899 Other long term (current) drug therapy | CPT/HCPCS: 99212 ==

== ENCOUNTER 2025-03-05 11:36 | Outpatient (AMB) | payer MEDICARE, SELFPAY ==
--- NOTE | 2025-03-05 11:30 | MHC.WMTHER ---
Intake Intake Visit Reasons: VIDEO PO LSG 02/21/25 Allergies sulfamethoxazole (From Bactrim) Allergy (Intermediate, Verified 02/27/25 09:50) Hives trimethoprim (From Bactrim) Allergy (Intermediate, Verified 02/27/25 09:50) Hives budesonide (From Entocort EC) Allergy (Mild, Verified 02/27/25 09:50) lightheaded celecoxib Allergy (Mild, Verified 02/27/25 09:50) lightheaded lamotrigine Allergy (Mild, Verified 02/27/25 09:50) lightheaded meloxicam Allergy (Mild, Verified 02/27/25 09:50) lightheaded topiramate Allergy (Mild, Verified 02/27/25 09:50) lightheaded famotidine Allergy (Unknown, Verified 02/27/25 09:50) Unknown sucralfate Allergy (Unknown, Verified 02/27/25 09:50) Unknown citalopram Adverse Reaction (Verified 02/27/25 09:50) Migraine ondansetron Adverse Reaction (Verified 02/27/25 09:50) Headache prednisone Adverse Reaction (Verified 02/27/25 09:50) Palpitations PFSH Medical History (Updated 02/26/25 @ 00:00 by [facility] [employer]) BMI 33.0-33.9,adult Oral lichen planus Tremor of both hands Nephrolithiasis Migraines Sleep apnea Anxiety Hypothyroidism Hyperlipidemia Diaphragmatic hernia BMI 37.0-37.9, adult Obesity Collagenous colitis Depression GERD (gastroesophageal reflux disease) Hypertension Hyperthyroidism Ganglion cyst Surgical History (Updated 02/27/25 @ 09:50 by Liv Chacon CMA) S/P gastric sleeve procedure History of esophagogastroduodenoscopy (EGD) History of colonoscopy History of total abdominal hysterectomy History of pubovaginal sling History of right knee joint replacement Family History Mother No problems noted. Father No problems noted. Social History Household Members: None Housing: House Are you a primary farm or ranch animal caretaker to a significant other at home: No Do you presently have visiting nurse or other home services: No Alcohol intake: never Comment: occasional cane for balance Patient Tobacco Use Status: Former Tobacco user Tobacco use type: Cigarette Years Smoked: 22 Behavioral Health Assessment Weight Management Therapy Therapy Notes Details Subjective: The patient underwent weight loss surgery on 02/21/2025. Her weight on the day of surgery was 217 lbs, and her current weight as of today is 187 lbs, reflecting a total loss of 30 lbs post-operatively. She denies experiencing any pain or complications during her recovery and reports that she is tolerating the liquid diet without difficulty. The patient describes her mood as good and stable. She identifies her neighbor and two friends as her primary sources of support during her recovery. She denies experiencing hunger or any intrusive thoughts about food at this time. Objective: The patient presents for a behavioral health post-operative follow-up visit. A guided emotional check-in was conducted to assess her current functioning, recovery, mood, and emotional state. Psychoeducation was provided on the emotional and psychological adjustments commonly experienced after bariatric surgery. We also focused on distinguishing between hunger and cravings or food thoughts, exploring possible reasons for these experiences, and strategies to work on her mindset. Emphasis was placed on becoming mindful of her physical and mental needs during these times while staying on track. The PHQ-9 was administered to screen for symptoms of depression. The importance of adhering to the Weight Management Program (WMP) providers' instructions was emphasized, including the pace of drinking and following the meal and exercise plan. Tips and recommendations for long-term success were also discussed. Program resources were provided, and the patient was invited to join our Facebook group to stay informed about ongoing events and activities. Assessment/Response: Mental status: WNL Risk reported/identified: None Questionnaires PHQ-9 Over the last 2 weeks, how often have you been bothered by any of the following problems? 1. Little interest or pleasure in doing things: not at all 2. Feeling down, depressed, or hopeless: not at all 3. Trouble falling or staying asleep, or sleeping too much: not at all 4. Feeling tired or having little energy: several days 5. Poor appetite or overeating: not at all 6. Feeling bad about yourself - or that you are a failure or have let yourself or your family down: not at all 7. Trouble concentrating on things, such as reading the newspaper or watching television: not at all 8. Moving or speaking so slowly that other people could have noticed. Or the opposite - being so fidgety or restless that you have been moving around a lot more than usual: not at all 9. Thoughts that you would be better off or of hurting yourself in some way: not at all Total score: 1 Depression Screening Interpretation: Negative Depression Screening Done: Yes 95434 - PHQ-9 Billing: Yes Source: Developed by Drs. Willem Ramos, Thais Martinez, Stevie Gonsales and colleagues, with an educational josefina from [employer]. Assessment & Plan Assessment & Plan (1) Adjustment disorder: Code(s): F43.20 - Adjustment disorder, unspecified Qualifiers: Adjustment disorder type: unspecified type Qualified Code(s): F43.20 - Adjustment disorder, unspecified (2) Status post bariatric surgery: Code(s): Z98.84 - Bariatric surgery status Plan No safety concerns or issues were identified that would necessitate behavioral health monitoring. The patient declined further visits but is aware of the available behavioral health support if needed in the future. Telehealth Telehealth Telehealth Platform: [employer] Location of provider rendering services: other (Home office. [place], [place]) Location of patient: address on file Patient Identification confirmed using: Name, : Yes Telehealth method: video Patient verbally consented to treatment: Yes Patient verbally consented to billing insurance company: Yes Patient informed of any privacy concerns related to visit: Yes Minutes spent on Phone/Video with Pt.: 30 C[place] [address] Tele Psytx 30 mins Patient Type Established Diagnoses Adjustment disorder, unspecified type F43.20 Adjustment disorder type: unspecified type Status post bariatric surgery Z98.84 Additional Codes PHQ-9 - 59657 - PHQ-9 Billing: Yes ([id number]) Time Spent (min) 30
--- OUTSIDE RECORDS SUMMARY | 2025-03-05 13:47 | XMS_ITS | Encounter Summary ---
Author Organization [facility] Address [address] [place] [address] Care Team Providers Care Master At Arms Name Role Phone Yamile Solorio Primary Care Provider Shell Tere Santana MD Primary Care Provide r Unavailable Saima Rosenthal MD Primary Care Provider Unavaila ble Encounter Details Date Type Department Care Team Description 12/20/2016 [facility] Medical Records [address] [place] [id number] Montez Hicks MD Social History Tobacco Use [...] on filedocumented in this encounter Care Teams Master At Arms Relationship Specialty Start Date End Date Yamile Solorio PCP - General Internal Medicine 08/17/17 11/21/18 Tere Zelaya MD PCP - General Internal Medicine 11/22/18 Saima Rosenthal MD PCP - General Internal Medicine 05/04/19 documented as of this encounter
--- OUTSIDE RECORDS SUMMARY | 2025-03-05 13:47 | XMS_ITS | Encounter Summary ---
Author Organization [facility] Address [address] [place] [address] Care Team Providers Care Sugar Boiler Name Role Phone Saima Rosenthal MD Primary Care Provider Unavaila ble Reason for Visit * Reason Onset Date Comments Release Of Information 02/22/2020 Encounter Details Date Type Department Care Team Description 02/22/2020 Telephone Adult Medicine - [address] [address] Saima Rosenthal MD Release Of Information Social [...] on filedocumented in this encounter Care Teams Sugar Boiler Relationship Specialty Start Date End Date Saima Rosenthal MD PCP - General Internal Medicine 05/04/19 documented as of this encounter
--- OUTSIDE RECORDS SUMMARY | 2025-03-05 13:47 | XMS_ITS | Clinical Summary ---
Author Organization [facility] Address [address] [place] [address] Phone Care Team Providers Care Physiotherapist'S Assistant Name Role Phone Physician, No Pcp [...] Comments TOTAL KNEE ARTHROPLASTY 12/20/2016 Right PROCEDURE: ND ARTHRP KNE CONDYLE&PLATU MEDIAL&LAT COMPARTMENTS TUBAL LIGATION PROCEDURE: HISTORICAL TUBAL LIGATION OTHER SURGICAL HISTORY PROCEDURE: PELVIC CONTROL PELVIC SLING HYSTERECTOMY 01/08/2009 PROCEDURE: HISTORICAL TOTAL HYSTERECTOMY WITH BSO SHOULDER SURGERY Left PROCEDURE: HISTORICAL SHOULDER SURGERY; COMMENT: arthroscopic decompression WRIST MASS EXCISION Right PROCEDURE: ND EXCISION GANGLION WRIST DORSAL/VOLAR PRIMARY; COMMENT: x3 COLONOSCOPY 08/01/2014 PROCEDURE: HISTORICAL COLONOSCOPY; COMMENT: & EGD; no report UPPER GASTROINTESTINAL ENDOSCOPY 10/11/2019 PROCEDURE: ND UPPER GI ENDOSCOPY PERFORMED; COMMENT: Dr. Hurley [...] AM EDT Office Visit Bariatric Surgery - [address] [place] [address] Montez Barker MD [facility] [place] [address] Health Maintenance Due Date Last [...] GREEN LAB BLOOD ORDERABLES Final Resul t [facility] [address] [place] [address], from Last 3 Months or Most Recently Relevant to Health Maintenance Insurance [employer] [place] [employer] Care Teams Physiotherapist'S Assistant Relationship Specialty Start Date End Date Physician, No Pcp PCP - General 07/04/24
--- OUTSIDE RECORDS SUMMARY | 2025-03-05 13:47 | XMS_ITS | Encounter Summary ---
Author Organization [facility] Address [address] [place] [address] Care Team Providers Care Coating Machine Helper Name Role Phone Tere Zelaya MD Primary Care Provide r Unavailable Saima Rosenthal MD Primary Care Provider Dionicio castro Encounter Details Date Type Department Care Team Description 04/05/2019 [facility] Medical Records [address] [place] [id number] Abstract, Provider Social History Tobacco Use Types [...] on filedocumented in this encounter Care Teams Coating Machine Helper Relationship Specialty Start Date End Date Tere Zelaya MD PCP - General Internal Medicine 11/22/18 Saima Rosenthal MD PCP - General Internal Medicine 05/04/19 documented as of this encounter
--- OUTSIDE RECORDS SUMMARY | 2025-03-05 13:47 | XMS_ITS | Encounter Summary ---
Author Organization [facility] Address [address] [place] [address] Care Team Providers Care Housekeeping Laundry Worker Name Role Phone Saima Rosenthal MD Primary Care Provider Dionicio castro Encounter Details Date Type Department Care Team Description 10/15/2019 [facility] Medical Records [address] [place] [address] Abstract, Provider Social History Tobacco Use Types [...] on filedocumented in this encounter Care Teams Housekeeping Laundry Worker Relationship Specialty Start Date End Date Saima Rosenthal MD PCP - General Internal Medicine 05/04/19 documented as of this encounter
--- OUTSIDE RECORDS SUMMARY | 2025-03-05 13:47 | XMS_ITS | Encounter Summary ---
Author Organization [facility] Address [address] [place] [address] Care Team Providers Care Manufacturing Planner Name Role Phone Saima Rosenthal MD Primary Care Provider Dionicio castro Encounter Details Date Type Department Care Team Description 10/11/2019 [facility] Medical Records [address] [place] [address] Desilets, Conner Rubio MD Social History Tobacco [...] on filedocumented in this encounter Care Teams Manufacturing Planner Relationship Specialty Start Date End Date Saima Rosenthal MD PCP - General Internal Medicine 05/04/19 documented as of this encounter
--- OUTSIDE RECORDS SUMMARY | 2025-03-05 13:47 | XMS_ITS | Encounter Summary ---
Author Organization [facility] Address [address] [place] [address] Care Team Providers Care Crossbar Switch Adjuster Name Role Phone Yamile Solorio Primary Care Provider Shell vailaTere Degroot MD Primary Care Provide r Unavailable Saima Rosenthal MD Primary Care Provider Unavaila ble Encounter Details Date Type Department Care Team Description 12/28/2016 [facility] Medical Records [address] [place] [id number] Elle Max PA-C Social History Tobacco Use [...] on filedocumented in this encounter Care Teams Crossbar Switch Adjuster Relationship Specialty Start Date End Date Yamile Solorio PCP - General Internal Medicine 08/17/17 11/21/18 Tere Zelaya MD PCP - General Internal Medicine 11/22/18 Saima Rosenthal MD PCP - General Internal Medicine 05/04/19 documented as of this encounter
--- OUTSIDE RECORDS SUMMARY | 2025-03-05 13:47 | XMS_ITS | Encounter Summary ---
Author Organization [facility] Address [address] [place] [address] Care Team Providers Care Digital Content Marketing Manager Name Role Phone Saima Rosenthal MD Primary Care Provider Unavaila ble Reason for Visit * Reason Onset Date Comments refill request 10/23/2019 Encounter Details Date Type Department Care Team Description 10/23/2019 Telephone Adult Medicine - [address] [address] Saima Rosenthal MD refill request Social History [...] hypercholesterolemia documented in this encounter Care Teams Digital Content Marketing Manager Relationship Specialty Start Date End Date Saima Rosenthal MD PCP - General Internal Medicine 05/04/19 documented as of this encounter
--- OUTSIDE RECORDS SUMMARY | 2025-03-05 13:47 | XMS_ITS | Encounter Summary ---
Author Organization [facility] Address [address] [place] [address] Care Team Providers Care Special Effects Designer Name Role Phone Saima Rosenthal MD Primary Care Provider Unavaila ble Reason for Visit * Reason Onset Date Comments refill request 06/21/2019 Encounter Details Date Type Department Care Team Description 06/21/2019 Refill Adult Medicine - [address] [address] Saima Rosenthal MD refill request Social History [...] is: Payor: [employer] SELF FUNDED / Plan: [employer] $15 AMHERST 1500 / Product Type: [id number] documented in this encounter Plan of Treatment Not on file documented as of this encounter Visit Diagnoses Not on filedocumented in this encounter Care Teams Special Effects Designer Relationship Specialty Start Date End Date Saima Rosenthal MD PCP - General Internal Medicine 05/04/19 documented as of this encounter
--- OUTSIDE RECORDS SUMMARY | 2025-03-05 13:47 | XMS_ITS | Encounter Summary ---
Author Organization [facility] Address [address] [place] [address] Care Team Providers Care Electrical Intern Name Role Phone Saima Rosenthal MD Primary Care Provider Unavaila ble Reason for Visit * Reason Onset Date Comments APPOINTMENT 09/14/2019 Encounter Details Date Type Department Care Team Description 09/14/2019 Telephone Adult Medicine [address] [address] Saima Rosenthal MD APPOINTMENT Social History Tobacco [...] on filedocumented in this encounter Care Teams Electrical Intern Relationship Specialty Start Date End Date Saima Rosenthal MD PCP - General Internal Medicine 05/04/19 documented as of this encounter
== END 2025-03-05 12:18 | disposition home or self-care (01) ==
LOC: HO.HBST 11:36
PROVIDERS: PCP Internal Medicine; Visit Provider Counselor Mental Health
DX: F43.20 Adjustment disorder, unspecified (principal); Z98.84 Bariatric surgery status
CPT/HCPCS: 90832

== ENCOUNTER 2025-03-20 12:52 | Emergency (ER) | payer MEDICARE, SELFPAY ==
--- OUTSIDE RECORDS SUMMARY | 2024-11-14 06:30 | XMS_ITS ---
Author Organization [facility] Address [address] [place] [address] Care Team Providers Care Dialysis Nurse Name Role Phone Lana KWOK Primary Care Provider Willem Gatica [phone] Camelia MACEDO, Marcio Unavailable Unavailable REASON FOR VISIT gerd,globus senstion Encounters Encounter Location Date Provider Diagnosis [facility] Outpatient [address] [place] [id number] 11/14/2024 Willem Pang Plan Of Treatment No Information Progress Notes * DANTE MADDENDOB: 3 (84 yo F)Acc No.[id number]:11/14/2024 EGD/MAC Patient: DANTE CARLOS Provider: Kalpana Pang MD :1940 A ge:84 Y S ex:Female Date:11/14/2024 Address:[address] [place], [place] [phone] Pcp:Lana KWOK Subjective: * Chief Complaints: * G erd,globus senstion Billing Information: * Procedure Codes: * The named appointment provid er may or may not be the originator of this progress note, and it is not deemed complete until electronically signed by the appointment provider. Sign off status: Pending * Provider: Kalpana Pang MD Date: 0 11/14/2024 Generated for Terryi ng/Falesleyg/eTransmitting on: 1 05/21/2024 08:39 PM EST
--- OUTSIDE RECORDS SUMMARY | 2025-03-15 23:59 | XMS_ITS | Continuity of Care Document ---
Author Organization [facility] Address [address] [place] [address]- Care Team Providers Care Spring Repairer Helper Hand Name Role Phone Vernon MACEDO, Lana Victoria Primary Care Physic haylee [id number] Date(s): 02/13/25 - 03/15/[address] [address] Attending Physician: Admtr, [id number] Admitting Physician: Admtr, [...] RSV vaccine preF3, recombinant 02/02/24 Recorded SARS-CoV-2(COVID-19)mRNA-LNP vac(tid530) 02/02/24 Recorded SARS-CoV-2(COVID-19)mRNA-LNP vac(ulb103) 12/25/22 Recorded influenza virus vaccine, inactivated 12/01/22 [...] 01/25/08 Give n tetanus/diphtheria/pertussis, acel(Tdap) 07/31/22 Recorded [id number] 12y+ bivalent booster vax 12/16/21 Recorded SARS-CoV-2 mRNA ([id number]) vax 07/06/21 Recorded zoster vaccine, inactivated 03/26/21 [...] [06/04/2016] [facility] 4Result Comment: [05/29/2015] [facility] 5Admin Note: VIS11/12/08 6Admin Note: vis 02/20/08 Medications amLODIPine 10 mg oral tablet 1 tablet, By Mouth, Daily, # 90 tablet, 3 Refills, Maintenance, 02/15/25 9:26:00 AM EST, [facility], 163, cm, 10/12/24 16:21:00 EDT, Height, 90, kg, 07/26/24 13:36:00 EDT, Dry Weight Start Date: 02/15/25 Status: Ordered Medication Dispense Status: Completed Quantity: 90.0 Unit: tablet Total Allowed Fills: 1 Fills Dispensed: 0 aspirin 81 mg oral capsule 1 capsule = 81 mg, By Mouth, Daily, do not exceed 48 capsules in 24 hours, # 30 capsule, 0 Refills,Maintenance, 02/06/24 2:05:00 PM EST, Capsule, Partial fill upon patient request if the prescriptionis for a schedule II opioid drug. Start Date: 02/06/24 Status: Ordered Medication Dispense Status: Completed Quantity: 30.0 Unit: capsule Total Allowed Fills: 1 Fills Dispensed: 0 atorvastatin 10 mg oral tablet See Instructions, TAKE 1 TABLET BY MOUTH DAILY, # 90 tablet, 3 Refills, Maintenance, 02/22/25 8:56:00 AM EST, [facility], 163, cm, 10/12/24 16:21:00 EDT, Height, 90, kg, 07/26/24 13:36:00 EDT, Dry Weight Start Date: 02/22/25 Status: Ordered Medication Dispense Status: Completed Quantity: 90.0 Unit: tablet Total Allowed Fills: 1 Fills Dispensed: 0 buPROPion 100 mg oral tablet 1 tablet = 100 mg, By Mouth, 2 times a day, # 180 tablet, 5 Refills, Maintenance, 06/13/24 10:09:00 AM EDT, Tablet, [id number], Partial fill upon patient request if the prescription is for a schedule II opioid drug., 163, cm, 02/24/24 13:53:00 EST, Height, 92, kg, 01/03/24 13:24:00 EDT, Dry Weight Start Date: 06/13/24 Status: Ordered Medication Dispense Status: Completed Quantity: 180.0 Unit: tablet Total Allowed Fills: 6 Fills Dispensed: 0 Calcium 600 +D oral tablet 1 tablet, By Mouth, 2 times a day, 0 Refills, Maintenance, 06/13/14 10:39:05 AM EDT Start Date: 06/13/14 Status: Ordered Medication Dispense Status: Completed Total Allowed Fills: 1 Fills Dispensed: 0 cimetidine 300 mg oral tablet 1 tablet [...] Dry Weight Start Date: 06/20/24 Status: Ordered Medication Dispense Status: Completed Quantity: 90.0 Unit: tablet Total Allowed Fills: 4 Fills Dispensed: 0 cycloSPORINE 0.1% ophthalmic solution 1 drops, Eyes, [...] Dry Weight Start Date: 02/14/24 Status: Ordered Medication Dispense Status: Completed Quantity: 1.0 Unit: each Total Allowed Fills: 7 Fills Dispensed: 0 dicyclomine 10 mg oral capsule 2 capsule [...] Date: 09/07/23 Stop Date: 09/14/23 Status: Ordered Medication Dispense Status: Completed Quantity: 21.0 Unit: capsule Total Allowed Fills: 1 Fills Dispensed: 0 fluticasone 50 mcg/inh nasal spray See Instructions, USE 1 SPRAY IN EACH NOSTRIL TWICE A DAY, # 48 mL, 1 Refills, Maintenance, :27:00 AM EDT, [facility], 90, USE 1 SPRAY IN EACH NOSTRIL TWICE A DAY, 163, cm, 10/12/24 16:21:00 EDT, Height, 90, kg, 07/26/24 13:36:00 EDT, Dry Weight Start Date: 10/29/24 Status: Ordered Medication Dispense Status: Completed Quantity: 48.0 Unit: mL Total Allowed Fills: 1 Fills Dispensed: 0 levothyroxine 0.025 mg oral tablet See Instructions, TAKE 1 TABLET BY MOUTH DAILY, # 90 tablet, 3 Refills, Maintenance, 02/22/25 8:56:00 AM EST, [facility], 163, cm, 10/12/24 16:21:00 EDT, Height, 90, kg, 07/26/24 13:36:00 EDT, Dry Weight Start Date: 02/22/25 Status: Ordered Medication Dispense Status: Completed Quantity: 90.0 Unit: tablet Total Allowed Fills: 1 Fills Dispensed: 0 MiraLax = 17 Gm, By Mouth, Daily, 0 Refills, Maintenance, 08/01/23 9:05:00 AM EDT, Partial fill upon patientrequest if the prescription is for a schedule II opioid drug. Start Date: 08/01/23 Status: Ordered Medication Dispense Status: Completed Total Allowed Fills: 1 Fills Dispensed: 0 omeprazole 40 mg oral enteric coated capsule 1 capsule, By Mouth, 2 times a day, # 180 capsule, 3 Refills, Maintenance, 12/24/24 9:40:00 AM EDT, [facility], 163, cm, 10/12/24 16:21:00 EDT, Height, 90, kg, 07/26/24 13:36:00 EDT, Dry Weight Start Date: 12/24/24 Status: Ordered Medication Dispense Status: Completed Quantity: 180.0 Unit: capsule Total Allowed Fills: 1 Fills Dispensed: 0 Vagifem 10 mcg vaginal tablet See Instructions, One tablet intravaginally twice a week., # 24 tablet, 11 Refills, Maintenance, 01/12/24 11:07:00 AM EDT, [facility], Partial fill upon patient request if the prescription is for a schedule II opioid drug., 163, cm, 01/03/24 13:24:00 EDT, Height, 92, kg, 01/03/24 13:24:00 EDT, Dry Weight Start Date: 01/12/24 Status: Ordered Medication Dispense Status: Completed Quantity: 24.0 Unit: tablet Total Allowed Fills: 12 Fills Dispensed: 0 Indications: Postmenopausal atrophic vaginitis; Xyzal 5 mg oral tablet 1 tablet = 5 mg, By Mouth, Daily before dinner, # 90 tablet, 3 Refills, Maintenance, 08/02/24 9:49:00AM EDT, Tablet, [id number], Partial fill upon patient request if the prescription is for a schedule II opioid drug., 1 tablet By Mouth Daily before dinner, 163, cm, 08/02/24 9:27:00 EDT, Height, 90, kg, 07/26/24 13:36:00 EDT, Dry Weight Start Date: 08/02/24 Status: Ordered Medication Dispense Status: Completed Quantity: 90.0 Unit: tablet Total Allowed Fills: 4 Fills Dispensed: 0 Indications: Allergic rhinitis, unspecified; Problem List Condition [...] : quit 1979 x30y; entered on: 01/27/16 Sexual Orientation Self described orien tation: ; Straight or heterosexual Sex Sex Representation Female (finding) Patient Care team information Care Team Personnel Name: Mariza LANCASTER, Vini Ma Position: [facility] PCO Associate Professional Member Role: Lifetime Consulting Provider Address: [address] [place] [address] Telecom: Name: Jeanna RN, Talia Rubio Position: [facility] RN Member Role: Primary Care Nurse Name: Vernon MACEDO, Lana Victoria Position: [facility] Physician - Primary Care Member Role: PCP Address: [address] [place] [address]- Telecom: Care Team Related Persons Name: DIOMEDES BASILIO Name: ANDREW MADDEN Insurance Providers Guarantor name: DANTE MADDEN [facility] Information #: 1 Payer: [employer] ADV HMO Payer Identifier: NEO Member Number: [id number] Group Number: [id number] Subscriber Identifier: NEO Relationship to Subscriber: self Coverage Type: Medicare HMO Coverage Verification Date: NEO Telecom: NA Address:
--- OUTSIDE RECORDS SUMMARY | 2025-03-15 23:59 | XMS_ITS | Continuity of Care Document ---
Author Organization [facility] Address [address] [place] [phone]- Care Team Providers Care Glue Size Machine Operator Name Role Phone Vernon MACEDO, Lana Victoria Primary Care Physic haylee [id number] Date(s): 02/04/25 - 03/15/[address] [address] Attending Physician: Lana Junior MD, V Admitting Physician: Lana Junior MD, V Referring Physician: Mitzy Dunn Encounter Type: Pre-OutPatient One Time Allergies, Adverse Reactions, Alerts Substance Criticality Severity Reaction Reaction Severity Status methotrexate drowsy, light headedness Active Carafate Edema Lowe abdo men, legs, feet edema Active lamoTRIgine drowsy, light headedness Active famotidine SOB, heavy cjhest A ctive predniSONE Unable to assess criticality Unknown pounding heartrate Active ondansetron headache, dizziness, drowsiness, Active topiramate Active citalopram light headedness Ac tive Entocort EC drowsy, light headedness Active Lamictal drowsy, light headedness Active Bactrim hives Active Celebrex nase [D]Nausea Active Mobic swelling ankles , heaviness in chest Active Immunizations Given and Recorded Vaccine Date Status Refusal Reason RSV vaccine preF3, recombinant 02/02/24 Recorded SARS-CoV-2(COVID-19)mRNA-LNP vac([id number]) 02/02/24 Recorded SARS-CoV-2(COVID-19)mRNA-LNP vac([id number]) 12/25/22 Recorded influenza virus vaccine, inactivated 12/01/22 [...] 01/25/08 Give n tetanus/diphtheria/pertussis, acel(Tdap) 07/31/22 Recorded [id number] 12y+ bivalent booster vax 12/16/21 Recorded SARS-CoV-2 mRNA ([id number]-sage-gtfpm) vax 07/06/21 Recorded zoster vaccine, inactivated 03/26/21 [...] [facility] per patient 4Result Comment: [05/29/2015] [facility] 5Admin Note: VIS11/12/08 6Admin Note: vis 02/20/08 [...] Maintenance, 06/13/24 10:09:00 AM EDT, Tablet, [id number], Partial fill upon patient request if the [...] mL, 1 Refills, Maintenance, :27:00 AM EDT, [id number], 90, USE 1 SPRAY IN EACH NOSTRIL [...] 3 Refills, Maintenance, 08/02/24 9:49:00AM EDT, Tablet, [id number], Partial fill upon patient request if [...] Personnel Name: Mariza LANCASTER, Vini Ma Position: [facility] PCO Associate Professional Member Role: Lifetime Consulting Provider Address: [address] [place] [phone] [id number]: Name: Jeanna JEFFERSON, Talia Rubio Position: [facility] RN Member Role: Primary Care Nurse Name: Vernon MACEDO, Lana Victoria Position: [facility] Physician - Primary Care Member Role: PCP Address: [address] [place] [phone]- [place] [employer]: Care Team Related Persons Name: DIOMEDES BASILIO Name: ANDREW MADDEN Insurance Providers Guarantor name: DANTE JONESNEY Health Plan Information #: 1 Payer: [employer] ADV HMO Payer Identifier: NEO Member Number: [id number] Group Number: [id number] Subscriber Identifier: [id number] Relationship to Subscriber: self Coverage Type: Medicare HMO Coverage Verification Date: [employer]O Telecom: NA Address:
--- NOTE | ~2025-03-20 | CT_ITS ---
CLINICAL HISTORY: abd pain Exam: Contrast-enhanced CT abdomen and pelvis with multiplanar reformats. Comparison: Same-day CT chest. Findings: CT abdomen: Lung bases are clear. Liver is free of focal lesions and ductal dilatation. Gallbladder appears unremarkable. Spleen appears unremarkable. Pancreas and adrenal glands appear unremarkable. Kidneys appear unremarkable. No free intraperitoneal fluid or retroperitoneal masses or adenopathy. Abdominal aorta is normal caliber with mild calcific athero sclerosis. 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 No operative complication. Bowel loops reveal no abnormal wall thickening or distention. No significant diverticular disease. The appendix is not well delineated however there is no secondary CT evidence of appendicitis. There is a minimal stranding of the subcutaneous soft tissues overlying right anterior abdominal wall (19; 302) common nonspecific although could be related to site of medication injection. CT pelvis: Uterus is surgically absent. Urinary bladder is free of gross filling defects. No pelvic masses, fluid or adenopathy. Osseous structures reveal no destructive osseous lesions. Impression: 1. No acute abnormality or CT explanation for reported history of abdominal pain. This document has been electronically signed by: Saeed Marlow MD on 03/20/2025 17:58:26
--- NOTE | ~2025-03-20 | CT_ITS ---
CLINICAL HISTORY: SOB Exam: Contrast-enhanced chest CT pulmonary angiogram with multiplanar reformats. Comparison: None. Findings: There is no evidence of pulmonary embolism or thoracic aortic dissection. No mediastinal or hilar masses or adenopathy. No pleural or pericardial effusions. Images below the diaphragms reveal no acute abnormalities. Lungs are free of focal consolidation and pulmonary parenchymal lesions. Airways are patent. No pneumothorax. Osseous structures reveal no destructive osseous lesions. Impression: 1. No pulmonary embolism, aortic dissection or acute pulmonary disease. This document has been electronically signed by: Saeed Marlow MD on 03/20/2025 17:54:01
--- NOTE | 2025-03-20 13:01 | ED_ITS ---
HPI - General Adult General Chief complaint: Dyspnea Stated complaint: dr sent her here for breathing? Time Seen by Provider: 03/20/25 15:57 Source: patient Mode of arrival: ambulatory Limitations: no limitations History of Present Illness ED Provider: Dr. Painting HPI narrative: 84-year-old female recent gastric sleeve surgery on 02/21/[address] Ayers, hypertension hypothyroidism hyperlipidemia, depression presenting to ER today for evaluation of right-sided chest pain. It is pleuritic in nature. He has been going on for the past 3 days. No trauma noted. Patient has is complaining of some burping sensation. Denies any abdominal pain denies any diarrhea. Denies any emesis or nausea patient stated that she does feel lightheaded. She has been following the protocol for her bariatric surgery. Related Data Home Medications ?Medication ?Instructions ?Recorded ?Confirmed amlodipine 10 mg tablet 10 mg PO DAILY 11/13/2402/03 Held on 02/22/25. Instructions: Resume on 02/23/25. Check your blood pressure every morning as soon as you wake up and send it to Dr. Garcia. Do no take the blood pressure medication if the blood pressure is below 120/70. Wait every day to hear back from Dr. Garcia before you take the medication. atorvastatin 10 mg tablet 10 mg PO DAILY 11/13/2402/03 Held on 02/22/25. Instructions: Resume on 03/01/25. cyclosporine 0.05 % eye drops in a 1 drp ophthalmic (e ye) BID 11/13/24 02/27/25 dropperette fluticasone propionate 50 1 spray intranasal BID 11/1302/27/25 mcg/actuation nasal spray,suspension levocetirizine 5 mg tablet 5 mg PO QPM 11/13/24 Held on 02/22/25. Instructions: Resume on 02/23/25. levothyroxine 25 mcg tablet 25 mcg PO DAILY 11/13/24 1 04/29/24 carboxymethylcellulose sodium 0.5 1 drp ophthalmic (ey e) TID PRN Dry 02/21/25 02/27/25 % eye drops (Refresh Tears) Eyes bupropion HCl 100 mg tablet 100 mg PO DAILY 02/27/25 1 04/29/24 Previous Rx's ?Medication ?Instructions ?Recorded ondansetron 4 mg disintegrating 4 mg PO Q12H nausea an d vomiting 02/13/25 tablet #20 tabs pantoprazole 40 mg tablet,delayed 40 mg PO DAILY #90 t abs 02/13/25 release nystatin 100,000 unit/mL oral 1 ml PO DAILY #60 mL suspension Allergies Allergy/AdvReac Type Severity Reaction Status Date / Time sulfamethoxazole (From Allergy Intermediate Hives Verified 03/20/25 13:12 Bactrim) trimethoprim (From Bactrim) Allergy Intermediate Hives Verified 03/20/25 13:12 budesonide (From Entocort EC) Allergy Mild lightheaded Verified 03/20/25 13:12 celecoxib Allergy Mild lightheaded Verified 03/20/25 13:12 lamotrigine Allergy Mild lightheaded Verified 03/20/25 13:12 meloxicam Allergy Mild lightheaded Verified 03/20/25 13:12 topiramate Allergy Mild lightheaded Verified 03/20/25 13:12 famotidine Allergy Unknown Unknown Verified 03/20/25 13:12 sucralfate Allergy Unknown Unknown Verified 03/20/25 13:12 citalopram AdvReac Migraine Verified 03/20/25 13:12 ondansetron AdvReac Headache Verified 02/27/25 09:50 prednisone AdvReac Palpitation Verified 02/27/25 09:50 s Review of Systems 2 Review of Systems: Pertinent review of systems as mentioned in HPI. All other system otherwise negative. [facility] Past Medical History [facility] Narrative: Medical history as mentioned in HPI Medical History (Updated 03/20/25 @ 18:31 by Babs Painting DO) BMI 33.0-33.9,adult Oral lichen planus Tremor of both hands Nephrolithiasis Migraines Sleep apnea Anxiety Hypothyroidism Hyperlipidemia Diaphragmatic hernia BMI 37.0-37.9, adult Obesity Collagenous colitis Depression GERD (gastroesophageal reflux disease) Hypertension Hyperthyroidism Ganglion cyst Surgical History (Updated 02/27/25 @ 09:50 by Liv Chacon CMA) S/P gastric sleeve procedure History of esophagogastroduodenoscopy (EGD) History of colonoscopy History of total abdominal hysterectomy History of pubovaginal sling History of right knee joint replacement Family History Family History Mother No problems noted. Father No problems noted. Social History Social History Household Members: None Housing: House Are you a primary career development consultant to a significant other at home: No Do you presently have visiting nurse or other home services: No Alcohol intake: never Comment: occasional cane for balance Patient Tobacco Use Status: Former Tobacco user Tobacco use type: Cigarette Years Smoked: 22 Advance Directives: No Advance Directives Information Provided: Yes Do you have a plan to hurt others: No Plan Physical Exam ED Exam Exam: General: Pleasant, no distress, interacting appropriately Head: Normacephalic, atraumatic ENT: oral mucosa moist, neck supple, no tracheal deviation Cardiovascular: regular rate, regular rhythm, no murmurs, rubbing, gallops Respiratory: CTAB, no wheeze, rales, rhonchi Gastrointestinal: Soft, non distended, non tender, non guarding Extremities: No limb pain or swelling, no calf tenderness Neurological: Awake and alert, no facial droop noted Skin: Warm and dry Psychiatric: Appropriate mood and thoughts Vital Signs: Vital Signs - 24 hr 03/20/25 13:10 03/20/25 15:23 03/20/25 18:29 Temperature 98.1 F 97.9 F 98 F Pulse Rate 80 62 64 Respiratory Rate 18 12 13 Blood Pressure 159/74 H 147/65 H 168/52 H Pulse Oximetry 96 95 98 Oxygen Delivery Method Room Air Room Air Room Air BMI result Body Mass Index 31.5 Course Course Course Narrative: This is a rapid medical exam performed by Tonya Martel NP: Additional HPI, ROS, PE not included below will be deferred to primary provider. Patient is a 84y/o F referred to the ED from bariatrics for evaluation of chest pain and dyspnea which started 3 days ago, right sided. Dr. Deleon requesting CT chest and abdomen with IV contrast only, does not need PO. S/P diaphragmatic hernia repair on 02/21/25. Plan: labs to start Medications Administered Discontinued Medications Generic Name Dose Route Start Last Admin Trade Name Freq PRN Reason Stop Dose Admin Sodium Chloride 500 mls @ 500 mls/hr 03/20/25 16:15 03/20/25 18:27 Ns IV 03/20/25 17:14 Infused .Q1H VON Infusion Iohexol 100 ml 03/20/25 17:05 03/20/25 17:06 Iohexol 350 Mg/Ml 100 Ml Infus..Btl IV 03/20/25 17:06 85 ml ONCE ONE Administration Medical Decision Making Medical Decision Making [facility] Narrative: 84-year-old female presented hospital today for evaluation of pleuritic chest pain for the past 3 days. Recent gastric sleeve surgery in 02/21/2025. Patient was sent in by bariatric doctor for PE evaluation. They would like us to obtain PE study for CAT scan and abdomen. This will be ordered. Cardiac workup will be obtained as well. Review patient's EKG. No sign of STEMI. Troponins negative. Patient does have elevated BUN to creatinine ratio likely indicative of dehydration. We will plan to give patient 500 cc IV fluid. Pending CT imaging at this time. Patient is not hypoxic not tachycardic at this time. Vital signs stable. CTA of the chest did not show any signs of pulmonary embolism. No acute intra- abdominal pathologies in the abdomen. Patient will be discharged at this time. Troponins negative. Differential Diagnosis Differential Diagnoses: The differential diagnosis associated with the presentation includes Pleurisy, costochondritis, PE, Lab Data [facility] Lab Attestation statement: I reviewed the patient's lab results. 03/20/25 13:43 03/20/25 13:43 Labs: Lab Results 03/20/25 03/20/25 Range/Units 13:43 15:32 WBC 5.1 (4.8-10.8) X10*3/uL RBC 4.79 (4.20-5.50) X10*6/uL Hgb 13.9 (12.0-16.0) g/dl Hct 42.6 (37.0-47.0) % MCV 88.9 (80.0-98.0) fL MCH 29.0 (27.0-33.0) pg MCHC 32.6 (31.0-35.0) g/dl RDW 15.4 (11.0-16.0) % Plt Count 171 (160-400) X10*3/uL MPV 11.8 (9.4-12.3) fL Immature Gran % (Auto) 0.2 (0.0-0.4) % Neut % (Auto) 57.2 (45-73) % Lymph % (Auto) 28.5 (20-40) % Guadalupe % (Auto) 9.8 (2-11) % Eos % (Auto) 3.1 (0-4) % Baso % (Auto) 1.2 (0-2) % Lymph # (Auto) 1.5 (1.2-4.9) X10*3/uL Gu[place]upe # (Auto) 0.5 (0.1-1.2) X10*3/uL Eos # (Auto) 0.2 (0.0-0.4) X10*3/uL Baso # (Auto) 0.1 (0.0-0.2) X10*3/uL Abs Immat Gran (auto) 0.01 (0.00-0.03) X10*3/uL Absolute Neuts (auto) 2.9 (2.0-8.3) x10*3/uL Absolute Nucleated RBC 0.000 (0.0-0.012) X10*3/uL Nucleated RBC % (auto) 0.0 (0.0-0.2) /100WBC PT 13.8 H (11.2-13.5) SEC INR 1.1 (0.9-1.1) Sodium 141 (135-145) mmol/L Potassium 4.2 (3.3-5.1) mmol/L Chloride 107 (96-108) mmol/L Carbon Dioxide 26 (22-29) mmol/L Anion Gap 12 (12-20) BUN 24 H (9-16) mg/dL Creatinine 0.65 (0.5-1.4) mg/dL Estim Creat Clear Calc 69.6 Estimated GFR > 60 Random Glucose 98 (60-115) mg/dL Calcium 9.8 D (8.4-10.2) mg/dL Total Bilirubin 0.3 (0.0-1.0) mg/dL AST 25 (5-31) U/L ALT 22 (0-31) U/L Alkaline Phosphatase 86 (39-117) U/L Troponin I High Sens 3.3 (<3.5-17.0) ng/L Total Protein 6.3 L (6.5-8.0) g/dL Albumin 4.0 (3.5-5.0) g/dL Influenza Type A (PCR) NEGATIVE (Negative) Influenza Type B (PCR) NEGATIVE (Negative) RSV RNA Qual (PCR) NEGATIVE (Negative) SARS-CoV-2 RNA (RT-PCR) NEGATIVE (Negative) Independent Interpretation I performed an independent interpretation of an: CT Scan Radiology Impression Discussion of test interpretation with radiology: I have reviewed the radiologist's reading. Discharge Plan Discharge Clinical Impression: Atypical chest pain Patient Disposition: Home, Self-Care Additional Instructions: Take tylenol 1000 mg every 8 hours. Follow up with primary care doctor. No signs of pulmonary embolism on CT imaging. Prescriptions: No Action nystatin 100,000 unit/mL suspension 1 ml PO DAILY Qty: 60 0RF Rx Instructions: swish and swallow atorvastatin 10 mg tablet 10 mg PO DAILY levothyroxine 25 mcg tablet 25 mcg PO DAILY amlodipine 10 mg tablet 10 mg PO DAILY fluticasone propionate 50 mcg/actuation spray,suspension 1 spray intranasal BID cyclosporine 0.05 % dropperette 1 drp ophthalmic (eye) BID levocetirizine 5 mg tablet 5 mg PO QPM bupropion HCl 100 mg tablet 100 mg PO DAILY carboxymethylcellulose sodium [Refresh Tears] 0.5 % Drops 1 drp OPHTHALMIC (EYE) TID PRN (Reason: Dry Eyes) pantoprazole 40 mg tablet,delayed release (DR/EC) 40 mg PO DAILY Qty: 90 0RF ondansetron 4 mg tablet,disintegrating 4 mg PO Q12H Qty: 20 0RF Rx Instructions: Only take one every 12 hours as needed if you have nausea Print Language: Telugu
--- NOTE | 2025-03-20 13:03 | ECG_ITS ---
Test Reason : sob Blood Pressure : */* mmHG Vent. Rate : 69 BPM Atrial Rate : 69 BPM P-R Int : 188 ms QRS Dur : 80 ms QT Int : 376 ms P-R-T Axes : 53 4 17 degrees QTcB Int : 402 ms Normal sinus rhythm Normal ECG When compared with ECG of 02-Jan-2025 10:41, No significant change was found Referred By: Marybeth Martel Electronically Signed By: Yair Diamond
[2025-03-20 13:10] VITALS: BP 159/74; PULSE 80; RESP 18; TEMP 36.7; O2SAT 96; BMI 31.5
[2025-03-20 13:48] LABS: MANUAL DIFF FLAG NO
[2025-03-20 13:50] LABS: Hematocrit 42.6 % (37.0-47.0); Hemoglobin 13.9 g/dl (12.0-16.0); Imm Gran Abs Auto 0.01 X10*3/uL (0.00-0.03); Imm Gran Pct Auto 0.2 % (0.0-0.4); Lymphocytes Absolute Auto 1.5 X10*3/uL (1.2-4.9); Mean Corpuscular HGB Conc 32.6 g/dl (31.0-35.0); Mean Corpuscular Hemoglobin 29.0 pg (27.0-33.0); Mean Corpuscular Volume 88.9 fL (80.0-98.0); NRBC Abs Auto 0.000 X10*3/uL (0.0-0.012); NRBC Pct Auto 0.0 /100WBC (0.0-0.2); Platelet Count 171 X10*3/uL (160-400); Red Blood Count 4.79 X10*6/uL (4.20-5.50); White Blood Count 5.1 X10*3/uL (4.8-10.8)
[2025-03-20 13:54] LABS: INTERNATIONAL NORM RATIO 1.1 (0.9-1.1); Prothrombin Time 13.8 SEC (11.2-13.5)
[2025-03-20 14:07] LABS: Alanine Aminotransferase 22 U/L (0-31); Albumin Level 4.0 g/dL (3.5-5.0); Alkaline Phosphatase 86 U/L (39-117); Anion Gap 12 (12-20); Aspartate Amino Transferase 25 U/L (5-31); Blood Urea Nitrogen 24 mg/dL (9-16); Calcium 9.8 mg/dL (8.4-10.2); Carbon Dioxide 26 mmol/L (22-29); Chloride 107 mmol/L (96-108); Creatinine Clr Calc Pharmacy 69.6; Estimated Glomerular Filt Rate > 60; Potassium 4.2 mmol/L (3.3-5.1); Sodium 141 mmol/L (135-145); Total Protein 6.3 g/dL (6.5-8.0)
[2025-03-20 14:15] LABS: Troponin-I High Sensitivity 3.3 ng/L (<3.5-17.0)
[2025-03-20 15:23] VITALS: BP 147/65; PULSE 62; RESP 12; TEMP 36.6; O2SAT 95
[2025-03-20 16:15] LABS: Resp Syncy Virus RNA Qual PCR NEGATIVE (Negative); SARS COV2 PCR INHOUSE NEGATIVE (Negative)
[2025-03-20] MEDS: iohexoL 350 MG/ML 100 ML INFUS..BTL IV (17:06)
[2025-03-20 18:29] VITALS: BP 168/52; PULSE 64; RESP 13; TEMP 36.6; O2SAT 98
[2025-03-20 18:45] VITALS: BP 168/52; PULSE 64; RESP 13; TEMP 36.6; O2SAT 98
--- OUTSIDE RECORDS SUMMARY | 2025-03-20 20:39 | XMS_ITS | Clinical Summary ---
Author Organization [facility] Address [address] [place] [address] Phone Care Team Providers Care Agricultural Engineer Name Role Phone Physician, No Pcp Primary [...] Comments TOTAL KNEE ARTHROPLASTY 12/20/2016 Right PROCEDURE: IL ARTHRP KNE CONDYLE&PLATU MEDIAL&LAT COMPARTMENTS TUBAL LIGATION PROCEDURE: HISTORICAL TUBAL LIGATION OTHER SURGICAL HISTORY PROCEDURE: PELVIC CONTROL PELVIC SLING HYSTERECTOMY 01/08/2009 PROCEDURE: HISTORICAL TOTAL HYSTERECTOMY WITH BSO SHOULDER SURGERY Left PROCEDURE: HISTORICAL SHOULDER SURGERY; COMMENT: arthroscopic decompression WRIST MASS EXCISION Right PROCEDURE: IL EXCISION GANGLION WRIST DORSAL/VOLAR PRIMARY; COMMENT: x3 COLONOSCOPY 08/01/2014 PROCEDURE: HISTORICAL COLONOSCOPY; COMMENT: & EGD; no report UPPER GASTROINTESTINAL ENDOSCOPY 10/11/2019 PROCEDURE: IL UPPER GI ENDOSCOPY PERFORMED; COMMENT: Dr. Hurley [...] Orientation Straight 04/19/2024 5: 46 PM EST Last Filed Vital Signs Vital Sign Reading [...] AM EDT Office Visit Bariatric Surgery - [address] [place] [address] Montez Barker MD [facility] [place] [place] [address] Health Maintenance Due Date Last [...] mmol/L LAB CHEMISTRY METHOD 04/19/2024 8:29 PM [facility] Potassium 3.8 3.5 - 5.5 mmol/L LAB CHEMISTRY METHOD 04/19/2024 8:29 PM [facility] Chloride 111(H) 96 - 110 mmol/L LAB CHEMISTRY METHOD 04/19/2024 8:29 PM [facility] CO2 27 21 - 32 mmol/L LAB CHEMISTRY METHOD 04/19/2024 8:29 PM [facility] Anion Gap 3 3 - 11 LAB CHEMISTRY METHOD 04/19/2024 8:29 PM [facility] Glucose 91 70 - 100 mg/dL LAB CHEMISTRY METHOD 04/19/2024 8:29 PM [facility] BUN 19 5 - 25 mg/dL LAB CHEMISTRY METHOD 04/19/2024 8:29 PM [facility] Creatinine 0.64 0.50 - 1.10 mg/dL LAB CHEMISTRY METHOD 04/19/2024 8:29 PM [facility] eGFR 89 >=60 mL/min/1. 73m2 LAB CHEMISTRY METHOD 04/19/2024 8:29 PM [facility] Comment:Calculation based on the Chronic Kidney Disease Epidemiology Collaboration (CKD-EPI) equation refit without adjustment for race. BUN/Creatinine Ratio 29.7 LAB CHEMISTRY METHOD 04/19/2024 8:29 PM [facility] Calcium 9.7 8.5 - 10.5 mg/dL LAB CHEMISTRY METHOD 04/19/2024 8:29 PM EST [facility] AST (SGOT) 14 10 - 42 unit/L LAB CHEMISTRY METHOD 04/19/2024 8:29 PM [facility] ALT (SGPT) 22 10 - 60 unit/L LAB CHEMISTRY METHOD 04/19/2024 8:29 PM [facility] Alkaline Phosphatase 80 42 - 121 unit/L LAB CHEMISTRY METHOD 04/19/2024 8:29 PM [facility] Total Protein 6.9 6.0 - 8.0 g/dL LAB CHEMISTRY METHOD 04/19/2024 8:29 PM [facility] Albumin 3.9 3.2 - 5.0 g/dL LAB CHEMISTRY METHOD 04/19/2024 8:29 PM [facility] Total Bilirubin 0.3 0.0 - 1.4 mg/dL LAB CHEMISTRY METHOD 04/19/2024 8:29 PM [facility] Blood Venous blood specimen / Unknown Venipuncture / Unknown 04/19/2024 7:18 PM EST 04/19/2024 7:47 PM EST [facility] BLOOD ORDERABLES Final Resul t [facility] [address] [place] [address], from Last 3 Months or Most Recently Relevant to Health Maintenance Insurance [employer] Care Teams Agricultural Engineer Relationship Specialty Start Date End Date Physician, No Pcp PCP - General 07/04/24
--- OUTSIDE RECORDS SUMMARY | 2025-03-20 20:39 | XMS_ITS | Patient Health Record ---
Author Organization [facility] Address [address] [place] [phone] Care Team Providers Care Rubber Goods Tester Water Name Role Phone Lana KWOK Primary Care Provider Willem Gatica Unavailable [phone] Camelia MACEDO, Marcio Unavailable Unavailable Allergies Allergen [...] (Not yet reviewed by provider) Interpretation: Performing Lab:[facility], [address] [place] [phone] Notes/Report: Reason For Referral No Information Medications [...] Status Risk Notes Problem Gastroesophageal reflux disease (320965806) GERD (gastroesopha geal reflux disease) (K21.9) Active confirmed Problem Globus sensation (402097227) Globus sensation (R09.89) Active confirmed Vital Signs Temperature 96.9 degrees Fahrenheit 08/29/2024 Blood pressure diastolic 01 mm Hg 08/29/2024 Height 5 ft 4 in in 08/29/2024 Blood pressure systolic 001 mm Hg 08/29/2024 Weight 208.8 lbs 08/29/2024 BMI 35.84 kg/m2 08/29/2024 Procedures Procedure Date Ordered Date Performed Result Body Sit e UPPER GI ENDOSCOPY 08/29/2024 N/A Encounters Encounter Location Date Provider Diagnosis [facility] Outpatient [address] [place] [id number] 11/14/2024 Willem Pang [facility] [address] [place] [phone] 05/02/2024 Willem Pang Globus sensation R09.89 and GERD (gastroesophageal reflux disease) K21.9 [facility] [address] [place] [phone] 08/29/2024 Willem Pang Globus sensation R09.89 and GERD (gastroesophageal reflux disease) K21.9 [facility] [address] [place] [phone] 05/01/2024 Willem Pang [facility] [address] [place] [phone] 08/15/2024 Willem Pang [facility] [address] [place] [phone] 11/11/2024 Willem Pang [facility] [address] [phone] 11/12/2024 Willem Pang Assessments Encounter Date Diagnosis [...] advise me that she is leaving to [place] in the next week or 2 for a one-month vacation. I did advise her to try to touch base with you prior to leaving to see if any treatment or testing can get done that might help her feel better while in [place]. I did advise Dante to contact me [...] advise me that she is leaving to [place] in the next week or 2 for a one-month vacation. I did advise her to try to touch base with you prior to leaving to see if any treatment or testing can get done that might help her feel better while in [place]. I did advise Dante to contact me [...] fact that things were much better in [place] and this points to either some type of environmental factor in her home or the air in the [facility]. The other possibility would be that of some stress. I did advise her to try to make an appointment with the custom motorcycle painter such that they can review things with [...] fact that things were much better in [place] and this points to either some type of environmental factor in her home or the air [place]. The other possibility would be that of some stress. I did advise her to try to make an appointment with the custom motorcycle painter such that they can review things with [...] I would recommend a consult with a Technology Program Manager if this persists. Overall, Dante appears quite [...] advise me that she is leaving to [place] in the next week or 2 for a one-month vacation. I did advise her to try to touch base with you prior to leaving to see if any treatment or testing can get done that might help her feel better while in [place]. I did advise Dante to contact me [...] Insured Coverage Start Date Coverage End Date [facility] [address] [place] [phone] [id number] DANTE MADDEN Self - patient is the [...]
--- OUTSIDE RECORDS SUMMARY | 2025-03-20 20:39 | XMS_ITS | Continuity of Care Document ---
Author Organization [facility] Address [address] [place] [address] [place] [id number] Insurance Providers Payer Plan Claims Address Claims Phone Policy Number Group Number Relation Employer Guarantor Name Guarantor Guarantor Address Guarantor Phone DANIELLE CORTEZ [employer] [address] [address] tel:[phone] [id number] [phone] Self Viry Crump [address] [place] [id number] HEALDoug CORTEZ RUTH DESHAUN ONE [address] [address] tel:[phone] Self Viry Crump [address] [place] [id number] HNE SELF FUNDE D ONE [facility], [address] [address] tel:[phone] Self Viry Crump [address] [place] [id number] Problems Unknown Problems Results Test Result Date/Time Value / Unit Interp. Refere [facility] Range fax.pdf Lipid Panel[[id number]] Collected: 07/20/2024 02:47 PM Specimen Received: 07/20/2024 05:00 AM Source: [facility] Cholesterol, Total [[id number]] 07/21/2024 07:31 AM 260 mg/dL H 100-199 mg/d L Triglycerides [[id number]] 07/21/2024 07:32 AM 107 mg/dL 0-149 mg/dL HDL Cholesterol [[id number]] 07/21/2024 07:28 AM 62 mg/dL >39 mg/dL VLDL Cholesterol Wing [[id number]] 07/21/2024 07:32 AM 19 mg/dL 5-40 mg/dL LDL Chol Calc ([facility]) [[id number]] 07/21/2024 07:32 AM 179 mg/dL H 0-99 mg/dL Hemoglobin A1c[[id number]] Collected: 07/20/2024 02:47 PM Specimen Received: 07/20/2024 05:00 AM Source: [facility] Hemoglobin A1c [[id number]] 07/21/2024 02:57 AM 6.1 % H 4.8-5.6 % . Prediabetes: 5.7 - 6.4 Marielena betes: >6.4 Glycemic control for adults with diabetes: 7.0 Comp. Metabolic Panel (14)[[id number]] Collected: 02/17/2024 10:39 PM Specimen Received: 02/17/2024 05:00 AM Source: [facility] Glucose [[id number]] 02/18/2024 09:34 AM 103 mg/dL H 70-99 mg/dL BUN [[id number]] 02/18/2024 09:34 AM 29 mg/dL H 8-2 7 mg/dL Creatinine [[id number]] 02/18/2024 09:35 AM 0.67 mg/dL 0.57-1.00 mg/dL eGFR [[id number]] 02/18/2024 09:35 AM 88 mL/min/1.73 >59 mL/min/1.73 BUN/Creatinine Ratio [[id number]] 02/18/2024 09:35 AM 43 H 12-28 Sodium [[id number]] 02/18/2024 09:26 AM 142 mmol/L 134-144 mmol/L Potassium [[id number]] 02/18/2024 09:29 AM 4.4 mmol/L 3.5-5.2 mmol/L Chloride [059180] 02/18/2024 09:25 AM 105 mmol/L 96-106 mmol/L Carbon Dioxide, Total [[id number]] 02/18/2024 09:31 AM 20 mmol/L 20-29 mmol/L Calcium [[id number]] 02/18/2024 09:32 AM 9.6 mg/dL 8.7-10.3 mg/dL Protein, Total [[id number]] 02/18/2024 09:34 AM 7.1 g/dL 6.0-8.5 g/dL Albumin [485194] 02/18/2024 09:31 AM 4.4 g/dL 3.7-4.7 g/dL Globulin, Total [[id number]] 02/18/2024 09:34 AM 2.7 g/dL 1.5-4.5 g/dL Bilirubin, Total [[id number]] 02/18/2024 09:31 AM 0.2 mg/dL 0.0-1.2 mg/dL Alkaline Phosphatase [891251] 02/18/2024 09:31 AM 112 IU/L 44-121 IU/L AST (SGOT) [[id number]] 02/18/2024 09:34 AM 19 IU/L 0-40 IU/L ALT (SGPT) [205596] 02/18/2024 09:34 AM 16 IU/L 0-32 IU/L Lipid Panel[[id number]] Collected: 02/17/2024 10:39 PM Specimen Received: 02/17/2024 05:00 AM Source: [facility] Cholesterol, Total [[id number]] 02/18/2024 09:41 AM 258 mg/dL H 100-199 mg/d L Triglycerides [[id number]] 02/18/2024 09:41 AM 128 mg/dL 0-149 mg/dL HDL Cholesterol [214754] 02/18/2024 09:39 AM 67 mg/dL >39 mg/dL VLDL Cholesterol Wing [[id number]] 02/18/2024 09:41 AM 23 mg/dL 5-40 mg/dL LDL Chol Calc ([facility]) [[id number]] 02/18/2024 09:41 AM 168 mg/dL H 0-99 mg/dL Hemoglobin A1c[[id number]] Collected: 02/17/2024 10:39 PM Specimen Received: 02/17/2024 05:00 AM Source: [facility] Hemoglobin A1c [[id number]] 02/18/2024 10:23 AM 6.0 % H 4.8-5.6 % . Prediabetes: 5.7 - 6.4 Marielena betes: >6.4 Glycemic control for adults with diabetes: 7.0 Allergies, adverse reactions, alerts No known allergies and adverse reactions Medications No administered medications reported Vital Signs No vital signs reported Social History No smoking Hx information available
== END 2025-03-20 18:50 | disposition home or self-care (01) ==
PROVIDERS: Physician Assistant Medical; Registered Nurse Emergency; Emergency Provider Student in an Organized Health Care Education/Training Program
DX: R07.89 Other chest pain (principal); R06.02 Shortness of breath; R11.0 Nausea; R10.23 Pelvic and perineal pain bilateral; Z98.84 Bariatric surgery status; Z03.818 Encounter for observation for suspected exposure to other biological agents ruled out; Z79.899 Other long term (current) drug therapy; Z87.891 Personal history of nicotine dependence
CPT/HCPCS: 36415; 71275; 74177; 80053; 84484; 85025; 85610; 87637; 93005; 96360; 96361; 99285; Q9967

== ENCOUNTER → 2025-03-20 13:03 | Outpatient (BNV) | payer MEDICARE, SELFPAY | PROVIDERS: Emergency Provider Student in an Organized Health Care Education/Training Program; Visit Provider Internal Medicine Cardiovascular Disease | DX: R06.02 Shortness of breath (principal) | CPT/HCPCS: 93010 ==

== ENCOUNTER → 2025-03-20 15:27 | Outpatient (BNV) | payer MEDICARE, SELFPAY | PROVIDERS: Emergency Provider Student in an Organized Health Care Education/Training Program; Visit Provider Radiology Diagnostic Radiology | DX: R10.9 Unspecified abdominal pain (principal); R06.02 Shortness of breath | CPT/HCPCS: 71275; 74177 ==